=== PATIENT | female | born 1940 | race Caucasian/White ===

== ENCOUNTER → 2017-11-13 12:06 | Outpatient (CLI) | payer MEDICARE, SELFPAY ==
[2017-11-13 12:47] LABS: Basophils # 0.1 K/mm3 (0-0.2); Basophils % 0.9 % (0.1-2.0); Eosinophils # 0.1 K/mm3 (0.0-0.4); Hematocrit 41.7 % (37.0-47.0); Hemoglobin 12.9 g/dL (12.2-16.2); Lymphocytes # 1.7 K/mm3 (0.7-4.5); Mean Corpuscular Hemoglobin 28.4 pg (27.0-31.2); Mean Corpuscular Volume 91.7 fl (81-99); Mean Platelet Volume 7.2 fl (7.4-10.4); Monocytes # 0.5 K/mm3 (0.1-1.0); Neutrophils # 6.7 K/mm3 (1.8-7.8); Neutrophils % 73.1 % (37.0-80.0); Platelet Count 254 K/mm3 (142-424); Red Blood Count 4.55 M/mm3 (4.20-5.40); Red Cell Distribution Width 15.6 % (11.5-17.5); White Blood Count 9.1 K/mm3 (4.8-10.8)
== END ==
PROVIDERS: Family Provider Family Medicine; PCP Family Medicine; Visit Provider Internal Medicine Cardiovascular Disease
DX: R60.9 Edema, unspecified (principal)
CPT/HCPCS: 85025

== ENCOUNTER → 2017-11-19 16:14 | Outpatient (CLI) | payer MEDICARE, SELFPAY ==
--- NOTE | 2017-11-19 16:29 | MM_ITS ---
MM Dig screening mamm BI w/CAD CAD Screening ORDERING PHYSICIAN : Parvez Kyle MD PATIENT AGE: 77 years GENDER: Female COMPARISON: Previous mammograms: 20 INDICATION: Previous lumpectomy for malignancy right breast. No hormones no new complaints. Sibling sister with breast cancer. Also niece with breast cancer Patient was very difficult to position imaging done in a wheelchair with to technologist required to position. Patient notes she was able to stand last year but cannot stand this year. TECHNIQUE: Standard CC and MLO images were obtained. R2 CAD reviewed. RIGHT BREAST:Postlumpectomy changes right breast with prominent residual scarring and architectural distortion. Numerous vascular clips. There is been progression of overall density and findings here since 2011 however. September 2016 at 2015 study. At the deep medial right breast there is a area of minimal density seen evident at the posterior margin of the both cc view obtained today. These are more medially oriented cc views and previous study which likely accounts for this area of density becoming slightly more apparent. I believe it is likely been partially visualized and similar to studies dating back to 2013 2014; but since it is more evident on today's cc view, to be cautious I would suggest patient return for 6 month follow-up to include medial oriented cc view LEFT BREAST On the left breast appears unchanged follow-up in one year the adequate here. Asymmetric breast with Moderate residual fibroglandular elements left breast appears stable IMPRESSION: 1. Prominent architectural distortion from previous lumpectomy deep RIGHT breast. . This area stable 2. Today's cc views Right Breast including deeper portion of the medial right breast , shows slight additional additional likely glandular density at the margin of the film at medial breast.. I believe this is most likely stable, but would suggest a follow-up right mammogram with medial oriented view 6 months confirm stability . (Would also note patient was in wheelchair today & could not stand for today's images which made positioning more difficult & likely resulted in the more medial oriented cc view) 3. LEFT breast unchanged follow-up one year on left BI-RADS Category: 3 Benign Finding Short Term Follow-up Right Breast RECOMMENDED FOLLOW-UP: 6M - 6 MONTH FOLLOW-UP 6 month follow-up RIGHT BREAST including medial oriented cc view (A letter has been sent to the patient regarding results of the study.)
== END ==
PROVIDERS: Family Provider Family Medicine; PCP Family Medicine; Visit Provider Family Medicine
DX: Z12.31 Encounter for screening mammogram for malignant neoplasm of breast (principal)
CPT/HCPCS: 77067

== ENCOUNTER → 2017-11-26 14:13 | Outpatient (CLI) | payer MEDICARE, SELFPAY ==
--- NOTE | 2017-11-26 14:22 | XR_ITS ---
XR tibia fibula RT 2V CLINICAL INDICATION: ITS.REASON: PAIN IN RT BENITO ORDERING PHYSICIAN: Parvez Kyle MD PATIENT AGE: 77 years COMPARISON: None FINDINGS: There are osteoarthritic changes of the medial compartment of the knee and at the patellofemoral joint. Mid and distal aspect of the tibia and fibula have an unremarkable appearance. IMPRESSION: Osteoarthritis of the knee otherwise negative
== END ==
PROVIDERS: PCP Family Medicine; Visit Provider Family Medicine
DX: M79.661 Pain in right lower leg (principal)
CPT/HCPCS: 73590

== ENCOUNTER → 2018-06-30 12:54 | Outpatient (CLI) | payer MEDICARE, SELFPAY ==
--- NOTE | 2018-06-30 13:00 | MM_ITS ---
MM Dig mamm DX unilat RT CAD Ordering Physician: Parvez Kyle MD Patient Age: 78 years Female COMPARISON: November 2017 bilateral mammogram INDICATION: Right breast cancer with lumpectomy and radiation. TECHNIQUE: CC, axillary cc, medial cc. MLO view. FINDINGS: Post biopsy density again deep central breast t towards 12:00. Is again noted to be stable Stable Area previously questioned at the medial breast November 2017 again observed but it seems to dissipate more so on today's study. Again evident. The medial right breast which is not imaged as well on multiple old studies and better imaged on this study bilateral follow-up in 6 months to resume annual scheduled IMPRESSION: ...... Stable right mammogram. No significant new findings. Area of density deep medial right breast is stable & less concern.... As it seems to dissipates more so on today's medial cc views. Follow-up bilateral mammogram 6 months to resume meal schedule BI-RADS Category: 3 Probably Benign Finding Short Term Follow-up RECOMMENDED FOLLOW-UP: 6M 6 MONTH FOLLOW-UP A letter has been sent to the patient regarding results of the study.)
== END ==
PROVIDERS: Family Provider Family Medicine; PCP Family Medicine; Visit Provider Family Medicine
DX: R92.8 Other abnormal and inconclusive findings on diagnostic imaging of breast (principal)
CPT/HCPCS: 77065

== ENCOUNTER → 2018-12-22 15:37 | Outpatient (CLI) | payer MEDICARE, SELFPAY ==
--- NOTE | 2018-12-22 15:46 | MM_ITS ---
MM Dig screening mamm BI w/CAD ORDERING PHYSICIAN : Parvez Kyle MD PATIENT AGE: 78 years GENDER: Female COMPARISON: Bilateral mammogram. Were 2017, July 2016, April 2015. Right mammogram June 2018. INDICATION: Routine SCREENING. No hormones no new complaints Previous right lumpectomy Family history. Sister with breast cancer as well at kidneys. TECHNIQUE: Difficult to perform in position patient done in wheelchair, requiring to technologist Standard CC and MLO images were obtained. R2 CAD reviewed included. .. Additional axillary cc views bilaterally as well as additional left MLO view to include IMF. FINDINGS: Similar pattern to multiple previous studies. Moderate density Heterogeneous breast with lumpectomy changes on right RIGHT BREAST: Previous right lumpectomy and radiation with stable appearance to the residual postsurgical site of residual density and architecture distortion and been seen on studies dating back to 2012, 2011. No additional new findings LEFT BREAST:The left breast appears stable. Slight heterogeneous character again noted. 2 Clips from previous stereotactic biopsy again noted one at the anterior retroareolar region and another at the deep lateral breast. No new areas of concern on the left. Vascular calcifications. Mole markers. IMPRESSION: Stable bilateral mammogram No significant interval change. Follow-up in one year recommended The lumpectomy & postsurgical changes on right again noted, appears stable since prior studies. BI-RADS Category: 2 Benign Finding(s) RECOMMENDED FOLLOW-UP: 1YR 1 YEAR FOLLOW-UP (A letter has been sent to the patient regarding results of the study.)
== END ==
PROVIDERS: PCP Family Medicine; Visit Provider Family Medicine
DX: Z12.31 Encounter for screening mammogram for malignant neoplasm of breast (principal)
CPT/HCPCS: 77067

== ENCOUNTER → 2019-04-06 12:52 | Outpatient (CLI) | payer MEDICARE, SELFPAY ==
--- NOTE | 2019-04-06 12:58 | XR_ITS ---
XR knee RT 4V HISTORY: ITS.REASON: right knee pain ORDERING PHYSICIAN: Lissy Hughes MD PATIENT AGE: 79 years COMPARISON: 05/27/2017. FINDINGS: No fracture or dislocation. No lytic or blastic change. Normal mineralization. The severe narrowing of the medial joint compartment and patellofemoral joint with associated marginal spurs appear stable. There is no acute fracture or joint effusion. No other significant findings IMPRESSION: Stable osteoarthritis.
== END ==
PROVIDERS: PCP Family Medicine; Visit Provider Orthopaedic Surgery
DX: M25.561 Pain in right knee (principal)
CPT/HCPCS: 73564

== ENCOUNTER → 2019-04-18 10:38 | Outpatient (CLI) | payer MEDICARE, SELFPAY ==
--- NOTE | 2019-04-18 10:42 | US_ITS ---
US transvaginal HISTORY: ITS.REASON: US T/V- Post menopausal bleeding ORDERING PHYSICIAN: Prudence Dotson MD PATIENT AGE: 79 years Comparison: None FINDINGS: The uterus is 7 x 5 x 7 cm with a combined endometrial thickness of 6 mm. Nabothian cysts are present. Within the central aspect of the uterus just slightly anterior to the endometrial stripe there is a circular area of increased echogenicity with a small central lucency. Unknown clinical significance. Combined endometrial thickness is 6 mm Right ovary is 2.5 x 2 cm. Left ovary is 2.2 x 2 cm. IMPRESSION: 1. There is a small circular area of increased echogenicity just anterior to the endometrial stripe which measures 7 x 5 mm. Etiology is indeterminate 2. Endometrium is slightly thickened at 6 mm 3. Otherwise negative
== END ==
PROVIDERS: PCP Family Medicine; Visit Provider Obstetrics & Gynecology
DX: N95.0 Postmenopausal bleeding (principal)
CPT/HCPCS: 76830

== ENCOUNTER → 2019-10-13 16:27 | Outpatient (CLI) | payer MEDICARE, SELFPAY ==
--- NOTE | 2019-10-13 | XR_ITS ---
PROCEDURE: XR KNEE LT 3V CLINICAL INDICATION: BILATERAL KNEE PAIN COMPARISON: KNEE3L KNEE-3 VIEWS-LT from 04/26/2014 KNEE3R KNEE-3 VIEWS-RT from 05/27/2017 KNEE3L KNEE-3 VIEWS-LT from 08/05/2017 KNEE3L KNEE-3 VIEWS-LT from 08/16/2017 FINDINGS: No fracture or dislocation. No lytic or blastic change. There is normal mineralization. There are tricompartmental osteoarthritic changes most severe at the medial compartment moderate to severe osteoarthritic changes are present at the lateral compartment and patellofemoral joint. The osteoarthritis at the patellofemoral joint appears slightly worse compared to the previous exam. Other findings:None. IMPRESSION: Severe osteoarthritic change which is slightly worse at the patellofemoral joint compared to the previous exam Dictated by: Remy Bellamy MD 10/13/2019 19:53 Electronically signed by Remy Bellamy MD in [place] 10/13/2019 19:53
--- NOTE | 2019-10-13 | XR_ITS ---
PROCEDURE: XR CHEST 2V CLINICAL HISTORY: SHORTNESS OF BREATH; BILATERAL KNEE PAIN COMPARISON: CXR CHEST(2 VIEWS-NOT PORTABLE) from 04/10/2017 CXR CHEST(2 VIEWS-NOT PORTABLE) from 05/27/2017 CXR1 CHEST-PORTABLE from 08/05/2017 FINDINGS: There is cardiomegaly without failure. There is increased density in the right lung base which may be due to an area of atelectasis or infiltrate. There are trace bilateral effusions. Postsurgical changes right shoulder. Old left clavicular fracture IMPRESSION: Cardiomegaly with atelectasis or infiltrate in the right lung base medially with trace bilateral effusions Dictated by: Remy Bellamy MD 10/13/2019 19:55 Electronically signed by Remy Bellamy MD in [place] 10/13/2019 19:55
--- NOTE | 2019-10-13 | XR_ITS ---
PROCEDURE: XR KNEE RT 3V CLINICAL INDICATION: Knee pain COMPARISON: KNEE3L KNEE-3 VIEWS-LT from 04/26/2014 KNEE3R KNEE-3 VIEWS-RT from 05/27/2017 KNEE3L KNEE-3 VIEWS-LT from 08/05/2017 KNEE3L KNEE-3 VIEWS-LT from 08/16/2017 FINDINGS: No fracture or dislocation. No lytic or blastic change. There is normal mineralization. There are severe osteoarthritic changes of the medial compartment the and moderate osteoarthritic change of the patellofemoral joint and lateral compartment. There is a small area of calcification at the medial aspect of the lateral compartment and could be due to an osteophyte or loose body. Other findings:None. IMPRESSION: Osteoarthritis most severe at the medial compartment with small osteophyte or loose body at the lateral compartment. Overall no significant change from 08/16/2017 Dictated by: Remy Bellamy MD 10/13/2019 19:51 Electronically signed by Remy Bellamy MD in [place] 10/13/2019 19:51
== END ==
PROVIDERS: PCP Nurse Practitioner; Visit Provider Nurse Practitioner
DX: R06.02 Shortness of breath (principal); M25.562 Pain in left knee; M25.561 Pain in right knee
CPT/HCPCS: 71046; 73562

== ENCOUNTER → 2019-10-19 12:35 | Outpatient (CLI) | payer MEDICARE, SELFPAY ==
[2019-10-19 15:18] LABS: Anion Gap 14.1 mEq/L (5-15); Blood Urea Nitrogen 17 mg/dL (7-18); Calcium 8.9 mg/dL (8.5-10.1); Carbon Dioxide 31 mmol/L (21.0-32.0); Chloride 99 mmol/L (98-107); Creatinine,Serum 1.11 mg/dL (0.55-1.02); Estimated Glomerular Filt Rate 47 ml/min (>60); GFR (African American) 57 ML/MIN (>60); Glucose 136 mg/dL (74-106); Potassium 4.1 mmoL/L (3.5-5.1); Sodium 140 mmol/L (136-145)
== END ==
PROVIDERS: Visit Provider Urology
DX: R60.0 Localized edema; I11.9 Hypertensive heart disease without heart failure; R06.00 Dyspnea, unspecified; I48.20 Chronic atrial fibrillation, unspecified
CPT/HCPCS: 36415; 80048; 83880

== ENCOUNTER → 2019-12-16 17:48 | Outpatient (CLI) | payer MEDICARE, SELFPAY | PROVIDERS: Visit Provider Family Medicine | DX: Z87.440 Personal history of urinary (tract) infections (principal); R82.90 Unspecified abnormal findings in urine | CPT/HCPCS: 87086; 87088; 87186 ==

== ENCOUNTER → 2020-05-16 12:58 | Outpatient (CLI) | payer MEDICARE, SELFPAY ==
--- NOTE | 2020-05-16 13:11 | MM_ITS ---
PROCEDURE: MM DIG SCREENING MAMM BI W/CAD Patient Age:80Y CLINICAL INDICATION: SCREENING routine screening History of right breast malignancy with lumpectomy. No new complaints Family history: Niece and sister with breast cancer. . COMPARISON: MG DMSB DIG MAMM-SCREEN DORON from 03/18/2013 MG DMSB DIG MAMM-SCREEN DORON from 03/20/2014 MG DMSB DIG MAMM-SCREEN DORON from 05/10/2015 MG DMSB DIG MAMM-SCREEN DORON from 07/29/2016 MG SCBI MM Dig screening mamm BI w/CAD from 11/19/2017 MG DXRT MM Dig mamm DX unilat RT CAD from 06/30/2018 MG SCBI MM Dig screening mamm BI w/CAD from 12/22/2018 TECHNIQUE: Standard CC and MLO images were obtained. R2 CAD reviewed. Bilateral digital breast tomosynthesis included. Difficult to position patient in wheelchair. Two technologist required to position. And hold patient. FINDINGS: Moderate residual breast density elements The patient is confined to wheelchair and very difficult to position requiring 2 technologist acquiring the best images possible. However today's right MLO views are limited with less the deep right breast included than on previous studies. Cc views are of somewhat better but neither includes the deeper portions right breast as previous studies Right breast: Postsurgical changes again seen at the right again evident and what can be seen appear stable with no significant new features. Left breast: No new areas of concern. Heterogeneous breast tissue stable.. 2 small metallic marker from previous percutaneous biopsies left breast noted. Bilateral follow-up 1 year.. IMPRESSION: The patient's confined to wheelchair and was very difficult to position. RIGHT BREAST-no significant new findings but limited right breast exam Today's views include significant less of the deep right breast particularly on today's MLO views; however we see no new areas of significant concern at the visualized portions of right breast Old lumpectomy site right breast best visualized on today's CC view-with no appreciable change. longstanding scarring and distortion here. LEFT BREAST: No new areas of concern. Slightly limited MLO left breast as well. Less of the deep breast included Follow-up 1 year required bilateral (Would suggest that study be review by the radiologist at the time of the procedure to see to consider if any additional views or supplemental imaging may be useful on that follow-up exam) BI-RAD Category: 2 Benign Finding(s) FOLLOW-UP: 1YR 1 Year Follow-up (A letter has been sent to the patient regarding results of the study.) Dictated b Kevin Aguila MD 05/22/2020 16:42 Kevin Aguila MD in [place] 05/22/2020 16:42
== END ==
PROVIDERS: PCP Family Medicine; Visit Provider Family Medicine
DX: Z12.31 Encounter for screening mammogram for malignant neoplasm of breast (principal)
CPT/HCPCS: 77063; 77067

== ENCOUNTER → 2020-06-06 12:46 | Outpatient (CLI) | payer MEDICARE, SELFPAY ==
--- NOTE | 2020-06-06 12:47 | CA_ITS ---
APPROVED REPORT EXAM: Comprehensive 2D, Doppler, and color-flow Echocardiogram Construction Ironworker Helper: Estefania Jane RT(R) Ht: 5 ft 4 in Wt: 224lbs BSA: 2.05 BP: 129/80 mmHg Indications: obesity, edema, HTN, SOB, hyperlipidemia, AFIB. Patient was supine on back. Unable to roll on side. limited windows. 2D Dimensions LVOT 2.17 cm (M/F) 1.5-2.5 M-Mode Dimensions RVDd 2.42 cm (0.9-2.6) LVDd 4.84 cm (3.5-5.7) LVDs 3.40 cm (3.5-5.7) IVSd 0.98 cm (0.6-1.1) PWd 1.23 cm (0.6-1.1) EF (Teich) 56.80% FS 29.80% EDV (Teich) 109.60 mL ESV (Teich) 47.40 mL LV Diastology E/A Ratio 2.64 Mitral Valve MV A Velocity 40.00 (40-130 cm/s) Left Ventricle Left atrium is mildly enlarged, left ventricle is normal size, mild concentric left ventricular hypertrophy, visually estimated ejection fraction 55% with no regional wall motion abnormality. Diastolic parameters are inconclusive. Endocardial surfaces are poorly visualized. Right Ventricle Right atrium and right ventricle are mildly enlarged with normal contractility. Aortic Valve Aortic valve is minimally thickened and fibrosed, there is no aortic stenosis or aortic insufficiency. Mitral Valve Mitral valve leaflets are minimally thickened, there is no mitral stenosis, there is mild mitral regurgitation. Tricuspid Valve Tricuspid valve is grossly normal, there is mild tricuspid regurgitation, tricuspid regurgitation jet velocity is inadequate for calculation of the right ventricular systolic pressure. Pulmonic Valve Pulmonic valve is poorly visualized. Great Vessels Aortic root is normal size. Pericardium No significant pericardial effusion noted. Conclusion 1. Mild biatrial enlargement, normal left ventricular size, mild concentric left ventricular hypertrophy, visually estimated ejection fraction of 55% with no regional wall motion abnormality, endocardial surfaces are very poorly visualized. 2. Mildly enlarged right ventricle with normal contractility. 3. Mild mitral and tricuspid regurgitation. 4. No significant pericardial effusion noted. Electronically signed by : Peter Lam, 06/07/2020 14:56:33
== END ==
PROVIDERS: PCP Family Medicine; Visit Provider Nurse Practitioner Family
DX: E66.01 Morbid (severe) obesity due to excess calories (principal); E78.2 Mixed hyperlipidemia; I11.9 Hypertensive heart disease without heart failure; R06.02 Shortness of breath; R60.1 Generalized edema; I48.20 Chronic atrial fibrillation, unspecified
CPT/HCPCS: 93306

== ENCOUNTER → 2021-01-16 13:26 | Outpatient (CLI) | payer MEDICARE, SELFPAY ==
[2021-01-16 13:43] LABS: Basophils # 0.1 K/mm3 (0-0.2); Basophils % 0.8 % (0.1-2.0); Eosinophils # 0.1 K/mm3 (0.0-0.4); Eosinophils % 1.1 % (0.1-12.0); Hematocrit 41.1 % (37.0-47.0); Hemoglobin 12.5 g/dL (12.2-16.2); Lymphocytes # 1.8 K/mm3 (0.7-4.5); Lymphocytes % 21.5 % (10-50); Mean Corpuscular HGB Conc 30.5 g/dL (31.8-35.4); Mean Corpuscular Hemoglobin 29.3 pg (27.0-31.2); Mean Corpuscular Volume 96.1 fl (81-99); Mean Platelet Volume 8.2 fl (7.4-10.4); Monocytes # 0.5 K/mm3 (0.1-1.0); Monocytes % 5.8 % (1.7-9.3); Neutrophils # 5.9 K/mm3 (1.8-7.8); Neutrophils % 70.8 % (37.0-80.0); Platelet Count 267 K/mm3 (142-424); Red Blood Count 4.27 M/mm3 (4.20-5.40); Red Cell Distribution Width 14.8 % (11.5-17.5); White Blood Count 8.3 K/mm3 (4.8-10.8)
== END ==
PROVIDERS: Visit Provider Urology
DX: E66.01 Morbid (severe) obesity due to excess calories (principal); E78.2 Mixed hyperlipidemia; I11.9 Hypertensive heart disease without heart failure; R06.02 Shortness of breath; R60.1 Generalized edema; Z68.36 Body mass index [BMI] 36.0-36.9, adult; I48.20 Chronic atrial fibrillation, unspecified
CPT/HCPCS: 36415; 85025

== ENCOUNTER 2021-02-14 20:37 | Emergency (ER) | payer MEDICARE, SELFPAY ==
[2021-02-14 20:55] VITALS: BP 129/50; PULSE 60; RESP 16; TEMP 36.6; O2SAT 98; BMI 36.0
--- NOTE | 2021-02-14 21:02 | XR_ITS ---
PROCEDURE INFORMATION: Exam: XR Chest Exam date and time: 02/14/2021 9:02 PM Age: 81 years old Clinical indication: Patient HX: Cough, patient immobile, cannot stand, done in wheelchair. TECHNIQUE: Imaging protocol: XR of the chest. Views: 2 views. COMPARISON: CR XR CHEST PORTABLE 12/25/2019 7:21 PM FINDINGS: Lungs: Calcified granuloma within the right midlung zone. Minimal bibasilar atelectasis. Pleural spaces: Unremarkable. No pleural effusion. No pneumothorax. Heart/Mediastinum: Cardiomegaly. Vasculature: Atherosclerotic disease of the thoracic aorta. Bones/joints: Degenerative changes of the glenohumeral and acromioclavicular joints. Mild multilevel thoracic spine degenerative disc space narrowing. Soft tissues: Soft tissue anchors in the right humeral head related to prior rotator cuff repair. Surgical clips within the right breast. IMPRESSION: No acute cardiopulmonary abnormality.
--- NOTE | 2021-02-14 21:11 | HMH.EDUTC ---
[facility] [place] Disposition Clinical Impression: Epistaxis Disposition: Home, Self-Care Condition on Discharge: Good Instructions: Nosebleed, DI for Nosebleed, Oxymetazoline Nasal [place] Additional Instructions: Use afrin if you start having a nose bleed as you was instructed by Dr Lock Return to ER if you start having a nose bleed that is not easily controlled or heavy bleeding Return if needed Call your Family Doctor and follow up if possible tomorrow for further evaluation and discuss chest xray Straight to ER if any life threatening symptoms Follow up with Dr Lock if needed Referrals: Parvez Kyle MD [Primary Care Provider] - As needed Time of Disposition: 22:02 Medical Decision Making - Tre Inquiry Pt receiving controlled substance: No Tre was queried for this patient: No Vital Signs: 02/14/21 20:55 02/14/21 21:45 Temperature 97.8 F 97.8 F Temperature Source Oral Tympanic Pulse Rate 63 Pulse Rate [Right Radial] 60 Respiratory Rate 16 16 Blood Pressure 132/59 L Blood Pressure [Right Arm] 129/50 L Blood Pressure Mean [Right Arm] 76 02 Sat by Pulse Oximetry 98 Oxygen Delivery Method Room Air Orders (Tests/Meds): ED MEDICATIONS Discontinued Medications Generic Name Dose Route Start Last Admin Trade Name Freq PRN Reason Stop Dose Admin Oxymetazoline HCl 1 ml 02/14/21 21:03 02/14/21 21:17 Oxymetazoline Nasal [place] 0.05% 15ml NS 02/14/21 21:04 2 sprays ONCE ONE Administration - Radiology Data #1 Image(s): Chest Image Reviewed: Yes I reviewed the patient's radiology image w/the ED provider No acute changes noted - Physician Consults Physician Consulted: Dr Lock Time: 21:10 Reason -: ENT Eval/Care Comment/Response: Spoke with Dr Lock and he advised that when he saw patient earlier today she had no dried blood or active Bleeding informed him that patient did not tack picker afrin advised to give one spray in each nostril Also advised that patient had told him that she coughed up small amount of blood and he had told her to follow up with PCP for CXR and may do that in the [facility] Medical Decision Narrative: Patient had no active bleeding in the [facility], patient did have dried blood noted on the outside of her nostril with small amount of blood noted in back of throat suggesting possible posterior nose bleed but no active bleeding at this moment Afrin applied in each nostril and no active bleeding in [place] [facility] HPI - General Stated complaint: reoccuring nose bleeds Time Seen by Provider: 02/14/21 21:11 Mode of Arrival: Ambulatory Source of Information: Patient Limitations: No Limitations Description of Symptoms (Recalled from Triage Doc. by RN): Nose bleeds for a few days, right side. HEENT Symptoms (Recalled from RN notes): Yes Resp Symptoms (Recalled from RN notes): No Skin Symptoms (Recalled from RN notes): No MS Symptoms (Recalled from RN notes): No Functional Status (Recalled from RN notes): na - History of Present Illness Provider Complaint: Patient son states that she has been having nose bleeds on and off for several days State that she seen Dr Lock earlier today but nose was not bleeding and he told her to get 2 sprays for her nose one to lubricate her and afrin if she started having nose bleed again States that she got the lubricating one but didnt get the afrin State that after she got home she had a couple more mild nose bleeds so the son brought her back into the [facility] to see if she could get something for the nose bleeds - Related Data Home Medications Medication Instructions Recorded Confirmed acetaminophen 500 mg tablet 500 mg PO Q6H PRN 10/19/17 02/14/21 chlordiazepoxide HCl 10 mg capsule 10 mg PO BID PRN cap 10/19/17 02/14/21 escitalopram oxalate 10 mg tablet 10 mg PO QDAY 10/19/17 02/14/21 potassium chloride 10 mEq 10 meq PO QDAY 10/19/17 02/14/21 tablet,extended release trazodone 150 mg tablet 150 mg PO QHS 10/19/17 02/14/21 cyanocobalamin (
[2021-02-14 21:45] VITALS: BP 132/59; PULSE 63; RESP 16; TEMP 36.6
== END 2021-02-14 22:15 | disposition home or self-care (01) ==
PROVIDERS: Emergency Provider Nurse Practitioner; PCP Family Medicine
DX: R04.0 Epistaxis (principal); I48.91 Unspecified atrial fibrillation; E78.5 Hyperlipidemia, unspecified; I10 Essential (primary) hypertension; Z88.0 Allergy status to penicillin; Z79.899 Other long term (current) drug therapy
CPT/HCPCS: G0463; 71046; 99202

== ENCOUNTER 2021-02-23 12:43 | Emergency (ER) | payer MEDICARE, SELFPAY ==
[2021-02-23 13:15] VITALS: BP 113/64; PULSE 64; RESP 18; TEMP 37.1; O2SAT 96; BMI 36.0
--- NOTE | 2021-02-23 13:28 | HMH.EDUTC ---
[facility] [place] Dis[place] Clinical Impression: Epistaxis Disposition: Home, Self-Care Condition on Discharge: Good Instructions: Nosebleeds (Alternative Therapy), Nosebleed, DI for Nosebleed Additional Instructions: DO not pick your nose this can start bleeding Follow up with Dr Lock on Thursday If you have a nose bleed in the future Sit up and lean forward: This will help prevent you from swallowing blood. Spit blood and saliva into a bowl. Apply pressure to your nose: Use 2 fingers to pinch your nose as you was shown in the [facility]. This will help stop the bleeding. Breathe through your mouth Apply ice: Use a cold pack or put crushed ice in a bag, cover with a towel, and place on the bridge of your nose Prevent epistaxis: Avoid nose picking and blowing your nose too hard: You can irritate or damage your nose if you pick it. Blowing your nose too hard may cause the bleeding to start again. Avoid irritants: Substances that can irritate your nose should be avoided. These include tobacco smoke and chemical sprays such as deposit clerk that contain ammonia. Use a cool mist humidifier in your home: This will add the moisture to the air and help keep your nose moist. Use nose spray that was prescribed by Dr Lock as directed Straight to ER if any life threatening symptoms Follow up with Dr Lock on Thursday at 1:00pm for removal of Rapid Rhino and further evaluation Return if needed Referrals: Parvez Kyle MD [Primary Care Provider] - As needed Luis M Lock MD [Staff Physician] - 02/25/21 1:00 pm Time of Disposition: 13:39 Medical Decision Making - Tre Inquiry Pt receiving controlled substance: No Tre was queried for this patient: No Vital Signs: 02/23/21 13:15 02/23/21 13:37 Temperature 98.7 F 98 F Temperature Source Oral Pulse Rate 61 Pulse Rate [Right] 64 Respiratory Rate 18 16 Blood Pressure 114/62 Blood Pressure [Right Arm] 113/64 Blood Pressure Mean [Right Arm] 80 Blood Pressure Source [Right Arm] Automatic Cuff Blood Pressure Position [Right Arm] Sitting 02 Sat by Pulse Oximetry 96 Orders (Tests/Meds): ED MEDICATIONS Discontinued Medications Generic Name Dose Route Start Last Admin Trade Name Freq PRN Reason Stop Dose Admin Oxymetazoline HCl 1 ml 02/23/21 13:32 02/23/21 13:36 Oxymetazoline Nasal [place] 0.05% 15ml NS 02/23/21 13:33 1 spray ONCE ONE Administration - Physician Consults Physician Consulted: Dr Lock Time: 14:21 Reason -: ENT Eval/Care Comment/Response: Spoke with Dr Lock and informed him of placement of Rapid Rhino and he advised to leave it in place and he would see her in his office on Thursday for removal and further evaluation Medical Decision Narrative: small amount of blood noted under index finger nail of right hand Patient educated to not pick her nose as this could start bleeding Patient educated to not hold head back as this could lead to swallowing blood and upsetting her stomach No active bleeding noted 1 spray of afrin in right nostril dried blood noted in right nostril Patient educated to not blow nose or clear her nasal passages as this could start the nose to bleeding again and recommended follow up with Dr Lock on Thursday and follow up with PCP and patient and family agreed Just prior to discharge bleeding from right nostril started again, applied pressure and ice and still having bleeding Dr Higgins ED physician came to [facility] and assisted with placement of Rapid Rhino to help with bleeding, Rapid Rhino was placed in cool water for 30sec and then placed along septal floor parallel to the hard palate with blue indicator past the nares and balloon inflated will monitor to make sure that bleeding is stopped and controlled prior to discharge Patient tolerated well Reassessed patient after 15min balloon still taught and firm no active bleeding noted and none seen in back of throat at this time Patient educated to follow up with Dr Lock on Thursday for removal and furth
[2021-02-23 13:37] VITALS: BP 114/62; PULSE 61; RESP 16; TEMP 36.6
--- NOTE | 2021-02-23 14:06 | PC.NURSE ---
pt states she has been havin problems with epistaxis since she was started on her blood thinner by Dr. Piper. instructed pt to give his nurse a call thursday to update them on changes since starting the new med. pt and son states they will call and follow up.
== END 2021-02-23 14:45 | disposition home or self-care (01) ==
PROVIDERS: Emergency Provider Nurse Practitioner; PCP Family Medicine
DX: R04.0 Epistaxis (principal); I48.91 Unspecified atrial fibrillation; I50.9 Heart failure, unspecified; I10 Essential (primary) hypertension; E78.5 Hyperlipidemia, unspecified; Z79.899 Other long term (current) drug therapy; Z88.0 Allergy status to penicillin
CPT/HCPCS: 30901; G0463; 99202

== ENCOUNTER → 2021-05-28 13:10 | Outpatient (CLI) | payer MEDICARE, SELFPAY ==
--- NOTE | 2021-05-28 13:26 | MM_ITS ---
PROCEDURE: MM DIG SCREENING MAMM BI W/CAD Digital Breast Tomosynthesis Included CLINICAL INDICATION: SCREENING C COMPARISON: MG DXRT MM Dig mamm DX unilat RT CAD from 06/30/2018 MG SCBI MM Dig screening mamm BI w/CAD from 12/22/2018 MG MM DIG SCREENING MAMM BI W/CAD from 05/16/2020 TECHNIQUE: Standard CC and MLO images and 3D Tomosynthesis was obtained. R2 CAD reviewed. FINDINGS: Evaluation of the breasts is very limited due to patient's inability to be properly positioned. The MLO views are very limited with inadequate breast coverage due to patient's inability to be properly position. A right MLO tomogram could not be performed as patient's chin was in the way. Postsurgical scarring with clips once again noted in the deep upper outer aspect of the right breast. Biopsy clips are present in the retroareolar region on the left and in the upper outer left breast. No malignant appearing microcalcifications or malignant-appearing mass evident. IMPRESSION: Very limited study due to patient's inability to be properly position. No evidence of malignancy with no significant change. Postsurgical scarring right breast. Please correlate with physical exam BI-RAD Category: 2 Benign Finding FOLLOW-UP: 1 YR 1 Year Follow-up (A letter has been sent to the patient regarding results of the study.) Dictated by: Remy Bellamy MD 06/07/2021 12:02 Remy Bellamy MD in [place] 06/07/2021 12:02
[2021-05-28 16:43] LABS: Chloride 94 mmol/L (98-107); Potassium 3.8 mmoL/L (3.5-5.1); Sodium 140 mmol/L (136-145)
[2021-05-28 16:45] LABS: Alanine Aminotransferase 10 U/L (12-78); Aspartate Amino Transferase 23 U/L (14-36); Blood Urea Nitrogen 12 mg/dl (7-17); Estimated Glomerular Filt Rate 53 ml/min (>60); GFR (African American) 64 ML/MIN (>60)
[2021-05-28 16:46] LABS: Albumin Level 4.2 g/dl (3.5-5.0); Albumin/Globulin Ratio 1.6 (1.1-1.8); Alkaline Phosphatase 97 U/L (38-126); Anion Gap 13.8 mEq/L (5-15); Bilirubin,Total 0.5 mg/dl (0.2-1.3); Calcium 9.1 mg/dl (8.4-10.2); Carbon Dioxide 36 mmol/L (22.0-30.0); Globulin 2.6 g/dL (1.3-3.2); Glucose 126 mg/dl (74-100); Total Protein,Serum 6.8 g/dl (6.3-8.2)
[2021-05-28 16:56] LABS: NT Pro Brain Natriuretic Pep. 1930 pg/mL (0-450)
[2021-05-28 17:17] LABS: Thyroid Stimulating Hormone 1.37 uIU/mL (0.465-4.68)
== END ==
PROVIDERS: PCP Family Medicine; Visit Provider Family Medicine
DX: Z12.31 Encounter for screening mammogram for malignant neoplasm of breast (principal); I10 Essential (primary) hypertension; R06.02 Shortness of breath
CPT/HCPCS: 77063; 77067; 80053; 83880; 84443

== ENCOUNTER 2021-06-26 16:39 | Emergency (ER) | payer MEDICARE, SELFPAY ==
[2021-06-26 16:59] VITALS: BP 122/46; PULSE 72; RESP 16; TEMP 36.6; O2SAT 96; BMI 35.9
--- NOTE | 2021-06-26 17:33 | HMH.EDUTC ---
[facility] – [place] Disposition Clinical Impression: Epistaxis Disposition: Home, Self-Care Condition on Discharge: Good Instructions: Nosebleed, DI for Nosebleed Additional Instructions: Do not remove Follow up with your Family Doctor or Dr Lock for further evaluation and removal of Rapid Rhino in the next 24-48 hours Return if needed Straight to ER if any life threatening symptoms Referrals: Parvez Kyle MD [Primary Care Provider] - As needed Luis M Lock MD [Staff Physician] - Time of Disposition: 18:22 Medical Decision Making - Tre Inquiry Pt receiving controlled substance: No Tre was queried for this patient: No Vital Signs: 06/26/21 16:59 Temperature 98 F Temperature Source Temporal Artery Scan Pulse Rate [Left] 72 Respiratory Rate 16 Blood Pressure [Right Arm] 122/46 L Blood Pressure Mean [Right Arm] 71 02 Sat by Pulse Oximetry 96 Medical Decision Narrative: Bleeding had stopped momentarily but then started back therefore discussed with patient and will place Rapid Rhino for bleeding control and have patient follow up with Family Doctor or Dr Lock Rapid Rhino placed and patient tolerated well [facility] [place] HPI - General Stated complaint: nose bleed since 1500 Time Seen by Provider: 06/26/21 17:33 Mode of Arrival: Ambulatory Source of Information: Patient Limitations: No Limitations Description of Symptoms (Recalled from Triage Doc. by RN): PT C/O A NOSE BLEED SINCE AROUND 1500. PT REPORTS USING AFRIN AT 1530 WITHOUT RELIEF. PT IS STILL BLEEDING FROM HER RIGHT NOSTRIL MINIMALLY. HEENT Symptoms (Recalled from RN notes): Yes (R NOSTRIL NOSE BLEED) Resp Symptoms (Recalled from RN notes): No Skin Symptoms (Recalled from RN notes): No MS Symptoms (Recalled from RN notes): No Functional Status (Recalled from RN notes): NA - History of Present Illness Provider Complaint: Patient states that she has history of nose bleeds but hasnt had one for awhile States that around 1500 today she started having bleeding from her right nostril again States that she used afrin like she was told too and it slowed the bleeding down but she is still having some bleeding so she came in to get it checked and get it plugged like last time if needed - Related Data Home Medications Medication Instructions Recorded Confirmed acetaminophen 500 mg tablet 500 mg PO Q6H PRN 10/19/17 04/17/21 chlordiazepoxide HCl 10 mg capsule 10 mg PO BID PRN cap 10/19/17 04/17/21 escitalopram oxalate 10 mg tablet 10 mg PO QDAY 10/19/17 04/17/21 potassium chloride 10 mEq 10 meq PO QDAY 10/19/17 04/17/21 tablet,extended release trazodone 150 mg tablet 150 mg PO QHS 10/19/17 04/17/21 cyanocobalamin (vitamin B-12) 1 tab PO DAILY 30 Days #30 04/27/18 04/17/21 1,000 mcg tablet allopurinol 100 mg tablet 100 mg PO DAILY 30 Days #30 tab 03/02/19 04/17/21 famotidine 20 mg tablet 20 mg PO DAILY 30 Days #30 tab 06/01/19 04/17/21 meloxicam 7.5 mg tablet 7.5 mg PO DAILY 30 Days #30 tab 06/01/19 04/17/21 Aspirin [Low Dose Aspirin EC] 81 mg PO DAILY 12/25/19 04/17/21 cholecalciferol (vitamin D3) 125 5,000 unit PO .twice weekly 28 11/19/20 04/17/21 mcg (5,000 unit) capsule Days #28 cap zfxxmdhp-vtjxydnvw-kgmklkqxm 3.5 3 drp OTIC ml 02/14/21 04/17/21 mg-10,000 unit/mL-1 % ear drops,susp metoprolol succinate 25 mg 25 mg PO DAILY 06/19/21 06/19/21 tablet,extended release 24 hr Previous Rx's Medication Instructions Recorded ofloxacin 0.3 % ear drops 3 drp OTIC BID #5 ml 04/08/21 atorvastatin 20 mg tablet 20 mg PO QDAY #90 tab 04/18/21 furosemide 20 mg tablet 60 mg PO DAILY #270 tab 04/18/21 diltiazem HCl 360 mg capsule,24 360 mg PO DAILY #90 cap 05/17/21 hr,extended release rivaroxaban 20 mg tablet 20 mg PO DAILY #30 tab 06/18/21 Allergies Allergy/AdvReac Type Severity Reaction Status Date / Time Penicillins [PENICILLINS] Allergy Intermediate I-RASH Verified 06/19/21 13:58 hydrocortisone Allergy Unknown I-RASH Verified 06/19/21 13:58
[2021-06-26 18:32] VITALS: BP 122/46; PULSE 72; RESP 18; TEMP 36.6; O2SAT 96
[2021-06-26 18:36] VITALS: BP 00/00; PULSE 0; RESP 0; TEMP -17.7; TEMP 0
--- NOTE | 2021-06-26 18:39 | PC.NURSE ---
RHINO ROCKET INSERTED INTO R NARE.
== END 2021-06-26 18:39 | disposition home or self-care (01) ==
PROVIDERS: Emergency Provider Nurse Practitioner; PCP Family Medicine
DX: R04.0 Epistaxis (principal); I48.0 Paroxysmal atrial fibrillation; I50.9 Heart failure, unspecified; I10 Essential (primary) hypertension; E78.5 Hyperlipidemia, unspecified; Z79.899 Other long term (current) drug therapy
CPT/HCPCS: 30901; G0463; 99202

== ENCOUNTER 2021-10-06 12:08 | Emergency (ER) | payer MEDICARE, SELFPAY ==
[2021-10-06 14:30] VITALS: BP 146/83; PULSE 73; RESP 20; TEMP 36.8; O2SAT 95; BMI 34.3
--- NOTE | 2021-10-06 15:04 | HMH.EDUTC ---
[facility] – [place] Disposition Clinical Impression: Bronchitis Disposition: Home, Self-Care Condition on Discharge: Good Instructions: Acute Bronchitis, DI for Acute Bronchitis Additional Instructions: Start antibiotic today. Be sure to complete entire prescription even if feeling better Tylenol and ibuprofen as needed for pain or fever Humidifier/vaporizer/hot steamy shower Follow-up with primary care tomorrow. Follow-up immediately in the ER of the [facility] for new or worsening symptoms or no noticeable improvement over the next 48-72 hours. Stop smoking Ayana Lao will not cause drowsiness to use at bedtime to help stop cough so that she can get some sleep Start steroids tomorrow. Helps with inflammation therefore coughing and wheezing. Follow directions on package. Prescriptions: Azithromycin [Zithromax 250mg tab] 250 mg PO DIRECTED #6 tab Prescription Printed Referrals: Parvez Kyle MD [Primary Care Provider] - Time of Disposition: 15:22 Medical Decision Making - Tre Inquiry Pt receiving controlled substance: No Vital Signs: 10/06/21 14:30 Temperature 98.3 F Temperature Source Oral Pulse Rate [Right Brachial] 73 Respiratory Rate 20 Blood Pressure [Right Arm] 146/83 H Blood Pressure Mean [Right Arm] 104 Blood Pressure Source [Right Arm] Automatic Cuff Blood Pressure Position [Right Arm] Sitting 02 Sat by Pulse Oximetry 95 Oxygen Delivery Method Room Air Orders (Tests/Meds): ORDERS Category Date Time Status Covid-19 Nasal PCR ([facility]) Routine Lab 10/06/21 14:[address] [facility] [place] HPI - General Chief complaint: Urgent Treatment Center Stated complaint: congestion, cough, Time Seen by Provider: 10/06/21 15:04 Mode of Arrival: Ambulatory Source of Information: Patient Limitations: No Limitations Description of Symptoms (Recalled from Triage Doc. by RN): PATIENT C/O COUGH AND CONGESTION SINCE YESTERDAY. RECENTLY EXPOSED TO COVID HEENT Symptoms (Recalled from RN notes): Yes Resp Symptoms (Recalled from RN notes): Yes Skin Symptoms (Recalled from RN notes): No MS Symptoms (Recalled from RN notes): No Functional Status (Recalled from RN notes): WNL - History of Present Illness Provider Complaint: 81 yr old female presents for deep cough and congestions since yesterday. has been exposed to covid. had covid 2 months ago - Related Data Home Medications Medication Instructions Recorded Confirmed acetaminophen 500 mg tablet 500 mg PO Q6H PRN 10/19/17 06/27/21 chlordiazepoxide HCl 10 mg capsule 10 mg PO BID PRN cap 10/19/17 06/27/21 escitalopram oxalate 10 mg tablet 10 mg PO QDAY 10/19/17 06/27/21 potassium chloride 10 mEq 10 meq PO QDAY 10/19/17 06/27/21 tablet,extended release trazodone 150 mg tablet 150 mg PO QHS 10/19/17 06/27/21 cyanocobalamin (vitamin B-12) 1 tab PO DAILY 30 Days #30 04/27/18 06/27/21 1,000 mcg tablet allopurinol 100 mg tablet 100 mg PO DAILY 30 Days #30 tab 03/02/19 06/27/21 famotidine 20 mg tablet 20 mg PO DAILY 30 Days #30 tab 06/01/19 06/27/21 meloxicam 7.5 mg tablet 7.5 mg PO DAILY 30 Days #30 tab 06/01/19 06/27/21 Aspirin [Low Dose Aspirin EC] 81 mg PO DAILY 12/25/19 06/27/21 cholecalciferol (vitamin D3) 125 5,000 unit PO .twice weekly 28 11/19/20 06/27/21 mcg (5,000 unit) capsule Days #28 cap iipmicfz-ufqqpyacn-aggdlmfqd 3.5 3 drp OTIC ml 02/14/21 06/27/21 mg-10,000 unit/mL-1 % ear drops,susp metoprolol succinate 25 mg 25 mg PO DAILY 06/19/21 06/27/21 tablet,extended release 24 hr metoprolol succinate 50 mg 50 mg PO DAILY tab 06/27/21 06/27/21 tablet,extended release 24 hr sulfamethoxazole 800 1 tab PO tab 06/27/21 06/27/21 mg-trimethoprim 160 mg tablet Previous Rx's Medication Instructions Recorded ofloxacin 0.3 % ear drops 3 drp OTIC BID #5 ml 04/08/21 atorvastatin 20 mg tablet 20 mg PO QDAY #90 tab 04/18/21 furosemide 20 mg tablet 60 mg PO DAILY #270 tab 04/18/21 diltiazem HCl 360 mg capsule,24 360 mg PO DAILY #90 cap 05/17/21 hr
[2021-10-06 15:17] LABS: UTC Influenza A Antigen Negative (Negative)
[2021-10-06 15:18] LABS: UTC Influenza B Antigen Negative (Negative)
[2021-10-06 15:24] VITALS: BP 146/83; PULSE 73; RESP 20; TEMP 36.8; O2SAT 95
== END 2021-10-06 15:26 | disposition home or self-care (01) ==
PROVIDERS: Emergency Provider Nurse Practitioner Family; PCP Family Medicine
DX: J20.9 Acute bronchitis, unspecified (principal); I48.0 Paroxysmal atrial fibrillation; I10 Essential (primary) hypertension; E78.5 Hyperlipidemia, unspecified; Z20.822 Contact with and (suspected) exposure to COVID-19; Z79.899 Other long term (current) drug therapy
CPT/HCPCS: G0463; 87804; 99202; C9803; U0003; U0005

== ENCOUNTER → 2022-03-20 11:32 | Outpatient (CLI) | payer MEDICARE, SELFPAY ==
--- NOTE | 2022-03-20 | CA_ITS ---
APPROVED REPORT Exam: Pharmacologic Technologist: Svetlana Stallings, Ht: 5 ft 4 in Wt: 203 lbs BSA: 1.97 m2 HR: 100 bpm BP: 110/88 mmHg Rhythm: Afib with RVR, intermittent LBBB Indications: SOA, EDEMA Medical History Medical History: HTN, Hyperlipidemia Medications: Metoprolol,,,,, Vitamin B12,,,,, Vitamin D3,,,,, Allopurinol,,,,, Atorvastatin,,,,, Escitalopram,,,,, XaRELTO,,,,, MeLOXICAM,,,,, Famotidine,,,,, DilTiazem,,,,, Trazodone,,,,, CHlordiazepoxide,,,,, Cardiac Risk Factors: HTN, Hyperlipidemia Stress Test Details Test: LEXISCAN HR Resting HR: 126 bpm Max Heart Rate (APMHR): 136.518437 bpm Max HR Achieved: 168 bpm Target HR (85% APMHR): 115.725965 bpm % of APMHR: 123.53 Recovery HR: 135 bpm BP Resting BP: 110/88 mmHg Max BP: 145/84 mmHg Recovery BP: 103.0/74.0 mmHg ECG Resting ECG: Afib with RVR, intermittent LBBB Clinical Exercise duration: 04:16 min Highest Stage Achieved: Exercise capacity: 1.0 METs Stress ECG Conclusion During lexiscan pt experinced mild stomach discomfort, mild head discomfort. Afib with RVR, intermittent LBBB. No significant ST changes. Non diagnostic lexiscan stress. Myoview images reported separately. Test Summary REST . . . . . . . Sitting REST 07:10 . . 126 . 110/ 88 . . Stage 1 01:00 . . 84 . . . . Stage 2 01:00 . . 146 . . . . Stage 3 01:00 . . 133 . . . . Stage 4 01:00 . . 129 . . . . Stage 4 01:16 . . 149 . . . Stop exercise at 04:16 RECOVERY 01:00 . . 121 . . . . RECOVERY 02:00 . . 135 . 145/ 84 . . RECOVERY 03:00 . . 111 . 145/ 84 . . RECOVERY 04:00 . . 143 . 145/ 84 . . RECOVERY 05:00 . . 126 . 145/ 84 . . RECOVERY 06:00 . . 135 . 103/ 74 . . RECOVERY 07:00 . . 139 . 103/ 74 . . RECOVERY 08:00 . . 135 . 103/ 74 . . RECOVERY 09:00 . . 120 . 103/ 73 . . RECOVERY 10:00 . . 139 . 103/ 73 . . RECOVERY 10:11 . . 146 . 103/ 73 . . Electronically signed by : Peter Lam MD 03/21/2022 11:14:57
--- NOTE | 2022-03-20 11:32 | NM_ITS ---
APPROVED REPORT Exam: Nuclear Stress Test Indication: CAD, CABG, C.P. Patient Location: Outpatient Stress Tech: Svetlana RIVAS Tech:DBERA Rush RT (R)(N)(M) Ht: 5 ft 4 in Wt: 205 lbs Bra Size: 38DD HR: 100 bpm BP: 110/88 mmHg BSA: 1.98 m2 TID: 1.04 BMI: 35.1 History: CAD, CABG, C.P. PT WAS UNABLE TO LAY ON STOMACH FOR PRONE IMAGES Procedure: Patient received a 0.4 mg of intravenous Lexiscan, resting heart rate 100 bpm, resting blood pressure 110/88 mmHg, with Lexiscan maximum heart rate achived was 133 bpm which is More than 85 % of the maximum predicted heart rate and blood pressure was 145/84 mmHg. With Lexiscan, patient denied any complaint of chest pain. Electrocardiogram Atrial fibrillation incomplete left bundle branch block, with Lexiscan there is less than 1.[address] segment depression noted from the baseline EKG. The EKG portion of the Lexiscan is nondiagnostic due to abnormal baseline EKG. Cardiac Stress and Resting SPECT Images: Cardiac Stress and Resting SPECT images were obtained using technetium 99m Myoview 30.1 mCi stress and 10.18 mCi at rest. Gated SPECT for analysis of segmental wall motion and calculation of the ejection fraction also done. Cardiac stress and rest SPECT images show uniform myocardial activity without segmental perfusion abnormality, computer derived ejection fraction is 24% with left ventricular global hypokinesis, however during study patient was in atrial fibrillation which may underestimate the ejection fraction by gated SPECT. Right ventricle is normal size and contractility. Conclusion: 1. The EKG portion of the Lexiscan is nondiagnostic. 2. No scintigraphic evidence of reversible ischemia seen, compared right ejection fraction is 24% with left ventricular global hypokinesis, however during the study patient was in atrial fibrillation which may underestimate the ejection fraction by gated SPECT. Right ventricle is normal size and contractility. 3. Abnormal Lexiscan Myoview study due to low ejection fraction. Electronically signed by : Peter Lam MD 03/21/2022 11:26:01
--- NOTE | 2022-03-20 12:34 | CA_ITS ---
APPROVED REPORT EXAM: Comprehensive 2D, Doppler, and color-flow Echocardiogram Incendiary Powder Mixer: Sujata Tejada, RCS, RVS Ht: 5 ft 4 in Wt: 204lbs BSA: 1.97 BP: 125/63 mmHg Indications: A-FIB, SAOA, PRE-OP, CHF 2D Dimensions Aortic Root 2.27 cm LA Volume 74.00 mL Left Atrium 3.93 cm LA Volume Index 37.60 mL/m2 (M/F) 16-34 LVOT 1.97 cm (M/F) 1.5-2.5 M-Mode Dimensions RVDd 1.85 cm (0.9-2.6) LA Diam 4.32 cm (1.9-4.0) LVDd 5.19 cm (3.5-5.7) Ao Diam 2.46 cm (2.0-3.7) LVDs 3.90 cm (3.5-5.7) IVSd 0.93 cm (0.6-1.1) PWd 1.05 cm (0.6-1.1) EF (Teich) 48.90% EPSs 0.81 cm FS 24.90% EDV (Teich) 128.90 mL TAPSE 1.73 (<1.7) ESV (Teich) 65.90 mL LV Diastology E Decel Time 183.00 (160-240 msec) E/A Ratio 2.17 Aortic Valve LVOT Max 74.00 (70-110 cm/s) LVOT VTI 14.97 cm AoV Peak Fabian. 129.00 (50-130 cm/s) AO Peak GR. 6.70 mmHg AO Mean GR. 3.40 (<5 mmHg) AO VTI 22.08 (18-25 cm) DARLING (VTI) 2.07 (2.5-4.5 cm2) Mitral Valve MV E Max Fabian. 110.00 (40-130 cm/s) MV A Velocity 50.00 (40-130 cm/s) E/A Ratio 2.17 MV Decel. Time 183.00 (160-240 ms) MV PHT 54.00 ms Pulmonary Valve PV Peak Velocity 52.00 (50-150 cm/s) Left Ventricle Left atrium is mildly enlarged, left ventricle is normal size, mild concentric left ventricular hypertrophy, estimated ejection fraction 50% with no regional wall motion abnormality, diastolic parameters are inconclusive. Right Ventricle Right atrium and right ventricle are mildly enlarged with normal contractility. Aortic Valve Aortic valve is minimally thickened and fibrosed there is no aortic stenosis or aortic insufficiency. Mitral Valve Mitral valve is grossly normal, there is mild mitral regurgitation. Tricuspid Valve Tricuspid valve grossly normal, there is mild tricuspid regurgitation, tricuspid regurgitation jet velocity is inadequate for calculation of the right ventricular systolic pressure. Pulmonic Valve Pulmonic valve is poorly visualized. Great Vessels Aortic root is normal size. Inferior vena cava is poorly visualized. Pericardium No significant pericardial effusion noted. Conclusion 1. Mild biatrial enlargement, normal left ventricular size, mild concentric left ventricular hypertrophy, estimated ejection fraction 50% with no regional wall motion abnormality, diastolic parameters are inconclusive. 2. Mildly enlarged right ventricle with normal contractility. 3. Mild mitral and tricuspid regurgitation. 4. No significant pericardial effusion. 5. Inferior vena cava is poorly visualized. Electronically signed by : Peter Lam MD 03/21/2022 12:38:28
== END ==
PROVIDERS: PCP Family Medicine; Visit Provider Nurse Practitioner Family
DX: E66.9 Obesity, unspecified (principal); E78.5 Hyperlipidemia, unspecified; I11.9 Hypertensive heart disease without heart failure; R06.00 Dyspnea, unspecified; R60.0 Localized edema; I48.20 Chronic atrial fibrillation, unspecified; Z68.36 Body mass index [BMI] 36.0-36.9, adult
CPT/HCPCS: 78452; 93017; 93306; A9502; J2785

== ENCOUNTER → 2022-04-09 11:39 | Outpatient (CLI) | payer MEDICARE, SELFPAY | PROVIDERS: PCP Family Medicine; Visit Provider Nurse Practitioner Family | DX: Z01.812 Encounter for preprocedural laboratory examination (principal); Z20.822 Contact with and (suspected) exposure to COVID-19 | CPT/HCPCS: C9803; U0003; U0005 ==

== ENCOUNTER → 2022-04-25 16:52 | Outpatient (CLI) | payer MEDICARE, SELFPAY | PROVIDERS: PCP Nurse Practitioner Family; Visit Provider Nurse Practitioner Family | DX: S31.40XA Unspecified open wound of vagina and vulva, initial encounter (principal); B95.7 Other staphylococcus as the cause of diseases classified elsewhere | CPT/HCPCS: 87070; 87077; 87186; 87205 ==

== ENCOUNTER 2022-06-29 13:29 | Observation (INO) | payer MEDICARE, SELFPAY ==
[2022-06-29] VITALS (12 sets, daily range): BP systolic 97–139; BP diastolic 51–94; PULSE 60–78; RESP 16–20; TEMP 36.6–36.8; O2SAT 94–99; BMI 32.8; BMI 32.5
--- NOTE | 2022-06-29 13:29 | ECG_ITS ---
APPROVED REPORT Exam: Resting ECG HR:88 bpm ECG Measurements Heart Rate 88 AXES QRSd 86 QRS -44 QT 407 T 69 QTc 453 Conclusion ATRIAL FIBRILLATION LEFT AXIS DEVIATION [QRS AXIS < -30] LOW QRS VOLTAGE Late R wave progression ABNORMAL ECG UNCONFIRMED REPORT Electronically signed by : Pedro Pablo Galicia MD 06/30/2022 15:13:57
--- NOTE | 2022-06-29 13:47 | XR_ITS ---
PROCEDURE INFORMATION: Exam: XR Chest Exam date and time: 06/29/2022 2:10 PM Age: 82 years old Clinical indication: Chest wall pain; Additional info: Chest pain TECHNIQUE: Imaging protocol: Radiologic exam of the chest. Views: 1 view. Portable AP exam 2:11 p.m. COMPARISON: CR XR CHEST 2V 02/14/2021 9:18 PM FINDINGS: Tubes, catheters and devices: Overlying pvc monitor electrodes. Lungs: Hypoventilation, the lungs are suboptimally inflated on today's exam. Chronic haziness and mild prominence of infrahilar interstitial markings, unchanged. No focal consolidation. Chronic mid right pulmonary granuloma. Pleural spaces: Unremarkable. No significant pleural effusion. No pneumothorax. Heart/Mediastinum: Chronic cardiomegaly, unchanged. Bones/joints: Surgical screws in the right humerus. There are spinal degenerative changes, with multilevel disc narrrowing and spondylosis. No definite acute fractures seen on this limited portable exam. IMPRESSION: 1. No acute findings or significant change compared with 02/14/2021. 2. Chronic cardiomegaly and infrahilar interstitial prominence. 3. No consolidation.
--- NOTE | 2022-06-29 13:49 | HMH.EDGENADL ---
Discharge Plan Disposition Patient Disposition: Admitted As Inpatient Condition: Good Clinical Impressions Clinical Impression: Chest pain Discharge ED Provider: Yordan Barrett General Adult HPI General Chief complaint: Chest Pain Stated complaint: chest burning Time Seen by Provider: 06/29/22 14:45 History of Present Illness HPI narrative: History obtained from patient and son. Patient says that she was sitting in a recliner after having eaten lunch at about noon when she developed chest pain in the sternal area which she describes as a burning or heartburn sensation. Associated with shortness of breath and felt like she was going to pass out. No nausea or diaphoresis. The pain is still present. She has a history of chronic atrial fibrillation. She also has vulvar cancer. She underwent a vulvectomy on 04/11/2022. She was told the cancer was superficial and she did not need radiation or chemotherapy. She had a stress test and an echocardiogram before her surgery. She has never had a heart cath to her knowledge. Related Data Home Medications Medication Instructions Recorded Confirmed acetaminophen 500 mg tablet 500 mg PO Q6H PRN PAIN 10/19/17 06/29/22 (Tylenol Extra Strength) chlordiazepoxide HCl 10 mg capsule 10 mg PO BID PRN UNKNOWN 10/19/17 06/29/22 escitalopram oxalate 10 mg tablet 10 mg PO QDAY Depression 10/19/17 06/29/22 potassium chloride 10 mEq 10 meq PO QDAY Supplement 10/19/17 06/29/22 tablet,extended release (Klor-Con) allopurinol 100 mg tablet 100 mg PO DAILY UNKNOWN 30 days 03/02/19 06/29/22 #30 tabs famotidine 20 mg tablet 20 mg PO DAILY GERD 30 days #30 06/01/19 06/29/22 tabs metoprolol succinate 25 mg 25 mg PO DAILY Heart disease 06/19/21 06/29/22 tablet,extended release 24 hr diltiazem HCl 360 mg capsule,24 360 mg PO DAILY Heart disease 06/29/22 06/29/22 hr,extended release rivaroxaban 20 mg tablet (Xarelto) 20 mg PO DAILY Blood thinner 06/29/22 06/29/22 Previous Rx's Medication Instructions Recorded furosemide 20 mg tablet 60 mg PO DAILY Edema #270 tabs 04/18/21 atorvastatin 20 mg tablet 20 mg PO QDAY Cholesterol #90 tabs 04/15/22 Allergies Allergy/AdvReac Type Severity Reaction Status Date / Time Penicillins [PENICILLINS] Allergy Intermediate I-RASH Verified 03/27/22 13:47 hydrocortisone Allergy Unknown I-RASH Verified 03/27/22 13:47 [From CORTIZONE-10] [facility] Medical History (Updated 06/29/22 @ 18:58 by Yordan Barrett MD) Atrial fibrillation Breast cancer CTS (carpal tunnel syndrome) Dyspnea Edema Edema of both lower extremities History of anemia Hyperlipidemia Hypertensive heart disease Vulva cancer Family History (Updated 06/29/22 @ 16:55 by Adriana Dominique, RN) Other Family history of cancer Family history of hyperlipidemia Family history of hypertension Family history of myocardial infarction Family history of stroke No significant family history Social History (Updated 06/29/22 @ 16:57 by Adriana Dominique, RN) Smoking Status: Former smoker pack-years: 0 alcohol intake: never substance use type: denies use current occupational status: retired Travel in the last 8 weeks: Inside the [place] household members: family housing: house ROS Obtained: Yes All systems reviewed & no additional complaints except as documented Constitutional Constitutional: Denies fever(s) Cardiovascular Cardiovascular: Reports chest pain, Denies diaphoresis and Denies radiating jaw, neck or arm pain Respiratory Respiratory: Reports shortness of breath Gastrointestinal Gastrointestingal: Denies abdominal pain, nausea or vomiting Physical Exam General General appearance: alert and in no apparent distress Head Head exam: atraumatic and normocephalic Eye Eye exam: Present normal appearance and EOMI ENT ENT exam: Present mucous membranes moist Neck Neck exam: Present normal inspection and trachea midline Chest Chest inspection:
[2022-06-29 13:56] LABS: Chloride 94 mmol/L (98-107); Sodium 139 mmol/L (136-145)
[2022-06-29 13:57] LABS: Potassium 4.1 mmoL/L (3.5-5.1)
[2022-06-29 13:59] LABS: Alanine Aminotransferase 17 U/L (12-78); Albumin Level 4.1 g/dl (3.5-5.0); Albumin/Globulin Ratio 1.6 (1.1-1.8); Alkaline Phosphatase 100 U/L (38-126); Anion Gap 16.1 mEq/L (5-15); Aspartate Amino Transferase 27 U/L (14-36); Bilirubin,Total 0.4 mg/dl (0.2-1.3); Blood Urea Nitrogen 10 mg/dl (7-17); Carbon Dioxide 33 mmol/L (22.0-30.0); Creatinine Clearance Estimated 57 mL/min (50-200); Estimated Glomerular Filt Rate 80 ml/min (>60); GFR (African American) 96 ML/MIN (>60); Globulin 2.6 g/dL (1.3-3.2); Total Protein,Serum 6.7 g/dl (6.3-8.2)
[2022-06-29 14:00] LABS: Calcium 8.9 mg/dl (8.4-10.2); Glucose 163 mg/dl (74-100)
--- NOTE | 2022-06-29 14:02 | PC.NURSE ---
XR AT BEDSIDE
[2022-06-29 14:06] LABS: Basophils # 0.1 K/mm3 (0-0.2); Basophils % 0.7 % (0.1-2.0); Eosinophils # 0.1 K/mm3 (0.0-0.4); Eosinophils % 0.5 % (0.1-12.0); Hematocrit 35.8 % (37.0-47.0); Lymphocytes # 2.9 K/mm3 (0.7-4.5); Lymphocytes % 25.9 % (10-50); Mean Corpuscular HGB Conc 30.7 g/dL (31.8-35.4); Mean Corpuscular Hemoglobin 24.5 pg (27.0-31.2); Mean Corpuscular Volume 79.7 fl (81-99); Monocytes # 0.5 K/mm3 (0.1-1.0); Monocytes % 4.9 % (1.7-9.3); Neutrophils # 7.5 K/mm3 (1.8-7.8); Neutrophils % 68.1 % (37.0-80.0); Platelet Count 396 K/mm3 (142-424); Red Blood Count 4.49 M/mm3 (4.20-5.40); Red Cell Distribution Width 17.2 % (11.5-17.5)
[2022-06-29 14:13] LABS: Troponin I < 0.01 ng/ml (0.00-0.034)
--- NOTE | 2022-06-29 14:50 | PC.NURSE ---
ED MD AT BEDSIDE
[2022-06-29 15:13] LABS: D-Dimer 0.42 ug/mL (0.0-0.5)
--- NOTE | 2022-06-29 15:42 | PC.NURSE ---
ROUNDED ON PT, PT DENIES ANY RELIEF OF CHEST BURNING. MD NOTIFIED
--- NOTE | 2022-06-29 15:44 | PC.NURSE ---
dr serena box
--- NOTE | 2022-06-29 15:47 | PC.NURSE ---
Dr Barrett speaking with Dr De La Cruz
--- NOTE | 2022-06-29 16:01 | PC.NURSE ---
house called for admission
[2022-06-29 16:06] LABS: Coronavirus 19, PCR Not Detected (NotDetected); Influenza A, PCR Not Detected (NotDetected); Influenza B, PCR Not Detected (NotDetected)
--- NOTE | 2022-06-29 16:40 | PC.NURSE ---
REPORT GIVEN TO DIANA GARCIA
--- NOTE | 2022-06-29 16:48 | PC.NURSE ---
awaiting orders to be entered before transferring to floor.
--- NOTE | 2022-06-29 17:36 | PC.NURSE ---
patient arrived by wheelchair from ED
--- NOTE | 2022-06-29 19:54 | PC.NURSE ---
Pt was brought to the floor at 1736. She is A/Ox4. She is very hard of hearing. She is very pleasant. She is on teley.
[2022-06-30] VITALS: PULSE 70
[2022-06-30 04:00] VITALS: BP 102/56; PULSE 66; PULSE 70; RESP 20; TEMP 36.5; O2SAT 97
--- NOTE | 2022-06-30 04:07 | PC.NURSE ---
Pt is alert and oriented x4, pt is very hard of hearing, hearing aids at bedside with daughter in room. Pt has had no complaints of chest pain this shift. Pt has been resting well through the night. Pt is continent using BSC with 2 assist. Lung sounds are clear, bowel sounds active, abdomen soft and nontender. HR 60-70. O2 sat >90% on room air. Cardio consult this AM. Call light in reach and working.
[2022-06-30 05:00] VITALS: BMI 32.4
--- NOTE | 2022-06-30 07:35 | EXP.PHA.VTE ---
[facility] Pharmacy VTE Monitoring Patient Demographics Admission date: 06/29/22 Report Date: 06/30/22 Time: 07:35 Patient Allergies Penicillins [PENICILLINS] Allergy (Intermediate, Verified 03/27/22 13:47) I-RASH hydrocortisone [From CORTIZONE-10] Allergy (Unknown, Verified 03/27/22 13:47) I-RASH Height: 1.63 m Weight: 86.211 kg Current Active Problems (Updated 06/29/22 @ 18:58 by Yordan Barrett MD) Chest pain (Acute) VTE Risk Labs: VTE Related Lab Results Hgb 11.0 g/dL (12.2-16.2) L 06/29/22 13:49 Hct 35.8 % (37.0-47.0) L 06/29/22 13:49 Plt Count 396 K/mm3 (142-424) 06/29/22 13:49 BUN 10 mg/dl (7-17) 06/29/22 13:49 Creatinine 0.70 mg/dl (0.52-1.04) 06/29/22 13:49 Estimated Creat Clear 57 mL/min (50-200) 06/29/22 13:49 VTE Score: 3 VTE Risk Level: Low Risk Prophylaxis VTE Prophylaxis Ordered?: Yes Types of VTE Prophylaxis: Pharmacological Pharmacologic Type: Other (XARELTO)
[2022-06-30 08:00] VITALS: BP 131/83; PULSE 82; PULSE 90; RESP 20; TEMP 36.4; O2SAT 97
[2022-06-30 09:18] LABS: Troponin I < 0.01 ng/ml (0.00-0.034)
--- NOTE | 2022-06-30 09:38 | EXP.HP ---
History of Present Illness *Admission Date: 06/29/22 *Reason for visit:: Chest pain *History of present illness: Ms. Anders is an 82-year-old female with a history of hypertension, arthritis, esophageal reflux, glaucoma, depression, anxiety, breast cancer, atrial fibrillation, hyperlipidemia, and recent valvularectomy for squamous cell carcinoma in April 2022 who experienced some midsternal sharp chest pains yesterday. She states she has had this in the past but this was more severe. It occurred at rest and she had not eaten recentlyt. She admits to some shortness of breath at night. She denies recent frequent cough, fever, abdominal pain. She does have occasional nausea. Her bowels do move regularly. She denies vomiting, melena, and hematochezia. She was admitted for cardiac evaluation. On admission white blood cell count was 11,000. Hemoglobin was 11 with hematocrit of 35.8. Chest x-ray revealed no acute findings. Chronic cardiomegaly and infrahilar interstitial prominence. No consolidation. To note and April 2022 she had a cardiac work-up which included EKG, echo, and chemical stress test which was reported to them as being satisfactory for anesthesia. This a.m. she still has some midsternal chest discomfort. She describes it as indigestion. He currently is not short of breath. [facility] Medical History (Updated 06/30/22 @ 10:51 by Tanisha Portillo APRN) Atrial fibrillation Breast cancer CTS (carpal tunnel syndrome) Dyspnea Edema Edema of both lower extremities History of anemia Hyperlipidemia Hypertensive heart disease Vulva cancer Family History (Updated 06/29/22 @ 16:55 by Adriana Dominique RN) No significant family history Family history of stroke Family history of cancer Family history of hypertension Family history of myocardial infarction Family history of hyperlipidemia Social History (Updated 06/29/22 @ 16:57 by Adriana Dominique RN) Smoking Status: Former smoker pack-years: 0 alcohol intake: never substance use type: denies use current occupational status: retired Travel in the last 8 weeks: Inside the [place] household members: family housing: house Review of Systems Constitutional Constitutional: Denies fever(s), Denies headache(s) and Denies poor appetite Eyes Eyes: Denies change in vision ENT Ears, Nose, Mouth, and Throat: Denies otalgia, Denies headache(s) and Denies sore throat *Cardiovascular Cardiovascular: Reports chest pain, Denies dyspnea, Denies edema and Denies leg edema *Respiratory Respiratory: Reports cough (infrequent) and Denies dyspnea *Gastrointestinal Gastrointestinal: Denies abdominal pain, Denies bloating, Denies change in stool character, Denies constipation, Reports dyspepsia, Denies hematemesis, Denies hematochezia, Denies melena, Denies nausea and Denies vomiting *Genitourinary Genitourinary: Denies difficulty voiding *Musculoskeletal Musculoskeletal: Reports abnormal gait (Uses walker or wheelchair for ambulation) *Neurologic Neurologic: Reports abnormal gait (Uses walker or wheelchair for ambulation) and Denies headache(s) Meds Home Medications and Allergies Home Medications Medication Instructions Recorded Confirmed Type acetaminophen 500 mg tablet 500 mg PO Q6HP PRN Mild Pain 10/19/17 06/30/22 History (Tylenol Extra Strength) (Scale Score 1-4) chlordiazepoxide HCl 10 mg capsule 10 mg PO BID Anxiety 10/19/17 06/29/22 History escitalopram oxalate 10 mg tablet 10 mg PO DAILY Depression 10/19/17 06/30/22 History potassium chloride 10 mEq 20 meq PO DAILY Supplement 10/19/17 06/30/22 History tablet,extended release (Klor-Con) allopurinol 100 mg tablet 100 mg PO DAILY GOUT 30 days #30 03/02/19 06/29/22 History tabs famotidine 20 mg tablet 20 mg PO DAILY GERD 30 days #30 06/01/19 06/29/22 History tabs furosemide 20 mg tablet 60 mg PO DAILY Edema #270 tabs 04/18/21 06/29/22 Rx metoprolol succinate 25 mg 25 mg PO DAILY Hypertension 06/19/21 09
--- NOTE | 2022-06-30 10:26 | HMH.PHAINT1 ---
Pharmacy Intervention Comments: MEDICATION RECONCILIATION COMPLETED ON PATIENT USING EXTERNAL FILL HISTORY FROM PHARMACY. -GHANSHYAM MUNGUIA, MICHELLED
--- NOTE | 2022-06-30 10:42 | EXP.CARD.CON ---
History of Present Illness History of Present Illness Consult date: 06/30/22 Requesting physician: Parvez Kyle Consult reason: chest pain Chief complaint: burning in chest Additional Medical History:: Past Medical Hx GERD HTN Obesity AFIB- On Xarelto Vulvar cancer- Vulvectomy 04/11/2022 HLD History of present illness: 82 year old white female with above past medical hx presented to ED on 06/29 with complaint of midsternal chest burning associated with soa. Patient reports she was in her normal state of health yesterday when developed some burning in chest that started after eating some crackers and drinking some sprite. Also reports mild soa which daughter states is not uncommon for her to complain of. Symptoms persisted prompting patient to come to ER. EKG showed afib at controlled rate. Patient is on xarelto 20mg QD. Patient was admitted for cardiology consult. Daughter reports had a full cardiac workup ealier this year fur surgical clearance and everything was okay at that time. Patient reports still has some mild burning in chest. PFSH PFSH Medical History (Updated 06/30/22 @ 10:51 by Tanisha Portillo APRN) Atrial fibrillation Breast cancer CTS (carpal tunnel syndrome) Dyspnea Edema Edema of both lower extremities History of anemia Hyperlipidemia Hypertensive heart disease Vulva cancer Family History (Updated 06/29/22 @ 16:55 by Adriana Dominique RN) Other Family history of cancer Family history of hyperlipidemia Family history of hypertension Family history of myocardial infarction Family history of stroke No significant family history Social History (Updated 06/29/22 @ 16:57 by Adriana Dominique RN) Smoking Status: Former smoker pack-years: 0 alcohol intake: never substance use type: denies use current occupational status: retired Travel in the last 8 weeks: Inside the [place] household members: family housing: house Review of Systems Review of Systems Review of systems:: pertinent systems reviewed and negative unless documented below Constitutional Constitutional: Denies headache(s) ENT Ears, Nose, Mouth, and Throat: Denies headache(s) *Cardiovascular Cardiovascular: Reports chest pain and Reports dyspnea *Respiratory Respiratory: Reports dyspnea *Gastrointestinal Gastrointestinal: Reports dyspepsia *Musculoskeletal Musculoskeletal: Reports abnormal gait (Uses walker or wheelchair for ambulation) *Neurologic Neurologic: Reports abnormal gait (Uses walker or wheelchair for ambulation), Denies confusion and Denies headache(s) Psychiatric Psychiatric: Reports system reviewed and no additional complaints, except as documented and Denies confusion Exam Data for Last 24 hours Vital signs and Labs for Last 24 Hours: Temp Pulse Resp BP Pulse Ox 97.6 F 82 20 131/83 97 06/30/22 08:00 06/30/22 08:00 06/30/22 08:00 06/30/22 08:00 06/30/22 08:00 Laboratory Results - last 24 hr 06/29/22 13:48: D-Dimer 0.42 06/29/22 13:49: WBC 11.0 H, RBC 4.49, Hgb 11.0 L, Hct 35.8 L, MCV 79.7 L, MCH 24.5 L, MCHC 30.7 L, RDW 17.2, Plt Count 396, MPV 8.0, Neut % (Auto) 68.1, Lymph % (Auto) 25.9, Clare % (Auto) 4.9, Eos % (Auto) 0.5, Baso % (Auto) 0.7, Neut # (Auto) 7.5, Lymph # (Auto) 2.9, Clare # (Auto) 0.5, Eos # (Auto) 0.1, Baso # (Auto) 0.1 06/29/22 13:49: Sodium 139, Potassium 4.1, Chloride 94 L, Carbon Dioxide 33 H, Anion Gap 16.1 H, BUN 10, Creatinine 0.70, Estimated Creat Clear 57, Estimated GFR 80, Est GFR ( Amer) 96, Glucose 163 H, Calcium 8.9, Total Bilirubin 0.4, AST 27, ALT 17, Alkaline Phosphatase 100, Troponin I < 0.01, Total Protein 6.7, Albumin 4.1, Globulin 2.6, Albumin/Globulin Ratio 1.6 06/29/22 15:49: SARS-CoV-2 (PCR) Not detected, Influenza A Untype (PCR) Not detected, Influenza Type B (PCR) Not detected 06/30/22 08:41: Troponin I < 0.01 I & O for Last 24 hours: Intake & Output 06/27/22 06/28/22 06/29/22 06/30/22 23:59 23:59 23:59 23:59 Intake Total 480 /
[2022-06-30 12:00] VITALS: BP 140/72; PULSE 75; PULSE 90; RESP 19; TEMP 36.6; O2SAT 98
--- NOTE | 2022-06-30 13:08 | HMH.PHAINT1 ---
Pharmacy Intervention Comments: DISCHARGE MEDICATION COUNSELING PROVIDED. DISCUSSED STOPPING THE FAMOTIDINE AND STARTING OMEPRAZOLE. GENERNALLY WELL TOLERATED, TAKE ON AN EMPTY STOMACH 30-60 MINUTES PRIOR TO BREAKFAST, SWALLOW CAPSULE WHOLE. PATIENT VERBALIZED NO QUESTIONS AT THIS TIME.
--- NOTE | 2022-06-30 14:14 | EXP.DC.SUM ---
General Admission date:: 06/29/22 Discharge date: 06/30/22 HPI HPI HPI: Ms. Anders is an 82-year-old female with a history of hypertension, arthritis, esophageal reflux, glaucoma, depression, anxiety, breast cancer, atrial fibrillation, hyperlipidemia, and recent valvularectomy for squamous cell carcinoma in April 2022 who experienced some midsternal sharp chest pains yesterday. She states she has had this in the past but this was more severe. It occurred at rest and she had not eaten recentlyt. She admits to some shortness of breath at night. She denies recent frequent cough, fever, abdominal pain. She does have occasional nausea. Her bowels do move regularly. She denies vomiting, melena, and hematochezia. She was admitted for cardiac evaluation. On admission white blood cell count was 11,000. Hemoglobin was 11 with hematocrit of 35.8. Chest x-ray revealed no acute findings. Chronic cardiomegaly and infrahilar interstitial prominence. No consolidation. To note and April 2022 she had a cardiac work-up which included EKG, echo, and chemical stress test which was reported to them as being satisfactory for anesthesia. This a.m. she still has some midsternal chest discomfort. She describes it as indigestion. She currently is not short of breath. Hospital Course Hospital Course Hospital Course: Patient's chest discomfort did improve after hospitalization. EKG was negative for any acute ischemic changes. Serial troponins were also negative. To note stress test march 2022 with Myoview was negative for ischemia. Echo also completed in 2021 showed preserved EF. Patient did receive a GI cocktail this a.m. with total relief of symptoms. Atrial fibrillation remained at a controlled rate. She was seen by cardiology who recommended to continue her diltiazem and metoprolol as well as her Xarelto And Lasix 60 mg daily. Lipid profile was satisfactory. She was felt stable to be discharged home. Her daughter planned to schedule follow-up with cardiology for the end of this week. She was to continue with her home meds. See data for labs and chest x-ray results. Meds as per medication reconciliation sheet.Patient to follow-up with Dr. Kyle on 07/14/2022. Exam Data for Last 24 hours Vital signs and Labs for Last 24 Hours: Temp Pulse Resp BP Pulse Ox 97.8 F 75 19 140/72 98 06/30/22 12:00 06/30/22 12:00 06/30/22 12:00 06/30/22 12:00 06/30/22 12:00 Laboratory Results - last 24 hr 06/29/22 13:48: D-Dimer 0.42 06/29/22 15:49: SARS-CoV-2 (PCR) Not detected, Influenza A Untype (PCR) Not detected, Influenza Type B (PCR) Not detected 06/30/22 08:41: Troponin I < 0.01 I & O for Last 24 hours: Intake & Output 06/28/22 06/29/22 06/30/22 07/01/22 11:59 11:59 11:59 11:59 Intake Total 720 / 720 240 / 240 Output Total 200 / 200 150 / 150 Balance 520 / 520 90 / 90 Weight 190 lb 1 oz Narrative: Constitutional Constitutional: no acute distress *Routine HEENT Exam Head: Present normocephalic and atraumatic Eye: Present PERRL; Absent conjunctival icterus, scleral injection or conjunctivae pink ENT: Present mucous membranes moist and oropharynx clear *Routine Neck Exam Neck: Absent carotid bruit, lymphadenopathy or thyromegaly *Routine Respiratory Exam Respiratory: Present crackles (Few bibasilar) *Routine Cardiovascular Exam Cardiovascular: Present RRR *Routine Abdominal Exam Abdominal: Present soft, normoactive bowel sounds and tenderness (Mildly tender in all upper quadrants to include epigastrium and midsternal area); Absent distended *Routine Rectal Exam Rectal:: deferred *Routine Genitalia Exam Genitalia:: deferred *Routine Extremities Exam Extremities: Present pulses intact; Absent edema or calf tenderness *Routine Neurological Exam Neurological: Present alert and oriented X3 Comments: Hard of hearing today and does not have her hearing aids in. Results Data Completed and Pending Completed stud
--- NOTE | 2022-07-01 13:29 | CARE MANAGER ---
Called to discuss post discharge status with Bry. She states that she is doing well, has started new medication. Patient is aware of PCP and cardiology appts. No complaints or concerns voiced at this time.
== END 2022-06-30 13:23 | disposition home or self-care (01) ==
LOC: ER 15:16 → 2ND 17:17
PROVIDERS: Nurse Practitioner; Admitting Provider Family Medicine; Emergency Provider Emergency Medicine; PCP Family Medicine; Visit Provider Family Medicine
DX: R07.9 Chest pain, unspecified (principal); I11.9 Hypertensive heart disease without heart failure; I48.91 Unspecified atrial fibrillation; E78.5 Hyperlipidemia, unspecified; Z79.899 Other long term (current) drug therapy; Z79.01 Long term (current) use of anticoagulants; Z20.822 Contact with and (suspected) exposure to COVID-19
CPT/HCPCS: G0378; 71045; 80053; 84484; 85025; 85378; 93005; 99285; C9803; U0003; U0005

== ENCOUNTER 2022-09-29 05:24 | Emergency (ER) | payer MEDICARE, SELFPAY ==
[2022-09-29 05:35] VITALS: BP 152/68; PULSE 81; RESP 18; TEMP 36.7; O2SAT 99; BMI 32.5
[2022-09-29 06:05] LABS: Chloride 97 mmol/L (98-107); Sodium 138 mmol/L (136-145)
[2022-09-29 06:08] LABS: Basophils # 0.1 K/mm3 (0-0.2); Basophils % 0.7 % (0.1-2.0); Blood Urea Nitrogen 11 mg/dl (7-17); Calcium 9.6 mg/dl (8.4-10.2); Carbon Dioxide 34 mmol/L (22.0-30.0); Creatinine Clearance Estimated 57 mL/min (50-200); Eosinophils # 0.2 K/mm3 (0.0-0.4); Eosinophils % 1.7 % (0.1-12.0); Estimated Glomerular Filt Rate 68 ml/min (>60); GFR (African American) 83 ML/MIN (>60); Glucose 113 mg/dl (74-100); Hematocrit 34.8 % (37.0-47.0); Hemoglobin 10.8 g/dL (12.2-16.2); Lymphocytes # 2.2 K/mm3 (0.7-4.5); Lymphocytes % 25.2 % (10-50); Mean Corpuscular HGB Conc 31.2 g/dL (31.8-35.4); Mean Corpuscular Hemoglobin 25.3 pg (27.0-31.2); Mean Corpuscular Volume 81.1 fl (81-99); Mean Platelet Volume 8.1 fl (7.4-10.4); Monocytes # 0.5 K/mm3 (0.1-1.0); Monocytes % 5.3 % (1.7-9.3); Neutrophils # 5.8 K/mm3 (1.8-7.8); Platelet Count 345 K/mm3 (142-424); Red Blood Count 4.29 M/mm3 (4.20-5.40); Red Cell Distribution Width 17.2 % (11.5-17.5); White Blood Count 8.6 K/mm3 (4.8-10.8)
[2022-09-29 07:01] VITALS: BP 138/65; PULSE 70; O2SAT 99
--- NOTE | 2022-09-29 07:15 | HMH.EDEPIS ---
Discharge Plan Disposition Patient Disposition: Home, Self-Care Chief Complaint: Epistaxis Prescriptions Prescriptions: No Action chlordiazepoxide HCl 10 mg capsule 10 mg PO BID escitalopram oxalate 10 mg tablet 10 mg PO DAILY potassium chloride [Klor-Con 10] 10 mEq tablet extended release 20 meq PO DAILY acetaminophen [Tylenol Extra Strength] 500 mg tablet 500 mg PO Q6HP PRN (Reason: Mild Pain (Scale Score 1-4)) allopurinol 100 mg tablet 100 mg PO DAILY 30 Days Qty: 30 metoprolol succinate 25 mg tablet extended release 24 hr 25 mg PO DAILY furosemide 20 mg tablet 60 mg PO DAILY Qty: 270 3RF Xarelto 20 mg tablet 20 mg PO QPMWITHMEAL Qty: 30 5RF Rx Instructions: must administer with evening meal diltiazem HCl 360 mg capsule,extended release 24 hr 360 mg PO DAILY sennosides-docusate sodium [Senna-S] 8.6-50 mg Tablet 1 tab PO HS cholecalciferol (vitamin D3) 125 mcg (5,000 unit) capsule 10,000 unit PO DIRECTED Label Comments: TAKE 2 CAPSULES BY MOUTH TWICE A WEEK ON SAME DAYS EACH WEEK Rx Instructions: TWO CAPSULES TWICE WEEKLY atorvastatin 20 mg tablet 20 mg PO DAILY omeprazole 40 mg capsule,delayed release(DR/EC) 40 mg PO DAILY Qty: 30 0RF Referrals Follow up/Referrals: Parvez Kyle MD [Primary Care Provider] - See instructions Ray Piper MD [Staff Physician] - See instructions Clinical Impressions Clinical Impression: Epistaxis Instructions Patient Instructions: DI for Nosebleed Discharge ED Provider: Tristian Jackson Epistaxis HPI General Chief complaint: Epistaxis Stated complaint: Nose bleed earlier Time Seen by Provider: 09/29/22 06:35 Mode of Arrival: Wheelchair Source of Information: Patient, Relative and Medical Record Limitations: No Limitations Description of Symptoms (Recalled from ER Triage Doc. by RN): Per son, patient woke up at 0345 and was walking to the restroom when she noticed that her nose was bleeding. Patient states that there was a lot of blood at that time but that her nose stopped bleeding maybe 30 minutes ago. History of Present Illness HPI Narrative: this am with nosebleed - pt on xaralto - no trauma or recent illness complaint: epistaxis Location: bilateral nostril Onset (ago): hour(s) Duration: now resolved Context: other anticoagulant use Related Data Home Medications Medication Instructions Recorded Confirmed acetaminophen 500 mg tablet 500 mg PO Q6HP PRN Mild Pain 10/19/17 09/25/22 (Tylenol Extra Strength) (Scale Score 1-4) chlordiazepoxide HCl 10 mg capsule 10 mg PO BID Anxiety 10/19/17 09/25/22 escitalopram oxalate 10 mg tablet 10 mg PO DAILY Depression 10/19/17 09/25/22 potassium chloride 10 mEq 20 meq PO DAILY Supplement 10/19/17 09/25/22 tablet,extended release (Klor-Con) allopurinol 100 mg tablet 100 mg PO DAILY GOUT 30 days #30 03/02/19 09/25/22 tabs metoprolol succinate 25 mg 25 mg PO DAILY Hypertension 06/19/21 09/25/22 tablet,extended release 24 hr diltiazem HCl 360 mg capsule,24 360 mg PO DAILY HEART RATE 06/29/22 09/25/22 hr,extended release atorvastatin 20 mg tablet 20 mg PO DAILY Cholesterol 06/30/22 09/25/22 cholecalciferol (vitamin D3) 125 10,000 unit PO DIRECTED 06/30/22 09/25/22 mcg (5,000 unit) capsule Supplement sennosides 8.6 mg-docusate sodium 1 tab PO HS CONSTIPATION 06/30/22 09/25/22 50 mg tablet (Senna-S) Previous Rx's Medication Instructions Recorded omeprazole 40 mg capsule,delayed 40 mg PO DAILY #30 caps 06/30/22 release furosemide 20 mg tablet 60 mg PO DAILY Edema #270 tabs 07/14/22 rivaroxaban 20 mg tablet (Xarelto) 20 mg PO QPMWITHMEAL AFIB #30 tabs 07/29/22 Allergies Allergy/AdvReac Type Severity Reaction Status Date / Time Penicillins [PENICILLINS] Allergy Intermediate I-RASH Verified 09/25/22 14:35 hydrocortisone Allergy Unknown I-RASH Verified 09/25/22 14:35 [From CORTIZONE-10]
[2022-09-29 07:21] VITALS: BP 140/62; PULSE 68; RESP 18; TEMP 36.6; O2SAT 99
== END 2022-09-29 07:25 | disposition home or self-care (01) ==
PROVIDERS: Emergency Provider Emergency Medicine; PCP Family Medicine
DX: R04.0 Epistaxis (principal); I48.91 Unspecified atrial fibrillation; D64.9 Anemia, unspecified; I11.9 Hypertensive heart disease without heart failure; Z79.01 Long term (current) use of anticoagulants; Z79.1 Long term (current) use of non-steroidal anti-inflammatories (NSAID); Z79.899 Other long term (current) drug therapy; Z88.0 Allergy status to penicillin; Z88.5 Allergy status to narcotic agent; Z88.8 Allergy status to other drugs, medicaments and biological substances; Z85.3 Personal history of malignant neoplasm of breast; Z85.44 Personal history of malignant neoplasm of other female genital organs; Z82.49 Family history of ischemic heart disease and other diseases of the circulatory system; Z83.438 Family history of other disorder of lipoprotein metabolism and other lipidemia; Z80.9 Family history of malignant neoplasm, unspecified
CPT/HCPCS: 80048; 85025; 99283

== ENCOUNTER → 2022-11-03 12:41 | Outpatient (CLI) | payer MEDICARE, SELFPAY ==
--- NOTE | 2022-11-03 14:09 | CT_ITS ---
FINAL REPORT TECHNIQUE: Thin section axial images were obtained from skull base to vertex without contrast. Coronal reconstruction images were obtained from the axial data. Exam was performed using dose reduction technique. CLINICAL HISTORY: Memory loss, hallucinations, history of cancer COMPARISON: July 2017 FINDINGS: There is age-appropriate atrophy. There is no mass effect or midline shift. There is no intracranial hemorrhage. There is no hydrocephalus. The basilar cisterns are preserved. The posterior fossa is without acute abnormality. The soft tissues are without acute abnormality. No acute osseous abnormality is identified. IMPRESSION: No acute intracranial abnormality. Atrophy. Reviewed, Interpreted and Dictated by Delmis Bañuelos MD Transcribed by Blayne Mariscal Authenticated and [facility]
--- NOTE | 2022-11-03 14:12 | MM_ITS ---
PROCEDURE INFORMATION: Exam: MG Bilateral Screening 3D Mammography Exam date and time: 11/03/2022 2:51 PM Age: 82 years old Clinical indication: Screening examination; Personal history of right breast cancer; Lumpectomy TECHNIQUE: Imaging protocol: Bilateral Screening tomosynthesis and 2D mammography including computer-aided detection (CAD) when performed. COMPARISON: 1. MG MM DIG SCREENING MAMM BI W/CAD 05/28/2021 1:33 PM 2. MG MM DIG SCREENING MAMM BI W/CAD 05/16/2020 1:22 PM FINDINGS: MAMMOGRAPHY: Breast composition: There are scattered areas of fibroglandular density. Mass: None. Architectural distortion: Stable post operative architectural distortion in the right central breast due to prior lumpectomy for carcinoma. Calcifications: No suspicious calcifications. Asymmetric density: None. Skin thickening: None. Axillary adenopathy: None. IMPRESSION: No mammographic evidence of malignancy. Annual screening is recommended unless otherwise clinically indicated. ASSESSMENT: BI-RADS Category 2: Benign
== END ==
PROVIDERS: PCP Family Medicine; Visit Provider Specialist
DX: G93.49 Other encephalopathy (principal); R41.3 Other amnesia; Z12.31 Encounter for screening mammogram for malignant neoplasm of breast
CPT/HCPCS: 70450; 77063; 77067

== ENCOUNTER 2023-02-19 08:40 | Emergency (ER) | payer MEDICARE, SELFPAY ==
[2023-02-19] VITALS (10 sets, daily range): BP systolic 85–129; BP diastolic 39–81; PULSE 51–87; RESP 12–23; TEMP 36.4; O2SAT 96–98; BMI 32.1
--- NOTE | 2023-02-19 09:01 | CT_ITS ---
FINAL REPORT CLINICAL HISTORY: AMS COMPARISON: 11/03/2022 FINDINGS: Mild atrophy and chronic ischemic white matter changes are noted. No cortical edema is present. There is no mass or hemorrhage. Ventricles are normal. Bone windows show no skull fracture or obvious obstructive lesion. IMPRESSION: 1. No acute intracranial abnormality or obvious mass. 2. Atrophy and chronic ischemic white matter changes as above. Reviewed, Interpreted and Dictated by Nikia Cuba MD Transcribed by Libby Piper Authenticated and [facility]
--- NOTE | 2023-02-19 09:12 | HMH.EDGENADL ---
Discharge Plan Disposition Patient Disposition: Home, Self-Care Prescriptions Prescriptions: New cefdinir 300 mg capsule 300 mg PO BID 10 Days Qty: 20 0RF No Action chlordiazepoxide HCl 10 mg capsule 10 mg PO BID escitalopram oxalate 10 mg tablet 10 mg PO DAILY potassium chloride [Klor-Con 10] 10 mEq tablet extended release 20 meq PO DAILY acetaminophen [Tylenol Extra Strength] 500 mg tablet 500 mg PO Q6HP PRN (Reason: Mild Pain (Scale Score 1-4)) mecobalamin (vitamin B12) 1,000 mcg tablet,chewable 1,000 mcg PO DAILY allopurinol 100 mg tablet 100 mg PO DAILY 30 Days Qty: 30 metoprolol succinate 25 mg tablet extended release 24 hr 25 mg PO DAILY furosemide 20 mg tablet 60 mg PO DAILY Qty: 270 3RF Xarelto 20 mg tablet 20 mg PO QPMWITHMEAL Qty: 90 3RF Rx Instructions: must administer with evening meal diltiazem HCl 360 mg capsule,extended release 24 hr 360 mg PO DAILY sennosides-docusate sodium [Senna-S] 8.6-50 mg Tablet 1 tab PO HS cholecalciferol (vitamin D3) 125 mcg (5,000 unit) capsule 10,000 unit PO DIRECTED Label Comments: TAKE 2 CAPSULES BY MOUTH TWICE A WEEK ON SAME DAYS EACH WEEK Rx Instructions: TWO CAPSULES TWICE WEEKLY atorvastatin 20 mg tablet 20 mg PO DAILY omeprazole 40 mg capsule,delayed release(DR/EC) 40 mg PO DAILY Qty: 30 0RF Referrals Follow up/Referrals: Parvez Kyle MD [Primary Care Provider] - See instructions Activity Restrictions/Add. Instructions Additional Instructions/Restrictions: Return for weakness chest pain shortness of air vomiting headache or any other concerns within the next 8 hours otherwise follow-up with your primary care physician within the next few days Clinical Impressions Clinical Impression: UTI (urinary tract infection) Discharge ED Provider: Luis Mcelroy General Adult HPI General Chief complaint: Shortness of Breath/Dyspnea Stated complaint: Possible reaction to Med, SOA, Confusion Time Seen by Provider: 02/19/23 08:40 Mode of Arrival: Wheelchair Source of Information: Patient and Relative Limitations: No Limitations Description of Symptoms (Recalled from ER Triage Doc. by RN): Presents via POV d/t general complaints of feeling shaky and difficulty breathing that started last night. Denies respiratory hx. Hx of afib, Xalrelto. Recently prescribed Gabapentin 300mg 1 po TID, Acyclovir 1gm po TID, and Levaquin 500mg 1 po daily for shingles and UTI. Pt states she started the medications on . History of Present Illness HPI narrative: 83-year-old female history of A-fib hyperlipidemia hypertension presents with generalized shaking and difficulty breathing since last night. She is able to speak in full sentences. She says that she has had confusion as well where she is seeing things specifically a tree across the room and hearing voices. She has recently been prescribed acyclovir Levaquin and gabapentin for shingles and UTI and started the medicines on Thursday. No abdominal pain chest pain. She does have a dull headache. No numbness weakness or tingling arms or legs Related Data Home Medications Medication Instructions Recorded Confirmed acetaminophen 500 mg tablet 500 mg PO Q6HP PRN Mild Pain 10/19/17 12/04/22 (Tylenol Extra Strength) (Scale Score 1-4) chlordiazepoxide HCl 10 mg capsule 10 mg PO BID Anxiety 10/19/17 12/04/22 escitalopram oxalate 10 mg tablet 10 mg PO DAILY Depression 10/19/17 12/04/22 potassium chloride 10 mEq 20 meq PO DAILY Supplement 10/19/17 12/04/22 tablet,extended release (Klor-Con) allopurinol 100 mg tablet 100 mg PO DAILY GOUT 30 days #30 03/02/19 12/04/22 tabs metoprolol succinate 25 mg 25 mg PO DAILY Hypertension 06/19/21 12/04/22 tablet,extended release 24 hr diltiazem HCl 360 mg capsule,24 360 mg PO DAILY HEART RATE 06/29/22 12/04/22 hr,extended release atorvastatin 20 mg tablet 20 mg PO DAILY Chol
[2023-02-19 09:39] LABS: Microscopic, Urine URINE MICROSCOPIC (MICROSCOPIC)
--- NOTE | 2023-02-19 09:42 | XR_ITS ---
FINAL REPORT CLINICAL HISTORY: soa COMPARISON: 06/29/2022 FINDINGS: No acute pulmonary opacity is present. There is no evidence of effusion or pneumothorax. Mediastinum is unremarkable. There is stable cardiomegaly. IMPRESSION: No acute abnormality. Reviewed, Interpreted and Dictated by Nikia Cuba MD Transcribed by Libby Piper Authenticated and [facility]
[2023-02-19 09:44] LABS: Appearance,Urine CLEAR (Clear); Bilirubin,Urine Negative (Negative); Blood, Urine Negative (Negative); Color,Urine YELLOW (Yellow); Glucose,Urine (UA) Negative (Negative); Ketones,Urine Negative (Negative); Leukocyte Esterase,Urine 1+ (Negative); Nitrate,Urine Negative (Negative); PH,Urine 6.5 (5.0-8.5); Protein,Urine Negative (Negative); Specific Gravity, Urine 1.015 (1.005-1.030); Urobilinogen,Urine 0.2 EU/dl (0.2)
--- NOTE | 2023-02-19 09:45 | PC.NURSE ---
Patient back from CT
[2023-02-19 09:46] LABS: Chloride 91 mmol/L (98-107)
[2023-02-19 09:48] LABS: Alanine Aminotransferase 19 U/L (12-78); Albumin Level 4.2 g/dl (3.5-5.0); Albumin/Globulin Ratio 1.5 (1.1-1.8); Alkaline Phosphatase 96 U/L (38-126); Anion Gap 19.9 mEq/L (5-15); Aspartate Amino Transferase 32 U/L (14-36); Bilirubin,Total 0.6 mg/dl (0.2-1.3); Blood Urea Nitrogen 12 mg/dl (7-17); Calcium 9.3 mg/dl (8.4-10.2); Carbon Dioxide 32 mmol/L (22.0-30.0); Creatinine Clearance Estimated 55 mL/min (50-200); Estimated Glomerular Filt Rate 68 ml/min (>60); GFR (African American) 82 ML/MIN (>60); Globulin 2.8 g/dL (1.3-3.2); Glucose 161 mg/dl (74-100); Potassium 3.9 mmoL/L (3.5-5.1); Sodium 139 mmol/L (136-145)
[2023-02-19 09:52] LABS: Bacteria,Urine Trace /lpf; RBC,Urine Occasional #/hpf (0-3)
[2023-02-19 10:01] LABS: Troponin I < 0.01 ng/ml (0.00-0.034)
[2023-02-19 10:10] LABS: Basophils % 0.7 % (0.1-2.0); Eosinophils # 0.1 K/mm3 (0.0-0.4); Eosinophils % 1.3 % (0.1-12.0); Hematocrit 38.8 % (37.0-47.0); Hemoglobin 11.9 g/dL (12.2-16.2); Lymphocytes # 0.7 K/mm3 (0.7-4.5); Lymphocytes % 14.7 % (10-50); Mean Corpuscular HGB Conc 30.6 g/dL (31.8-35.4); Mean Corpuscular Hemoglobin 25.8 pg (27.0-31.2); Mean Corpuscular Volume 84.4 fl (81-99); Mean Platelet Volume 8.3 fl (7.4-10.4); Monocytes # 0.3 K/mm3 (0.1-1.0); Neutrophils # 3.5 K/mm3 (1.8-7.8); Neutrophils % 76.3 % (37.0-80.0); Platelet Count 270 K/mm3 (142-424); Red Cell Distribution Width 16.9 % (11.5-17.5); White Blood Count 4.5 K/mm3 (4.8-10.8)
--- NOTE | 2023-02-19 11:01 | PC.NURSE ---
PO fluids provided. Elvie carey MD. Pt/relative updated on plan of care.
--- NOTE | 2023-02-19 11:29 | PC.NURSE ---
patient given pillow an repositioned in bed, states she is much more comfortable
--- NOTE | 2023-02-19 12:52 | PC.NURSE ---
patient assisted with bedpan, patient repositioned for comfort, call light within reach
== END 2023-02-19 13:00 | disposition home or self-care (01) ==
PROVIDERS: Emergency Provider Emergency Medicine; PCP Family Medicine
DX: N39.0 Urinary tract infection, site not specified (principal); R06.02 Shortness of breath; I48.91 Unspecified atrial fibrillation; I10 Essential (primary) hypertension; Z79.01 Long term (current) use of anticoagulants
CPT/HCPCS: 70450; 71045; 80053; 81001; 83735; 84484; 85025; 87086; 96361; 96365; 99285; J0696

== ENCOUNTER 2023-02-20 01:12 | Observation (INO) | payer MEDICARE, SELFPAY ==
[2023-02-20] VITALS (17 sets, daily range): BP systolic 102–160; BP diastolic 44–107; PULSE 68–104; RESP 16–18; TEMP 36.6–37.1; O2SAT 95–99; BMI 30.9
--- NOTE | 2023-02-20 01:36 | ECG_ITS ---
APPROVED REPORT Exam: Resting ECG HR:82 bpm ECG Measurements Heart Rate 82 AXES QRSd 97 QRS -53 QT 398 T 83 QTc 436 Conclusion ATRIAL FIBRILLATION INDETERMINATE AXIS LOW QRS VOLTAGE IN EXTREMITY LEADS [QRS DEFLECTION < 0.5 mV IN LIMB LEADS] POSSIBLE ANTERIOR MYOCARDIAL INFARCTION , PROBABLY OLD [30 ms Q WAVE IN V3/V4, OR R < 0.2 mV IN V4] ABNORMAL ECG UNCONFIRMED REPORT Electronically signed by : Pedro Pablo Galicia MD 02/20/2023 15:00:56
--- NOTE | 2023-02-20 01:49 | XR_ITS ---
PROCEDURE INFORMATION: Exam: XR Chest Exam date and time: 02/20/2023 1:51 AM Age: 83 years old Clinical indication: Shortness of breath; Additional info: SOA TECHNIQUE: Imaging protocol: Radiologic exam of the chest. Views: 2 views. COMPARISON: CR XR CHEST PORTABLE 02/19/2023 9:55 AM FINDINGS: Lungs: Right lung granuloma. Pleural spaces: Unremarkable. No pleural effusion. No pneumothorax. Heart/Mediastinum: Cardiomegaly. Bones/joints: Unremarkable. IMPRESSION: Cardiomegaly, mildly decreased from prior study.
[2023-02-20 02:03] LABS: Basophils % 0.5 % (0.1-2.0); Eosinophils # 0.1 K/mm3 (0.0-0.4); Eosinophils % 1.2 % (0.1-12.0); Hematocrit 34.4 % (37.0-47.0); Lymphocytes # 1.5 K/mm3 (0.7-4.5); Lymphocytes % 23.8 % (10-50); Mean Corpuscular HGB Conc 30.3 g/dL (31.8-35.4); Mean Corpuscular Hemoglobin 25.9 pg (27.0-31.2); Mean Corpuscular Volume 85.5 fl (81-99); Monocytes # 0.5 K/mm3 (0.1-1.0); Monocytes % 8.1 % (1.7-9.3); Neutrophils # 4.1 K/mm3 (1.8-7.8); Neutrophils % 66.4 % (37.0-80.0); Platelet Count 229 K/mm3 (142-424); Red Blood Count 4.02 M/mm3 (4.20-5.40); White Blood Count 6.1 K/mm3 (4.8-10.8)
[2023-02-20 02:04] LABS: Chloride 94 mmol/L (98-107); Potassium 3.6 mmoL/L (3.5-5.1); Sodium 139 mmol/L (136-145)
[2023-02-20 02:07] LABS: Alanine Aminotransferase 18 U/L (12-78); Albumin Level 3.6 g/dl (3.5-5.0); Albumin/Globulin Ratio 1.5 (1.1-1.8); Alkaline Phosphatase 82 U/L (38-126); Anion Gap 17.6 mEq/L (5-15); Aspartate Amino Transferase 29 U/L (14-36); Bilirubin,Total 0.3 mg/dl (0.2-1.3); Blood Urea Nitrogen 13 mg/dl (7-17); Calcium 8.8 mg/dl (8.4-10.2); Carbon Dioxide 31 mmol/L (22.0-30.0); Creatinine Clearance Estimated 53 mL/min (50-200); Estimated Glomerular Filt Rate 68 ml/min (>60); GFR (African American) 82 ML/MIN (>60); Globulin 2.4 g/dL (1.3-3.2); Glucose 146 mg/dl (74-100)
[2023-02-20 02:14] LABS: Hemoglobin 10.4 g/dL (12.2-16.2)
[2023-02-20 02:20] LABS: NT Pro Brain Natriuretic Pep. 2000 pg/mL (0-450)
[2023-02-20 02:21] LABS: Troponin I < 0.01 ng/ml (0.00-0.034)
--- NOTE | 2023-02-20 04:15 | HMH.EDAMS ---
Discharge Plan Disposition Patient Disposition: Admitted As Inpatient Chief Complaint: Altered Mental Status Prescriptions Prescriptions: No Action chlordiazepoxide HCl 10 mg capsule 10 mg PO BID escitalopram oxalate 10 mg tablet 10 mg PO DAILY potassium chloride [Klor-Con 10] 10 mEq tablet extended release 20 meq PO DAILY acetaminophen [Tylenol Extra Strength] 500 mg tablet 500 mg PO Q6HP PRN (Reason: Mild Pain (Scale Score 1-4)) mecobalamin (vitamin B12) 1,000 mcg tablet,chewable 1,000 mcg PO DAILY allopurinol 100 mg tablet 100 mg PO DAILY 30 Days Qty: 30 metoprolol succinate 25 mg tablet extended release 24 hr 25 mg PO DAILY furosemide 20 mg tablet 60 mg PO DAILY Qty: 270 3RF Xarelto 20 mg tablet 20 mg PO QPMWITHMEAL Qty: 90 3RF Rx Instructions: must administer with evening meal gabapentin 300 mg capsule 300 mg PO BID Label Comments: TAKE 1 CAPSULE BY MOUTH TWICE DAILY FOR 10 DAYS levofloxacin 500 mg tablet 500 mg PO DAILY Label Comments: TAKE 1 TABLET BY MOUTH EVERY 24 HOURS FOR 5 DAYS cefdinir 300 mg capsule 300 mg PO BID diltiazem HCl 360 mg capsule,extended release 24 hr 360 mg PO DAILY sennosides-docusate sodium [Senna-S] 8.6-50 mg Tablet 1 tab PO HS cholecalciferol (vitamin D3) 125 mcg (5,000 unit) capsule 10,000 unit PO DIRECTED Label Comments: TAKE 2 CAPSULES BY MOUTH TWICE A WEEK ON SAME DAYS EACH WEEK Rx Instructions: TWO CAPSULES TWICE WEEKLY atorvastatin 20 mg tablet 20 mg PO DAILY Referrals Follow up/Referrals: Parvez Kyle MD [Primary Care Provider] - See instructions Clinical Impressions Clinical Impression: Acute delirium, Atrial fibrillation, UTI (urinary tract infection), CHF (congestive heart failure) Discharge ED Provider: Renetta (ED)Tristian Altered Mental Status HPI General Chief Complaint: Altered Mental Status Stated Complaint: Shingles, not feeling well Time Seen by Provider: 02/20/23 01:45 Mode of Arrival: Wheelchair Source of Information: Patient, Relative and Medical Record Limitations: No Limitations Description of Symptoms (Recalled from ER Triage Doc. by RN): Patient was seen in the ED earlier today and released home. Patient returned to the ed tonight with c/o confusion and seeing a tree with lights on it and hearing music that isn't there. Pt also c/o soa. Pt has similar symptoms this morning when seen in the ed. Pt reports that the was diagnosed with a UTI and shingles Kathy at PCP and given acyclovir and gabapentin. History of Present Illness HPI narrative: pt with reported confusion and has hallucinations and has hx of shingles and uti and was seen in ed prior and was given abx MD complaint: altered mental status Onset (ago): day(s) Timing confirmed by: family member Severity: moderate Consistency of symptoms: waxing and waning Context: other (a fib) Associated symptoms: shortness of breath Related Data Home Medications Medication Instructions Recorded Confirmed acetaminophen 500 mg tablet 500 mg PO Q6HP PRN Mild Pain 10/19/17 02/20/23 (Tylenol Extra Strength) (Scale Score 1-4) chlordiazepoxide HCl 10 mg capsule 10 mg PO BID Anxiety 10/19/17 02/20/23 escitalopram oxalate 10 mg tablet 10 mg PO DAILY Depression 10/19/17 02/20/23 potassium chloride 10 mEq 20 meq PO DAILY Supplement 10/19/17 02/20/23 tablet,extended release (Klor-Con) allopurinol 100 mg tablet 100 mg PO DAILY GOUT 30 days #30 03/02/19 02/20/23 tabs metoprolol succinate 25 mg 25 mg PO DAILY Hypertension 06/19/21 02/20/23 tablet,extended release 24 hr diltiazem HCl 360 mg capsule,24 360 mg PO DAILY HEART RATE 06/29/22 02/20/23 hr,extended release atorvastatin 20 mg tablet 20 mg PO DAILY Cholesterol 06/30/22 02/20/23 cholecalciferol (vitamin D3) 125 10,000 unit PO DIRECTED 06/30/22 02/20/23 mcg (5,000 unit) capsule Supplement sennosides 8.6 mg
[2023-02-20 04:41] LABS: Lactic Acid 1.4 mmol/L (0.7-2.1)
[2023-02-20 05:40] LABS: Troponin I < 0.01 ng/ml (0.00-0.034)
--- NOTE | 2023-02-20 06:31 | PC.NURSE ---
Pt arrived to floor via wheelchair @ 0686
--- NOTE | 2023-02-20 08:23 | EXP.HP ---
History of Present Illness *Admission Date: 02/20/23 *Reason for visit:: AMS *History of present illness: Ms. Anders is an 83-year-old female who was just recently seen in the office of [facility] on 02/17/2023 due to the development of shingles. At that time she was placed on valacyclovir and gabapentin. She was also felt to have a urinary tract infection and was started on Levaquin. She presented to the ER on 02/19/2023 after an episode of shaking and difficulty breathing. According to the ER note, she was able to speak in full sentences and she stated she had had confusion and some hallucinations at home. She was evaluated in the ER and a head CT was ordered. It showed nothing acute. Her urinalysis did show some white blood cells, so she was switched to cefdinir and was given some IV fluids in the emergency room as well as 1 dose of IV rocephin. She had a transient episode of hypotension, however that improved and she felt better and her family wanted her to be discharged. She then returned back to the emergency room later yesterday evening with continued confusion. She stated there was a music playing that her sons could not hear and there were lights coming out of the television. It was felt due to ongoing symptoms, she should be admitted as she had failed outpatient therapy for her UTI. [facility] Disclaimer: The information contained in this section may have been updated after the patient was seen, as this information can be updated by other users. Medical History (Updated 02/20/23 @ 08:48 by ELVIA Carrasco) Atrial fibrillation Breast cancer CTS (carpal tunnel syndrome) Edema of both lower extremities Glaucoma History of anemia Hyperlipidemia Hypertensive heart disease Hyperuricemia Keratosis Numbness of feet Onychodystrophy Onychoincurvatum Vulva cancer Xerosis of skin Surgical History (Updated 02/20/23 @ 08:41 by ELVIA Carrasco) History of carpal tunnel release History of cataract surgery History of cholecystectomy History of colonoscopy History of D&C History of lumpectomy of right breast History of placement of ear tubes History of repair of right rotator cuff History of right knee surgery Family History (Updated 02/20/23 @ 08:42 by ELVIA Carrasco) Diabetes Family history of stroke Family history of cancer Family history of hypertension Family history of myocardial infarction Family history of hyperlipidemia Social History (Updated 02/20/23 @ 08:10 by Jenny Wong RN) Smoking Status: Never smoker alcohol intake: never substance use type: denies use current occupational status: retired Travel in the last 8 weeks: None household members: family housing: house Review of Systems Constitutional Constitutional: Reports fatigue, Reports headache(s) and Reports weakness Eyes Eyes: Denies blurry vision and Denies diplopia ENT Ears, Nose, Mouth, and Throat: Reports headache(s), Denies nasal congestion, Denies sore throat and Reports vertigo *Cardiovascular Cardiovascular: Denies chest pain, Reports dyspnea and Reports leg edema *Respiratory Respiratory: Denies cough and Reports dyspnea *Gastrointestinal Gastrointestinal: Denies abdominal pain, Reports loose stools, Reports nausea and Denies vomiting *Genitourinary Genitourinary: Denies difficulty voiding and Denies dysuria *Musculoskeletal Musculoskeletal: Denies arthralgias and Denies myalgias Integumentary/Breasts Skin/Breast: Reports rash (shingles on right chest and right side of back) *Neurologic Neurologic: Reports confusion, Reports headache(s), Reports vertigo and Reports weakness Psychiatric Psychiatric: Reports confusion Endocrine Endocrine: Reports fatigue Meds Home Medications and Allergies Home Medications Medication Instructions Recorded Confirmed Type acetaminophen 500 mg tablet 500 mg PO Q6HP PRN Mild Pain 10/19/17 02/20/23 History (Tylenol Extra Strength) (Scale Score 1-4) chlordiazepoxi
--- NOTE | 2023-02-20 08:55 | HMH.PHAINT1 ---
Pharmacy Intervention Comments: HOME MEDICATION LIST VERIFIED USING LIST FROM OUTPATIENT PHARMACY
[2023-02-20 09:14] LABS: Troponin I < 0.01 ng/ml (0.00-0.034)
[2023-02-20 10:08] LABS: Coronavirus 19, PCR Not Detected (NotDetected); Influenza A, PCR Not Detected (NotDetected); Influenza B, PCR Not Detected (NotDetected)
--- NOTE | 2023-02-20 16:32 | PC.NURSE ---
pt has rested in her room this shift. since admission pt confusion has appeared to improve slightly. less hallucinations noted, lungs are clear, bowel sounds are active. nad noted. family at bedside off and on this shift.
[2023-02-21 04:00] VITALS: BP 124/72; PULSE 96; RESP 18; TEMP 36.7; O2SAT 95; BMI 31.8
--- NOTE | 2023-02-21 04:25 | PC.NURSE ---
Patient oriented to self and place most of the time. Patient concerned tonight that daughter was lying to her as to why she was in hospital. Reconfirmed to patient that she was here for UTI and some confusion. LCTA, no edema noted; BM 02/20/23. Patient has rested with eyes closed most of this shift.
[2023-02-21 07:54] VITALS: BP 131/83; PULSE 76; RESP 19; TEMP 37.2; O2SAT 94
[2023-02-21 08:00] VITALS: O2SAT 94
--- NOTE | 2023-02-21 09:05 | EXP.ACUTE.PN ---
Subjective *Date: 02/21/23 *Time: 09:05 Interval history: Patient feels better today and is anxious to go home. Medical Exam Vital signs and Labs for Last 24 Hours: Vital Signs Temp Pulse Resp BP Pulse Ox 02/21/23 07:54 98.9 F 76 19 131/83 94 L 02/21/23 04:00 98.0 F 96 H 18 124/72 95 02/20/23 23:56 98.3 F 94 H 18 160/76 H 96 02/20/23 20:00 96 02/20/23 19:54 98.0 F 68 18 147/84 H 96 02/20/23 15:31 97.8 F 77 18 159/70 H 98 02/20/23 11:30 97.8 F 86 18 142/92 H 97 Intake and Output 02/20/23 02/21/23 02/21/23 23:59 07:59 15:59 Intake Total 240 / 720 240 / 240 Output Total 0 / 0 0 / 0 Balance 240 / 720 240 / 240 Intake: Intake, Oral Amount 240 / 720 240 / 240 Output: Output, Urine Amount 0 / 0 0 / 0 Other: Number of Unmeasured Voids 1 1 Weight 186 lb 14.4 oz Patient Weight 02/21/23 23:59 Weight 186 lb 14.4 oz Laboratory Results - last 24 hr 02/20/23 08:22: Troponin I < 0.01 02/20/23 10:00: SARS-CoV-2 (PCR) Not detected, Influenza A Untype (PCR) Not detected, Influenza Type B (PCR) Not detected I & O for Labs for Last 24 Hours: Intake & Output 02/18/23 02/19/23 02/20/23 02/21/23 23:59 23:59 23:59 23:59 Intake Total 720 / 720 240 / 240 Output Total 0 / 0 0 / 0 Balance 720 / 720 240 / 240 Weight 180 lb 186 lb 14.4 oz Constitutional: Present no acute distress Respiratory: Present normal respiratory effort Cardiac: Present Reg Rate and Rhythm GI: Present normal bowel sounds; Absent tenderness Extremities: Present normal inspection and full ROM Skin: Present intact; Absent erythema Neuro: Present Grossly Intact and moves all extremities Assessment and Plan *Assessment and plan (1) UTI (urinary tract infection): Status: Acute Category: Medical Code(s): N39.0 - Urinary tract infection, site not specified (2) Acute delirium: Status: Acute Category: Medical Code(s): R41.0 - Disorientation, unspecified (3) Shingles: Status: Acute Category: Medical Code(s): B02.9 - Zoster without complications (4) Afib: Status: Chronic Category: Medical Code(s): I48.91 - Unspecified atrial fibrillation (5) HLD (hyperlipidemia): Status: Acute Category: Medical Code(s): E78.5 - Hyperlipidemia, unspecified (6) HTN (hypertension): Status: Acute Category: Medical Code(s): I10 - Essential (primary) hypertension (7) GERD (gastroesophageal reflux disease): Status: Acute Category: Medical Code(s): K21.9 - Gastro-esophageal reflux disease without esophagitis (8) Elevated brain natriuretic peptide (BNP) level: Status: Acute Category: Medical Code(s): R79.89 - Other specified abnormal findings of blood chemistry Plan Patient has improved since stopping Gabapentin. OK to discharge home today, will have her resume Levaquin that she was prescribed earlier in the week for her UTI. Plan office f/u in 5 days.
--- NOTE | 2023-02-21 10:30 | PC.NURSE ---
pt d/c home with daughter, medications given to patients daughter.
--- NOTE | 2023-02-23 13:10 | CARE MANAGER ---
Contacted patient related to hospital discharge. Family member reports she doesn't have her hearing aids in and she can't hear. They report the patient is doing well and deny any questions or concerns. Aware of follow up appointment. DIANA Cisse
--- NOTE | 2023-03-03 15:15 | EXP.DC.SUM ---
General Admission date:: 02/20/23 Discharge date: 02/21/23 HPI HPI HPI: Ms. Anders is an 83-year-old female who was just recently seen in the office of [facility] on 02/17/2023 due to the development of shingles. At that time she was placed on valacyclovir and gabapentin. She was also felt to have a urinary tract infection and was started on Levaquin. She presented to the ER on 02/19/2023 after an episode of shaking and difficulty breathing. According to the ER note, she was able to speak in full sentences and she stated she had had confusion and some hallucinations at home. She was evaluated in the ER and a head CT was ordered. It showed nothing acute. Her urinalysis did show some white blood cells, so she was switched to cefdinir and was given some IV fluids in the emergency room as well as 1 dose of IV rocephin. She had a transient episode of hypotension, however that improved and she felt better and her family wanted her to be discharged. She then returned back to the emergency room later yesterday evening with continued confusion. She stated there was a music playing that her sons could not hear and there were lights coming out of the television. It was felt due to ongoing symptoms, she should be admitted as she had failed outpatient therapy for her UTI. Hospital Course Hospital Course Hospital Course: The patient's head CT showed nothing acute and her chest x-ray showed cardiomegaly. She was admitted and started on Rocephin and Lasix. It was felt the gabapentin she had been given for shingles could have contributed to her delirium, therefore this was discontinued. By 02/21/2023 she was feeling better and was anxious to go home. Her delirium had stopped since stopping the gabapentin and it was felt she was stable to be discharged home. She will resume Levaquin that she had been prescribed earlier in the week for her UTI. Exam Data for Last 24 hours Vital signs and Labs for Last 24 Hours: Temp Pulse Resp BP Pulse Ox 98.9 F 76 19 131/83 94 L 02/21/23 07:54 02/21/23 07:54 02/21/23 07:54 02/21/23 07:54 02/21/23 08:00 Narrative: Constitutional Constitutional: no acute distress *Routine HEENT Exam Head: Present normocephalic and atraumatic Eye: Present EOMI and PERRL ENT: Present mucous membranes dry *Routine Neck Exam Neck: Present supple and full ROM *Routine Respiratory Exam Respiratory: Present CTA bilaterally *Routine Cardiovascular Exam Cardiovascular: Present irregularly irregular *Routine Abdominal Exam Abdominal: Present soft and normoactive bowel sounds; Absent tenderness *Routine Rectal Exam Rectal:: deferred *Routine Genitalia Exam Genitalia:: deferred *Routine Extremities Exam Extremities: Present edema (bilateral LE's); Absent cyanosis or clubbing *Routine Skin Exam Skin: Present intact and rash (erythematous vesicular rash on the right side of the chest and the right side of the back, very painful); Absent erythema *Routine Neurological Exam Neurological: Present alert and altered mental status (Patient gets confused and is frustrated because she knows she is confused) DS: Diagnosis Discharge Diagnosis (1) UTI (urinary tract infection): Status: Acute Code(s): N39.0 - Urinary tract infection, site not specified (2) Acute delirium: Status: Acute Code(s): R41.0 - Disorientation, unspecified (3) Shingles: Status: Acute Code(s): B02.9 - Zoster without complications (4) Afib: Status: Chronic Code(s): I48.91 - Unspecified atrial fibrillation (5) HLD (hyperlipidemia): Status: Acute Code(s): E78.5 - Hyperlipidemia, unspecified (6) HTN (hypertension): Status: Acute Code(s): I10 - Essential (primary) hypertension (7) GERD (gastroesophageal reflux disease): Status: Acute Code(s): K21.9 - Gastro-esophageal reflux disease without esophagitis (8) Elevated brain natriuretic peptide (BNP) level:
== END 2023-02-21 10:33 | disposition home or self-care (01) ==
LOC: ER 04:47 → 2ND 05:22
PROVIDERS: Admitting Provider Family Medicine; Emergency Provider Emergency Medicine; PCP Family Medicine; Visit Provider Family Medicine
DX: N39.0 Urinary tract infection, site not specified (principal); Z79.899 Other long term (current) drug therapy; I48.91 Unspecified atrial fibrillation; E78.5 Hyperlipidemia, unspecified; I11.0 Hypertensive heart disease with heart failure; I50.9 Heart failure, unspecified; K21.9 Gastro-esophageal reflux disease without esophagitis; Z79.01 Long term (current) use of anticoagulants; B02.9 Zoster without complications; R44.1 Visual hallucinations; R44.0 Auditory hallucinations; Z20.822 Contact with and (suspected) exposure to COVID-19
CPT/HCPCS: G0378; 36415; 71046; 80053; 83605; 83880; 84484; 85025; 87040; 87186; 87635; 87636; 93005; 99285; C9803; J0696; U0003; U0005

== ENCOUNTER 2023-03-31 09:33 | Emergency (ER) | payer MEDICARE, SELFPAY ==
[2023-03-31 09:39] VITALS: BP 152/75; PULSE 72; RESP 20; TEMP 36.8; O2SAT 97; BMI 31.4
--- NOTE | 2023-03-31 09:44 | XR_ITS ---
FINAL REPORT CLINICAL HISTORY: fall COMPARISON: 10/13/2019 FINDINGS: Left knee Two views were obtained. There is no acute fracture or dislocation. There is advanced medial compartment joint space narrowing. There is subchondral sclerosis. There is moderate osteophyte formation at the medial joint margin and along the undersurface of the patella. A trace joint effusion is identified. IMPRESSION: Moderately advanced changes of osteoarthritis. Reviewed, Interpreted and Dictated by Kj Bone MD Transcribed by Libby Piper Authenticated and [facility]
--- NOTE | 2023-03-31 09:44 | XR_ITS ---
FINAL REPORT CLINICAL HISTORY: fall FINDINGS: Left elbow Two views were obtained. There is no acute fracture or dislocation. The joint spaces appear normal. No soft tissue abnormality is identified. IMPRESSION: No acute process. Reviewed, Interpreted and Dictated by Kj Bone MD Transcribed by Libby Piper Authenticated and [facility]
--- NOTE | 2023-03-31 09:44 | CT_ITS ---
FINAL REPORT CLINICAL HISTORY: fall COMPARISON: 02/19/2023 FINDINGS: Axial images of the head were obtained without contrast. Coronal reformatted images were also obtained. This study was performed with techniques to keep radiation doses as low as reasonably achievable (ALARA). Individualized dose reduction techniques using automated exposure control or adjustment of mA and/or kV according to the patient's size were employed. There is advanced bifrontal cortical atrophy. Periventricular low-attenuation areas are seen consistent with mild chronic ischemic changes. There is no evidence of intracranial hemorrhage or mass. There is no evidence of acute infarct. There is no evidence of shift of the midline structures. No skull abnormality is seen on the bone window images. IMPRESSION: Atrophy and mild periventricular chronic ischemic changes. No acute intracranial abnormality identified. Reviewed, Interpreted and Dictated by Kj Bone MD Transcribed by Libby Piper Authenticated and . [facility]
--- NOTE | 2023-03-31 09:48 | CT_ITS ---
FINAL REPORT TECHNIQUE: Axial images were obtained of the cervical spine by computed tomography. Coronal and sagittal reconstruction process performed. This study was performed with techniques to keep radiation doses as low as reasonably achievable (ALARA). Individualized dose reduction techniques using automated exposure control or adjustment of mA and/or kV according to the patient''s size were employed. CLINICAL HISTORY: fall COMPARISON: 08/07/2017 FINDINGS: There is moderate disc space narrowing at C4-5, C5-6, and C6-7. There is prominent posterior osteophyte formation at these levels. There is no acute fracture or malalignment. There is mild compromise of the spinal canal at C5-6 and C6-7 due to the posterior osteophytes. IMPRESSION: Multilevel degenerative changes without acute bony abnormality. Reviewed, Interpreted and Dictated by Kj Bone MD Transcribed by Libby Piper Authenticated and [facility]
--- NOTE | 2023-03-31 09:49 | HMH.EDGENADL ---
Discharge Plan Disposition Patient Disposition: Home, Self-Care Condition: Fair Chief Complaint: Fall Prescriptions Prescriptions: No Action chlordiazepoxide HCl 10 mg capsule 10 mg PO BID escitalopram oxalate 10 mg tablet 10 mg PO DAILY potassium chloride [Klor-Con 10] 10 mEq tablet extended release 20 meq PO DAILY acetaminophen [Tylenol Extra Strength] 500 mg tablet 500 mg PO Q6HP PRN (Reason: Mild Pain (Scale Score 1-4)) mecobalamin (vitamin B12) 1,000 mcg tablet,chewable 1,000 mcg PO DAILY allopurinol 100 mg tablet 100 mg PO DAILY 30 Days Qty: 30 metoprolol succinate 25 mg tablet extended release 24 hr 25 mg PO DAILY furosemide 20 mg tablet 60 mg PO DAILY Qty: 270 3RF Xarelto 20 mg tablet 20 mg PO QPMWITHMEAL Qty: 90 3RF Rx Instructions: must administer with evening meal omeprazole 40 mg capsule,delayed release(DR/EC) 40 mg PO DAILY Label Comments: TAKE 1 CAPSULE BY MOUTH EVERY DAY diltiazem HCl 360 mg capsule,extended release 24 hr 360 mg PO DAILY sennosides-docusate sodium [Senna-S] 8.6-50 mg Tablet 1 tab PO HS cholecalciferol (vitamin D3) 125 mcg (5,000 unit) capsule 10,000 unit PO .TWICE WEEKLY Label Comments: TAKE 2 CAPSULES BY MOUTH TWICE A WEEK ON SAME DAYS EACH WEEK Rx Instructions: TWO CAPSULES TWICE WEEKLY atorvastatin 20 mg tablet 20 mg PO DAILY Referrals Follow up/Referrals: Parvez Kyle MD [Primary Care Provider] - See instructions Clinical Impressions Clinical Impression: Contusion of scalp, Contusion of elbow, left, Contusion of knee, left Instructions Patient Instructions: DI for Knee Sprain, DI for Closed Head Injury Discharge ED Provider: Geovany Hennessy General Adult HPI General Chief complaint: Fall Stated complaint: Fall@home 03/31 head pain, LT knee/arm pain Time Seen by Provider: 03/31/23 10:29 Mode of Arrival: Wheelchair Source of Information: Patient Limitations: [employer] Description of Symptoms (Recalled from ER Triage Doc. by RN): pt to ed c/o fall. son at bedside states she was getting off the bedside commode, fell forward and hit her head, left knee and left elbow. pt denies LOC. son states pt takes xarelto daily. History of Present Illness HPI narrative: This is a 83-year-old female who had a mechanical fall getting off of bedside commode. Patient fell forward and hit the side of her head patient also hit her left knee and left elbow. Patient denies any loss of consciousness any unilateral weakness or numbness any chest pain pressure shortness of breath or lightheadedness. Patient is taking Xarelto Related Data Home Medications Medication Instructions Recorded Confirmed acetaminophen 500 mg tablet 500 mg PO Q6HP PRN Mild Pain 10/19/17 03/26/23 (Tylenol Extra Strength) (Scale Score 1-4) chlordiazepoxide HCl 10 mg capsule 10 mg PO BID Anxiety 10/19/17 03/26/23 escitalopram oxalate 10 mg tablet 10 mg PO DAILY Depression 10/19/17 03/26/23 potassium chloride 10 mEq 20 meq PO DAILY Supplement 10/19/17 03/26/23 tablet,extended release (Klor-Con) allopurinol 100 mg tablet 100 mg PO DAILY gout 30 days #30 03/02/19 03/26/23 tabs metoprolol succinate 25 mg 25 mg PO DAILY Hypertension 06/19/21 02/20/23 tablet,extended release 24 hr diltiazem HCl 360 mg capsule,24 360 mg PO DAILY heart rate 06/29/22 03/26/23 hr,extended release atorvastatin 20 mg tablet 20 mg PO DAILY Cholesterol 06/30/22 03/26/23 cholecalciferol (vitamin D3) 125 10,000 unit PO .TWICE WEEKLY 06/30/22 03/26/23 mcg (5,000 unit) capsule Supplement sennosides 8.6 mg-docusate sodium 1 tab PO HS constipation 06/30/22 03/26/23 50 mg tablet (Senna-S) mecobalamin (vitamin B12) 1,000 1,000 mcg PO DAILY Supplement 10/20/22 02/20/23 mcg chewable tablet omeprazole 40 mg capsule,delayed 40 mg PO DAILY Acid reflux 02/20/23 03/26/23 release Previous Rx's Medication Instructions Recorded
[2023-03-31 11:34] VITALS: BP 146/61; PULSE 65; RESP 16; TEMP 36.6
== END 2023-03-31 11:35 | disposition home or self-care (01) ==
PROVIDERS: Emergency Provider Emergency Medicine; PCP Family Medicine
DX: S00.03XA Contusion of scalp, initial encounter (principal); S80.02XA Contusion of left knee, initial encounter; S50.02XA Contusion of left elbow, initial encounter; I11.9 Hypertensive heart disease without heart failure; E78.5 Hyperlipidemia, unspecified; I48.91 Unspecified atrial fibrillation; Z79.01 Long term (current) use of anticoagulants; W18.12XA Fall from or off toilet with subsequent striking against object, initial encounter
CPT/HCPCS: 70450; 72125; 73070; 73560; 99284

== ENCOUNTER 2023-04-03 14:14 | Inpatient (IN) | payer MEDICARE, SELFPAY ==
[2023-04-03] VITALS (12 sets, daily range): BP systolic 104–144; BP diastolic 60–81; PULSE 59–110; RESP 18; TEMP 36.8–38; O2SAT 94–100; BMI 31.4; BMI 31.9
[2023-04-03 14:48] LABS: Coronavirus 19, PCR Not Detected (NotDetected); Influenza A, PCR Not Detected (NotDetected); Influenza B, PCR Not Detected (NotDetected)
--- NOTE | 2023-04-03 14:55 | PC.NURSE ---
pt is lying in bed. pillow was given per request. pt has no further requests at this time. [facility] is within reach and family is at BS.
[2023-04-03 14:56] LABS: Chloride 94 mmol/L (98-107); Sodium 140 mmol/L (136-145)
[2023-04-03 14:57] LABS: Basophils % 0.2 % (0.1-2.0); Eosinophils % 0.1 % (0.1-12.0); Hematocrit 40.6 % (37.0-47.0); Lymphocytes # 1.7 K/mm3 (0.7-4.5); Lymphocytes % 6.9 % (10-50); Mean Corpuscular HGB Conc 29.5 g/dL (31.8-35.4); Mean Corpuscular Hemoglobin 25.3 pg (27.0-31.2); Mean Corpuscular Volume 85.7 fl (81-99); Mean Platelet Volume 7.8 fl (7.4-10.4); Monocytes # 0.6 K/mm3 (0.1-1.0); Monocytes % 2.4 % (1.7-9.3); Neutrophils # 22.1 K/mm3 (1.8-7.8); Neutrophils % 90.5 % (37.0-80.0); Platelet Count 409 K/mm3 (142-424); Potassium 4.1 mmoL/L (3.5-5.1); Red Blood Count 4.74 M/mm3 (4.20-5.40); Red Cell Distribution Width 17.1 % (11.5-17.5); White Blood Count 24.4 K/mm3 (4.8-10.8)
[2023-04-03 14:59] LABS: Alanine Aminotransferase 27 U/L (12-78); Albumin Level 4.3 g/dl (3.5-5.0); Albumin/Globulin Ratio 1.5 (1.1-1.8); Alkaline Phosphatase 105 U/L (38-126); Anion Gap 24.1 mEq/L (5-15); Aspartate Amino Transferase 35 U/L (14-36); Bilirubin,Total 0.7 mg/dl (0.2-1.3); Blood Urea Nitrogen 13 mg/dl (7-17); Calcium 9.3 mg/dl (8.4-10.2); Carbon Dioxide 26 mmol/L (22.0-30.0); Creatinine Clearance Estimated 54 mL/min (50-200); Estimated Glomerular Filt Rate 60 ml/min (>60); GFR (African American) 72 ML/MIN (>60); Globulin 2.8 g/dL (1.3-3.2); Glucose 166 mg/dl (74-100); Total Protein,Serum 7.1 g/dl (6.3-8.2)
[2023-04-03 15:00] LABS: MANUAL DIFFERENTIAL MANUAL DIFFERENTIAL (MANUAL DIFF)
[2023-04-03 15:24] LABS: Microscopic, Urine URINE MICROSCOPIC (MICROSCOPIC)
[2023-04-03 15:33] LABS: Appearance,Urine CLEAR (Clear); Bilirubin,Urine Negative (Negative); Blood, Urine TRACE-I (Negative); Color,Urine YELLOW (Yellow); Glucose,Urine (UA) Negative (Negative); Ketones,Urine TRACE (Negative); Leukocyte Esterase,Urine 2+ (Negative); Nitrate,Urine Negative (Negative); PH,Urine 5.5 (5.0-8.5); Protein,Urine Negative (Negative); Urobilinogen,Urine 0.2 EU/dl (0.2)
--- NOTE | 2023-04-03 15:42 | XR_ITS ---
FINAL REPORT CLINICAL HISTORY: fever, vomiting COMPARISON: 02/20/2023 FINDINGS: The heart size is mildly enlarged. The mediastinum is normal. There is no focal infiltrate or edema. There are no pleural effusions. There is no pneumothorax. There is no osseous abnormality. Tendon anchors are noted in the right humeral head. IMPRESSION: No acute cardiopulmonary process Reviewed, Interpreted and Dictated by Kj Bone MD Transcribed by Ines Katz Authenticated and [facility]
--- NOTE | 2023-04-03 15:45 | HMH.EDGENADL ---
Discharge Plan Disposition Patient Disposition: Admitted Condition: Fair Clinical Impressions Clinical Impression: Acute UTI Sepsis Qualifiers: Sepsis type: sepsis due to unspecified organism Sepsis acute organ dysfunction status: with acute organ dysfunction Severe sepsis shock status: without septic shock Discharge ED Provider: Mg Bryant General Adult HPI General Chief complaint: Fever Stated complaint: vomiting, h/a, chills Time Seen by Provider: 04/03/23 14:20 Mode of Arrival: Wheelchair Limitations: No Limitations Description of Symptoms (Recalled from ER Triage Doc. by RN): PT REPORTS CHILLS, VOMITING AND HEADACHE THAT STARTED THIS AM History of Present Illness HPI narrative: This is an 83-year-old female with history of A-fib on Eliquis, CHF, hyperlipidemia, hypertension, urinary tract infections presenting with fever and vomiting. Patient states that she woke up today, 03/31 3 in the morning with fevers and chills. Vomited nonbloody, nonbilious vomit. Not having diarrhea. Having abdominal pain in her lower abdomen, but denies dysuria or hematuria, constipation or diarrhea. Pain is mild in intensity, does not radiate and not associated with anything in particular. Related Data Home Medications Medication Instructions Recorded Confirmed acetaminophen 500 mg tablet 500 mg PO Q6HP PRN Mild Pain 10/19/17 04/03/23 (Tylenol Extra Strength) (Scale Score 1-4) chlordiazepoxide HCl 10 mg capsule 10 mg PO BID Anxiety 10/19/17 04/03/23 escitalopram oxalate 10 mg tablet 10 mg PO DAILY Depression 10/19/17 04/03/23 potassium chloride 10 mEq 20 meq PO DAILY Supplement 10/19/17 04/03/23 tablet,extended release (Klor-Con) allopurinol 100 mg tablet 100 mg PO DAILY gout 30 days #30 03/02/19 04/03/23 tabs metoprolol succinate 25 mg 25 mg PO DAILY Hypertension 06/19/21 04/03/23 tablet,extended release 24 hr diltiazem HCl 360 mg capsule,24 360 mg PO DAILY heart rate 06/29/22 04/03/23 hr,extended release atorvastatin 20 mg tablet 20 mg PO DAILY Cholesterol 06/30/22 04/03/23 cholecalciferol (vitamin D3) 125 10,000 unit PO .TWICE WEEKLY 06/30/22 04/03/23 mcg (5,000 unit) capsule Supplement sennosides 8.6 mg-docusate sodium 1 tab PO HS constipation 06/30/22 04/03/23 50 mg tablet (Senna-S) mecobalamin (vitamin B12) 1,000 1,000 mcg PO DAILY Supplement 10/20/22 04/03/23 mcg chewable tablet omeprazole 40 mg capsule,delayed 40 mg PO DAILY Acid reflux 02/20/23 04/03/23 release Previous Rx's Medication Instructions Recorded furosemide 20 mg tablet 60 mg PO DAILY Edema #270 tabs 07/14/22 rivaroxaban 20 mg tablet (Xarelto) 20 mg PO QPMWITHMEAL AFIB #90 tabs 01/07/23 Allergies Allergy/AdvReac Type Severity Reaction Status Date / Time Penicillins [PENICILLINS] Allergy Intermediate I-RASH Verified 03/26/23 13:49 hydrocortisone Allergy Unknown I-RASH Verified 03/26/23 13:49 [From CORTIZONE-10] [facility] Disclaimer: The information contained in this section may have been updated after the patient was seen, as this information can be updated by other users. Medical History Atrial fibrillation Breast cancer CTS (carpal tunnel syndrome) Edema of both lower extremities Glaucoma History of anemia Hyperlipidemia Hypertensive heart disease Hyperuricemia Keratosis Numbness of feet Onychodystrophy Onychoincurvatum Vulva cancer Xerosis of skin Surgical History History of carpal tunnel release History of cataract surgery History of cholecystectomy History of colonoscopy History of D&C History of lumpectomy of right breast History of placement of ear tubes History of repair of right rotator cuff History of right knee surgery Family History Other Diabetes Family history of cancer Family history of hyperlipidemia Family history of hypertens
[2023-04-03 15:52] LABS: Lymphocytes % 14 % (10-50); Monocytes % 5 % (2-9); Neutrophils % 81 % (42-76); Total Cells Counted 100
[2023-04-03 15:55] LABS: Hypochromasia 2+
[2023-04-03 15:56] LABS: Platelet Estimate Normal
[2023-04-03 15:57] LABS: Bacteria,Urine 1+ /lpf; RBC,Urine Occasional #/hpf (0-3)
--- NOTE | 2023-04-03 16:02 | PC.NURSE ---
XR AT BEDSIDE
--- NOTE | 2023-04-03 16:27 | PC.NURSE ---
MD aware of lactic 5.2
[2023-04-03 16:28] LABS: Lactic Acid 5.2 mmol/L (0.7-2.1)
--- NOTE | 2023-04-03 16:39 | PC.NURSE ---
dr ramírez at bedside to update pt and family
--- NOTE | 2023-04-03 16:41 | PC.NURSE ---
dr serena box from dr lara
--- NOTE | 2023-04-03 17:15 | PC.NURSE ---
report given to abdiel siegel
--- NOTE | 2023-04-03 17:29 | PC.NURSE ---
arrived by stretcher from ED
--- NOTE | 2023-04-03 18:52 | PC.NURSE ---
COURTESY TECH NOTE; ROUNDED ON PT, PT DENIED NEED FOR ASSISTANCE WITH RESTROOM, AND NEED TO REPOSITION IN BED. CALL LIGHT WITHIN REACH, NO FURTHER REQUESTS AT THIS TIME SEMAJ MEYERS
--- NOTE | 2023-04-03 19:37 | PC.NURSE ---
Addendum entered by Afsaneh Zendejas RN 04/03/23 20:06: [address] Lyons order received for melatonin 5mg po x 1 cardiac diet order ok to give xarelto from omni dose instead of pt home med dose. Original Note: paged dr lyons 1930. pt requests melatonin be ordered for sleep pt requests diet order
[2023-04-03 20:13] LABS: Reflex Lactic Add Lactic Reflex
[2023-04-03 20:47] LABS: Lactic Acid Follow Up (RFLX 1) 4.1 mmol/L (0.7-2.1)
[2023-04-03 22:27] LABS: Reflex Lactic (2 hrs) Add Lactic Reflex
[2023-04-03 22:54] LABS: Lactic Acid Follow up (RFLX 2) 4.8 mmol/L (0.7-2.1)
[2023-04-04] VITALS (8 sets, daily range): BP systolic 84–133; BP diastolic 40–78; PULSE 64–122; RESP 18–20; TEMP 36.4–37.5; O2SAT 96–98; BMI 31.4
--- NOTE | 2023-04-04 08:55 | EXP.HP ---
History of Present Illness *Admission Date: 04/03/23 *Reason for visit:: fever *History of present illness: 83 year old female with a history of frequent urinary tract infections presented to [facility] ER yesterday complaining of a one day history of fever associated with nausea and vomiting. She was hospitalized a little over a month ago with a UTI and subsequent testing showed that infection was treated and cleared. [facility] Disclaimer: The information contained in this section may have been updated after the patient was seen, as this information can be updated by other users. Medical History Atrial fibrillation Breast cancer CTS (carpal tunnel syndrome) Edema of both lower extremities Glaucoma History of anemia Hyperlipidemia Hypertensive heart disease Hyperuricemia Keratosis Numbness of feet Onychodystrophy Onychoincurvatum Vulva cancer Xerosis of skin Surgical History History of carpal tunnel release History of cataract surgery History of cholecystectomy History of colonoscopy History of D&C History of lumpectomy of right breast History of placement of ear tubes History of repair of right rotator cuff History of right knee surgery Family History Other Diabetes Family history of cancer Family history of hyperlipidemia Family history of hypertension Family history of myocardial infarction Family history of stroke Social History (Updated 04/03/23 @ 19:25 by Afsaneh Zendejas RN) Smoking Status: Never smoker alcohol intake: never substance use type: denies use current occupational status: retired Travel in the last 8 weeks: None household members: family housing: house Review of Systems Constitutional Constitutional: Reports fever(s) Eyes Eyes: Denies blurry vision ENT Ears, Nose, Mouth, and Throat: Denies dizziness and Denies dysphagia *Cardiovascular Cardiovascular: Denies chest pain and Denies dyspnea *Respiratory Respiratory: Denies dyspnea *Gastrointestinal Gastrointestinal: Denies dysphagia and Denies loose stools *Genitourinary Genitourinary: Denies difficulty voiding and Reports urinary incontinence *Musculoskeletal Musculoskeletal: Denies back pain Integumentary/Breasts Skin/Breast: Reports dry skin *Neurologic Neurologic: Denies dizziness Meds Home Medications and Allergies Home Medications Medication Instructions Recorded Confirmed Type acetaminophen 500 mg tablet 500 mg PO Q6HP PRN Mild Pain 10/19/17 04/03/23 History (Tylenol Extra Strength) (Scale Score 1-4) chlordiazepoxide HCl 10 mg capsule 10 mg PO BID Anxiety 10/19/17 04/03/23 History escitalopram oxalate 10 mg tablet 10 mg PO DAILY Depression 10/19/17 04/03/23 History potassium chloride 10 mEq 20 meq PO DAILY Supplement 10/19/17 04/03/23 History tablet,extended release (Klor-Con) allopurinol 100 mg tablet 100 mg PO DAILY gout 30 days #30 03/02/19 04/03/23 History tabs metoprolol succinate 25 mg 25 mg PO DAILY Hypertension 06/19/21 04/03/23 History tablet,extended release 24 hr diltiazem HCl 360 mg capsule,24 360 mg PO DAILY heart rate 06/29/22 04/03/23 History hr,extended release atorvastatin 20 mg tablet 20 mg PO DAILY Cholesterol 06/30/22 04/03/23 History cholecalciferol (vitamin D3) 125 10,000 unit PO .TWICE WEEKLY 06/30/22 04/03/23 History mcg (5,000 unit) capsule Supplement sennosides 8.6 mg-docusate sodium 1 tab PO HS constipation 06/30/22 04/03/23 History 50 mg tablet (Senna-S) furosemide 20 mg tablet 60 mg PO DAILY Edema #270 tabs 07/14/22 04/03/23 Rx rivaroxaban 20 mg tablet (Xarelto) 20 mg PO QPMWITHMEAL AFIB #90 tabs 01/07/23 04/03/23 Rx omeprazole 40 mg capsule,delayed 40 mg PO DAILY Acid reflux 02/20/23 04/03/23 History release cyanocobalamin (vitamin B-12) 1,000 mcg PO DAILY Supplement 04/04/23 04/04/23 History 1,000
--- NOTE | 2023-04-04 10:10 | HMH.PHAINT1 ---
Pharmacy Intervention Comments: MEDICATION RECONCILIATION COMPLETE USING RX BOTTLES AND MOST RECENT HOSPITAL DISCHARGE NOTE (02/2023)
--- NOTE | 2023-04-04 13:32 | PC.NURSE ---
Report given to Brenda Garza RN who assumes care of patient at this time.
[2023-04-05 03:59] VITALS: BP 114/74; PULSE 76; RESP 18; TEMP 36.5; O2SAT 98; BMI 31.4
[2023-04-05 07:21] VITALS: BP 124/64; PULSE 74; RESP 17; TEMP 37.2; O2SAT 97
[2023-04-05 08:08] LABS: Basophils % 0.2 % (0.1-2.0); Eosinophils # 0.1 K/mm3 (0.0-0.4); Eosinophils % 0.6 % (0.1-12.0); Hematocrit 30.7 % (37.0-47.0); Hemoglobin 9.3 g/dL (12.2-16.2); Lymphocytes # 1.2 K/mm3 (0.7-4.5); Lymphocytes % 8.5 % (10-50); Mean Corpuscular HGB Conc 30.3 g/dL (31.8-35.4); Mean Corpuscular Hemoglobin 25.5 pg (27.0-31.2); Mean Corpuscular Volume 84.1 fl (81-99); Mean Platelet Volume 8.2 fl (7.4-10.4); Monocytes # 0.6 K/mm3 (0.1-1.0); Monocytes % 4.1 % (1.7-9.3); Neutrophils # 12.5 K/mm3 (1.8-7.8); Neutrophils % 86.5 % (37.0-80.0); Platelet Count 276 K/mm3 (142-424); Red Blood Count 3.65 M/mm3 (4.20-5.40); Red Cell Distribution Width 17.5 % (11.5-17.5); White Blood Count 14.5 K/mm3 (4.8-10.8)
--- NOTE | 2023-04-05 08:10 | EXP.ACUTE.PN ---
Subjective *Date: 04/05/23 *Time: 08:10 Interval history: Patient feels better today, slept well last night. Medical Exam Vital signs and Labs for Last 24 Hours: Vital Signs Temp Pulse Resp BP Pulse Ox 04/05/23 07:21 99.0 F 74 17 124/64 97 04/05/23 03:59 97.7 F 76 18 114/74 98 04/04/23 19:46 98.1 F 64 18 107/44 L 97 04/04/23 15:21 98.7 F 74 20 117/51 L 98 04/04/23 12:13 105 H 105/60 L 04/04/23 11:21 99.0 F 91 H 20 84/40 L 96 Intake and Output 04/04/23 04/05/23 04/05/23 23:59 07:59 15:59 Intake Total 240 / 720 240 / 240 Output Total 0 / 0 0 / 0 Balance 240 / 720 240 / 240 Intake: Intake, Oral Amount 240 / 720 240 / 240 Output: Output, Urine Amount 0 / 0 0 / 0 Other: Number of Unmeasured Voids 1 1 Weight 184 lb Patient Weight 04/05/23 23:59 Weight 184 lb I & O for Labs for Last 24 Hours: Intake & Output 04/02/23 04/03/23 04/04/23 04/05/23 23:59 23:59 23:59 23:59 Intake Total 720 / 720 240 / 240 Output Total 0 / 0 0 / 0 0 / 0 Balance 0 / 0 720 / 720 240 / 240 Weight 186 lb 3.2 oz 184 lb 2 oz 184 lb Microbiology Reports for the Last 24 Hours: Microbiology 04/03/23 16:25 Blood Blood Culture - Preliminary 04/03/23 15:55 Blood Blood Culture - Preliminary 04/03/23 15:14 Urine,Clean Catch Urine Culture - Preliminary Constitutional: Present no acute distress Comment:: Irregularly irregular Extremities: Present normal inspection and full ROM Skin: Present intact; Absent erythema Neuro: Present Grossly Intact and moves all extremities Assessment and Plan *Assessment and plan (1) Severe sepsis: Status: Acute Category: Medical Code(s): A41.9 - Sepsis, unspecified organism; R65.20 - Severe sepsis without septic shock (2) Acute UTI: Status: Acute Category: Medical Code(s): N39.0 - Urinary tract infection, site not specified (3) Elevated WBC count: Status: Acute Category: Medical Code(s): D72.829 - Elevated white blood cell count, unspecified (4) Elevated lactic acid level: Status: Acute Category: Medical Code(s): R79.89 - Other specified abnormal findings of blood chemistry (5) Afib: Status: Chronic Category: Medical Code(s): I48.91 - Unspecified atrial fibrillation (6) HLD (hyperlipidemia): Status: Acute Category: Medical Code(s): E78.5 - Hyperlipidemia, unspecified (7) HTN (hypertension): Status: Acute Category: Medical Code(s): I10 - Essential (primary) hypertension (8) GERD (gastroesophageal reflux disease): Status: Acute Category: Medical Code(s): K21.9 - Gastro-esophageal reflux disease without esophagitis (9) Obesity: Status: Chronic Qualifiers: Obesity classification: adult class 2 (BMI 35 - 39.9) Serious obesity comorbidity presence: with serious comorbidity Body mass index: BMI 36.0-36.9 Obesity type: due to excess calories Qualified Code(s): E66.01 - Morbid (severe) obesity due to excess calories; Z68.36 - Body mass index [BMI] 36.0-36.9, adult Category: Medical Code(s): E66.9 - Obesity, unspecified Plan Blood cultures have some growth this morning, still awaiting identification, continue current treatment.
[2023-04-05 08:24] LABS: Chloride 99 mmol/L (98-107); Sodium 138 mmol/L (136-145)
[2023-04-05 08:25] LABS: Potassium 4.1 mmoL/L (3.5-5.1)
[2023-04-05 08:27] LABS: Blood Urea Nitrogen 20 mg/dl (7-17); Creatinine Clearance Estimated 54 mL/min (50-200); Estimated Glomerular Filt Rate 60 ml/min (>60); GFR (African American) 72 ML/MIN (>60)
[2023-04-05 08:28] LABS: Anion Gap 11.1 mEq/L (5-15); Calcium 8.6 mg/dl (8.4-10.2); Carbon Dioxide 32 mmol/L (22.0-30.0); Glucose 90 mg/dl (74-100)
[2023-04-05 08:35] LABS: MANUAL DIFFERENTIAL MANUAL DIFFERENTIAL (MANUAL DIFF)
--- NOTE | 2023-04-05 10:36 | PC.NURSE ---
pt ambulated in the hallway at this time with walker.
[2023-04-05 10:46] LABS: Hypochromasia 2+; Lymphocytes % 7 % (10-50); Monocytes % 1 % (2-9); Neutrophils % 92 % (42-76); Platelet Estimate Normal; Total Cells Counted 100
[2023-04-05 11:11] VITALS: BP 116/55; PULSE 63; RESP 17; TEMP 36.7; O2SAT 98
[2023-04-05 15:19] VITALS: BP 129/66; PULSE 63; RESP 17; TEMP 36.7; O2SAT 99
--- NOTE | 2023-04-05 16:40 | PC.NURSE ---
pt ambulated approx 50 feet with SBA and walker with nursing. She has been alert and appropriate through out the shift. no complaints.
[2023-04-05 19:44] VITALS: BP 105/46; PULSE 64; RESP 18; TEMP 36.8; O2SAT 96
--- NOTE | 2023-04-05 21:26 | PC.NURSE ---
for reference, pt stated she had a bm 04/04. 3+ pitting edema bilaterally in ankles. daugther at bedside. ice pack on right shoulder.
[2023-04-06] VITALS: BP 125/63; PULSE 58; RESP 18; TEMP 36.8; O2SAT 97
[2023-04-06 04:00] VITALS: BP 120/61; PULSE 76; RESP 18; TEMP 36.6; O2SAT 97; BMI 32.1
[2023-04-06 07:17] VITALS: BP 135/80; PULSE 80; RESP 17; TEMP 36.6; O2SAT 96
--- NOTE | 2023-04-06 08:04 | EXP.ACUTE.PN ---
Subjective *Date: 04/06/23 *Time: 09:04 Interval history: Daughter is at bedside. Patient states she did sleep. She denies chest pain and shortness of breath. She is not very hungry and just ate a little breakfast. She is voiding okay. Bowels did not move yesterday. She states she walked in the aden with a walker yesterday. Culture ID is pending. Medical Exam Vital signs and Labs for Last 24 Hours: Vital Signs Temp Pulse Resp BP Pulse Ox 04/06/23 07:17 97.9 F 80 17 135/80 96 04/06/23 04:00 97.8 F 76 18 120/61 97 04/06/23 00:00 98.3 F 58 L 18 125/63 97 04/05/23 19:44 98.2 F 64 18 105/46 L 96 04/05/23 15:19 98.0 F 63 17 129/66 99 04/05/23 11:11 98.0 F 63 17 116/55 L 98 Intake and Output 04/05/23 04/06/23 04/06/23 19:59 03:59 11:59 Intake Total 480 / 480 120 / 600 240 / 840 Output Total 0 / 0 0 / 0 0 / 0 Balance 480 / 480 120 / 600 240 / 840 Intake: Intake, Oral Amount 480 / 480 120 / 600 240 / 840 Output: Output, Urine Amount 0 / 0 0 / 0 0 / 0 Other: Number of Unmeasured Voids 1 1 1 Number of Bowel Movements 1 Weight 188 lb Patient Weight 04/06/23 11:59 Weight 188 lb Laboratory Results - last 24 hr 04/03/23 15:14: Urine Color Yellow, Urine Appearance Clear, Urine pH 5.5, Ur Specific [place] 1.020, Urine Protein Negative, Urine Glucose (UA) Negative, Urine Ketones Trace, Urine Blood Trace-i, Urine Nitrate Negative, Urine Bilirubin Negative, Urine Urobilinogen 0.2, Ur Leukocyte Esterase 2+ A, Urine RBC Occasional, Urine WBC 5-10, Ur Squamous Epith Cells 5-10, Urine Bacteria 1+ 04/05/23 07:03: WBC 14.5 H D, RBC 3.65 L, Hgb 9.3 L, Hct 30.7 L, MCV 84.1, MCH 25.5 L, MCHC 30.3 L, RDW 17.5, Plt Count 276 D, MPV 8.2, Neut % (Auto) 86.5 H, Lymph % (Auto) 8.5 L, [place] % (Auto) 4.1, Eos % (Auto) 0.6, Baso % (Auto) 0.2, Neut # (Auto) 12.5 H, Lymph # (Auto) 1.2, [place] # (Auto) 0.6, Eos # (Auto) 0.1, Baso # (Auto) 0.0, Total Counted 100, Neutrophils % (Manual) 92 H, Lymphocytes % (Manual) 7 L, Monocytes % (Manual) 1 L, Platelet Estimate Normal, Hypochromasia 2+ 04/05/23 07:03: Sodium 138, Potassium 4.1, Chloride 99, Carbon Dioxide 32 H, Anion Gap 11.1, BUN 20 H D, Creatinine 0.90, Estimated Creat Clear 54, Estimated GFR 60, Est GFR ( Amer) 72, Glucose 90, Calcium 8.6 I & O for Labs for Last 24 Hours: Intake & Output 04/03/23 04/04/23 04/05/23 04/06/23 11:59 11:59 11:59 11:59 Intake Total 240 / 240 720 / 720 840 / 840 Output Total 0 / 0 0 / 0 0 / 0 Balance 240 / 240 720 / 720 840 / 840 Weight 184 lb 2 oz 184 lb 188 lb Microbiology Reports for the Last 24 Hours: Microbiology 04/03/23 15:55 Blood Blood Culture - Preliminary Gram Positive Cocci 04/03/23 16:25 Blood Blood Culture - Preliminary Gram Positive Cocci 04/03/23 15:14 Urine,Clean Catch Urine Culture - Preliminary Gram Positive Cocci Constitutional: Present no acute distress Comment:: Sitting up in the bed completing her breakfast. Hard of hearing. Respiratory: Present CTA bilaterally (Anteriorly and posteriorly) Cardiac: Present Irregularly Regular GI: Present soft and normal bowel sounds; Absent distention, tenderness or guarding Extremities: Absent tenderness, edema or calf tenderness Comment:: Palpable pedal pulses Neuro: Present alert and oriented x 3 Assessment and Plan *Assessment and plan (1) Severe sepsis: Status: Acute Category: Medical Code(s): A41.9 - Sepsis, unspecified organism; R65.20 - Severe sepsis without septic shock (2) Acute UTI: Status: Acute Category: Medical Code(s): N39.0 - Urinary tract infection, site not specified (3) Elevated WBC count: Status: Acute Category: Medical Code(s): D72.829 - Elevated white blood cell count, unspecified (4) Elevated lactic acid level: Status: Acute Category:
--- NOTE | 2023-04-06 09:27 | PC.NURSE ---
pt walked in hallway with walker with staff at this time
[2023-04-06 10:39] VITALS: BMI 32.0
[2023-04-06 11:11] VITALS: BP 140/84; PULSE 82; RESP 18; TEMP 36.5; O2SAT 98
[2023-04-06 15:27] VITALS: BP 121/49; PULSE 54; RESP 17; TEMP 36.6; O2SAT 96
--- NOTE | 2023-04-06 18:32 | PC.NURSE ---
VS stable, patient remained on room air. Patient able to ambulate in hallway. No complaints noted.
[2023-04-06 20:00] VITALS: BP 116/77; PULSE 64; RESP 18; TEMP 37.1; O2SAT 96
[2023-04-07] VITALS: BP 117/71; PULSE 72; RESP 16; TEMP 36.9; O2SAT 96
--- NOTE | 2023-04-07 03:52 | PC.NURSE ---
RESTING WELL. DAUGHTER AT BEDSIDE. VITAL SIGNS STABLE/AFEBRILE. NO COMPLAINTS OF DYSURIA/HEMATURIA. CALL AGUILAR IN REACH.
[2023-04-07 04:00] VITALS: BP 108/65; PULSE 66; RESP 18; TEMP 36.6; O2SAT 94; BMI 32.8
[2023-04-07 05:47] LABS: Basophils % 0.6 % (0.1-2.0); Eosinophils # 0.1 K/mm3 (0.0-0.4); Eosinophils % 1.8 % (0.1-12.0); Hematocrit 32.3 % (37.0-47.0); Hemoglobin 9.7 g/dL (12.2-16.2); Lymphocytes # 1.9 K/mm3 (0.7-4.5); Mean Corpuscular HGB Conc 29.9 g/dL (31.8-35.4); Mean Corpuscular Hemoglobin 25.6 pg (27.0-31.2); Mean Corpuscular Volume 85.5 fl (81-99); Mean Platelet Volume 8.4 fl (7.4-10.4); Monocytes # 0.4 K/mm3 (0.1-1.0); Neutrophils % 62.6 % (37.0-80.0); Platelet Count 277 K/mm3 (142-424); Red Blood Count 3.78 M/mm3 (4.20-5.40); Red Cell Distribution Width 17.5 % (11.5-17.5); White Blood Count 6.5 K/mm3 (4.8-10.8)
[2023-04-07 05:49] LABS: Chloride 96 mmol/L (98-107); Sodium 137 mmol/L (136-145)
[2023-04-07 05:50] LABS: Potassium 4.2 mmoL/L (3.5-5.1)
[2023-04-07 05:52] LABS: Blood Urea Nitrogen 17 mg/dl (7-17); Creatinine Clearance Estimated 57 mL/min (50-200); Estimated Glomerular Filt Rate 60 ml/min (>60); GFR (African American) 72 ML/MIN (>60)
[2023-04-07 05:53] LABS: Anion Gap 12.2 mEq/L (5-15); Calcium 8.4 mg/dl (8.4-10.2); Carbon Dioxide 33 mmol/L (22.0-30.0); Glucose 93 mg/dl (74-100)
[2023-04-07 07:57] VITALS: BP 157/77; PULSE 88; RESP 22; TEMP 36.6; O2SAT 96
--- NOTE | 2023-04-07 07:57 | EXP.ACUTE.PN ---
Subjective *Date: 04/07/23 *Time: 08:41 Interval history: Patient states she is doing great. She slept during the night although up to void several times. She states she is able to return to sleep easily. She denies any pain and shortness of breath. She is eating better than she eats at home according to the daughter. Bowels did move yesterday. She did ambulate yesterday with her walker without difficulty. Awaiting culture results. H&H today shows a normal white blood cell count of 6500 with a hemoglobin of 9.7 and hematocrit of 32.3. Medical Exam Vital signs and Labs for Last 24 Hours: Vital Signs Temp Pulse Resp BP Pulse Ox 04/07/23 04:00 97.9 F 66 18 108/65 L 94 L 04/07/23 00:00 98.4 F 72 16 117/71 96 04/06/23 20:00 96 04/06/23 20:00 98.7 F 64 18 116/77 96 04/06/23 15:27 97.9 F 54 L 17 121/49 L 96 04/06/23 11:11 97.7 F 82 18 140/84 98 Intake and Output 04/06/23 04/07/23 04/07/23 19:59 03:59 11:59 Intake Total 580 / 580 240 / 820 Output Total 550 / 550 400 / 950 Balance 30 / 30 -160 / -130 Intake: Intake, Oral Amount 480 / 480 240 / 720 Intake, Total IV Amount 100 / 100 Ceftriaxone Sodium 2 gm In 0.9 100 / 100 % Sodium Chloride 100 ml @ 200 mls/hr IV Q24H [facility] Rx#:[id number] Output: Output, Urine Amount 550 / 550 400 / 950 Other: Number of Unmeasured Voids 0 0 Number of Bowel Movements 1 Weight 192 lb 4 oz Patient Weight 04/07/23 11:59 Weight 192 lb 4 oz Laboratory Results - last 24 hr 04/07/23 05:14: WBC 6.5 D, RBC 3.78 L, Hgb 9.7 L, Hct 32.3 L, MCV 85.5, MCH 25.6 L, MCHC 29.9 L, RDW 17.5, Plt Count 277, MPV 8.4, Neut % (Auto) 62.6, Lymph % (Auto) 29.0, [place] % (Auto) 6.0, Eos % (Auto) 1.8, Baso % (Auto) 0.6, Neut # (Auto) 4.0, Lymph # (Auto) 1.9, [place] # (Auto) 0.4, Eos # (Auto) 0.1, Baso # (Auto) 0.0 04/07/23 05:14: Sodium 137, Potassium 4.2, Chloride 96 L, Carbon Dioxide 33 H, Anion Gap 12.2, BUN 17, Creatinine 0.90, Estimated Creat Clear 57, Estimated GFR 60, Est GFR ( Amer) 72, Glucose 93, Calcium 8.4 I & O for Labs for Last 24 Hours: Intake & Output 04/04/23 04/05/23 04/06/23 04/07/23 11:59 11:59 11:59 11:59 Intake Total 240 / 240 720 / 720 840 / 840 820 / 820 Output Total 0 / 0 0 / 0 0 / 0 950 / 950 Balance 240 / 240 720 / 720 840 / 840 -130 / -130 Weight 184 lb 2 oz 184 lb 187 lb 6.287 oz 192 lb 4 oz Microbiology Reports for the Last 24 Hours: Microbiology 04/03/23 16:25 Blood Blood Culture - Preliminary Gram Positive Cocci 04/03/23 15:55 Blood Blood Culture - Final Staphylococcus equorum 04/03/23 15:14 Urine,Clean Catch Urine Culture - Final Strep dysgalactiae ssp equisi Constitutional: Present no acute distress Respiratory: Present CTA bilaterally (Anteriorly and posteriorly) Cardiac: Present Irregularly Regular GI: Present soft and normal bowel sounds; Absent distention, tenderness or guarding Extremities: Absent edema or calf tenderness Neuro: Present alert and awake Comment:: Conversant Assessment and Plan *Assessment and plan (1) Severe sepsis: Status: Acute Category: Medical Code(s): A41.9 - Sepsis, unspecified organism; R65.20 - Severe sepsis without septic shock (2) Acute UTI: Status: Acute Category: Medical Code(s): N39.0 - Urinary tract infection, site not specified (3) Elevated WBC count: Status: Acute Category: Medical Code(s): D72.829 - Elevated white blood cell count, unspecified (4) Elevated lactic acid level: Status: Acute Category: Medical Code(s): R79.89 - Other specified abnormal findings of blood chemistry (5) Afib: Status: Chronic Category: Medical Code(s): I48.91 - Unspecified atrial fibrillation (6) HLD (hyperlipidemia): Status: Acute Category: Medi
--- NOTE | 2023-04-07 08:41 | XR_ITS ---
FINAL REPORT CLINICAL HISTORY: Confirm PICC line placement COMPARISON: April 03, 2023 FINDINGS: A left-sided PICC line terminates in the lower SVC. The heart is enlarged. The mediastinum is within normal limits. There is no acute cardiopulmonary process. There is no pleural effusion. There is no pneumothorax. There are postoperative changes in the right humerus. IMPRESSION: Left-sided PICC line terminates in the lower SVC Reviewed, Interpreted and Dictated by Russ Driscoll III, MD Transcribed by Blayne aMriscal Authenticated and . [facility]
--- NOTE | 2023-04-07 09:00 | EXP.PHA.PN ---
Subjective *Date: 04/07/23 *Time: 09:00 Medical Exam Vital signs and Labs for Last 24 Hours: Vital Signs Temp Pulse Resp BP Pulse Ox 04/07/23 07:57 97.8 F 88 22 157/77 H 96 04/07/23 04:00 97.9 F 66 18 108/65 L 94 L 04/07/23 00:00 98.4 F 72 16 117/71 96 04/06/23 20:00 96 04/06/23 20:00 98.7 F 64 18 116/77 96 04/06/23 15:27 97.9 F 54 L 17 121/49 L 96 04/06/23 11:11 97.7 F 82 18 140/84 98 Intake and Output 04/06/23 04/07/23 04/07/23 23:59 07:59 15:59 Intake Total 340 / 1180 240 / 480 240 / 480 Output Total 200 / 950 200 / 200 Balance 140 / 230 40 / 280 240 / 280 Intake: Intake, Oral Amount 240 / 1080 240 / 480 240 / 480 Intake, Total IV Amount 100 / 100 Ceftriaxone Sodium 2 gm In 0.9 100 / 100 % Sodium Chloride 100 ml @ 200 mls/hr IV Q24H [facility] Rx#:[id number] Output: Output, Urine Amount 200 / 950 200 / 200 Other: Number of Unmeasured Voids 0 Weight 87.203 kg Patient Weight 04/07/23 23:59 Weight 87.203 kg Laboratory Results - last 24 hr 04/07/23 05:14: WBC 6.5 D, RBC 3.78 L, Hgb 9.7 L, Hct 32.3 L, MCV 85.5, MCH 25.6 L, MCHC 29.9 L, RDW 17.5, Plt Count 277, MPV 8.4, Neut % (Auto) 62.6, Lymph % (Auto) 29.0, [place] % (Auto) 6.0, Eos % (Auto) 1.8, Baso % (Auto) 0.6, Neut # (Auto) 4.0, Lymph # (Auto) 1.9, Day # (Auto) 0.4, Eos # (Auto) 0.1, Baso # (Auto) 0.0 04/07/23 05:14: Sodium 137, Potassium 4.2, Chloride 96 L, Carbon Dioxide 33 H, Anion Gap 12.2, BUN 17, Creatinine 0.90, Estimated Creat Clear 57, Estimated GFR 60, Est GFR ( Amer) 72, Glucose 93, Calcium 8.4 I & O for Labs for Last 24 Hours: Intake & Output 04/04/23 04/05/23 04/06/23 04/07/23 23:59 23:59 23:59 23:59 Intake Total 720 / 720 720 / 840 940 / 1180 480 / 480 Output Total 0 / 0 0 / 0 750 / 950 200 / 200 Balance 720 / 720 720 / 840 190 / 230 280 / 280 Weight 83.518 kg 83.461 kg 85 kg 87.203 kg Microbiology Reports for the Last 24 Hours: Microbiology 04/03/23 16:25 Blood Blood Culture - Preliminary Gram Positive Cocci 04/03/23 15:55 Blood Blood Culture - Final Staphylococcus equorum 04/03/23 15:14 Urine,Clean Catch Urine Culture - Final Strep dysgalactiae ssp equisi The patient's infection will respond to the chosen ABx?: Yes (URINE CX = STREP DYSGALACTIAE, ROCEPHIN SUSCEPTIBLE.) Is the patient receiving the right drug, dose, and route?: Yes Could a more targeted ABx be ordered?: No
--- NOTE | 2023-04-07 10:08 | SW/DCPLANNER ---
The plan for this patient is to discharge home today w/ PICC line and return to [facility] outpatient services for IV antibiotics. CM will follow up with this patient if she has any needs/concerns.
--- NOTE | 2023-04-07 11:12 | PC.NURSE ---
SRNA NOTE: pt ambulated 50 feet in patient hallway. pt had no complaints during or after activity.
[2023-04-07 12:00] VITALS: BP 160/100; PULSE 109; RESP 22; TEMP 36.7; O2SAT 96
[2023-04-07 13:19] LABS: Occult Blood,Stool Negative (Negative)
--- NOTE | 2023-04-07 15:30 | CARE MANAGER ---
Spoke with infusion today, patient is planning to come around 1400 each day for Rocephin infusion. I will plan to obtain order for Rocephin in the AM and send down to infusion if not already done.
[2023-04-07 16:00] VITALS: BP 121/69; PULSE 96; RESP 20; TEMP 36.8; O2SAT 97
--- NOTE | 2023-04-07 16:57 | PC.NURSE ---
A&OX4. TOLERATING RA WELL. PT HAS DONE VERY WELL WITH AMBULATING TODAY, USE OF WALKER AND X1 ASSIST TO BATHROOM AND IN HALLWAY. TOLERATING WELL. RECEIVED BATH TODAY WELL. PT HAS HAD NO NEEDS OR C/O, TOLERATED PICC LINE WELL. RESTING IN BED, FAMILY AT BEDSIDE. VSS.
--- NOTE | 2023-04-08 13:13 | CARE MANAGER ---
Spoke with patient family member for post-discharge follow-up phone interview, no issues noted.
--- NOTE | 2023-04-15 09:15 | EXP.DC.SUM ---
General Admission date:: 04/03/23 Discharge date: 04/07/23 HPI HPI HPI: 83 year old female with a history of frequent urinary tract infections presented to [facility] ER yesterday complaining of a one day history of fever associated with nausea and vomiting. She was hospitalized a little over a month ago with a UTI and subsequent testing showed that infection was treated and cleared. Hospital Course Hospital Course Hospital Course: The patient was admitted for management of her UTI with sepsis. She was started on Rocephin. Her home medications were ordered. She began feeling better. She was able to walk in the aden with a walker. She did have growth in her blood culture as well as urine culture. Her H&H dropped, therefore a stool for occult blood was ordered. H&H remained stable. Her urine culture grew strep and her blood culture grew staph. A PICC line was placed so Rocephin could be continued daily at [facility] upon discharge. Exam Data for Last 24 hours Vital signs and Labs for Last 24 Hours: Temp Pulse Resp BP Pulse Ox 98.2 F 96 H 20 121/69 97 04/07/23 16:00 04/07/23 16:00 04/07/23 16:00 04/07/23 16:00 04/07/23 16:00 Narrative: Constitutional Constitutional: no acute distress *Routine HEENT Exam Head: Present normocephalic Eye: Present EOMI and PERRL ENT: Present mucous membranes moist *Routine Neck Exam Neck: Present supple; Absent lymphadenopathy *Routine Respiratory Exam Respiratory: Present CTA bilaterally *Routine Cardiovascular Exam Cardiovascular: Present irregularly irregular *Routine Abdominal Exam Abdominal: Present soft, normoactive bowel sounds and tenderness (minimal periumbilical) *Routine Rectal Exam Rectal:: deferred *Routine Genitalia Exam Genitalia:: deferred *Routine Extremities Exam Extremities: Absent cyanosis, clubbing or edema *Routine Skin Exam Skin: Present dry and warm; Absent rash *Routine Neurological Exam Neurological: Present alert and oriented X3 DS: Diagnosis Discharge Diagnosis (1) Severe sepsis: Status: Acute Code(s): A41.9 - Sepsis, unspecified organism; R65.20 - Severe sepsis without septic shock (2) Acute UTI: Status: Acute Code(s): N39.0 - Urinary tract infection, site not specified (3) Elevated WBC count: Status: Acute Code(s): D72.829 - Elevated white blood cell count, unspecified (4) Elevated lactic acid level: Status: Acute Code(s): R79.89 - Other specified abnormal findings of blood chemistry (5) Afib: Status: Chronic Code(s): I48.91 - Unspecified atrial fibrillation (6) HLD (hyperlipidemia): Status: Acute Code(s): E78.5 - Hyperlipidemia, unspecified (7) HTN (hypertension): Status: Acute Code(s): I10 - Essential (primary) hypertension (8) GERD (gastroesophageal reflux disease): Status: Acute Code(s): K21.9 - Gastro-esophageal reflux disease without esophagitis (9) Obesity: Status: Chronic Code(s): E66.9 - Obesity, unspecified Qualifiers: Obesity classification: adult class 2 (BMI 35 - 39.9) Serious obesity comorbidity presence: with serious comorbidity Body mass index: BMI 36.0-36.9 Obesity type: due to excess calories Qualified Code(s): E66.01 - Morbid (severe) obesity due to excess calories; Z68.36 - Body mass index [BMI] 36.0-36.9, adult (10) Anemia: Status: Acute Code(s): D64.9 - Anemia, unspecified (11) Bacteremia: Status: Acute Code(s): R78.81 - Bacteremia Meds Home Medications and Allergies Home Medications Medication Instructions Recorded Confirmed Type acetaminophen 500 mg tablet 500 mg PO Q6HP PRN Mild Pain 10/19/17 04/09/23 History (Tylenol Extra Strength) (Scale Score 1-4) chlordiazepoxide HCl 10 mg capsule 10 mg PO BID Anxiety 10/19/17 04/09/23 History escitalopram oxalate 10 mg tablet 10 mg PO DAILY Depression 10/19/17 04/09/23 History
== END 2023-04-07 17:52 | disposition home or self-care (01) | DRG 872 ==
LOC: ER 16:43 → 2ND 17:05
PROVIDERS: Admitting Provider Family Medicine; Emergency Provider Emergency Medicine; PCP Family Medicine; Visit Provider Family Medicine
DX: A41.9 Sepsis, unspecified organism (principal); N39.0 Urinary tract infection, site not specified; E78.5 Hyperlipidemia, unspecified; I48.91 Unspecified atrial fibrillation; Z79.01 Long term (current) use of anticoagulants; Z79.899 Other long term (current) drug therapy; R65.20 Severe sepsis without septic shock; I11.0 Hypertensive heart disease with heart failure; I50.9 Heart failure, unspecified; Z85.3 Personal history of malignant neoplasm of breast; Z85.44 Personal history of malignant neoplasm of other female genital organs; E66.9 Obesity, unspecified; Z68.30 Body mass index [BMI] 30.0-30.9, adult; K21.9 Gastro-esophageal reflux disease without esophagitis; D64.9 Anemia, unspecified
CPT/HCPCS: 36569; 36415; 70450; 71045; 72125; 73070; 73560; 80048; 80053; 81001; 82272; 83605; 85007; 85025; 87040; 87077; 87086; 87088; 87186; 87636; 99284; 99285; C1751; C9803; G0328; J0696; J2405; U0003; U0005

== ENCOUNTER 2023-04-08 14:06 | Outpatient (CLI) | payer MEDICARE, SELFPAY ==
[2023-04-08 14:40] VITALS: BP 108/60; PULSE 72; RESP 18; TEMP 36.8; O2SAT 98
[2023-04-08 15:15] VITALS: BP 113/76; PULSE 72; RESP 18; O2SAT 98
== END 2023-04-08 15:15 | disposition home or self-care (01) ==
PROVIDERS: PCP Family Medicine; Visit Provider Family Medicine
DX: R78.81 Bacteremia (principal); N39.0 Urinary tract infection, site not specified
CPT/HCPCS: 96365; J0696

== ENCOUNTER 2023-04-09 14:08 | Outpatient (CLI) | payer MEDICARE, SELFPAY ==
[2023-04-09 14:25] VITALS: BP 123/51; PULSE 55; RESP 18; TEMP 36.6; O2SAT 99
[2023-04-09 15:11] VITALS: BP 112/60; PULSE 64; RESP 18; O2SAT 99
== END 2023-04-09 15:16 | disposition home or self-care (01) ==
LOC: INF 14:09
PROVIDERS: PCP Family Medicine; Visit Provider Family Medicine
DX: R78.81 Bacteremia (principal)
CPT/HCPCS: 96365; J0696

== ENCOUNTER 2023-04-10 14:00 | Outpatient (CLI) | payer MEDICARE, SELFPAY ==
[2023-04-10 14:15] VITALS: BP 138/66; PULSE 80; RESP 18; O2SAT 96
[2023-04-10 14:55] VITALS: BP 156/64; PULSE 66; RESP 18
== END 2023-04-10 14:55 | disposition home or self-care (01) ==
LOC: INF 14:01
PROVIDERS: PCP Family Medicine; Visit Provider Family Medicine
DX: R78.81 Bacteremia (principal)
CPT/HCPCS: 96365; J0696

== ENCOUNTER 2023-04-11 12:43 | Outpatient (CLI) | payer MEDICARE, SELFPAY ==
[2023-04-11 13:06] VITALS: BMI 32.8
== END 2023-04-11 13:39 | disposition home or self-care (01) ==
LOC: INF 12:44
PROVIDERS: PCP Family Medicine; Visit Provider Family Medicine
DX: R78.81 Bacteremia (principal)
CPT/HCPCS: 96365; J0696

== ENCOUNTER 2023-04-12 13:39 | Outpatient (CLI) | payer MEDICARE, SELFPAY ==
[2023-04-12 13:46] VITALS: BMI 32.8
== END 2023-04-12 14:40 | disposition home or self-care (01) ==
LOC: INF 13:40
PROVIDERS: PCP Family Medicine; Visit Provider Family Medicine
DX: R78.81 Bacteremia (principal)
CPT/HCPCS: 96365; J0696

== ENCOUNTER 2023-04-13 14:04 | Outpatient (CLI) | payer MEDICARE, SELFPAY ==
[2023-04-13 14:48] VITALS: BP 133/59; PULSE 76; RESP 18; O2SAT 99
[2023-04-13 15:38] VITALS: BP 141/62; PULSE 67; RESP 18; O2SAT 99
--- NOTE | 2023-04-13 15:56 | PC.NURSE ---
blood cultures x2 drawn from picc line and right ac aseptically, per MD order.
== END 2023-04-13 15:38 | disposition home or self-care (01) ==
LOC: INF 14:04
PROVIDERS: PCP Family Medicine; Visit Provider Family Medicine
DX: R78.81 Bacteremia (principal)
CPT/HCPCS: 36415; 87040; 96365; J0696

== ENCOUNTER → 2023-04-14 14:04 | Outpatient (CLI) | payer MEDICARE, SELFPAY ==
[2023-04-14 14:17] VITALS: BP 149/55; PULSE 60; RESP 19; TEMP 36.7; O2SAT 99; BMI 31.4
== END ==
PROVIDERS: PCP Family Medicine; Visit Provider Family Medicine
DX: R78.81 Bacteremia (principal)
CPT/HCPCS: 96365; J0696

== ENCOUNTER 2023-04-15 14:53 | Outpatient (CLI) | payer MEDICARE, SELFPAY ==
[2023-04-15 15:10] VITALS: BP 133/80; PULSE 63; RESP 18; O2SAT 99
[2023-04-15 15:49] VITALS: BP 146/62; PULSE 62; RESP 18; O2SAT 99
== END 2023-04-15 15:49 | disposition home or self-care (01) ==
LOC: INF 14:54
PROVIDERS: PCP Family Medicine; Visit Provider Family Medicine
DX: R78.81 Bacteremia (principal)
CPT/HCPCS: 96365; J0696

== ENCOUNTER 2023-04-16 14:04 | Outpatient (CLI) | payer MEDICARE, SELFPAY ==
--- NOTE | 2023-04-16 14:30 | PC.NURSE ---
Prachi Dan spoke with Dr. Kyle regarding pt's cultures results, Rocephin infusion, and PICC line. Instructed to give Rocephin infusion and then remove PICC line.
[2023-04-16 14:34] VITALS: BP 110/50; PULSE 47; RESP 16; TEMP 36.2; O2SAT 100
[2023-04-16 15:18] VITALS: BP 110/48; PULSE 47; RESP 18; O2SAT 100
== END 2023-04-16 15:20 | disposition home or self-care (01) ==
LOC: INF 14:05
PROVIDERS: PCP Family Medicine; Visit Provider Family Medicine
DX: R78.81 Bacteremia (principal)
CPT/HCPCS: 96365; G0463; J0696

== ENCOUNTER 2023-04-30 11:34 | Emergency (ER) | payer MEDICARE, SELFPAY ==
[2023-04-30 11:34] VITALS: BP 147/78; PULSE 64; RESP 16; TEMP 36.8; O2SAT 98; BMI 31.9
--- NOTE | 2023-04-30 11:51 | EXP.UTC ---
Discharge Plan Disposition Patient Disposition: Home, Self-Care Condition: Good Prescriptions Prescriptions: New Saline Nasal 0.65 % aerosol,spray 2 spray intranasal QID PRN (Reason: dry nasal passages) Qty: 44 0RF No Action chlordiazepoxide HCl 10 mg capsule 10 mg PO BID escitalopram oxalate 10 mg tablet 10 mg PO DAILY potassium chloride [Klor-Con 10] 10 mEq tablet extended release 20 meq PO DAILY acetaminophen [Tylenol Extra Strength] 500 mg tablet 500 mg PO Q6HP PRN (Reason: Mild Pain (Scale Score 1-4)) allopurinol 100 mg tablet 100 mg PO DAILY 30 Days Qty: 30 Xarelto 20 mg tablet 20 mg PO QPMWITHMEAL Qty: 90 3RF Rx Instructions: must administer with evening meal furosemide 20 mg tablet 60 mg PO DAILY Qty: 270 3RF metoprolol succinate 25 mg tablet extended release 24 hr See Rx Instructions .ROUTE .COMPLEX Qty: 90 1RF Dose Instruction: TAKE 1 TABLET BY MOUTH DAILY FOR HYPERTENSION Rx Instructions: TAKE 1 TABLET BY MOUTH DAILY FOR HYPERTENSION diltiazem HCl 360 mg capsule,extended release 24hr See Rx Instructions .ROUTE .COMPLEX Qty: 90 1RF Dose Instruction: TAKE 1 CAPSULE BY MOUTH DAILY FOR HEART RATE Rx Instructions: TAKE 1 CAPSULE BY MOUTH DAILY FOR HEART RATE omeprazole 40 mg capsule,delayed release(DR/EC) 40 mg PO DAILY Patient Comments: TAKE 1 CAPSULE BY MOUTH EVERY DAY cyanocobalamin (vitamin B-12) 1,000 mcg Tablet Extended Release 1,000 mcg PO DAILY ceftriaxone 2 gram recon soln 2 g IV DAILY sennosides-docusate sodium [Senna-S] 8.6-50 mg Tablet 1 tab PO HS cholecalciferol (vitamin D3) 125 mcg (5,000 unit) capsule 10,000 unit PO .TWICE WEEKLY Patient Comments: TAKE 2 CAPSULES BY MOUTH TWICE A WEEK ON SAME DAYS EACH WEEK Rx Instructions: TWO CAPSULES TWICE WEEKLY atorvastatin 20 mg tablet 20 mg PO DAILY Referrals Follow up/Referrals: Parvez Kyle MD [Primary Care Provider] - See instructions Activity Restrictions/Add. Instructions Additional Instructions/Restrictions: Continue to use the afrin nasal spray as directed for the next couple of days if needed. follow up with your primary care physician. Keep you appointment with ENT that you have for next week. GO TO THE ER FOR ANY WORSENING OR CONCERNING SYMPTOMS. Clinical Impressions Clinical Impression: Epistaxis Instructions Patient Instructions: Nosebleed, DI for Nosebleed Discharge ED Provider: Phan Weaver [facility] [place] HPI General Stated complaint: Nose bleed Time Seen by Provider: 04/30/23 11:51 History of Present Illness Provider Complaint: She states that for the past 2 days she has had intermittent nose bleed from her right nostril. She has a history of having problems with nose bleeds. She takes eliquis. Related Data Home Medications Medication Instructions Recorded Confirmed acetaminophen 500 mg tablet 500 mg PO Q6HP PRN Mild Pain 10/19/17 04/09/23 (Tylenol Extra Strength) (Scale Score 1-4) chlordiazepoxide HCl 10 mg capsule 10 mg PO BID Anxiety 10/19/17 04/09/23 escitalopram oxalate 10 mg tablet 10 mg PO DAILY Depression 10/19/17 04/09/23 potassium chloride 10 mEq 20 meq PO DAILY Supplement 10/19/17 04/09/23 tablet,extended release (Klor-Con) allopurinol 100 mg tablet 100 mg PO DAILY gout 30 days #30 03/02/19 04/09/23 tabs atorvastatin 20 mg tablet 20 mg PO DAILY Cholesterol 06/30/22 04/09/23 cholecalciferol (vitamin D3) 125 10,000 unit PO .TWICE WEEKLY 06/30/22 04/09/23 mcg (5,000 unit) capsule Supplement sennosides 8.6 mg-docusate sodium 1 tab PO HS constipation 06/30/22 04/09/23 50 mg tablet (Senna-S) omeprazole 40 mg capsule,delayed 40 mg PO DAILY Acid reflux 02/20/23 04/09/23 release cyanocobalamin (vitamin B-12) 1,000 mcg PO DAILY Supplement 04/04/23 04/09/23 1,000 mcg tablet,extended release ceftriaxone 2 gram solution for 2 g IV DAILY infection
[2023-04-30 12:44] VITALS: BP 147/78; PULSE 64; RESP 16; TEMP 36.8; O2SAT 98
== END 2023-04-30 12:45 | disposition home or self-care (01) ==
PROVIDERS: Emergency Provider Nurse Practitioner Family; PCP Family Medicine
DX: R04.0 Epistaxis (principal); I48.91 Unspecified atrial fibrillation; I11.9 Hypertensive heart disease without heart failure; E78.5 Hyperlipidemia, unspecified; H40.9 Unspecified glaucoma; E79.0 Hyperuricemia without signs of inflammatory arthritis and tophaceous disease; G56.00 Carpal tunnel syndrome, unspecified upper limb; Z79.01 Long term (current) use of anticoagulants
CPT/HCPCS: 99212; 99213; G0463

== ENCOUNTER 2023-04-30 20:59 | Emergency (ER) | payer MEDICARE, SELFPAY ==
[2023-04-30 21:01] VITALS: BP 138/100; PULSE 86; RESP 16; TEMP 36.5; O2SAT 97; BMI 32.2
--- NOTE | 2023-04-30 21:38 | HMH.EDGENADL ---
Discharge Plan Disposition Patient Disposition: Home, Self-Care Condition: Good Prescriptions Prescriptions: New ondansetron 4 mg tablet,disintegrating 4 mg PO Q8H PRN (Reason: nausea and vomiting) 4 Days Qty: 12 0RF No Action chlordiazepoxide HCl 10 mg capsule 10 mg PO BID escitalopram oxalate 10 mg tablet 10 mg PO DAILY potassium chloride [Klor-Con 10] 10 mEq tablet extended release 20 meq PO DAILY acetaminophen [Tylenol Extra Strength] 500 mg tablet 500 mg PO Q6HP PRN (Reason: Mild Pain (Scale Score 1-4)) allopurinol 100 mg tablet 100 mg PO DAILY 30 Days Qty: 30 Xarelto 20 mg tablet 20 mg PO QPMWITHMEAL Qty: 90 3RF Rx Instructions: must administer with evening meal furosemide 20 mg tablet 60 mg PO DAILY Qty: 270 3RF metoprolol succinate 25 mg tablet extended release 24 hr See Rx Instructions .ROUTE .COMPLEX Qty: 90 1RF Dose Instruction: TAKE 1 TABLET BY MOUTH DAILY FOR HYPERTENSION Rx Instructions: TAKE 1 TABLET BY MOUTH DAILY FOR HYPERTENSION diltiazem HCl 360 mg capsule,extended release 24hr See Rx Instructions .ROUTE .COMPLEX Qty: 90 1RF Dose Instruction: TAKE 1 CAPSULE BY MOUTH DAILY FOR HEART RATE Rx Instructions: TAKE 1 CAPSULE BY MOUTH DAILY FOR HEART RATE omeprazole 40 mg capsule,delayed release(DR/EC) 40 mg PO DAILY Patient Comments: TAKE 1 CAPSULE BY MOUTH EVERY DAY cyanocobalamin (vitamin B-12) 1,000 mcg Tablet Extended Release 1,000 mcg PO DAILY ceftriaxone 2 gram recon soln 2 g IV DAILY sennosides-docusate sodium [Senna-S] 8.6-50 mg Tablet 1 tab PO HS cholecalciferol (vitamin D3) 125 mcg (5,000 unit) capsule 10,000 unit PO .TWICE WEEKLY Patient Comments: TAKE 2 CAPSULES BY MOUTH TWICE A WEEK ON SAME DAYS EACH WEEK Rx Instructions: TWO CAPSULES TWICE WEEKLY atorvastatin 20 mg tablet 20 mg PO DAILY Saline Nasal 0.65 % aerosol,spray 2 spray intranasal QID PRN (Reason: dry nasal passages) Qty: 44 0RF Referrals Follow up/Referrals: Parvez Kyle MD [Primary Care Provider] - See instructions Activity Restrictions/Add. Instructions Additional Instructions/Restrictions: You were evaluated in the emergency department today. At this time, we feel that your nausea and the blood you are coughing up as a result of your nosebleed which has since resolved. Please continuous pickling line pickler your prescription for Zofran and use as needed for nausea and vomiting. If you suffer from a nosebleed again, do not tilt your head backwards. Tilt your head forwards and hold pressure at the base of your nose. Follow-up with your primary care provider over the next 48 hours. Return to the emergency department for any new or worsening symptoms. Clinical Impressions Clinical Impression: Epistaxis, Nausea Instructions Patient Instructions: DI for Nosebleed Discharge ED Provider: Lora Hutchison General Adult HPI General Chief complaint: Epistaxis Stated complaint: nausea, spitting up blood Time Seen by Provider: 04/30/23 21:03 Mode of Arrival: Wheelchair Source of Information: Patient Limitations: No Limitations Description of Symptoms (Recalled from ER Triage Doc. by RN): pt c/o spitting up blood after coughing. pt was seen earlier today in [facility] for epistaxis and has follow up with ENT on 05/06 History of Present Illness HPI narrative: This patient is an 83-year-old female with a history of atrial fibrillation on Xarelto, hypertension, hyperlipidemia, obesity, and CHF presented to the emergency department for evaluation with concern for spitting up blood with coughing in the setting of nosebleed that happened earlier today. She was evaluated earlier today for nosebleed and was discharged with follow-up with ENT on 05/06. The nosebleed has since resolved, but she states that she feels that there is a clot in her nose. She also states that she is having nausea and feels like the bl
[2023-04-30 21:46] VITALS: BP 117/61; PULSE 81; RESP 16; TEMP 36.5; O2SAT 97
== END 2023-04-30 21:47 | disposition home or self-care (01) ==
PROVIDERS: Emergency Provider Emergency Medicine; PCP Family Medicine
DX: R11.0 Nausea (principal); R04.0 Epistaxis; I48.91 Unspecified atrial fibrillation; I11.0 Hypertensive heart disease with heart failure; I50.9 Heart failure, unspecified; E78.5 Hyperlipidemia, unspecified
CPT/HCPCS: 99212; 99213; 99283; G0463

== ENCOUNTER → 2023-06-02 12:31 | Outpatient (CLI) | payer MEDICARE, SELFPAY ==
--- NOTE | 2023-06-02 12:37 | XR_ITS ---
FINAL REPORT CLINICAL HISTORY: SHOULDER PAIN X SEVERAL WEEKS COMPARISON: None FINDINGS: RIGHT SHOULDER Three views demonstrate no acute fracture or dislocation. The visualized joint spaces are normally aligned. There are surgical anchors noted in the proximal right humerus. There is mild acromioclavicular degenerative change present. The soft tissues are unremarkable. IMPRESSION: Mild acromioclavicular degenerative change present. No acute bony abnormality identified. Reviewed, Interpreted and Dictated by Kj Bone MD Transcribed by Nallely Staples Authenticated and [facility]
== END ==
PROVIDERS: PCP Family Medicine; Visit Provider Family Medicine
DX: M25.511 Pain in right shoulder (principal)
CPT/HCPCS: 73030

== ENCOUNTER 2023-06-06 08:44 | Emergency (ER) | payer MEDICARE, SELFPAY ==
[2023-06-06 08:44] VITALS: BP 155/65; PULSE 60; RESP 18; TEMP 36.7; O2SAT 97; BMI 31.6
--- NOTE | 2023-06-06 08:51 | EXP.UTC ---
Discharge Plan Disposition Patient Disposition: Home, Self-Care Condition: Fair Prescriptions Prescriptions: New acetaminophen-codeine 300-30 mg tablet 1 tab PO Q8H PRN (Reason: pain) Qty: 10 0RF No Action chlordiazepoxide HCl 10 mg capsule 10 mg PO BID escitalopram oxalate 10 mg tablet 10 mg PO DAILY potassium chloride [Klor-Con 10] 10 mEq tablet extended release 20 meq PO DAILY acetaminophen [Tylenol Extra Strength] 500 mg tablet 500 mg PO Q6HP PRN (Reason: Mild Pain (Scale Score 1-4)) allopurinol 100 mg tablet 100 mg PO DAILY 30 Days Qty: 30 Xarelto 20 mg tablet 20 mg PO QPMWITHMEAL Qty: 90 3RF Rx Instructions: must administer with evening meal furosemide 20 mg tablet 60 mg PO DAILY Qty: 270 3RF metoprolol succinate 25 mg tablet extended release 24 hr See Rx Instructions .ROUTE .COMPLEX Qty: 90 1RF Dose Instruction: TAKE 1 TABLET BY MOUTH DAILY FOR HYPERTENSION Rx Instructions: TAKE 1 TABLET BY MOUTH DAILY FOR HYPERTENSION diltiazem HCl 360 mg capsule,extended release 24hr See Rx Instructions .ROUTE .COMPLEX Qty: 90 1RF Dose Instruction: TAKE 1 CAPSULE BY MOUTH DAILY FOR HEART RATE Rx Instructions: TAKE 1 CAPSULE BY MOUTH DAILY FOR HEART RATE omeprazole 40 mg capsule,delayed release(DR/EC) 40 mg PO DAILY Patient Comments: TAKE 1 CAPSULE BY MOUTH EVERY DAY cyanocobalamin (vitamin B-12) 1,000 mcg Tablet Extended Release 1,000 mcg PO DAILY ceftriaxone 2 gram recon soln 2 g IV DAILY sennosides-docusate sodium [Senna-S] 8.6-50 mg Tablet 1 tab PO HS cholecalciferol (vitamin D3) 125 mcg (5,000 unit) capsule 10,000 unit PO .TWICE WEEKLY Patient Comments: TAKE 2 CAPSULES BY MOUTH TWICE A WEEK ON SAME DAYS EACH WEEK Rx Instructions: TWO CAPSULES TWICE WEEKLY atorvastatin 20 mg tablet 20 mg PO DAILY Saline Nasal 0.65 % aerosol,spray 2 spray intranasal QID PRN (Reason: dry nasal passages) Qty: 44 0RF ondansetron 4 mg tablet,disintegrating 4 mg PO Q8H PRN (Reason: nausea and vomiting) 4 Days Qty: 12 0RF Referrals Follow up/Referrals: Parvez Kyle MD [Primary Care Provider] - See instructions Activity Restrictions/Add. Instructions Additional Instructions/Restrictions: Followup with Dr Kyle if not improving Clinical Impressions Clinical Impression: Fall, Elbow pain, left, Acute pain of left shoulder, Acute bilateral low back pain Instructions Patient Instructions: DI for Low Back Pain Discharge ED Provider: Anastasia Jay [facility] [place] HPI General Stated complaint: [id number] back pain lt elbow opain Time Seen by Provider: 06/06/23 09:05 History of Present Illness Provider Complaint: Patient fell out of bed around 2:30 this morning. Isn't clear exactly what happened. Has low back pain, left elbow pain, left shoulder pain. Has a history of RTC tear right shoulder and it is always painful. Doesn't seem to feel as if that is any worse. She did hit her head but does not think she lost consciousness. Couldn't get up and back in bed so had to yell for her son. He got her out of the floor and back in bed but she was uncomfortable and could not rest. Does not think she has any skin tears or lacerations. Onset (ago): hour(s) (8) Location: head, back, left and upper extremity Radiation: non-radiation Treatments prior to arrival: none Related Data Home Medications Medication Instructions Recorded Confirmed acetaminophen 500 mg tablet 500 mg PO Q6HP PRN Mild Pain 10/19/17 05/19/23 (Tylenol Extra Strength) (Scale Score 1-4) chlordiazepoxide HCl 10 mg capsule 10 mg PO BID Anxiety 10/19/17 05/19/23 escitalopram oxalate 10 mg tablet 10 mg PO DAILY Depression 10/19/17 05/19/23 potassium chloride 10 mEq 20 meq PO DAILY Supplement 10/19/17 05/19/23 tablet,extended release (Klor-Con) allopurinol 100 mg tablet 100 mg PO DAILY gout 30 days #30 05
--- NOTE | 2023-06-06 09:16 | XR_ITS ---
PROCEDURE INFORMATION: Exam: XR Left Elbow Exam date and time: 06/06/2023 9:47 AM Age: 83 years old Clinical indication: Injury or trauma; Fall; Blunt trauma (contusions or hematomas); Elbow; Left TECHNIQUE: Imaging protocol: Radiologic exam of the left elbow. Views: 1 or 2 views. COMPARISON: CR XR ELBOW LT 2V 03/31/2023 10:05 AM FINDINGS: Bones/joints: Normal. Soft tissues: Normal. IMPRESSION: No acute findings.
--- NOTE | 2023-06-06 09:16 | XR_ITS ---
PROCEDURE INFORMATION: Exam: XR Left Shoulder Exam date and time: 06/06/2023 9:42 AM Age: 83 years old Clinical indication: Injury or trauma; Fall; Blunt trauma (contusions or hematomas); Shoulder; Left TECHNIQUE: Imaging protocol: Radiologic exam of the left shoulder. Views: 2 or more views. COMPARISON: CR [id number] [id number] 08/05/2017 11:11 AM FINDINGS: Bones/joints: There is a healed fracture of the mid clavicular diaphysis. The bones are generally osteopenic. Soft tissues: Normal. IMPRESSION: No acute process left shoulder.
--- NOTE | 2023-06-06 09:16 | XR_ITS ---
PROCEDURE INFORMATION: Exam: XR Lumbosacral Spine Exam date and time: 06/06/2023 9:40 AM Age: 83 years old Clinical indication: Injury or trauma; Fall; Blunt trauma (contusions or hematomas) TECHNIQUE: Imaging protocol: Radiologic exam of the lumbosacral spine. Views: 2 or 3 views. COMPARISON: ABDPELW/O CT ABD PELVIS W/O CONTRAST 08/16/2017 7:21 PM FINDINGS: Bones/joints: There is a 7 degree levoconvex curvature of the lower lumbar spine centered at L4 and a 6 degree dextroconvex curvature of the upper lumbar spine centered at L1. Lumbar spondylosis is noted with disc space narrowing and osteophytosis. Soft tissues: Unremarkable. IMPRESSION: Lumbar spondylosis and biconvex scoliosis.
[2023-06-06 10:40] VITALS: BP 155/65; PULSE 60; RESP 18; TEMP 36.7; O2SAT 97
== END 2023-06-06 10:42 | disposition home or self-care (01) ==
PROVIDERS: Emergency Provider Physician Assistant; PCP Family Medicine
DX: M25.512 Pain in left shoulder (principal); M25.522 Pain in left elbow; M54.50 Low back pain, unspecified; M47.816 Spondylosis without myelopathy or radiculopathy, lumbar region; M41.86 Other forms of scoliosis, lumbar region; I11.9 Hypertensive heart disease without heart failure; E78.5 Hyperlipidemia, unspecified; W06.XXXA Fall from bed, initial encounter
CPT/HCPCS: 72100; 73030; 73070; 99212; 99214; G0463

== ENCOUNTER 2023-10-13 15:23 | Outpatient (CLI) | payer MEDICARE, SELFPAY ==
--- NOTE | 2023-10-13 15:36 | XR_ITS ---
FINAL REPORT CLINICAL HISTORY: fall and back pain FINDINGS: 5 views were obtained. There are moderate T12, L2 and L4 compression fractures. The T12 and L4 compression fractures are favored to be chronic. The L2 compression fracture is of indeterminate age but is likely acute. There are moderate degenerative changes. There is rightward curvature. IMPRESSION: Compression fractures as above. L2 compression fracture is age-indeterminate but likely acute. This could be further evaluated with MRI. Reviewed, Interpreted and Dictated by Russ Driscoll III, MD Transcribed by Blayne Mariscal Authenticated and . [facility]
--- NOTE | 2023-10-13 15:36 | XR_ITS ---
FINAL REPORT TECHNIQUE: 3 views CLINICAL HISTORY: fall and back pain FINDINGS: There is no fracture identified. There is no malalignment. There are moderate degenerative changes with osteophytes. IMPRESSION: No acute process. Reviewed, Interpreted and Dictated by Russ Driscoll III, MD Transcribed by Blayne Mariscal Authenticated and [facility]
[2023-10-13 15:41] LABS: Basophils % 0.4 % (0.1-2.0); Eosinophils # 0.1 K/mm3 (0.0-0.4); Eosinophils % 1.1 % (0.1-12.0); Hematocrit 37.3 % (37.0-47.0); Hemoglobin 11.6 g/dL (12.2-16.2); Lymphocytes # 1.7 K/mm3 (0.7-4.5); Lymphocytes % 20.1 % (10-50); Mean Corpuscular HGB Conc 31.2 g/dL (31.8-35.4); Mean Corpuscular Hemoglobin 27.9 pg (27.0-31.2); Mean Corpuscular Volume 89.3 fl (81-99); Mean Platelet Volume 8.5 fl (7.4-10.4); Monocytes # 0.4 K/mm3 (0.1-1.0); Monocytes % 4.6 % (1.7-9.3); Neutrophils # 6.2 K/mm3 (1.8-7.8); Neutrophils % 73.8 % (37.0-80.0); Platelet Count 321 K/mm3 (142-424); Red Blood Count 4.17 M/mm3 (4.20-5.40); Red Cell Distribution Width 16.8 % (11.5-17.5); White Blood Count 8.4 K/mm3 (4.8-10.8)
[2023-10-13 16:37] LABS: Free T4 (Free Thyroxine) 0.96 ng/dl (0.78-2.19)
[2023-10-13 16:55] LABS: Alanine Aminotransferase 16 U/L (12-78); Albumin Level 3.8 g/dl (3.5-5.0); Alkaline Phosphatase 101 U/L (38-126); Anion Gap 9.8 mEq/L (5-15); Aspartate Amino Transferase 24 U/L (14-36); Bilirubin,Direct 0.1 mg/dl (0.0-0.4); Bilirubin,Indirect 0.4 mg/dL (0.0-0.9); Bilirubin,Total 0.5 mg/dl (0.2-1.3); Bilirubin,Unconjugated 0.4 mg/dL (0.0-1.1); Blood Urea Nitrogen 15 mg/dl (7-17); Calcium 8.5 mg/dl (8.4-10.2); Carbon Dioxide 32 mmol/L (22.0-30.0); Chloride 97 mmol/L (98-107); Cholesterol 117 mg/dl (140-200); Estimated Glomerular Filt Rate 60 ml/min (>60); GFR (African American) 72 ML/MIN (>60); Glucose 103 mg/dl (74-100); HDL Cholesterol 60 mg/dl (40-60); Potassium 3.8 mmoL/L (3.5-5.1); Sodium 135 mmol/L (136-145); Total Protein,Serum 5.8 g/dl (6.3-8.2); Triglycerides 118 mg/dl (30-150); VLDL Cholesterol 24 mg/dL (0-40)
[2023-10-13 17:15] LABS: Direct LDL Cholesterol 45.95 mg/dL (100-129)
[2023-10-13 17:25] LABS: Thyroid Stimulating Hormone 1.55 uIU/mL (0.465-4.68)
== END 2023-10-13 23:59 ==
LOC: LAB 15:25
PROVIDERS: PCP Family Medicine; Visit Provider Nurse Practitioner
DX: E78.5 Hyperlipidemia, unspecified (principal); K21.9 Gastro-esophageal reflux disease without esophagitis; I11.9 Hypertensive heart disease without heart failure; R06.00 Dyspnea, unspecified; M54.9 Dorsalgia, unspecified; W19.XXXA Unspecified fall, initial encounter
CPT/HCPCS: 36415; 72072; 72110; 80048; 80061; 80076; 84439; 84443; 85025

== ENCOUNTER 2023-12-02 13:20 | Emergency (ER) | payer MEDICARE, SELFPAY ==
[2023-12-02 15:10] VITALS: BP 130/69; PULSE 60; RESP 20; TEMP 36.7; O2SAT 97; BMI 31.2
--- NOTE | 2023-12-02 15:15 | ED_ITS ---
Discharge Plan Disposition Patient Disposition: Home, Self-Care Condition: Good Prescriptions Prescriptions: New cefdinir 300 mg capsule 300 mg PO BID 5 Days Qty: 10 0RF No Action chlordiazepoxide HCl 10 mg capsule 10 mg PO BID escitalopram oxalate 10 mg tablet 10 mg PO DAILY potassium chloride [Klor-Con 10] 10 mEq tablet extended release 20 meq PO DAILY allopurinol 100 mg tablet 100 mg PO DAILY 30 Days Qty: 30 Xarelto 20 mg tablet 20 mg PO QPMWITHMEAL Qty: 90 3RF Rx Instructions: must administer with evening meal furosemide 20 mg tablet 60 mg PO DAILY Qty: 270 3RF atorvastatin 20 mg tablet 20 mg PO DAILY 90 Days Qty: 90 3RF diltiazem HCl 360 mg capsule,extended release 24hr See Rx Instructions .ROUTE .COMPLEX Qty: 90 1RF Dose Instruction: TAKE 1 CAPSULE BY MOUTH DAILY FOR HEART RATE Rx Instructions: TAKE 1 CAPSULE BY MOUTH DAILY FOR HEART RATE metoprolol succinate 25 mg tablet extended release 24 hr See Rx Instructions .ROUTE .COMPLEX Qty: 90 4RF Dose Instruction: TAKE 1 TABLET BY MOUTH DAILY FOR HYPERTENSION Rx Instructions: TAKE 1 TABLET BY MOUTH DAILY FOR HYPERTENSION omeprazole 40 mg capsule,delayed release(DR/EC) 40 mg PO DAILY Patient Comments: TAKE 1 CAPSULE BY MOUTH EVERY DAY cyanocobalamin (vitamin B-12) 1,000 mcg Tablet Extended Release 1,000 mcg PO DAILY cholecalciferol (vitamin D3) 125 mcg (5,000 unit) capsule 10,000 unit PO .TWICE WEEKLY Patient Comments: TAKE 2 CAPSULES BY MOUTH TWICE A WEEK ON SAME DAYS EACH WEEK Rx Instructions: TWO CAPSULES TWICE WEEKLY Referrals Follow up/Referrals: Parvez Kyle MD [Primary Care Provider] - See instructions Activity Restrictions/Add. Instructions Additional Instructions/Restrictions: *Increase fluids. Water not Soda or Tea *Start antibiotic immediately and be sure to take as ordered for the FULL length of time although you should start to see improvement over the next 48 hours *Be SURE to follow up anytime for new or worsening symptoms with your family doctor. AND in 48 hours for urine culture results with your family doctor, if you do not have a doctor then you may call back to the [facility] for urine culture results and further treatment. We do recommend that you choose and establish care with a Primary Care Physician. ?AND follow up with them ?in 10-14 days to repeat UA to ensure infection is resolved and blood no longer present *Be sure to let your PCP know that we sent urine cultures from the [facility] so they can follow up to ensure that you area the on the correct antibiotic Call your doctor office and make appointment for 48 hours (2 days from today) ?to follow up and get the results of your urine culture and further treatment Make appointment with Eye Doctor as dicussed Clinical Impressions Clinical Impression: UTI (urinary tract infection) Qualifiers: Urinary tract infection type: site unspecified Hematuria presence: without hematuria Qualified Code(s): N39.0 - Urinary tract infection, site not specified Instructions Patient Instructions: DI for Urinary Tract Infection (UTI), Urinary Tract Infection, Cefdinir Discharge ED Provider: Jenny Carter [facility] [place] General Stated complaint: Blurry vision, lesions on stomach Mode of Arrival: Wheelchair Source of Information: Patient Limitations: No Limitations Time Seen by Provider: 12/02/23 15:15 Description of Symptoms (Recalled from Triage Doc. by RN): Patient complaint of her vision being blurry when she tries to read. Also complains of cold chills. HEENT Symptoms (Recalled from RN notes): Yes Resp Symptoms (Recalled from RN notes): No Skin Symptoms (Recalled from RN notes): No MS Symptoms (Recalled from RN notes): No Functional Status (Recalled from RN notes): wnl History of Present Illness Provider Complaint: Patient states that at times when she is trying to read her vision will get blurry States that she wasnt sure if there was an eye doctor here that could do an eye exam States that her vision is fine all the other time just when she tries to read something States that also she woke up this morning with the chills and feeling achy doesnt think she has been around anyone with the flu but heard it has been going around Related Data Home Medications Medication Instructions Recorded Confirmed chlordiazepoxide HCl 10 mg capsule 10 mg PO BID Anxiety 10/19/17 10/13/23 escitalopram oxalate 10 mg tablet 10 mg PO DAILY Depression 10/19/17 10/13/23 potassium chloride 10 mEq 20 meq PO DAILY Supplement 10/19/17 10/13/23 tablet,extended release (Klor-Con) allopurinol 100 mg tablet 100 mg PO DAILY gout 30 days #30 03/02/19 10/13/23 tabs cholecalciferol (vitamin D3) 125 10,000 unit PO .TWICE WEEKLY 06/30/22 10/13/23 mcg (5,000 unit) capsule Supplement omeprazole 40 mg capsule,delayed 40 mg PO DAILY Acid reflux 02/20/23 10/13/23 release cyanocobalamin (vitamin B-12) 1,000 mcg PO DAILY Supplement 04/04/23 10/13/23 1,000 mcg tablet,extended release Previous Rx's Medication Instructions Recorded rivaroxaban 20 mg tablet (Xarelto) 20 mg PO QPMWITHMEAL AFIB #90 tabs 01/07/23 furosemide 20 mg tablet 60 mg PO DAILY Edema #270 tabs 04/07/23 atorvastatin 20 mg tablet 20 mg PO DAILY Cholesterol 90 days 06/08/23 #90 tabs diltiazem HCl 360 mg See Rx Instructions .Route 10/07/23 capsule,extended release 24 hr .COMPLEX #90 caps metoprolol succinate 25 mg See Rx Instructions .Route 10/14/23 tablet,extended release 24 hr .COMPLEX #90 tabs cefdinir 300 mg capsule 300 mg PO BID 5 days #10 caps 12/02/23 Allergies Allergy/AdvReac Type Severity Reaction Status Date / Time Penicillins [PENICILLINS] Allergy Intermediate I-RASH Verified 10/13/23 14:54 hydrocortisone Allergy Unknown I-RASH Verified 10/13/23 14:54 [From CORTIZONE-10] Worker's Comp Is this a Worker's Comp case?: No [facility] Disclaimer: The information contained in this section may have been updated after the patient was seen, as this information can be updated by other users. Medical History Atrial fibrillation Breast cancer CTS (carpal tunnel syndrome) Deviated nasal septum Edema of both lower extremities Glaucoma Hearing loss History of anemia Hyperlipidemia Hypertensive heart disease Hyperuricemia Impacted cerumen of both ears Keratosis Numbness of feet Onychodystrophy Onychoincurvatum Vulva cancer Xerosis of skin Surgical History History of carpal tunnel release History of cataract surgery History of cholecystectomy History of colonoscopy History of D&C History of lumpectomy of right breast History of placement of ear tubes History of repair of right rotator cuff History of right knee surgery Family History Other Diabetes Family history of cancer Family history of hyperlipidemia Family history of hypertension Family history of myocardial infarction Family history of stroke Social History Smoking Status: Never smoker alcohol intake: never substance use type: denies use current occupational status: retired Travel in the last 8 weeks: None household members: family housing: house ROS Obtained: Yes All systems reviewed & no additional complaints except as documented and Yes Systems reviewed as appropriate & no additional complaints except as documented Constitutional Constitutional: Reports system reviewed and no additional complaints, except as documented, Reports as per HPI, Reports body ache, Reports chills, Denies fever(s) and Denies headache(s) Eyes Eyes: Reports system reviewed and no additional complaints, except as documented, Reports as per HPI, Reports blurry vision (when she tries to read something for the last week), Denies eye discharge, Denies floaters, Denies loss of peripheral vision, Denies loss of vision, Denies eye pain, Denies photophobia, Denies seeing flashes and Denies tunnel vision ENT Ears, Nose, Mouth, and Throat: Reports system reviewed and no additional complaints, except as documented, Reports as per HPI, Denies disequilibrium, Denies dizziness and Denies headache(s) Cardiovascular Cardiovascular: Reports system reviewed and no additional complaints, except as documented, Reports as per HPI and Denies syncope Respiratory Respiratory: Reports system reviewed and no additional complaints, except as documented and Reports as per HPI Gastrointestinal Gastrointestingal: Reports system reviewed and no additional complaints, except as documented and as per HPI Genitourinary Female Genitourinary: Reports system reviewed and no additional complaints, except as documented and Reports as per HPI Musculoskeletal Musculoskeletal: Reports system reviewed and no additional complaints, except as documented and Reports as per HPI Integumentary/Breasts Skin/Breast: Reports system reviewed and no additional complaints, except as documented and Reports as per HPI Neurologic Neurologic: Reports system reviewed and no additional complaints, except as documented, Reports as per HPI, Denies abnormal movements, Denies confusion, Denies convulsions, Denies disequilibrium, Denies dizziness, Denies headache(s), Denies loss of vision and Denies syncope Physical Exam General General appearance: alert and in no apparent distress ENT ENT exam: Present mucous membranes moist Respiratory Respiratory exam: Present normal lung sounds bilaterally; Absent respiratory distress or wheezes Cardiovascular Cardiovascular exam: Present regular rate, normal rhythm and normal heart sounds Neurological Exam Neurological exam: Present alert, oriented X3 and normal gait Medical Decision Making Tre Inquiry Pt receiving controlled substance: No Tre was queried for this patient: No Vital Signs: 12/02/23 15:10 Temperature 98.0 F Temperature Source Oral Pulse Rate [Radial] 60 Respiratory Rate 20 Blood Pressure [Right Arm] 130/69 Blood Pressure Mean [Right Arm] 89 Blood Pressure Source [Right Arm] Automatic Cuff Blood Pressure Position [Right Arm] Sitting 02 Sat by Pulse Oximetry 97 Oxygen Delivery Method Room Air Lab Data Lab results reviewed: Yes I reviewed the patient's lab results. Medical Decision Narrative: Patient educated that there is no eye doctor at the hospital that can do an eye exam to check her glasses Patient denies headache, son states that she has periods of confusion in the last few days, Denies loss of vision states that vision seems blurry when she tries to read Denies pain in eyes Discussed with patient that we could transfer to the ED for further evaluation and exam due to patient hx and she declined states that she will follow up with her eye doctor for an exam she was more worried while she had chills and achy this morning Medication discussed with pharmacy and recommended Cefdnir BID x 5 days to cover UTI until culture comes back Patient and son advised she has taken it before without complications and reactions
[2023-12-02 15:48] LABS: Apearance,Urine Clear (Clear); Color,Urine Amber (Yellow); PH,Urine 5.5 (5.0-8.5); Specific Gravity, Urine 1.025 (1.005-1.030)
[2023-12-02 15:50] LABS: Bilirubin,Urine 1+ (Negative); Blood, Urine Negative (Negative); Glucose,Urine (UA) Negative (Negative); Ketones,Urine Negative (Negative); Protein,Urine 1+ (Negative); UTC Leukocyte Esterase,Urine Trace (Negative); Urobilinogen,Urine 0.2 EU/dl (0.2)
[2023-12-02 15:51] LABS: UTC Nitrate,Urine Negative (Negative)
[2023-12-02 16:10] LABS: UTC Influenza A Antigen Negative (Negative)
[2023-12-02 16:11] LABS: UTC Influenza B Antigen Negative (Negative)
[2023-12-02 16:13] VITALS: BP 130/69; PULSE 60; RESP 20; TEMP 36.7; O2SAT 97
== END 2023-12-02 16:14 | disposition home or self-care (01) ==
PROVIDERS: Emergency Provider Nurse Practitioner; PCP Family Medicine
DX: N39.0 Urinary tract infection, site not specified (principal); B96.89 Other specified bacterial agents as the cause of diseases classified elsewhere; I10 Essential (primary) hypertension; E78.5 Hyperlipidemia, unspecified
CPT/HCPCS: 81003; 87086; 87804; 99212; 99214; G0463

== ENCOUNTER 2024-04-06 12:52 | Outpatient (CLI) | payer MEDICARE, SELFPAY ==
--- NOTE | 2024-04-06 13:00 | MM_ITS ---
PROCEDURE INFORMATION: Exam: MG Bilateral Screening 3D Mammography Exam date and time: 04/06/2024 12:53 PM Age: 84 years old Clinical indication: Screening examination. Personal history of right breast carcinoma treated with lumpectomy . Family history of breast carcinoma. TECHNIQUE: Imaging protocol: Bilateral Screening tomosynthesis and 2D mammography including computer-aided detection (CAD) when performed. COMPARISON: 1. MG MM DIG SCREENING MAMM BI W/CAD 11/03/2022 2:51 PM 2. MG MM DIG SCREENING MAMM BI W/CAD 05/28/2021 1:33 PM 3. MG MM DIG SCREENING MAMM BI W/CAD 05/16/2020 1:22 PM FINDINGS: MAMMOGRAPHY: Breast composition: The breasts are heterogeneously dense, which may obscure small masses. Mass: No suspicious masses. Architectural distortion: No suspicious distortion. Stable post lumpectomy changes noted in the central right breast. Calcifications: No suspicious calcifications. Asymmetric density: None. Skin thickening: None. Axillary adenopathy: None. IMPRESSION: No mammographic evidence of malignancy. Annual screening is recommended unless otherwise clinically indicated. ASSESSMENT: BI-RADS Category 2: Benign.
== END 2024-04-06 23:59 | disposition home or self-care (01) ==
LOC: RAD 12:52
PROVIDERS: PCP Family Medicine; Visit Provider Family Medicine
DX: Z12.31 Encounter for screening mammogram for malignant neoplasm of breast (principal)
CPT/HCPCS: 77063; 77067

== ENCOUNTER 2024-05-16 15:14 | Outpatient (CLI) | payer MEDICARE, SELFPAY ==
--- NOTE | 2024-05-16 15:19 | CA_ITS ---
APPROVED REPORT EXAM: Comprehensive 2D, Doppler, and color-flow Echocardiogram Food Critic: Ebony Rudolph CRT Ht: 5 ft 4 in Wt: 200lbs BSA: 1.96 BP: 112/67 mmHg Indications: Shortness of Breath, Atrial Fibrillation, Hyperlipidemia, Hypertension/HDD 2D Dimensions Left Atrium 4.57 cm F: 2.7 - 3.8 LVEF (Milan's) 50.60 % F: 54 - 74 LVOT 1.76 cm (M/F) 1.5-2.5 LV Volume 59.30 mL F: 46 - 106 LV Volume Index 30.3 mL/m2 F: 29 - 61 LA Volume 48.30 mL LA Volume Index 24.64 mL/m2 (M/F) 16-34 EF AP4 67.90 % EF AP2 32.0 % EF BP 50.6 % GL Strain -16.3 % M-Mode Dimensions RVDd 2.77 cm (0.9-2.6) LVDd 4.02 cm (3.5-5.7) Ao Diam 3.64 cm (2.0-3.7) LVDs 2.97 cm (3.5-5.7) IVSd 1.41 cm (0.6-1.1) PWd 0.96 cm (0.6-1.1) EF (Teich) 51.70% FS 26.10% EDV (Teich) 70.80 mL TAPSE 1.57 (<1.7) ESV (Teich) 34.20 mL LV Diastology E Decel Time 150 (160-240 msec) E/A Ratio 2.8 MED E' 11.1 (>= 7 cm/sec) MED A' 6.50 cm/s E'/MED E' Ratio 6.65 (<= 14) LAT E' 8.1 (>= 10 cm/sec) LAT A' 9.70 cm/s E/LAT E' Ratio 9.11 (<= 14) Aortic Valve AoV Peak Fabian. 122.0 (50-130 cm/s) AO Peak GR. 6.00 mmHg Mitral Valve MV E Max Fabian. 74.0 (40-130 cm/s) MV A Velocity 26.0 (40-130 cm/s) E/A Ratio 2.81 MV Decel. Time 150 (160-240 ms) Tricuspid Valve TR P. Velocity 497.00 cm/s RAP Estimate 10.00 mmHg RVSP 109.00 mmHg Left Ventricle The left ventricle is normal size. The left ventricular systolic function is normal. The left ventricular ejection fraction is within the normal range. There is increased overall thickness. There is normal LV segmental wall motion. Diastolic function is indeterminate. LVEF is 55%. Right Ventricle Right ventricle is mildly dilated. Right ventricle is mildly hypokinetic. Atria Left atrium is moderately dilated. Right atrium is moderately dilated. There is no Doppler evidence of interatrial shunt. Aortic Valve The aortic valve is mildly thickened. There is no aortic valvular stenosis. Mild aortic regurgitation. Mitral Valve The mitral valve leaflets are mildly thickened. No evidence of mitral valve stenosis. Mild to moderate mitral regurgitation. Tricuspid Valve The tricuspid valve leaflets are thin and pliable. Mild tricuspid regurgitation. RVSP 30-35 mmHg. Pulmonic Valve The pulmonary valve is normal in structure. Trace pulmonic regurgitation. Great Vessels The aortic root is normal in size. The ascending aorta is normal in size. IVC is normal in size and collapses >50% with inspiration. Pericardium Small sized, circumferential pericardial effusion. The largest pocket measures 0.4 cm in diastole. No echo indications of tamponade. Other Information Study Quality: Fair Conclusion Normal LV systolic function. Mild RV dilation with mild reduction in RV function. Biatrial dilation. Mild to moderate MR. Mild TR, mild AI. Small sized, circumferential pericardial effusion. The largest pocket measures 0.4 cm in diastole. No echo indications of tamponade. Electronically signed by : Fabiola Mac MD 05/17/2024 19:53:33
== END 2024-05-16 23:59 | disposition home or self-care (01) ==
LOC: RT 15:15
PROVIDERS: PCP Family Medicine; Visit Provider Nurse Practitioner Family
DX: R06.02 Shortness of breath (principal); I48.20 Chronic atrial fibrillation, unspecified
CPT/HCPCS: 93306

== ENCOUNTER 2024-07-31 07:45 | Inpatient (IN) | payer MEDICARE, SELFPAY ==
[2024-07-31] VITALS (24 sets, daily range): BP systolic 92–121; BP diastolic 41–78; PULSE 45–101; RESP 13–21; TEMP 33.4–37.8; O2SAT 94–100; BMI 30.9; BMI 30.7
--- OUTSIDE RECORDS SUMMARY | 2024-07-31 07:53 | XMS_ITS ---
Author Organization Unknown ALLERGIES AND ADVERSE REACTIONS No information ASSESSMENT No information CHIEF COMPLAINT No information MEDICATIONS No information OBJECTIVE DATA No information PHYSICAL EXAMINATION No information TREATMENT PLAN Planned Care Start Date Provider Encounter for Check-up [id number] [facility] PROBLEMS No information RESULTS No information REVIEW OF SYSTEMS No information SUBJECTIVE DATA No information VITAL SIGNS No information
--- NOTE | 2024-07-31 07:54 | ECG_ITS ---
APPROVED REPORT Exam: Resting ECG HR:40 bpm ECG Measurements Heart Rate 40 AXES QRSd 89 QRS 31 QT 486 T 58 QTc 419 Conclusion ATRIAL FIBRILLATION WITH SLOW VENTRICULAR RESPONSE LOW QRS VOLTAGE [QRS DEFLECTION < 0.5/1.0 mV IN LIMB/CHEST LEADS] POSSIBLE ANTERIOR MYOCARDIAL INFARCTION , OF INDETERMINATE AGE [30 ms Q WAVE IN V3/V4, OR R < 0.2 mV IN V4] CRITICAL TEST RESULT UNCONFIRMED REPORT Electronically signed by : MANNY MITCHELL, 08/02/2024 06:29:59
[2024-07-31] MEDS: ATROPINE 1MG/10ML SYRINGE (CRASH CART) 1 MG IV (08:00)
--- NOTE | 2024-07-31 08:00 | CT_ITS ---
PROCEDURE INFORMATION: Exam: CT Chest Without Contrast; Diagnostic Exam date and time: 07/31/2024 8:55 AM Age: 84 years old Clinical indication: Injury or trauma; Fall; Dyspnea; Blunt trauma (contusions or hematomas) TECHNIQUE: Imaging protocol: Diagnostic computed tomography of the chest without contrast. Radiation optimization: All CT scans at this facility use at least one of these dose optimization techniques: automated exposure control; mA and/or kV adjustment per patient size (includes targeted exams where dose is matched to clinical indication); or iterative reconstruction. COMPARISON: CR XR CHEST PORTABLE 07/31/2024 8:54 AM FINDINGS: Lungs: There is a 4 mm calcified granuloma in the right upper lobe. There are mild hypoventilatory changes in the left lung base. Pleural spaces: There are small pleural effusions bilaterally. There is no pneumothorax. Heart: There is no cardiomegaly or pericardial effusion. There is prominent pericardial fat pad. There are punctate locules of air in the right atrial appendage. There is trace pericardial fluid in the aortic root region. Coronary arteries: There is coronary artery calcification. Mediastinal space: There is no hemorrhage in the mediastinum. Lymph nodes: Unremarkable. No enlarged lymph nodes. Vasculature: There are scattered areas of atherosclerosis in the thoracic aorta without evidence of aneurysm. Bones/joints: There is remote posttraumatic deformity of the left clavicle. The osseous structures of the thorax demonstrate no acute abnormalities. There is mild chronic compression deformity of T12 vertebra (less than 10%). Soft tissues: Unremarkable. IMPRESSION: 1. Small pleural effusions bilaterally. Mild hypoventilatory changes in the lung bases. 2. No evidence of injury in the chest, within limit of study.
--- NOTE | 2024-07-31 08:00 | CT_ITS ---
PROCEDURE INFORMATION: Exam: CT Head Without Contrast Exam date and time: 07/31/2024 8:50 AM Age: 84 years old Clinical indication: Injury or trauma; Fall; Blunt trauma (contusions or hematomas); Altered mental status/memory loss; Additional info: AMS TECHNIQUE: Imaging protocol: Computed tomography of the head without contrast. Radiation optimization: All CT scans at this facility use at least one of these dose optimization techniques: automated exposure control; mA and/or kV adjustment per patient size (includes targeted exams where dose is matched to clinical indication); or iterative reconstruction. COMPARISON: CT HEAD/BRAIN WO CON 07/31/2024 8:50 AM FINDINGS: Brain: There is mild to moderate small vessel disease. There is disproportionate temporal lobe atrophy noted. There is no evidence of acute parenchymal hemorrhage, extra-axial collection, or acute infarction. There is no mass effect, midline shift, or downward herniation. Cerebral ventricles: No ventriculomegaly. Paranasal sinuses: Visualized sinuses are unremarkable. No fluid levels. Mastoid air cells: Visualized mastoid air cells are well aerated. Bones: Unremarkable. No acute fracture. Soft tissues: Unremarkable. IMPRESSION: 1. No evidence of acute intracranial process. 2. Disproportionate temporal lobe atrophy. 3. Mild to moderate small vessel disease.
--- NOTE | 2024-07-31 08:00 | CT_ITS ---
PROCEDURE INFORMATION: Exam: CT Abdomen And Pelvis Without Contrast Exam date and time: 07/31/2024 8:57 AM Age: 84 years old Clinical indication: Injury or trauma; Fall; Blunt; Generalized; Additional info: Rectal bleeding, found down TECHNIQUE: Imaging protocol: Computed tomography of the abdomen and pelvis without contrast. Radiation optimization: All CT scans at this facility use at least one of these dose optimization techniques: automated exposure control; mA and/or kV adjustment per patient size (includes targeted exams where dose is matched to clinical indication); or iterative reconstruction. COMPARISON: ABDPELW/O CT ABD PELVIS W/O CONTRAST 08/16/2017 7:21 PM FINDINGS: Liver: There is normal noncontrast appearance of the liver. Gallbladder and biliary ducts: The gallbladder is not visualized. Pancreas: There is normal noncontrast appearance of the pancreas. Spleen: There are calcified granulomas in the spleen. Adrenal glands: Normal. No mass. Kidneys and ureters: There is stable calcification in the midportion of the right kidney measuring 5 mm. There is no hydronephrosis. There is a 1.2 cm simple cyst arising from the inferior pole of the left kidney. Stomach and bowel: There is no bowel obstruction. Appendix: Appendix appears unremarkable. Intraperitoneal space: There is no free intraperitoneal air. There is no free fluid in the abdomen and pelvis. Vasculature: There is normal caliber of the abdominal aorta and iliac arteries with scattered areas of atherosclerosis. Lymph nodes: Unremarkable. No enlarged lymph nodes. Urinary bladder: Unremarkable as visualized. Reproductive: Uterus is present. No abnormal adnexal mass lesions. Bones/joints: There are osteopenic changes. There is mild compression fracture superior endplate of L4 vertebra (less than 10%). There is chronic compression fracture of L2 vertebra with 30% loss of height. There is mild compression fracture of T12 vertebra, which appears to be chronic in nature. Soft tissues: Unremarkable. IMPRESSION: 1. There is mild compression fracture of superior endplate of L4 vertebra, which appears to be acute in nature. Correlation with MRI lumbar spine is suggested. Chronic compression deformities of L2 vertebra and T12 vertebra. 2. Osteopenia. 3. No acute injury in the abdomen and pelvis.
--- NOTE | 2024-07-31 08:00 | XR_ITS ---
PROCEDURE INFORMATION: Exam: XR Chest Exam date and time: 07/31/2024 8:54 AM Age: 84 years old Clinical indication: Injury or trauma; Fall; Blunt trauma (contusions or hematomas); Additional info: Dyspnea TECHNIQUE: Imaging protocol: Radiologic exam of the chest. Views: 1 view. COMPARISON: CR XR CHEST PORTABLE PICC PLAC 04/07/2023 1:28 PM FINDINGS: Lungs: Unremarkable. No consolidation. Pleural spaces: Unremarkable. No pleural effusion. No pneumothorax. Heart/Mediastinum: There is mild cardiomegaly. Bones/joints: Unremarkable. There are postop changes in the proximal right humerus. IMPRESSION: Mild cardiomegaly.
--- NOTE | 2024-07-31 08:00 | CT_ITS ---
PROCEDURE INFORMATION: Exam: CT Cervical Spine Without Contrast Exam date and time: 07/31/2024 8:52 AM Age: 84 years old Clinical indication: Injury or trauma; Fall; Blunt trauma; Additional info: AMS TECHNIQUE: Imaging protocol: Computed tomography of the cervical spine without contrast. Radiation optimization: All CT scans at this facility use at least one of these dose optimization techniques: automated exposure control; mA and/or kV adjustment per patient size (includes targeted exams where dose is matched to clinical indication); or iterative reconstruction. COMPARISON: CT CERVICAL SPINE WO CON 03/31/2023 10:06 AM FINDINGS: Bones/joints: No acute fracture. Normal alignment. There is moderate to advanced multilevel degenerative disc disease and spondylosis. There is mild multilevel spinal canal stenosis secondary to disc osteophyte ridging. Lungs: Lung apices are normal. Soft tissues: Unremarkable. IMPRESSION: No acute findings.
--- NOTE | 2024-07-31 08:04 | PC.NURSE ---
Finger Blood Sugar is 118.
[2024-07-31 08:14] LABS: Microscopic, Urine URINE MICROSCOPIC (MICROSCOPIC)
--- NOTE | 2024-07-31 08:15 | HMH.EDGENADL ---
Discharge Plan Disposition Patient Disposition: Admitted Chief Complaint: Weakness Prescriptions Prescriptions: No Action chlordiazepoxide HCl 10 mg capsule 10 mg PO BID escitalopram oxalate 10 mg tablet 10 mg PO DAILY potassium chloride [Klor-Con 10] 10 mEq tablet extended release 20 meq PO DAILY melatonin 10 mg capsule 10 mg PO HS PRN allopurinol 100 mg tablet 100 mg PO DAILY 30 Days Qty: 30 levocetirizine [Xyzal] 5 mg tablet 5 mg PO DAILY Qty: 90 3RF metoprolol succinate 25 mg tablet extended release 24 hr See Rx Instructions .ROUTE .COMPLEX Qty: 90 4RF Dose Instruction: TAKE 1 TABLET BY MOUTH DAILY FOR HYPERTENSION Rx Instructions: TAKE 1 TABLET BY MOUTH DAILY FOR HYPERTENSION Xarelto 20 mg tablet 20 mg PO QPMWITHMEAL Qty: 90 3RF Rx Instructions: must administer with evening meal diltiazem HCl 360 mg capsule,extended release 24hr See Rx Instructions .ROUTE .COMPLEX Qty: 90 1RF Dose Instruction: TAKE 1 CAPSULE BY MOUTH DAILY FOR HEART RATE Rx Instructions: TAKE 1 CAPSULE BY MOUTH DAILY FOR HEART RATE furosemide 20 mg tablet 60 mg PO DAILY Qty: 270 3RF atorvastatin 20 mg tablet 20 mg PO DAILY 90 Days Qty: 90 3RF omeprazole 40 mg capsule,delayed release(DR/EC) 40 mg PO DAILY Patient Comments: TAKE 1 CAPSULE BY MOUTH EVERY DAY cyanocobalamin (vitamin B-12) 1,000 mcg Tablet Extended Release 1,000 mcg PO DAILY cholecalciferol (vitamin D3) 125 mcg (5,000 unit) capsule 10,000 unit PO .TWICE WEEKLY Patient Comments: TAKE 2 CAPSULES BY MOUTH TWICE A WEEK ON SAME DAYS EACH WEEK Rx Instructions: TWO CAPSULES TWICE WEEKLY cefdinir 300 mg capsule 300 mg PO BID 5 Days Qty: 10 0RF mupirocin 2 % ointment 1 applic topical TID Qty: 22 0RF Rx Instructions: apply to sores on abdomen as directed Referrals Follow up/Referrals: Parvez Kyle MD [Primary Care Provider] - See instructions Clinical Impressions Clinical Impression: Bradycardia, Cardiogenic shock, Hypothermia, Acute encephalopathy, Acute UTI, Sepsis, Multi-organ system dysfunction Print Language Print Language: Mongolian Discharge ED Provider: Yara Dotson General Adult HPI General Chief complaint: Weakness Stated complaint: SOB Time Seen by Provider: 07/31/24 07:45 Mode of Arrival: EMS Source of Information: EMS Limitations: No Limitations Description of Symptoms (Recalled from ER Triage Doc. by RN): EMS states family told them that the patient has had 2 weeks of mumbling, quit ambulating and has been more confused lately. Patient with extreme low heart rate upon arrival but alert to self. History of Present Illness HPI narrative: Patient is an 84-year-old acutely encephalopathic patient's history is limited from her but alternative history is obtained by EMS and also the patient's son who was eventually at the bedside. From a chart review standpoint patient has a history of an ME she also has a history of a CVA she is on Xarelto also a beta-benigno and a calcium channel benigno presents today with 1 month progressive decline which started off with just decreased ambulation followed by slurred speech followed by acute mental status changes. Son states that 1 month ago she was able to walk around with her walker was conversant and initially just darted to be unable to walk and then within the last few weeks she started mumbling her words and last night she was completely encephalopathic. She is unable to provide any additional history in terms of pain etc. Vitals were unable to be obtained by EMS. Related Data Home Medications ?Medication ?Instructions ?Recorded ?Confirmed chlordiazepoxide HCl 10 mg capsule 10 mg PO BID Anxiety 10/19/17 05/10/24 escitalopram oxalate 10 mg tablet 10 mg PO DAILY Depression 10/19/17 05/10/24 potassium chloride 10 mEq 20 meq PO DAILY Supplement 10/19/17 05/10/24 tablet,extended release (Klor-Con) allopurinol 100 mg tablet 100 mg PO DAILY gout 30 days #30 03/02/19 05/10/24 tabs cholecalciferol (vitamin D3) 125 10,000 unit PO .TWICE WEEKLY 06/30/22 05/10/24 mcg (5,000 unit) capsule Supplement omeprazole 40 mg capsule,delayed 40 mg PO DAILY Acid reflux 02/20/23 05/10/24 release cyanocobalamin (vitamin B-12) 1,000 mcg PO DAILY Supplement 04/04/23 05/10/24 1,000 mcg tablet,extended release melatonin 10 mg capsule 10 mg PO HS PRN 04/27/24 05/10/24 Previous Rx's ?Medication ?Instructions ?Recorded metoprolol succinate 25 mg See Rx Instructions .Route 01/03/24 tablet,extended release 24 hr .COMPLEX #90 tabs cefdinir 300 mg capsule 300 mg PO BID 5 days #10 caps 12/02/23 mupirocin 2 % topical ointment 1 applic topical TID #22 grams 12/02/23 rivaroxaban 20 mg tablet (Xarelto) 20 mg PO QPMWITHMEAL AFIB #90 tabs 01/04/24 levocetirizine 5 mg tablet (Xyzal) 5 mg PO DAILY #90 tabs 04/04/24 diltiazem HCl 360 mg See Rx Instructions .Route 04/05/24 capsule,extended release 24 hr .COMPLEX #90 caps furosemide 20 mg tablet 60 mg (3 x 20 mg) PO DAILY Edema 05/11/24 #270 tabs atorvastatin 20 mg tablet 20 mg PO DAILY Cholesterol 90 days 05/26/24 #90 tabs Allergies Allergy/AdvReac Type Severity Reaction Status Date / Time Penicillins [PENICILLINS] Allergy Intermediate I-RASH Verified 05/10/24 14:30 hydrocortisone Allergy Unknown I-RASH Verified 05/10/24 14:30 [From CORTIZONE-10] [facility] Disclaimer: The information contained in this section may have been updated after the patient was seen, as this information can be updated by other users. Medical History (Updated 07/31/24 @ 09:36 by Yara Dotson MD) SOB (shortness of breath) on exertion Tinnitus Dysphagia Deviated nasal septum Hearing loss Impacted cerumen of both ears Hyperuricemia Glaucoma History of anemia Breast cancer CTS (carpal tunnel syndrome) Vulva cancer Numbness of feet Keratosis Onychodystrophy Onychoincurvatum Xerosis of skin Edema of both lower extremities Atrial fibrillation Hyperlipidemia Hypertensive heart disease Surgical History History of D&C History of lumpectomy of right breast History of colonoscopy History of repair of right rotator cuff History of placement of ear tubes History of right knee surgery History of cataract surgery History of carpal tunnel release History of cholecystectomy Family History Other Diabetes Family history of cancer Family history of hyperlipidemia Family history of hypertension Family history of myocardial infarction Family history of stroke Social History Smoking Status: Unknown if ever smoked alcohol intake: never substance use type: denies use current occupational status: retired Travel in the last 8 weeks: None household members: family housing: house Other Medical History Have you received the Flu Vaccine for this season: No Have you received the Pneumonia Vaccine: No ROS Obtained: Yes All systems reviewed & no additional complaints except as documented Physical Exam General General appearance: lethargic Respiratory Respiratory exam: Present other (Depressed respirations but oxygen saturations are in the upper 90s on room air) Cardiovascular Cardiovascular exam: Present bradycardia (Very poor peripheral perfusion no palpable pulses in arms or legs currently feel carotid pulse very cool extremities with edema) Abdominal Exam Abdominal exam: Present soft; Absent distention or tenderness Neurological Exam Neurological exam: Present other (GCS of 13 nonfocal neurologic exam); Absent alert or oriented X3 Medical Decision Making Medical Records Screening: Per USPSTF and CDC recommendations, given the prevalence of disease in our region, it is our hospital?s policy to screen for HIV and viral Hepatitis for all patients aged 18 and over and those with ongoing risk factors. Tre Inquiry Pt receiving controlled substance: No Vital Signs: 07/31/24 07:45 07/31/24 08:06 07/31/24 08:31 Temperature 92.2 F L Temperature Source Rectal Pulse Rate 53 L 48 L Pulse Rate [Radial] 52 L Respiratory Rate 16 14 Blood Pressure 112/58 L 105/52 L Blood Pressure [Right Arm] 112/58 L Blood Pressure Mean 78 Blood Pressure Mean [Right Arm] 76 Blood Pressure Source [Right Arm] Automatic Cuff Blood Pressure Position [Right Arm] Sitting 02 Sat by Pulse Oximetry 98 98 98 Oxygen Delivery Method Room Air Room Air Room Air Lab Data Lab results reviewed: Yes I reviewed the patient's lab results. Lab Results 07/31/24 08:01: WBC 22.5 H*, RBC 3.78 L, Hgb 12.3, Hct 41.4, MCV 109.4 H, MCH 32.4 H, MCHC 29.6 L, RDW 18.9 H, Plt Count 154, MPV 10.1, Neut % (Auto) 85.6 H, Lymph % (Auto) 10.1, [place] % (Auto) 3.5, Eos % (Auto) 0.3, Baso % (Auto) 0.4, Neut # (Auto) 19.3 H, Lymph # (Auto) 2.3, [place] # (Auto) 0.8, Eos # (Auto) 0.1, Baso # (Auto) 0.1, Total Counted 100, Neutrophils % (Manual) 92 H, Lymphocytes % (Manual) 8 L, Platelet Estimate Normal, Macrocytosis 2+, VBG pH 7.22 L, VBG pCO2 37.6, VBG pO2 59.6 H, VBG HCO3 15.0 L, VBG Total CO2 16.2 L, VBG O2 Saturation 88.9 H, VBG Base Excess -12.7 L, VBG Lactic Acid 3.6 H, Sodium 141, Potassium 4.4, Chloride 109 H, Carbon Dioxide 15 L, Anion Gap 21.4 H, BUN 17, Creatinine 1.90 H, Estimated Creat Clear 27, Estimated GFR 25 L, Est GFR ( Amer) 30 L, Glucose 111 H, Calcium 9.2, Phosphorus 6.3 H, Magnesium 2.0, Total Bilirubin 0.4, AST 23, ALT 24, Alkaline Phosphatase 113, Troponin I < 0.01, NT-Pro-B Natriuret Pep 2450 H, Total Protein 4.9 L, Albumin 2.5 L, Globulin 2.4, Albumin/Globulin Ratio 1.0 L, TSH 3.05, Urine Color Yellow, Urine Appearance Clear, Urine pH 5.0, Ur Specific [place] >= 1.030, Urine Protein Trace, Urine Glucose (UA) Negative, Urine Ketones Negative, Urine Blood Negative, Urine Nitrate Negative, Urine Bilirubin Negative, Urine Urobilinogen 0.2, Ur Leukocyte Esterase 1+ A, Urine RBC None, Urine WBC 5-10, Ur Squamous Epith Cells None, Urine Bacteria Trace 07/31/24 08:01 07/31/24 08:01 Orders (Tests/Meds): ED MEDICATIONS Generic Name Dose Route Start Last Admin Trade Name Freq PRN Reason Stop Dose Admin Norepinephrine/Dextrose 8 mg in 250 mls @ 3.75 mls/hr 07/31/24 08:27 Norepinephrine 8mg/250ml-D5w Premix IV 08/30/24 08:26 .Q24H GABRIELLE Protocol 2 MCG/MIN Vancomycin/PEG/NADA/Lysine/Water 1.5 gm in 300 mls @ 150 mls/hr 07/31/24 08:45 Vancomycin 1.5gm/300ml (Peg) Premix IV 07/31/24 10:44 ONCE ONE Miscellaneous 1 each 07/31/24 08:30 07/31/24 08:52 Vancomycin Consult Request NOTAPPLIC 08/30/24 08:29 1 each CONSULT PHARMACY GABRIELLE Administration Discontinued Medications Generic Name Dose Route Start Last Admin Trade Name Mariel PRN Reason Stop Dose Admin Atropine Sulfate 1 mg 07/31/24 08:00 07/31/24 08:00 Atropine 1mg/10ml Syringe (Crash Cart) IV 07/31/24 08:01 1 mg ONCE ONE Administration Cefepime HCl 2 gm/ Sodium 100 mls @ 200 mls/hr 07/31/24 08:27 07/31/24 09:01 Chloride IV 07/31/24 08:56 200 mls/hr ONCE ONE Administration Metronidazole 500 mg in 100 mls @ 100 mls/hr 07/31/24 08:27 07/31/24 09:25 Flagyl 500mg/100ml Ivpb IV 07/31/24 09:26 100 mls/hr ONCE ONE Administration ORDERS Category Date Time Status CT abdomen pelvis wo con Stat Cat Scan 07/31/24 08:[address] cervical spine wo con Stat Cat Scan 07/31/24 08:[address] chest wo con Stat Cat Scan 07/31/24 08:[address] head/brain wo con Stat Cat Scan 07/31/24 08:00 Taken CXR --portable [XR chest portable] Stat Exams 07/31/24 08:00 Taken POCUS Point of Care (ER Only) Stat Exams 07/31/24 07:45 Ordered BNP [NT Pro Brain Natriuretic Pep.] Stat Lab 07/31/24 08:01 Completed CBC w/Auto Diff [Complete Blood Count Auto Diff] Stat Lab 07/31/24 08:01 Completed CMP [Comprehensive Metabolic Panel] Stat Lab 07/31/24 08:01 Completed HIV (1&2) Antibody Rapid Stat Lab 07/31/24 08:01 Received Hep C Ab with Reflex to RNA Stat Lab 07/31/24 08:01 Received Lactate Venous Stat Lab 07/31/24 07:57 Received Magnesium Stat Lab 07/31/24 08:01 Completed Phosphorous Stat Lab 07/31/24 08:01 Completed Rapid PCR Covid and Flu A/B Stat Lab 07/31/24 08:01 Received TSH [Thyroid Stimulating Hormone] Stat Lab 07/31/24 08:01 Completed Trop I [Troponin I] Stat Lab 07/31/24 08:01 Completed Troponin I Q3H Lab 07/31/24 11:15 Ordered Troponin I Q3H Lab 07/31/24 14:15 Ordered UA [Urinalysis and Microscopic] Stat Lab 07/31/24 08:01 Completed Blood Culture Stat Micro 07/31/24 08:01 Received Urine Culture Stat Micro 07/31/24 08:01 Received Venous Blood Gas Stat RT 07/31/24 08:01 Completed ECG Data Tracing #1: I reviewed this ECG and interpreted as documented below: Ventricular rate of 40 atrial fibrillation with slow ventricular response low voltage QRS indeterminate axis Tissue Perfus/Sepsis Re-Eval Sepsis Re-Evaluation Performed: Yes Date Performed: 07/31/24 Time Performed: :29 Medical Decision Narrative: 84-year-old with above history and physical. She is altered has very poor peripheral perfusion clinically has shock is hypothermic and is a poor historian in the sense that I cannot gather specific information from her. Differential is incredibly broad which could include ME, severe myxedematous coma and hypothyroidism, sepsis, overdose or functional overdose in the setting of renal insufficiency with hyper accumulation of her beta-benigno and calcium channel benigno etc. Her son who is at the bedside is aware of her prognosis being poor he did state that she is DNR he is going to talk to his sister who is her next of kin and discussed with her goals of care for now we will continue with diagnostic workup. Her heart rate was in the 30s when I first evaluated with very poor peripheral perfusion and with 1 dose of atropine she did have an improvement in heart rate was has remained in the 50s to 60s with maps above 65. Her symptoms did not significantly improve but objectively vital signs have improved for now. Will have allowed threshold to initiate pacing and/or dopamine or epinephrine infusions. Will reassess shortly. Reassessment 929 patient placed on Ashley hugger with improvement in her body temperature. Her mental status improved slightly with that. She had renal insufficiency with a creatinine 1.9 consistent with acute kidney injury with a GFR less than 30 therefore I did not choose to do contrasted CT scans. I got noncontrasted CT scans of the head cervical spine chest abdomen pelvis. My personal interpretation of those shows no catastrophic abnormalities that would require surgical intervention or to be explaining her symptoms. She did have bilateral pleural effusions which are consistent with some cardiogenic shock. However patient's maps have been above 65. She also has a leukocytosis of 22 and a mild UTI it is possible she has septic shock. Overall she has no definitive evidence of distributive shock and has multiorgan dysfunction and appears to be volume overloaded with some component of cardiogenic shock. For that reason I have not flooded her or given aggressive IV fluids in the setting of sepsis. IV antibiotics including bank cefepime and Flagyl have been administered. I have ordered norepinephrine but her MAP has been above 65. This could cause reflexive bradycardia and at the same time I am holding off on dopamine or epinephrine in the setting of symptomatic bradycardia or cardiogenic shock as she does appear to be improving and did temporarily improve with atropine as well as with warming her up at the moment. She will be tenuous from a cardiovascular standpoint and will require a cardiology consult. I had a shared decision making conversation with the family and at the moment given the fact that she was relatively normal and had a quality of life within the last week we have decided to go for medical support but she is still DNR/DNI she will be admitted. Critical Care Critical Care Time Critical Care Time: Yes Attestation: On 07/31/24, the high probability of a clinically significant, sudden or life threatening deterioration of the following system(s) required my full and direct attention, intervention and personal management. The time I documented below is in addition to time spent performing reported procedures but includes the following listed in this critical care notation. Total Time Total Critical Care Time: 65
[2024-07-31 08:17] LABS: Basophils # 0.1 K/mm3 (0-0.2); Basophils % 0.4 % (0.1-2.0); Eosinophils # 0.1 K/mm3 (0.0-0.4); Eosinophils % 0.3 % (0.1-12.0); Hematocrit 41.4 % (37.0-47.0); Hemoglobin 12.3 g/dL (12.2-16.2); Lymphocytes # 2.3 K/mm3 (0.7-4.5); Lymphocytes % 10.1 % (10-50); Mean Corpuscular HGB Conc 29.6 g/dL (31.8-35.4); Mean Corpuscular Hemoglobin 32.4 pg (27.0-31.2); Mean Corpuscular Volume 109.4 fl (81-99); Mean Platelet Volume 10.1 fl (7.4-10.4); Monocytes # 0.8 K/mm3 (0.1-1.0); Monocytes % 3.5 % (1.7-9.3); Neutrophils # 19.3 K/mm3 (1.8-7.8); Neutrophils % 85.6 % (37.0-80.0); Platelet Count 154 K/mm3 (142-424); Red Blood Count 3.78 M/mm3 (4.20-5.40); Red Cell Distribution Width 18.9 % (11.5-17.5); White Blood Count 22.5 K/mm3 (4.8-10.8)
[2024-07-31 08:19] LABS: Albumin Level 2.5 g/dl (3.5-5.0); Appearance,Urine CLEAR (Clear); Bilirubin,Urine Negative (Negative); Blood, Urine Negative (Negative); Chloride 109 mmol/L (98-107); Color,Urine YELLOW (Yellow); Glucose,Urine (UA) Negative (Negative); Ketones,Urine Negative (Negative); Leukocyte Esterase,Urine 1+ (Negative); Nitrate,Urine Negative (Negative); Protein,Urine TRACE (Negative); Sodium 141 mmol/L (136-145); Specific Gravity, Urine >= 1.030 (1.005-1.030); Urobilinogen,Urine 0.2 EU/dl (0.2)
[2024-07-31 08:20] LABS: MANUAL DIFFERENTIAL MANUAL DIFFERENTIAL (MANUAL DIFF); Potassium 4.4 mmoL/L (3.5-5.1); VBG Base Excess -12.7 mmol/L (-2.4-2.3); VBG Oxygen Saturation 88.9 % (50-70); VBG PCO2 37.6 mmol/L (35-51); VBG PH 7.22 mmol/L (7.31-7.41); VBG PO2 59.6 mmol/L (28-40); VBG Total CO2 16.2 mmol/L (23-27)
[2024-07-31 08:21] LABS: Lactate Venous 3.6 mmol/L (0.4-2.0)
[2024-07-31 08:22] LABS: Alanine Aminotransferase 24 U/L (12-78); Alkaline Phosphatase 113 U/L (38-126); Anion Gap 21.4 mEq/L (5-15); Aspartate Amino Transferase 23 U/L (14-36); Bilirubin,Total 0.4 mg/dl (0.2-1.3); Blood Urea Nitrogen 17 mg/dl (7-17); Calcium 9.2 mg/dl (8.4-10.2); Carbon Dioxide 15 mmol/L (22.0-30.0); Creatinine Clearance Estimated 27 mL/min (50-200); Estimated Glomerular Filt Rate 25 ml/min (>60); GFR (African American) 30 ML/MIN (>60); Globulin 2.4 g/dL (1.3-3.2); Glucose 111 mg/dl (74-100); Total Protein,Serum 4.9 g/dl (6.3-8.2)
[2024-07-31 08:29] LABS: Bacteria,Urine Trace /lpf
--- NOTE | 2024-07-31 08:30 | PC.NURSE ---
DR MARQUEZ AT BEDSIDE TO UPDATE PTS FAMILY
[2024-07-31 08:33] LABS: Lymphocytes % 8 % (10-50); Macrocytosis 2+; Neutrophils % 92 % (42-76); Phosphorous 6.3 mg/dl (2.5-4.5); Platelet Estimate Normal; Total Cells Counted 100
[2024-07-31 08:39] LABS: Troponin I < 0.01 ng/ml (0.00-0.034)
[2024-07-31 08:42] LABS: NT Pro Brain Natriuretic Pep. 2450 pg/mL (0-450)
--- NOTE | 2024-07-31 08:42 | PC.NURSE ---
PT TO CT
--- NOTE | 2024-07-31 08:43 | PC.NURSE ---
Patient gone to CT.
[2024-07-31] MEDS: VANCOMYCIN CONSULT REQUEST 1 EACH NOTAPPLIC (08:52)
[2024-07-31 08:53] LABS: Thyroid Stimulating Hormone 3.05 uIU/mL (0.465-4.68)
[2024-07-31] MEDS: CEFEPIME HCL 2 GM in 0.9 % SODIUM CHLORIDE 100 ML IV (09:01)
--- NOTE | 2024-07-31 09:03 | PC.NURSE ---
Patient is back in room from CT.
[2024-07-31 09:10] LABS: Coronavirus 19, PCR Not Detected (NotDetected); Influenza A, PCR Not Detected (NotDetected); Influenza B, PCR Not Detected (NotDetected)
[2024-07-31] MEDS: METRONIDAZ/SOD CHL 500 MG/100 ML PIGGYBACK 100 MG IV (09:25)
--- NOTE | 2024-07-31 09:29 | PC.NURSE ---
Called the black powder glazing operator to page Dr. De La Cruz per Dr. Dotson.
--- NOTE | 2024-07-31 09:29 | PC.NURSE ---
DR EMMA GUADALUPE
--- NOTE | 2024-07-31 09:32 | PC.NURSE ---
DR MARQUEZ SPEAKING WITH DR CARTER FOR ADMISSION
--- NOTE | 2024-07-31 09:32 | PC.NURSE ---
on phone with hospitalist for admission.
--- NOTE | 2024-07-31 09:38 | PC.NURSE ---
housekeeping lead notified of admission
--- NOTE | 2024-07-31 09:53 | PC.NURSE ---
Report called to Med Surg.
[2024-07-31] MEDS: VANCOMYCIN/WATER FOR INJ (PEG) 1.5 GM/300 ML PIGGYBACK IV (10:34)
[2024-07-31 10:59] LABS: HIV (1&2) Antibody Rapid NONREACTIVE (NONREACTIVE)
--- NOTE | 2024-07-31 11:02 | P.CONPHA_ITS ---
Pharmacy Consult Date: 07/31/24 Time: 11:10 Referring provider: DR MARQUEZ Reason for Consult:: VANCOMYCIN DOSING CONSULT Allergies Allergy/AdvReac Type Severity Reaction Status Date / Time Penicillins [PENICILLINS] Allergy Intermediate I-RASH Verified 05/10/24 14:30 hydrocortisone Allergy Unknown I-RASH Verified 05/10/24 14:30 [From CORTIZONE-10] Home Medications ?Medication ?Instructions ?Recorded ?Confirmed ?Type chlordiazepoxide HCl 10 mg capsule 10 mg PO BID Anxiety 10/19/17 05/10/24 History escitalopram oxalate 10 mg tablet 10 mg PO DAILY Depression 10/19/17 05/10/24 H istory potassium chloride 10 mEq 20 meq PO DAILY Supplement 10/19/17 05/10/24 History tablet,extended release (Klor-Con) allopurinol 100 mg tablet 100 mg PO DAILY gout 30 days #30 03/02/19 05/10/24 History tabs cholecalciferol (vitamin D3) 125 10,000 unit PO .TWICE WEEKLY 06/30/22 05/10/24 History mcg (5,000 unit) capsule Supplement omeprazole 40 mg capsule,delayed 40 mg PO HS Acid reflux 02/20/23 05/10/24 History release cyanocobalamin (vitamin B-12) 1,000 mcg PO DAILY Supplement 04/04/23 05/10/24 History 1,000 mcg tablet,extended release cefdinir 300 mg capsule 300 mg PO BID 5 days #10 caps 12/02/23 05/10/24 Rx mupirocin 2 % topical ointment 1 applic topical TID #22 grams 12/02/23 05/10/24 Rx rivaroxaban 20 mg tablet (Xarelto) 20 mg PO QPMWITHMEAL AFIB #90 tabs 01/04/24 05/10/24 Rx levocetirizine 5 mg tablet (Xyzal) 5 mg PO DAILY #90 tabs 04/04/24 05/10/24 Rx melatonin 10 mg capsule 10 mg PO HS PRN 04/27/24 05/10/24 History furosemide 20 mg tablet 60 mg (3 x 20 mg) PO DAILY Edema 05/11/24 Rx #270 tabs atorvastatin 20 mg tablet 20 mg PO DAILY Cholesterol 90 days 05/26/24 Rx #90 tabs diltiazem HCl 360 mg capsule,24 360 mg PO DAILY 07/31/24 History hr,extended release metoprolol succinate 25 mg 25 mg PO DAILY 07/31/24 History tablet,extended release 24 hr New Prescriptions to Start Prescriptions: Height: 1.63 m Weight: 81.647 kg Laboratory Results:: Laboratory Results - last 24 hr 07/31/24 08:01: WBC 22.5 H*, RBC 3.78 L, Hgb 12.3, Hct 41.4, MCV 109.4 H, MCH 32.4 H, MCHC 29.6 L, RDW 18.9 H, Plt Count 154, MPV 10.1, Neut % (Auto) 85.6 H, Lymph % (Auto) 10.1, [place] % (Auto) 3.5, Eos % (Auto) 0.3, Baso % (Auto) 0.4, Neut # (Auto) 19.3 H, Lymph # (Auto) 2.3, [place] # (Auto) 0.8, Eos # (Auto) 0.1, Baso # (Auto) 0.1, Total Counted 100, Neutrophils % (Manual) 92 H, Lymphocytes % (Manual) 8 L, Platelet Estimate Normal, Macrocytosis 2+, VBG pH 7.22 L, VBG pCO2 37.6, VBG pO2 59.6 H, VBG HCO3 15.0 L, VBG Total CO2 16.2 L, VBG O2 Saturation 88.9 H, VBG Base Excess -12.7 L, VBG Lactic Acid 3.6 H, Sodium 141, Potassium 4.4, Chloride 109 H, Carbon Dioxide 15 L, Anion Gap 21.4 H, BUN 17, Creatinine 1.90 H, Estimated Creat Clear 27, Estimated GFR 25 L, Est GFR ( Amer) 30 L, Glucose 111 H, Calcium 9.2, Phosphorus 6.3 H, Magnesium 2.0, Total Bilirubin 0.4, AST 23, ALT 24, Alkaline Phosphatase 113, Troponin I < 0.01, NT-Pro-B Natriuret Pep 2450 H, Total Protein 4.9 L, Albumin 2.5 L, Globulin 2.4, Albumin/Globulin Ratio 1.0 L, TSH 3.05, Urine Color Yellow, Urine Appearance Clear, Urine pH 5.0, Ur Specific [place] >= 1.030, Urine Protein Trace, Urine Glucose (UA) Negative, Urine Ketones Negative, Urine Blood Negative, Urine Nitrate Negative, Urine Bilirubin Negative, Urine Urobilinogen 0.2, Ur Leukocyte Esterase 1+ A, Urine RBC None, Urine WBC 5-10, Ur Squamous Epith Cells None, Urine Bacteria Trace, SARS-CoV-2 (PCR) Not detected, HIV 1&2 Antibody Rapid No nreactive, Influenza A Untype (PCR) Not detected, Influenza Type B (PCR) Not detected Medical History: Medical History (Updated 07/31/24 @ 09:36 by Yara Marquez MD) SOB (shortness of breath) on exertion Tinnitus Dysphagia Deviated nasal septum Hearing loss Impacted cerumen of both ears Hyperuricemia Glaucoma History of anemia Breast cancer CTS (carpal tunnel syndrome) Vulva cancer Numbness of feet Keratosis Onychodystrophy Onychoincurvatum Xerosis of skin Edema of both lower extremities Atrial fibrillation Hyperlipidemia Hypertensive heart disease Assessment and Plan Assessment and plan all Dx Assessment and Plan for all problems:: Pharmacokinetic dosing service Objective: Age: 84 yo Serum creatinine: 1.9 mg/dL Height: 64.0 Inches Weight (kg): 81.647 Diagnosis: SEPSIS Assessment: IBW (kg): 54.70 Dosing wt(kg): 81.647 Estimated Creatinine clearance (ml/min): 18.4 CRCL method: Cockcroft and Gault using ibw(default). Drug selected: Vancomycin Loading dose (mg): 1500 MG Vd (liters): 57.2 (factor used: 0.7 L/kg) Jorge (hr-1): 0.020 Half life (hrs): 34.66 CLvanco=?? 1.144 L/hr Recommended dose: 1250 mg Interval: 48 hrs Infusion time (hrs): 2.0 Predicted peak (mcg/mL): 34.7 Predicted trough (mcg/mL): 13.83 Total body weight is being used for vancomycin dosing. Recommendations: Give Vancomycin 1250 mg q 48 hrs with an expected Cpeak of 34.7 mcg/ml and an expected Ctrough of 13.83 mcg/ml TO START 08/02/24 AT 09:00, ONE TIME LOADING DOSE OF VANCOMYCIN 1500 MG IV GIVEN IN THE ED 07/31/24. AUC 0-24 /LUPIS Data: LUPIS 0.5 mcg/mL:?? AUC/LUPIS:? 1092.7 LUPIS 1.0 mcg/mL:?? AUC/LUPIS:? 546.3 --------- LUPIS 1.5 mcg/mL:?? AUC/LUPIS:? 364.2 LUPIS 2.0 mcg/mL:?? AUC/LUPIS:? 273.2 Thank you for the consult
[2024-07-31 11:50] LABS: Troponin I < 0.01 ng/ml (0.00-0.034)
[2024-07-31 12:20] LABS: Reflex Lactic Add Lactic Reflex
--- NOTE | 2024-07-31 13:21 | HMH.PHAINT1 ---
Pharmacy Intervention Comments: MEDICATION RECONCILIATION COMPLETE USING RECENT CARDIOLOGY OFFICE VISIT NOTE AND EXTERNAL PHARMACY FILL HISTORY.
[2024-07-31 14:23] LABS: Lactic Acid Follow Up (RFLX 1) 2.1 mmol/L (0.7-2.1)
[2024-07-31 14:30] LABS: Troponin I < 0.01 ng/ml (0.00-0.034)
--- NOTE | 2024-07-31 15:39 | P.HP_ITS ---
History of Present Illness *Admission Date: 07/31/24 *Reason for visit:: Altered mental status, decrease in responsiveness *History of present illness: Patient is an 84-year-old brought to ER acutely encephalopathic. In ER the history was obtained by EMS and also the patient's son, according to ER notes. The patient has a history of an ND and a history of a CVA. She is on Xarelto also a beta-benigno and a calcium channel benigno. According to her family she has shown a 1 month progressive decline which started with decreased ambulation followed by slurred speech followed by acute mental status changes. According to her son 1 month ago she was able to walk around with her walker and was conversant. She became gradually less stable. Within the last few weeks she started mumbling her words. The evening she became less responsive. Her son reports blood in her stool yesterday, which is a new occurance. Prior to admission she was completely encephalopathic and unresponsive. Vitals were unable to be obtained by EMS. In the ER she appeared moribund with bradycardia into the 30's. She has a history of chronic atrial fibrillation and takes a beta-benigno and calcium channel benigno as mentioned above. She responded to a dose of Atropine in the ER with increase in heart rate and seemed to become more responsive. WBC was found elevated. Urinalysis showed positive leukocyte esterase. Electrolytes were acceptable except for CHAD with GFR of 25. This GFR decrease does appear acute compared to other recent labs seen in the chart. Scans of the Abdomen/pelvis and head were not problematic. Related Data [facility] Disclaimer: The information contained in this section may have been updated after the patient was seen, as this information can be updated by other users. Medical History SOB (shortness of breath) on exertion Tinnitus Dysphagia Deviated nasal septum Hearing loss Impacted cerumen of both ears Hyperuricemia Glaucoma History of anemia Breast cancer CTS (carpal tunnel syndrome) Vulva cancer Numbness of feet Keratosis Onychodystrophy Onychoincurvatum Xerosis of skin Edema of both lower extremities Atrial fibrillation Hyperlipidemia Hypertensive heart disease Surgical History History of D&C History of lumpectomy of right breast History of colonoscopy History of repair of right rotator cuff History of placement of ear tubes History of right knee surgery History of cataract surgery History of carpal tunnel release History of cholecystectomy Family History Other Diabetes Family history of cancer Family history of hyperlipidemia Family history of hypertension Family history of myocardial infarction Family history of stroke Social History (Updated 07/31/24 @ 10:01 by Elise Bansal RN) Smoking Status: Unknown if ever smoked alcohol intake: never substance use type: denies use current occupational status: retired Travel in the last 8 weeks: None household members: family housing: house Other Medical History Have you received the Flu Vaccine for this season: No Have you received the Pneumonia Vaccine: No Review of Systems Review of Systems Review of systems:: pertinent systems reviewed and negative unless documented below Constitutional Constitutional: Reports as per HPI Eyes Eyes: Reports system reviewed and no additional complaints, except as documented ENT Ears, Nose, Mouth, and Throat: Reports system reviewed and no additional complaints, except as documented *Cardiovascular Cardiovascular: Reports as per HPI and Denies dyspnea *Respiratory Respiratory: Denies chest congestion, Denies cough, Denies dyspnea, Denies hemoptysis and Denies pain on inspiration *Gastrointestinal Gastrointestinal: Reports as per HPI and Reports hematochezia (prior to the admission.) *Genitourinary Genitourinary: Reports system reviewed and no additional complaints, except as documented (history of vulvar carcinoma) *Musculoskeletal Musculoskeletal: Reports system reviewed and no additional complaints, except as documented Integumentary/Breasts Skin/Breast: Reports system reviewed and no additional complaints, except as documented *Neurologic Neurologic: Reports as per HPI and Denies convulsions Psychiatric Psychiatric: Reports system reviewed and no additional complaints, except as documented and Reports as per HPI Endocrine Endocrine: Reports system reviewed and no additional complaints, except as documented (Takes thyroid supplement. TSH WNL on admission ) Hematologic/Lymphatic Hematologic/Lymphatic: Reports system reviewed and no additional complaints, except as documented Allergic/Immunologic Allergic/Immunologic: Reports system reviewed and no additional complaints, except as documented Meds Home Medications and Allergies Home Medications ?Medication ?Instructions ?Recorded ?Confirmed ?Type chlordiazepoxide HCl 10 mg capsule 10 mg PO BID 10/19/17 07/31/24 History escitalopram oxalate 10 mg tablet 10 mg PO DAILY 10/19/17 07/31/24 History potassium chloride 10 mEq 20 meq PO DAILY 10/19/17 07/31/24 History tablet,extended release (Klor-Con) allopurinol 100 mg tablet 100 mg PO DAILY 30 days #30 tabs 03/02/19 07/31/24 History cholecalciferol (vitamin D3) 125 10,000 unit PO .TWICE WEEKLY 06/30/22 07/31/24 History mcg (5,000 unit) capsule Supplement omeprazole 40 mg capsule,delayed 40 mg PO HS Acid reflux 02/20/23 07/31/24 History release cyanocobalamin (vitamin B-12) 1,000 mcg PO DAILY Supplement 04/04/23 07/31/24 History 1,000 mcg tablet,extended release levocetirizine 5 mg tablet (Xyzal) 5 mg PO DAILY #90 tabs 04/04/24 07/31/24 Rx melatonin 10 mg capsule 10 mg PO HSP PRN Sleep 04/27/24 07/31/24 History furosemide 20 mg tablet 60 mg (3 x 20 mg) PO DAILY Edema 05/11/24 07/31/24 Rx #270 tabs atorvastatin 20 mg tablet 20 mg PO HS 07/31/24 07/31/24 History diltiazem HCl 360 mg capsule,24 360 mg PO DAILY 07/31/24 07/31/24 History hr,extended release metoprolol succinate 25 mg 25 mg PO DAILY 07/31/24 07/31/24 History tablet,extended release 24 hr rivaroxaban 20 mg tablet (Xarelto) 20 mg PO QPMWITHMEAL 07/31/24 07/31/24 Hist ory New Prescriptions to Start Prescriptions: Allergies Allergy/AdvReac Type Severity Reaction Status Date / Time Penicillins [PENICILLINS] Allergy Intermediate I-RASH Verified 05/10/24 14:30 hydrocortisone Allergy Unknown I-RASH Verified 05/10/24 14:30 [From CORTIZONE-10] Exam Data for Last 24 hours Vital signs and Labs for Last 24 Hours: Temp Pulse Resp BP Pulse Ox O2 Del Method 100.1 F H 49 L 18 94/51 L 97 Room Air 07/31/24 15:08 07/31/24 15:00 07/31/24 15:00 07/31/24 15:00 07/31/24 15:00 07/31/24 15:00 Laboratory Results - last 24 hr 07/31/24 08:01: WBC 22.5 H*, RBC 3.78 L, Hgb 12.3, Hct 41.4, MCV 109.4 H, MCH 32.4 H, MCHC 29.6 L, RDW 18.9 H, Plt Count 154, MPV 10.1, Neut % (Auto) 85.6 H, Lymph % (Auto) 10.1, [place] % (Auto) 3.5, Eos % (Auto) 0.3, Baso % (Auto) 0.4, Neut # (Auto) 19.3 H, Lymph # (Auto) 2.3, [place] # (Auto) 0.8, Eos # (Auto) 0.1, Baso # (Auto) 0.1, Total Counted 100, Neutrophils % (Manual) 92 H, Lymphocytes % (Manual) 8 L, Platelet Estimate Normal, Macrocytosis 2+, VBG pH 7.22 L, VBG pCO2 37.6, VBG pO2 59.6 H, VBG HCO3 15.0 L, VBG Total CO2 16.2 L, VBG O2 Saturation 88.9 H, VBG Base Excess -12.7 L, VBG Lactic Acid 3.6 H, Sodium 141, Potassium 4.4, Chloride 109 H, Carbon Dioxide 15 L, Anion Gap 21.4 H, BUN 17, Creatinine 1.90 H, Estimated Creat Clear 27, Estimated GFR 25 L, Est GFR ( Amer) 30 L, Glucose 111 H, Calcium 9.2, Phosphorus 6.3 H, Magnesium 2.0, Total Bilirubin 0.4, AST 23, ALT 24, Alkaline Phosphatase 113, Troponin I < 0.01, NT-Pro-B Natriuret Pep 2450 H, Total Protein 4.9 L, Albumin 2.5 L, Globulin 2.4, Albumin/Globulin Ratio 1.0 L, TSH 3.05, Urine Color Yellow, Urine Appearance Clear, Urine pH 5.0, Ur Specific [place] >= 1.030, Urine Protein Trace, Urine Glucose (UA) Negative, Urine Ketones Negative, Urine Blood Negative, Urine Nitrate Negative, Urine Bilirubin Negative, Urine Urobilinogen 0.2, Ur Leukocyte Esterase 1+ A, Urine RBC None, Urine WBC 5-10, Ur Squamous Epith Cells None, Urine Bacteria Trace, SARS-CoV-2 (PCR) Not detected, HIV 1&2 Antibody Rapid Nonreactive, Influenza A Untype (PCR) Not detected, Influenza Type B (PCR) Not detected 07/31/24 11:21: Troponin I < 0.01 07/31/24 13:50: Lactate 2.1, Troponin I < 0.01 I & O for Last 24 hours: Intake & Output 07/29/24 07/30/24 07/31/24 08/01/24 11:59 11:59 11:59 11:59 Weight 180 lb Constitutional Constitutional: no acute distress and chronically ill appearing Comments: Resting quietly in bed at the time I saw her. She can be responsive to verbal and tactile stimuli but is not cogent or interactive. *Routine HEENT Exam Head: Present normocephalic Eye: Present EOMI and PERRL ENT: Present mucous membranes dry *Routine Neck Exam Neck: Present full ROM; Absent JVD Routine Chest/Breast/Axilla Exam Chest wall: Absent tenderness Breast: Absent tenderness *Routine Respiratory Exam Respiratory: Present diminished air movement; Absent respiratory distress, stridor or wheezes *Routine Cardiovascular Exam Cardiovascular: Present irregular rhythm (Atrial fibrillation heart rate in the 50s at the time of this exam) *Routine Abdominal Exam Abdominal: Present soft and obese; Absent tenderness, organomegaly or mass *Routine Rectal Exam Rectal:: deferred *Routine Genitalia Exam Genitalia:: deferred *Routine Extremities Exam Extremities: Present edema (2+) Routine Back/Spine/Pelvis Exam Back/Spine: Absent vertebral tenderness *Routine Skin Exam Skin: Present dry and pallor; Absent jaundice *Routine Neurological Exam Neurological: Present altered mental status (Decreased responsiveness. Will respond to verbal and tactile stimuli but is not cogent.); Absent facial asymmetry Routine Psychiatric Exam Psychiatric: Present unable to assess Assessment and Plan *Assessment and plan (1) Acute encephalopathy: Status: Acute Category: Medical Code(s): G93.40 - Encephalopathy, unspecified (2) Cardiogenic shock: Status: Acute Category: Medical Code(s): R57.0 - Cardiogenic shock (3) Bradycardia: Status: Acute Category: Medical Code(s): R00.1 - Bradycardia, unspecified (4) Afib: Status: Chronic Category: Medical Code(s): I48.91 - Unspecified atrial fibrillation (5) Hypothermia: Status: Acute Category: Medical Code(s): T68.XXXA - Hypothermia, initial encounter (6) Sepsis: Status: Acute Category: Medical Code(s): A41.9 - Sepsis, unspecified organism (7) Acute UTI: Status: Acute Category: Medical Code(s): N39.0 - Urinary tract infection, site not specified (8) Hearing loss: Status: Acute Qualifiers: Hearing loss type: unspecified Laterality: bilateral Qualified Code(s): H91.93 - Unspecified hearing loss, bilateral Category: Medical Code(s): H91.90 - Unspecified hearing loss, unspecified ear (9) Elevated WBC count: Status: Acute Category: Medical Code(s): D72.829 - Elevated white blood cell count, unspecified (10) HTN (hypertension): Status: Acute Qualifiers: Hypertension type: unspecified Qualified Code(s): I10 - Essential (primary) hypertension Category: Medical Code(s): I10 - Essential (primary) hypertension (11) Obesity: Status: Chronic Qualifiers: Obesity classification: adult class 2 (BMI 35 - 39.9) Serious obesity comorbidity presence: with serious comorbidity Body mass index: BMI 36.0-36.9 Obesity type: due to excess calories Qualified Code(s): E66.01 - Morbid (severe) obesity due to excess calories; Z68.36 - Body mass index [BMI] 36.0- 36.9, adult Category: Medical Code(s): E66.9 - Obesity, unspecified Plan See orders. We will see how she responds to antibiotics. Heart rhythm is being monitored. Family is at her bedside. She is designated DNR.
[2024-07-31 15:58] LABS: Reflex Lactic (2 hrs) Add Lactic Reflex
[2024-07-31 17:01] LABS: Lactic Acid Follow up (RFLX 2) 1.9 mmol/L (0.7-2.1)
--- NOTE | 2024-07-31 20:17 | PC.NURSE ---
Patient without urinary output since approx 11am on 07/31. Purewick in place upon assessment without any output noted. Unable to get bladder scanner working, but patient facial grimaces to bladder palpation which is noted to be distended. Call placed to Dr. De La Cruz who gives verbal order to place rapp catheter for urinary retention. Patient is not oriented or alert at this time to verbalize any discomfort, or voice needs. Rapp catheter placed with only 200ml output noted. Patient handled procedure well.
[2024-08-01] VITALS (26 sets, daily range): BP systolic 89–138; BP diastolic 51–67; PULSE 43–99; RESP 13–18; TEMP 35.8–36.9; O2SAT 97–100; BMI 30.7
--- NOTE | 2024-08-01 04:47 | PC.NURSE ---
Patient has rested well since taking over care at 0100 this date by documenting RN. Patient has no acute changes noted. No MD orders placed, so general ICU care has been maintained for patient. She has not had any PO intake. Minimally responsive with GCS 9 (E4, V1, M4) Less than adequate urinary output noted from rapp catheter. No s/sx of acute retention. NAD, VSS otherwise. ICU care continued.
[2024-08-01 06:40] LABS: MANUAL DIFFERENTIAL MANUAL DIFFERENTIAL (MANUAL DIFF)
[2024-08-01 06:58] LABS: Basophils # 0.1 K/mm3 (0-0.2); Basophils % 0.4 % (0.1-2.0); Hematocrit 38.8 % (37.0-47.0); Hemoglobin 11.8 g/dL (12.2-16.2); Lymphocytes # 1.8 K/mm3 (0.7-4.5); Lymphocytes % 8.7 % (10-50); Mean Corpuscular HGB Conc 30.5 g/dL (31.8-35.4); Mean Corpuscular Hemoglobin 32.7 pg (27.0-31.2); Mean Corpuscular Volume 107.4 fl (81-99); Mean Platelet Volume 10.3 fl (7.4-10.4); Monocytes # 0.9 K/mm3 (0.1-1.0); Monocytes % 4.3 % (1.7-9.3); Neutrophils # 17.6 K/mm3 (1.8-7.8); Neutrophils % 86.6 % (37.0-80.0); Platelet Count 129 K/mm3 (142-424); Red Blood Count 3.61 M/mm3 (4.20-5.40); Red Cell Distribution Width 19.1 % (11.5-17.5); White Blood Count 20.4 K/mm3 (4.8-10.8)
--- NOTE | 2024-08-01 08:20 | P.PN_ITS ---
Subjective *Date: 08/01/24 *Time: 09:02 Interval history: Patient unable to answer questions this a.m. Daughter is at bedside and stayed with her throughout the night. Daughter states she rested well and seemed most comfortable. Nurses report some urinary output with Sebastian catheter remaining. She is off norepinephrine drip. Vital signs have been stable. She is responed with turning. Medical Exam Vital signs and Labs for Last 24 Hours: Vital Signs Temp Pulse Pulse Resp BP BP Pulse Ox 08/01/24 08:00 56 L 18 138/66 100 08/01/24 07:00 55 L 15 99/53 L 100 08/01/24 06:00 60 08/01/24 06:00 55 L 14 89/62 L 99 08/01/24 05:00 55 L 16 102/57 L 99 08/01/24 04:00 16 99 08/01/24 04:00 97.7 F 55 L 14 117/55 L 100 08/01/24 03:00 54 L 16 137/58 L 100 08/01/24 02:00 63 18 111/67 99 08/01/24 01:00 82 18 103/60 L 98 08/01/24 00:00 90 08/01/24 00:00 97.8 F 08/01/24 00:00 98.5 F 99 H 18 100/67 L 97 07/31/24 23:00 101 H 17 92/69 L 98 07/31/24 22:00 101 H 21 113/60 98 07/31/24 21:00 92 H 19 107/62 L 07/31/24 21:00 07/31/24 20:00 98.4 F 07/31/24 20:00 80 07/31/24 20:00 88 18 104/78 L 94 L 07/31/24 19:00 100 H 16 121/68 97 07/31/24 18:30 07/31/24 18:00 64 18 111/70 98 07/31/24 17:05 07/31/24 17:00 52 L 16 112/62 98 07/31/24 16:21 50 L 07/31/24 16:00 99.5 F 07/31/24 16:00 07/31/24 16:00 51 L 16 92/41 L 97 07/31/24 15:08 100.1 F H 07/31/24 15:00 49 L 18 94/51 L 97 07/31/24 15:00 07/31/24 14:00 49 L 16 101/56 L 97 07/31/24 13:00 46 L 14 107/62 L 98 07/31/24 13:00 07/31/24 12:00 96.7 F L 07/31/24 11:45 47 L 16 119/56 L 98 07/31/24 11:00 45 L 16 97/52 L 99 07/31/24 10:45 07/31/24 10:45 76 16 95/49 L 99 07/31/24 10:06 98.0 F 49 L 17 105/57 L 07/31/24 10:00 49 L 17 105/57 L 98 07/31/24 09:49 46 L 14 101/61 L 98 07/31/24 09:07 46 L 13 101/56 L 100 07/31/24 08:31 48 L 105/52 L 98 O2 Del Method 08/01/24 08:00 Room Air 08/01/24 07:00 Room Air 08/01/24 06:00 08/01/24 06:00 Room Air 08/01/24 05:00 Room Air 08/01/24 04:00 Room Air 08/01/24 04:00 Room Air 08/01/24 03:00 Nasal Cannula 08/01/24 02:00 Room Air 08/01/24 01:00 Room Air 08/01/24 00:00 08/01/24 00:00 08/01/24 00:00 Room Air 07/31/24 23:00 Room Air 07/31/24 22:00 Room Air 07/31/24 21:00 07/31/24 21:00 Room Air 07/31/24 20:00 07/31/24 20:00 07/31/24 20:00 Room Air 07/31/24 19:00 Room Air 07/31/24 18:30 Room Air 07/31/24 18:00 Room Air 07/31/24 17:05 Room Air 07/31/24 17:00 Room Air 07/31/24 16:21 07/31/24 16:00 07/31/24 16:00 Room Air 07/31/24 16:00 Room Air 07/31/24 15:08 07/31/24 15:00 Room Air 07/31/24 15:00 Room Air 07/31/24 14:00 Room Air 07/31/24 13:00 Room Air 07/31/24 13:00 Room Air 07/31/24 12:00 07/31/24 11:45 Room Air 07/31/24 11:00 Room Air 07/31/24 10:45 Room Air 07/31/24 10:45 Room Air 07/31/24 10:06 Room Air 07/31/24 10:00 Room Air 07/31/24 09:49 Room Air 07/31/24 09:07 Room Air 07/31/24 08:31 Room Air Intake and Output 07/31/24 08/01/24 08/01/24 19:59 03:59 11:59 Intake Total 0 / 0 0 / 0 Output Total 330 / 330 0 / 330 Balance -330 / -330 0 / -330 Intake: Intake, Oral Amount 0 / 0 0 / 0 Output: Output, Urine Amount (Catheter) 330 / 330 0 / 330 Sebastian 330 / 330 0 / 330 Other: Weight 180 lb 0.013 oz Patient Weight 08/01/24 11:59 Weight 180 lb 0.013 oz Laboratory Results - last 24 hr 07/31/24 08:01: WBC 22.5 H*, RBC 3.78 L, Hgb 12.3, Hct 41.4, MCV 109.4 H, MCH 32.4 H, MCHC 29.6 L, RDW 18.9 H, Plt Count 154, MPV 10.1, Neut % (Auto) 85.6 H, Lymph % (Auto) 10.1, [place] % (Auto) 3.5, Eos % (Auto) 0.3, Baso % (Auto) 0.4, Neut # (Auto) 19.3 H, Lymph # (Auto) 2.3, [place] # (Auto) 0.8, Eos # (Auto) 0.1, Baso # (Auto) 0.1, Total Counted 100, Neutrophils % (Manual) 92 H, Lymphocytes % (Manual) 8 L, Platelet Estimate Normal, Macrocytosis 2+, VBG pH 7.22 L, VBG pCO2 37.6, VBG pO2 59.6 H, VBG HCO3 15.0 L, VBG Total CO2 16.2 L, VBG O2 Saturation 88.9 H, VBG Base Excess -12.7 L, VBG Lactic Acid 3.6 H, Sodium 141, Potassium 4.4, Chloride 109 H, Carbon Dioxide 15 L, Anion Gap 21.4 H, BUN 17, Creatinine 1.90 H, Estimated Creat Clear 27, Estimated GFR 25 L, Est GFR ( Amer) 30 L, Glucose 111 H, Calcium 9.2, Phosphorus 6.3 H, Magnesium 2.0, Total Bilirubin 0.4, AST 23, ALT 24, Alkaline Phosphatase 113, Troponin I < 0.01, NT-Pro-B Natriuret Pep 2450 H, Total Protein 4.9 L, Albumin 2.5 L, Globulin 2.4, Albumin/Globulin Ratio 1.0 L, TSH 3.05, Urine Color Yellow, Urine Appearance Clear, Urine pH 5.0, Ur Specific [place] >= 1.030, Urine Protein Trace, Urine Glucose (UA) Negative, Urine Ketones Negative, Urine Blood Negative, Urine Nitrate Negative, Urine Bilirubin Negative, Urine Urobilinogen 0.2, Ur Leukocyte Esterase 1+ A, Urine RBC None, Urine WBC 5-10, Ur Squamous Epith Cells None, Urine Bacteria Trace, SARS-CoV-2 (PCR) Not detected, HIV 1&2 Antibody Rapid Nonreactive, Influenza A Untype (PCR) Not detected, Influenza Type B (PCR) Not detected 07/31/24 11:21: Troponin I < 0.01 07/31/24 13:50: Lactate 2.1, Troponin I < 0.01 07/31/24 16:20: Lactate 1.9 08/01/24 05:38: WBC 20.4 H*, RBC 3.61 L, Hgb 11.8 L, Hct 38.8, MCV 107.4 H, MCH 32.7 H, MCHC 30.5 L, RDW 19.1 H, Plt Count 129 L, MPV 10.3, Neut % (Auto) 86.6 H , Lymph % (Auto) 8.7 L, [place] % (Auto) 4.3, Eos % (Auto) 0.0 L, Baso % (Auto) 0.4, Neut # (Auto) 17.6 H, Lymph # (Auto) 1.8, [place] # (Auto) 0.9, Eos # (Auto) 0.0, Baso # (Auto) 0.1 I & O for Labs for Last 24 Hours: Intake & Output 07/29/24 07/30/24 07/31/24 08/01/24 11:59 11:59 11:59 11:59 Intake Total 0 / 0 Output Total 330 / 330 Balance -330 / -330 Weight 180 lb 180 lb 0.013 oz Microbiology Reports for the Last 24 Hours: Microbiology 07/31/24 08:01 Urine,Catheterized Urine Culture - Preliminary Gram Negative Rods 07/31/24 08:01 Blood Blood Culture - Preliminary NO GROWTH AFTER 24 HOURS 07/31/24 08:01 Blood Blood Culture - Preliminary NO GROWTH AFTER 24 HOURS Constitutional: Present no acute distress, obese and somnolent Respiratory: Present CTA bilaterally (Diminished breath sounds posteriorly. Patient with shallow respiratory effort.); Absent rhonchi, wheezes, crackles or normal respiratory effort (poor inspiratory effort) Cardiac: Present Reg Rate and Rhythm (Monitor showing sinus rhythm rate varies from the 50s up to the 70s.) GI: Present soft and normal bowel sounds; Absent distention, tenderness or guarding Extremities: Present edema (Bilateral lower leg edema) Comment:: Patient did open eyes with turning. She did focus for a couple of seconds. Assessment and Plan *Assessment and plan (1) Acute encephalopathy: Status: Acute Category: Medical Code(s): G93.40 - Encephalopathy, unspecified (2) Cardiogenic shock: Status: Acute Category: Medical Code(s): R57.0 - Cardiogenic shock (3) Bradycardia: Status: Acute Category: Medical Code(s): R00.1 - Bradycardia, unspecified (4) Afib: Status: Chronic Category: Medical Code(s): I48.91 - Unspecified atrial fibrillation (5) Hypothermia: Status: Acute Category: Medical Code(s): T68.XXXA - Hypothermia, initial encounter (6) Sepsis: Status: Acute Category: Medical Code(s): A41.9 - Sepsis, unspecified organism (7) Acute UTI: Status: Acute Category: Medical Code(s): N39.0 - Urinary tract infection, site not specified (8) Hearing loss: Status: Acute Qualifiers: Hearing loss type: unspecified Laterality: bilateral Qualified Code(s): H91.93 - Unspecified hearing loss, bilateral Category: Medical Code(s): H91.90 - Unspecified hearing loss, unspecified ear (9) Elevated WBC count: Status: Acute Category: Medical Code(s): D72.829 - Elevated white blood cell count, unspecified (10) HTN (hypertension): Status: Acute Qualifiers: Hypertension type: unspecified Qualified Code(s): I10 - Essential (primary) hypertension Category: Medical Code(s): I10 - Essential (primary) hypertension (11) Obesity: Status: Chronic Qualifiers: Body mass index: BMI 36.0-36.9 Obesity classification: adult class 2 (BMI 35 - 39.9) Obesity type: due to excess calories Serious obesity comorbi dity presence: with serious comorbidity Qualified Code(s): E66.01 - Morbid (severe) obesity due to excess calories; Z68.36 - Body mass index [BMI] 36.0- 36.9, adult Category: Medical Code(s): E66.9 - Obesity, unspecified Plan Patient has received cefepime, metronidazole, and vancomycin; she remains on vancomycin. Will discontinue vancomycin and continue with cefepime while awaiting all culture results. White blood cell count has slightly improved to 20,000 today. Blood chemistries are pending. will start maintenance IV F Dr. Kyle entry - Saw patient, agree with above note.
[2024-08-01 08:29] LABS: Lymphocytes % 7 % (10-50); Monocytes % 2 % (2-9); Neutrophils % 91 % (42-76); Total Cells Counted 100
[2024-08-01 08:30] LABS: Anisocytosis 1+; Macrocytosis 1+; Platelet Estimate Slight Decrease
[2024-08-01] MEDS: 0.9 % SODIUM CHLORIDE 1000ML 1,000 ML 75 ML IV ×2 (09:11→21:56)
[2024-08-01 09:46] LABS: Alanine Aminotransferase 15 U/L (12-78); Albumin Level 2.3 g/dl (3.5-5.0); Alkaline Phosphatase 104 U/L (38-126); Anion Gap 20.4 mEq/L (5-15); Aspartate Amino Transferase 22 U/L (14-36); Bilirubin,Total 0.6 mg/dl (0.2-1.3); Blood Urea Nitrogen 25 mg/dl (7-17); Calcium 8.6 mg/dl (8.4-10.2); Carbon Dioxide 13 mmol/L (22.0-30.0); Chloride 113 mmol/L (98-107); Creatinine Clearance Estimated 24 mL/min (50-200); Estimated Glomerular Filt Rate 21 ml/min (>60); GFR (African American) 26 ML/MIN (>60); Globulin 2.3 g/dL (1.3-3.2); Glucose 94 mg/dl (74-100); Potassium 4.4 mmoL/L (3.5-5.1); Sodium 142 mmol/L (136-145); Total Protein,Serum 4.6 g/dl (6.3-8.2)
[2024-08-01] MEDS: SODIUM CHLORIDE 0.9% 10ML VIAL 8 ML IV ×2 (10:09→20:28)
[2024-08-01] MEDS: FAMOTIDINE 20MG/2ML VIAL 20 MG IV ×2 (10:09→20:28)
[2024-08-01] MEDS: CEFEPIME HCL 1 GM in 0.9 % SODIUM CHLORIDE 50 ML IV ×2 (10:10→20:28)
--- NOTE | 2024-08-01 10:38 | ECG_ITS ---
APPROVED REPORT Exam: Resting ECG HR:51 bpm ECG Measurements Heart Rate 51 AXES QRSd 88 QRS -31 QT 466 T 157 QTc 444 Conclusion ATRIAL FIBRILLATION WITH SLOW VENTRICULAR RESPONSE LEFT AXIS DEVIATION [QRS AXIS < -30] LOW QRS VOLTAGE [QRS DEFLECTION < 0.5/1.0 mV IN LIMB/CHEST LEADS] POSSIBLE ANTERIOR MYOCARDIAL INFARCTION , OF INDETERMINATE AGE [30 ms Q WAVE IN V3/V4, OR R < 0.2 mV IN V4] ABNORMAL ECG UNCONFIRMED REPORT Electronically signed by : Pedro Pablo Galicia MD 08/03/2024 08:21:04
--- NOTE | 2024-08-01 11:46 | PC.NURSE ---
DUE TO LOW TEMPERATURE HEATED BLANKETS WERE PLACED ON pt AND HEAT WAS TURNED UP IN THE ROOM. CALL LIGHT IS WITHIN REACH AND FAMILY IS AT BS. pt IS POSITIONED ON THEIR LEFT SIDE AT THIS TIME. NURSE NOTIFIED. TEMPERATURE CHARTED.
--- NOTE | 2024-08-01 15:10 | PC.NURSE ---
NEW HEATED BLANKENTS WERE PLACED ON pt. THERMOSTAT IS SET TO 74 DEGREES F. CALL LIGHT IS WITHIN REACH, FAMILY IS AT BS. pt IS POSITIONED ON THEIR RIGHT SIDE. NURSE NOTIFIED. TEMPERATURE CHARTED.
--- NOTE | 2024-08-01 17:34 | PC.NURSE ---
Patient rested throughout most of shift and will awaken to voice / name. Family remained at bedside throughout the day. Patient turned and repositioned q2 and PRN per staff. IV of NS infusing in LT AC with no difficulty. ST did swallow eval at bedside, suggested thin liquids with pureed foods. Patient / family educated on POC and d/c goals all questions answered no new c/o
--- NOTE | 2024-08-01 18:10 | HMH.SLDYSPHA ---
Speech & Language Evaluation Speech/Language Dysphagia Evaluation Start: 08/01/24 17:38 Freq: ONCE Status: Active Protocol: Document 08/01/24 17:38 ALEXEY (Rec: 08/01/24 18:10 ECLARK Laptop) Co-signed By ST Briseida Dysphagia Assess/Goals/Plan Assessment Date of Evaluation: 08/01/24 Evaluation Type Initial Certification Assessment/Problems Dysphagia per MD order Does Patient Qualify for Service Yes Qualify/Failure Comment Based on clinical observations made throughout bedside clinical swallow evaluation and family/nursing interview, pt would benefit from further speech therapy services for diet texture/tolerance analysis. Recommendations PHYSICIAN CERTIFICATION: The specified therapy services are required, authorized, and reviewed every 30 days. Pt will be seen # times/week 2 for # weeks 8 Diet Recommendations Pureed Liquid Type Recommendations Normal/Thin SL Swallow Guidelines Assist w/all meals,Alt bite w/ sip thru meal,Standard Aspiration Prec.,Crush meds as allowed*,Eat at slow rate, Oral Care Education,Oral care pre/post meals Dysphagia Swallow Precautions/Strategies Sitting Upright (90 deg), Double Swallow,Small Bites and Sips,Alternate Liquids/Solids Plan Anticipate reaching STG in # weeks 4 Anticipate reaching LTG in # weeks 8 Pt/Guardian verbally ack understanding Yes of dx/prognosis/goals G -code Required No STG-Other Comment/Non-Specific 1. Pt will demonstrate diet tolerance per using report and clinical observation x1. Poultry Tender Goals Diet Puree with Liquids Thin Liquids Pt will be able to eat foods w/more Yes normal consistency Education Instructions provided WOOD MOLDER discussed clinical observations made throughout bedside CSE, aspiration precautions/compensatory strategies, and diet recommendations with pt's family and nursing, each of which expressed understanding. Pt/Caregiver able to recall information Able to recall/restate Reinforcement needed No Speech & Language HPI History Present Illness Description of Patient Problem WOOD MOLDER pulled the following information from pt's H&P, chest CT, and head CT: Patient is an 84-year-old brought to ER acutely encephalopathic. In ER the history was obtained by EMS and also the patient's son, according to ER notes. The patient has a history of an NE and a history of a CVA. She is on Xarelto also a beta- benigno and a calcium channel benigno. According to her family she has shown a 1 month progressive decline which started with decreased ambulation followed by slurred speech followed by acute mental status changes. According to her son 1 month ago she was able to walk around with her walker and was conversant. She became gradually less stable. Within the last few weeks she started mumbling her words. The evening she became less responsive. Her son reports blood in her stool yesterday, which is a new occurance. Prior to admission she was completely encephalopathic and unresponsive. Vitals were unable to be obtained by EMS. In the ER she appeared moribund with bradycardia into the 30's. She has a history of chronic atrial fibrillation and takes a beta-benigno and calcium channel benigno as mentioned above. She responded to a dose of Atropine in the ER with increase in heart rate and seemed to become more responsive. WBC was found elevated. Urinalysis showed positive leukocyte esterase. Electrolytes were acceptable except for CHAD with GFR of 25. This GFR decrease does appear acute compared to other recent labs seen in the chart . Scans of the Abdomen/pelvis and head were not problematic . Head CT: IMPRESSION: 1. No evidence of acute intracranial process. 2. Disproportionate temporal lobe atrophy. 3. Mild to moderate small vessel disease. Chest CT: IMPRESSION: 1. Small pleural effusions bilaterally. Mild hypoventilatory changes in the lung bases. 2. No evidence of injury in the chest, within limit of study. Pt/Caregiver Concerns Pt and family did not voice any concerns with WOOD MOLDER. Rehab Services Assessed Speech therapy Is this evaluation r/t stroke? No Language Primary Language Trinidadian Therapy History Seen by other SL therapists No General Information General Current Food Consistancy NPO Dentition Edentulous Patient Orientation Person Ability to Follow Directions Fair Communication Ability Moderate Impairment Dysphagia:Food Presentation Evaluation Food Type Liquid,Pudding Normal/Thin Liquid Response Delayed swallow Pudding Consistency Liquid Response Delayed swallow Dysphagia Evaluation Summary Pt was seen sitting upright in her bed this evening for a bedside clinical swallow evaluation. Pt was observed to be sleeping upon WOOD MOLDER's arrival. WOOD MOLDER and family attempted to wake pt and WOOD MOLDER began with oral care. Pt was oriented to self only and appeared to be edentulous. Family notified WOOD MOLDER that pt wears dentures in home environment. Bolus presentations given include ice chips, thin liquid (water) via spoon, straw, and open cup, and pudding. All bolus presentations were administered x2+ to assess for fatigue and consistency. Pt did not demonstrate any overt s/sx of aspiration on any consistency trialed. During ice chip trial, pt expectorated ice chip. Pt demonstrated delayed swallow on all consistencies trialed. Pt needed multiple cues to swallow d/t bolus miky. It is to be noted that WOOD MOLDER terminated evaluation after pudding trial given mental status and fatigue at this time. WOOD MOLDER recommends pureed diet/thin liquids, with compensatory strategies including assist w/ all meals, double swallow, alternating bites/sips, small bites/sips, and sitting upright during meal and 30-60 minutes after eating. WOOD MOLDER will f/u for diet texture/tolerance analysis. Stroke Dysphagia Assessment PHYSICIAN CERTIFICATION: I certify the specified therapy services for Bry Anders are required, authorized, and reviewed every 30 days.
--- NOTE | 2024-08-01 18:28 | PC.NURSE ---
Dr Kyle in to assess patient, notified by nurse patient has had mild hyperthermia and required warm blankets throughout shift no new orders .
[2024-08-01] MEDS: ENOXAPARIN 40MG/0.4ML SYRINGE 40 MG SUBCUT (20:00)
[2024-08-01] MEDS: ATORVASTATIN 20MG TABLET 20 MG PO (20:28)
[2024-08-02] VITALS (14 sets, daily range): BP systolic 104–136; BP diastolic 58–86; PULSE 60–119; RESP 14–20; TEMP 36.3–37.1; O2SAT 95–100; BMI 31.0; BMI 30.9
[2024-08-02 05:16] LABS: HCV Ab Non Reactive (Non Reactive)
[2024-08-02 05:25] LABS: Basophils # 0.1 K/mm3 (0-0.2); Basophils % 0.3 % (0.1-2.0); Eosinophils % 0.2 % (0.1-12.0); Hematocrit 37.7 % (37.0-47.0); Hemoglobin 11.1 g/dL (12.2-16.2); Lymphocytes # 1.8 K/mm3 (0.7-4.5); Lymphocytes % 11.5 % (10-50); Mean Corpuscular HGB Conc 29.4 g/dL (31.8-35.4); Mean Corpuscular Hemoglobin 32.3 pg (27.0-31.2); Mean Platelet Volume 9.4 fl (7.4-10.4); Monocytes # 0.8 K/mm3 (0.1-1.0); Monocytes % 5.1 % (1.7-9.3); Neutrophils # 12.8 K/mm3 (1.8-7.8); Neutrophils % 82.9 % (37.0-80.0); Platelet Count 145 K/mm3 (142-424); Red Blood Count 3.42 M/mm3 (4.20-5.40); Red Cell Distribution Width 19.1 % (11.5-17.5); White Blood Count 15.4 K/mm3 (4.8-10.8)
[2024-08-02 05:26] LABS: MANUAL DIFFERENTIAL MANUAL DIFFERENTIAL (MANUAL DIFF)
--- NOTE | 2024-08-02 05:30 | PC.NURSE ---
Norepi titrated from 4mcg to 5mcg for hypotension-- see vitals record.
[2024-08-02 05:58] LABS: Lymphocytes % 17 % (10-50); Monocytes % 1 % (2-9); Neutrophils % 82 % (42-76); Total Cells Counted 100
[2024-08-02 05:59] LABS: Anisocytosis 1+; Ovalocytes 1+; RBC Morphology Normal
[2024-08-02] MEDS: FAMOTIDINE 20MG/2ML VIAL 20 MG IV (08:02)
[2024-08-02] MEDS: CEFEPIME HCL 1 GM in 0.9 % SODIUM CHLORIDE 50 ML IV ×2 (08:02→20:06)
[2024-08-02] MEDS: SODIUM CHLORIDE 0.9% 10ML VIAL 8 ML IV (08:02)
--- NOTE | 2024-08-02 08:45 | EXP.ACUTE.PN ---
Subjective *Date: 08/02/24 *Time: 08:54 Interval history: Daughter stayed with patient last night. She states she rested comfortably throughout the night. Anahy attempted to feed her this morning and patient did not like the oatmeal. Patient denies pain and shortness of breath. White count continues to improve and is at 15,000 this morning. Renal function is a little worse with a BUN of 25 and creatinine of 2.2. Urine does show E. coli sensitive to the cefepime which patient is on. Blood cultures are negative thus far. Medical Exam Vital signs and Labs for Last 24 Hours: Vital Signs Temp Pulse Pulse Resp BP Pulse Ox O2 Del Method 08/02/24 07:56 97.4 F L 08/02/24 06:00 73 15 104/65 L 100 Room Air 08/02/24 04:00 72 08/02/24 04:00 97.8 F 60 14 110/58 L 100 Room Air 08/02/24 02:00 62 16 109/64 L 100 Room Air 08/02/24 00:00 60 08/02/24 00:00 97.8 F 63 15 112/69 100 Room Air 08/01/24 22:00 83 18 100/52 L 100 Room Air 08/01/24 20:00 63 08/01/24 20:00 70 16 08/01/24 20:00 97.7 F 70 16 106/62 L 100 Room Air 08/01/24 18:57 97.9 F 08/01/24 18:56 Room Air 08/01/24 18:00 52 L 16 110/56 L 100 Room Air 08/01/24 17:00 54 L 16 106/56 L 99 Room Air 08/01/24 17:00 Room Air 08/01/24 16:00 50 L 08/01/24 16:00 96.7 F L 08/01/24 16:00 98 Room Air 08/01/24 16:00 46 L 18 98/62 L Room Air 08/01/24 15:00 53 L 16 110/60 Room Air 08/01/24 15:00 Room Air 08/01/24 14:30 96.4 F L 08/01/24 14:00 47 L 14 116/56 L 99 Room Air 08/01/24 13:00 46 L 13 101/59 L 100 Room Air 08/01/24 13:00 Room Air 08/01/24 11:46 96.7 F L 08/01/24 11:28 Room Air 08/01/24 11:27 50 L 16 109/56 L Room Air 08/01/24 11:14 50 L 08/01/24 11:00 16 109/56 L Room Air 08/01/24 11:00 Room Air 08/01/24 10:00 43 L 16 111/51 L Room Air 08/01/24 09:00 56 L 16 101/51 L Room Air 08/01/24 09:00 Room Air Intake and Output 08/01/24 08/02/24 08/02/24 19:59 03:59 11:59 Intake Total 629 / 629 650 / 1279 296 / 1575 Output Total 135 / 135 100 / 235 600 / 835 Balance 494 / 494 550 / 1044 -304 / 740 Intake: Intake, Oral Amount 0 / 0 0 / 0 Intake, Total IV Amount 629 / 629 50 / 679 0.9 % Sodium Chloride 1000ML 1, 629 / 629 000 ml @ 75 mls/hr IV .[id number] [facility] Rx#:[id number] Cefepime HCl 1 gm In 0.9 % 50 / 50 Sodium Chloride 50 ml @ 100 mls /hr IV Q12H [facility] Rx#:[id number] Infusion Intake 600 / 600 296 / 896 0.9 % Sodium Chloride 1000ML 1, 600 / 600 296 / 896 000 ml @ 75 mls/hr IV .[id number] [facility] Rx#:[id number] Output: Output, Urine Amount 45 / 45 450 / 495 Output, Other Amount 35 / 35 Output, Urine Amount (Catheter) 55 / 55 100 / 155 150 / 305 Sebastian 55 / 55 100 / 155 150 / 305 Other: Number of Unmeasured Voids 0 Weight 180 lb 12.465 oz Patient Weight 08/02/24 11:59 Weight 180 lb 12.465 oz Laboratory Results - last 24 hr 07/31/24 08:01: Hepatitis C Antibody Non reactive 08/01/24 09:24: Sodium 142, Potassium 4.4, Chloride 113 H, Carbon Dioxide 13 L, Anion Gap 20.4 H, BUN 25 H D, Creatinine 2.20 H, Estimated Creat Clear 24, Estimated GFR 21 L, Est GFR ( Amer) 26 L, Glucose 94, Calcium 8.6, Total Bilirubin 0.6, AST 22, ALT 15 D, Alkaline Phosphatase 104, Total Protein 4.6 L, Albumin 2.3 L, Globulin 2.3, Albumin/Globulin Ratio 1.0 L 08/02/24 05:12: WBC 15.4 H, RBC 3.42 L, Hgb 11.1 L, Hct 37.7, MCV 110.0 H, MCH 32.3 H, MCHC 29.4 L, RDW 19.1 H, Plt Count 145, MPV 9.4, Neut % (Auto) 82.9 H, Lymph % (Auto) 11.5, [place] % (Auto) 5.1, Eos % (Auto) 0.2, Baso % (Auto) 0.3, Neut # (Auto) 12.8 H, Lymph # (Auto) 1.8, [place] # (Auto) 0.8, Eos # (Auto) 0.0, Baso # (Auto) 0.1, Total Counted 100, Neutrophils % (Manual) 82 H, Lymphocytes % (Manual) 17, Monocytes % (Manual) 1 L, RBC Morphology Normal, Anisocytosis 1+, Ovalocytes 1+ I & O for Labs for Last 24 Hours: Intake & Output 07/30/24 07/31/24 08/01/24 08/02/24 11:59 11:59 11:59 11:59 Intake Total 291 / 291 1575 / 1575 Output Total 630 / 630 835 / 835 Balance -339 / -339 740 / 740 Weight 180 lb 180 lb 0.013 oz 180 lb 12.465 oz Microbiology Reports for the Last 24 Hours: Microbiology 07/31/24 08:01 Blood Blood Culture - Preliminary NO GROWTH AFTER 48 HOURS 07/31/24 08:01 Blood Blood Culture - Preliminary NO GROWTH AFTER 48 HOURS 07/31/24 08:01 Urine,Catheterized Urine Culture - Final Escherichia coli Constitutional: Present no acute distress Comment:: Easily awakened this morning and patient does answer questions. Respiratory: Present CTA bilaterally (Anteriorly and posteriorly) Comment:: Patient was able to sit up in the bed on her own. Cardiac: Absent Regular Rate (Irregular. Monitor showing atrial fibs with controlled ventricular response) GI: Present soft and normal bowel sounds; Absent distention, tenderness or guarding Extremities: Present edema (1-2+ pitting edema.); Absent tenderness or calf tenderness Neuro: Present alert Comment:: Speech is soft Assessment and Plan *Assessment and plan (1) Acute encephalopathy: Status: Acute Category: Medical Code(s): G93.40 - Encephalopathy, unspecified (2) Cardiogenic shock: Status: Acute Category: Medical Code(s): R57.0 - Cardiogenic shock (3) Bradycardia: Status: Acute Category: Medical Code(s): R00.1 - Bradycardia, unspecified (4) Afib: Status: Chronic Category: Medical Code(s): I48.91 - Unspecified atrial fibrillation (5) Hypothermia: Status: Acute Category: Medical Code(s): T68.XXXA - Hypothermia, initial encounter (6) Sepsis: Status: Acute Category: Medical Code(s): A41.9 - Sepsis, unspecified organism (7) Acute UTI: Status: Acute Category: Medical Code(s): N39.0 - Urinary tract infection, site not specified (8) Hearing loss: Status: Acute Qualifiers: Hearing loss type: unspecified Laterality: bilateral Qualified Code(s): H91.93 - Unspecified hearing loss, bilateral Category: Medical Code(s): H91.90 - Unspecified hearing loss, unspecified ear (9) Elevated WBC count: Status: Acute Category: Medical Code(s): D72.829 - Elevated white blood cell count, unspecified (10) HTN (hypertension): Status: Acute Qualifiers: Hypertension type: unspecified Qualified Code(s): I10 - Essential (primary) hypertension Category: Medical Code(s): I10 - Essential (primary) hypertension (11) Obesity: Status: Chronic Qualifiers: Body mass index: BMI 36.0-36.9 Obesity classification: adult class 2 (BMI 35 - 39.9) Obesity type: due to excess calories Serious obesity comorbidity presence: with serious comorbidity Qualified Code(s): E66.01 - Morbid (severe) obesity due to excess calories; Z68.36 - Body mass index [BMI] 36.0-36.9, adult Category: Medical Code(s): E66.9 - Obesity, unspecified (12) E. coli urinary tract infection: Status: Acute Category: Medical Code(s): N39.0 - Urinary tract infection, site not specified; B96.20 - Unspecified Escherichia coli [E. coli] as the cause of diseases classified elsewhere (13) Debility: Status: Acute Category: Medical Code(s): R53.81 - Other malaise Plan Patient white count is improving with cefepime. Will continue with this and IV fluids due to worsening renal function. Speech therapy will continue to follow. Was started on some p.o. meds. PT and OT consulted as well. Dr. Kyle entry - Saw patient, agree with above note.
--- NOTE | 2024-08-02 10:06 | SW/DCPLANNER ---
Addendum entered by Pili Jacobo 08/04/24 12:57: Patient will discharge to [facility] level of care. Addendum entered by Pili Jacobo 08/04/24 10:18: Per Iona she can accept this patient SNF level of care once medically stable for discharge. Per patient could be ready for discharge this afternoon. Addendum entered by Pili Jacobo 08/02/24 15:32: Iona w/ [facility] will onsite evaluate patient this afternoon. Original Note: I spoke w/ this patient and her family regarding plans once medically stable for discharge. PT/OT evaluated patient and recommended SNF level of care. Patient/family are agreeable to placement and prefer the following facilities: [facility], [facility] or [facility]. I will fax patient information and follow up w/ eliazar, and patient/family. Discharge date is unknown at this time.
--- NOTE | 2024-08-02 10:07 | HMH.OTEV ---
OT Inpatient Evaluation Rehab OT IP Evaluation Start: 08/02/24 08:32 Freq: ONCE Status: Active Protocol: Document 08/02/24 09:59 [facility] (Rec: 08/02/24 10:06 [facility] [id number]) Rehab OT IP Assessment Subjective History Pt oriented x 2 on arrival. Pt is very [place] and required assistance from daughter to complete orientation questions . Pt admitted on 07/31/24 due to bradycardia and unresponsiveness. History and physical: Patient is an 84-year-old brought to ER acutely encephalopathic. In ER the history was obtained by EMS and also the patient's son, according to ER notes. The patient has a history of an NM and a history of a CVA. She is on Xarelto also a beta- benigno and a calcium channel benigno. According to her family she has shown a 1 month progressive decline which started with decreased ambulation followed by slurred speech followed by acute mental status changes. According to her son 1 month ago she was able to walk around with her walker and was conversant. She became gradually less stable. Within the last few weeks she started mumbling her words. The evening she became less responsive. Her son reports blood in her stool yesterday, which is a new occurance. Prior to admission she was completely encephalopathic and unresponsive. Vitals were unable to be obtained by EMS. In the ER she appeared moribund with bradycardia into the 30's. She has a history of chronic atrial fibrillation and takes a beta-benigno and calcium channel benigno as mentioned above. She responded to a dose of Atropine in the ER with increase in heart rate and seemed to become more responsive. WBC was found elevated. Urinalysis showed positive leukocyte esterase. Electrolytes were acceptable except for CHAD with GFR of 25. This GFR decrease does appear acute compared to other recent labs seen in the chart . Scans of the Abdomen/pelvis and head were not problematic . Related Data Subjective I need water. Pt's daughter present and supportive during therapy evaluation. Daughter provided information about previous level of functioning. Prior to being in the hospital, pt lived at home with her two sons. Her sons did still work , but someone was with patient 04/05. Within the past month, pt has become increasingly weak and was having difficulty even standing. Recently she had been using a wheelchair most often, but prior to that she was able to transfer with rolling walker. Daughter explains normally she requires assistance with all ADLs, but able to feed herself. She is dependent upon her sons and family to complete all IADLS. Objective Patient Orientation Person,Place Right Upper Extremity Gross ROM Mod Limitation 50% Left Upper Extremity Gross ROM Mod Limitation 50% Shoulder ROM Limitations Muscle Weakness Elbow ROM Limitations Muscle Weakness Wrist Limitations of Range of Motion Muscle Weakness Bed Mobility bed mobility-scooting,bed mobility - supine/sit Assist Level Maximum x 2 (75% assist) Rehab OT IP prob,goals,plan Problems Date of Evaluation: 08/02/24 OT IP Problems Bed Mobility,Transfers,Balance ,Self care,Safety Rehab Potential Rehab Potential Good Equipment Needs Assistive Devices Rolling / Wheeled Walker Plan OT intervention Plan Bed Mobility,Transfers,Balance ,Self care,Safety,Therapeutic Exercise OT Plan Frequency Daily Duration LOS Discharge Goals Bed Mobility Ability Assistance x1 Sit to Stand Chair Transfer Ability Maximum x 1 (75% assist) Chair Transfer Ability Maximum x 1 (75% assist) Chair Transfer Technique Stand Step Pivot Chair Transfer Assistive Devices Rolling Walker Lower Body Dressing Ability Maximum Assistance Upper Body Dressing Ability Moderate Assistance Bathing Ability Maximum Assistance Performing Toilet Hygiene Ability Maximum Assistance Overall Commode/Toilet Transfer Ability Maximum Assistance Commode/Toilet Transfer Technique Stand Step Pivot Commode/Toilet Transfer Assistive Grab Bars Devices Oral Care Assist Moderate Assistance Decrease in Endurance Yes Discharge Plan OT Discharge Plan Pt will continue to be seen for OT services while at [facility]. Pt would benefit most from short term rehab at SNF following hospital stay. Continued skilled therapy is important in order for patient to improve strength, safety, endurance, ADL independence, and functional transfers to reach [facility]. Eval Complexity Eval Charge Codes 64956 - Moderate Complexity PHYSICIAN CERTIFICATION: I certify the specified therapy services for Bry Anders are required, authorized, and reviewed every 30 days.
--- NOTE | 2024-08-02 10:50 | HMH.PTEV ---
Physical Therapy Evaluation Rehab PT IP Evaluation Start: 08/02/24 08:32 Freq: ONCE Status: Active Protocol: Document 08/02/24 10:20 MARIT[facility] (Rec: 08/02/24 10:44 PHORBARRY [id number]) Subjective/History History History The patient presents to acute care following altered mental status, decrease in responsiveness. The patient has a history of an ME and a history of a CVA. According to her family she has shown a 1 month progressive decline which started with decreased ambulation followed by slurred speech followed by acute mental status change. Pt was previously ambulating w/ a walker. Subjective Subjective Patient's family reports she was previously independent w/ ADLs and self care tasks before. Pt is 3x oriented; however, she does have difficulty w/ speech and hearing according to her family at bedside. Pt denies any reports of pain during todays visit. Rehab PT IP Eval Objective Appearance Patient Behavior Appropriate,Cooperative Patient Orientation Person,Place,Birthday Difficulty following instructions none Speech Pattern Appropriate,Slurred,Soft- Spoken Ambulation Patient Able to Ambulate No Balance Ability to Arise Able, uses arms to help Sitting Balance Steady, safe Transfers Bed Transfer Ability Minimal x 2 (25% assist) Rehab PT IP prob,goals,plan Problems Date of Evaluation: 08/02/24 PT IP Problems Bed Mobility,Transfers,Balance ,Self care Rehab Potential Rehab Potential Good Equipment Needs Assistive Devices Rolling / Wheeled Walker Plan PT Intervention Plan Bed Mobility,Transfers,Balance ,Self care,Therapeutic Exercise PT Plan Frequency Daily Duration LOS Discharge Goals Bed Transfer Ability Minimal x 1 (25% assist) Sit to Stand Chair Transfer Ability Minimal x 2 (25% assist) Ambulation Assistive Device Rolling Walker Ambulation Distance (feet) 10 Discharge Plan PT Discharge Plan Pt requires skilled therapy services to improve strength, balance, transfers, and gait to return to PLOF. Pt would be most appropriate for short term rehab placement after discharge to progress PT POC. Eval Complexity Eval Charge Codes 39014 - High Complexity PHYSICIAN CERTIFICATION: I certify the specified therapy services for Elmeta Anders are required, authorized, and reviewed every 30 days.
[2024-08-02] MEDS: 0.9 % SODIUM CHLORIDE 1000ML 1,000 ML 75 ML IV (11:34)
--- NOTE | 2024-08-02 16:48 | PC.NURSE ---
care assumed from DIANA lackey at 1300. pt is currently resting supine in bed tolerating RA with sat of 100%. pt can answer yes/no questions but struggles to find sensible words when asked more elaborate questions. edema noted to upper and lower extremities. family has been at bedside majority of the shift. abx and other medications given per MAR. 310ml urine dumped at 1600. pt had bowel movement this shift. NS running at 75. WBC improved from 20.4 to 15.4 this AM. pt has not complained of pain this shift. temperature remained WNL. PT/OT/ORTHOPEDIC PHYSICIAN ASSISTANT & Dietitian consulted. pt has no complaints or needs at this time. call light within reach, bed in low and locked position and bed alarm on for safety.
[2024-08-02] MEDS: FAMOTIDINE 20MG/2ML VIAL 10 MG IV (20:06)
[2024-08-02] MEDS: ATORVASTATIN 20MG TABLET 20 MG PO (20:22)
[2024-08-03] VITALS (7 sets, daily range): BP systolic 124–159; BP diastolic 51–94; PULSE 70–92; RESP 14–20; TEMP 36.2–37; O2SAT 95–100; BMI 31.4
[2024-08-03] MEDS: 0.9 % SODIUM CHLORIDE 1000ML 1,000 ML 75 ML IV (01:38)
--- NOTE | 2024-08-03 06:40 | PC.NURSE ---
Pt has been alert to person throughout shift. Pt has woke up through night pulling on lines, tubes, and gown stating take it all off. Pt has tolerated RA with sat >90%. Total of 325ml urine output via rapp during shift. Urine bright yellow, clear. Pt q2 turned, sips and oral care provided to pt. Daughter has remained at bedside throughout night. Call light within reach.
--- NOTE | 2024-08-03 08:11 | PC.NURSE ---
Notified Mindy BARRY that pt's home meds have not been ordered. No VTE at this time.
[2024-08-03] MEDS: CEFEPIME HCL 1 GM in 0.9 % SODIUM CHLORIDE 50 ML IV ×2 (08:18→21:09)
--- NOTE | 2024-08-03 08:30 | P.PN_ITS ---
Subjective *Date: 08/03/24 *Time: 09:12 Interval history: Patient's daughter states she has answered yes and no to some questions. She has eaten a few bites. She has not complained of pain. She has been agitated throughout the night and did not rest well. Medical Exam Vital signs and Labs for Last 24 Hours: Vital Signs Temp Pulse Pulse Resp BP Pulse Ox O2 Del Method 08/03/24 08:00 97.2 F L 70 18 132/79 100 Room Air 08/03/24 06:40 Room Air 08/03/24 05:00 Room Air 08/03/24 04:00 72 08/03/24 04:00 97.8 F 73 18 136/70 98 Room Air 08/03/24 03:00 Room Air 08/03/24 01:00 Room Air 08/03/24 00:00 98.3 F 72 18 124/86 95 Room Air 08/03/24 00:00 83 08/02/24 22:55 Room Air 08/02/24 21:00 Room Air 08/02/24 20:14 98.8 F 84 18 118/61 95 Room Air 08/02/24 20:00 119 H 08/02/24 20:00 Room Air 08/02/24 19:43 98.8 F 80 15 118/61 98 Room Air 08/02/24 18:45 Room Air 08/02/24 17:00 Room Air 08/02/24 16:00 80 08/02/24 16:00 97.5 F L 88 16 128/70 100 08/02/24 15:00 Room Air 08/02/24 13:00 Room Air 08/02/24 12:00 70 08/02/24 12:00 98 F 92 H 17 136/86 100 08/02/24 11:39 97.7 F 08/02/24 11:37 83 20 123/73 96 Room Air 08/02/24 11:00 Room Air 08/02/24 09:00 68 16 124/71 100 Room Air 08/02/24 09:00 Room Air Intake and Output 08/02/24 08/03/24 08/03/24 19:59 03:59 11:59 Intake Total 425 / 475 50 / 475 Output Total 385 / 710 325 / 710 Balance 40 / -235 50 / -235 -325 / -235 Intake: Intake, Oral Amount 60 / 60 Intake, Total IV Amount 365 / 415 50 / 415 0.9 % Sodium Chloride 1000ML 1, 365 / 365 000 ml @ 75 mls/hr IV .[id number] [facility] Rx#:[id number] Cefepime HCl 1 gm In 0.9 % 50 / 50 Sodium Chloride 50 ml @ 100 mls /hr IV Q12H [facility] Rx#:[id number] Output: Output, Urine Amount 385 / 435 50 / 435 Output, Urine Amount (Catheter) 275 / 275 Sebastian 275 / 275 Other: Weight 184 lb 6.4 oz Patient Weight 08/03/24 11:59 Weight 184 lb 6.4 oz I & O for Labs for Last 24 Hours: Intake & Output 07/31/24 08/01/24 08/02/24 08/03/24 11:59 11:59 11:59 11:59 Intake Total 291 / 351 2606 / 2606 475 / 475 Output Total 630 / 655 835 / 835 710 / 710 Balance -339 / -304 1771 / 1771 -235 / -235 Weight 180 lb 180 lb 0.013 oz 180 lb 12.465 oz 184 lb 6.4 oz Microbiology Reports for the Last 24 Hours: Microbiology 07/31/24 08:01 Blood Blood Culture - Preliminary NO GROWTH AFTER 48 HOURS 07/31/24 08:01 Blood Blood Culture - Preliminary NO GROWTH AFTER 48 HOURS 07/31/24 08:01 Urine,Catheterized Urine Culture - Final Escherichia coli Constitutional: Present no acute distress Comment:: Opens eyes to questioning but does not answer. Respiratory: Present CTA bilaterally (Anteriorly and posteriorly) Cardiac: Absent Regular Rate (Irregular) GI: Present soft and normal bowel sounds; Absent distention, tenderness or guarding Extremities: Present edema (1-2+ pitting edema.); Absent tenderness or calf tenderness Skin: Present intact Neuro: Present awake (opens eyes to questioning but cannot answer questions) Assessment and Plan *Assessment and plan (1) Acute encephalopathy: Status: Acute Category: Medical Code(s): G93.40 - Encephalopathy, unspecified (2) Cardiogenic shock: Status: Acute Category: Medical Code(s): R57.0 - Cardiogenic shock (3) Bradycardia: Status: Acute Category: Medical Code(s): R00.1 - Bradycardia, unspecified (4) Afib: Status: Chronic Category: Medical Code(s): I48.91 - Unspecified atrial fibrillation (5) Hypothermia: Status: Acute Category: Medical Code(s): T68.XXXA - Hypothermia, initial encounter (6) Sepsis: Status: Acute Category: Medical Code(s): A41.9 - Sepsis, unspecified organism (7) Acute UTI: Status: Acute Category: Medical Code(s): N39.0 - Urinary tract infection, site not specified (8) Hearing loss: Status: Acute Qualifiers: Hearing loss type: unspecified Laterality: bilateral Qualified Code(s): H91.93 - Unspecified hearing loss, bilateral Category: Medical Code(s): H91.90 - Unspecified hearing loss, unspecified ear (9) Elevated WBC count: Status: Acute Category: Medical Code(s): D72.829 - Elevated white blood cell count, unspecified (10) HTN (hypertension): Status: Acute Qualifiers: Hypertension type: unspecified Qualified Code(s): I10 - Essential (primary) hypertension Category: Medical Code(s): I10 - Essential (primary) hypertension (11) Obesity: Status: Chronic Qualifiers: Body mass index: BMI 36.0-36.9 Obesity classification: adult class 2 (BMI 35 - 39.9) Obesity type: due to excess calories Serious obesity comorbidity presence: with serious comorbidity Qualified Code(s): E66.01 - Morbid (severe) obesity due to excess calories; Z68.36 - Body mass index [BMI] 36.0-36.9, adult Category: Medical Code(s): E66.9 - Obesity, unspecified (12) E. coli urinary tract infection: Status: Acute Category: Medical Code(s): N39.0 - Urinary tract infection, site not specified; B96.20 - Unspecified Escherichia coli [E. coli] as the cause of diseases classified elsewhere (13) Debility: Status: Acute Category: Medical Code(s): R53.81 - Other malaise Plan Patient is improving with abx. Will discuss further care with Dr. Kyle. Dr. Kyle entry - Saw patient, agree with above note. Rehab plans discussed.
[2024-08-03 12:17] LABS: Anion Gap 15.4 mEq/L (5-15); Basophils % 0.2 % (0.1-2.0); Blood Urea Nitrogen 29 mg/dl (7-17); Calcium 8.3 mg/dl (8.4-10.2); Carbon Dioxide 14 mmol/L (22.0-30.0); Chloride 120 mmol/L (98-107); Creatinine Clearance Estimated 41 mL/min (50-200); Eosinophils # 0.1 K/mm3 (0.0-0.4); Eosinophils % 0.4 % (0.1-12.0); Estimated Glomerular Filt Rate 39 ml/min (>60); GFR (African American) 47 ML/MIN (>60); Glucose 105 mg/dl (74-100); Hematocrit 34.3 % (37.0-47.0); Hemoglobin 10.5 g/dL (12.2-16.2); Lymphocytes # 1.2 K/mm3 (0.7-4.5); Lymphocytes % 11.2 % (10-50); Mean Corpuscular HGB Conc 30.6 g/dL (31.8-35.4); Mean Corpuscular Hemoglobin 32.9 pg (27.0-31.2); Mean Corpuscular Volume 107.3 fl (81-99); Mean Platelet Volume 9.3 fl (7.4-10.4); Monocytes # 0.6 K/mm3 (0.1-1.0); Monocytes % 5.4 % (1.7-9.3); Neutrophils # 9.2 K/mm3 (1.8-7.8); Neutrophils % 82.7 % (37.0-80.0); Platelet Count 128 K/mm3 (142-424); Potassium 3.4 mmoL/L (3.5-5.1); Red Blood Count 3.19 M/mm3 (4.20-5.40); Red Cell Distribution Width 19.4 % (11.5-17.5); Sodium 146 mmol/L (136-145); White Blood Count 11.1 K/mm3 (4.8-10.8)
[2024-08-03] MEDS: FAMOTIDINE 20MG TABLET 20 MG PO (14:30)
[2024-08-03] MEDS: POTASSIUM CHLORIDE 10MEQ CAPSULE.ER 10 MEQ PO ×2 (14:30→21:09)
[2024-08-03] MEDS: RIVAROXABAN 15MG TABLET 15 MG PO (17:21)
[2024-08-03] MEDS: ATORVASTATIN 20MG TABLET 20 MG PO (21:08)
[2024-08-04] VITALS: BP 143/74; PULSE 60; PULSE 79; RESP 16; TEMP 36.3; O2SAT 100
[2024-08-04 04:00] VITALS: BP 143/91; PULSE 116; PULSE 80; RESP 20; TEMP 36.4; O2SAT 97; BMI 31.8
--- NOTE | 2024-08-04 06:14 | PC.NURSE ---
Pt has remained alert to self throughout shift and has tolerated room air with O2 sats >90%. Pt able to answer yes or no questions. Sebastian has remained in place with 300ml out. Family member has remained at bedside throughout the night. Currently asleep with call light within reach.
[2024-08-04 08:00] VITALS: BP 152/80; PULSE 60; PULSE 67; RESP 20; TEMP 36.4; O2SAT 100
--- NOTE | 2024-08-04 08:19 | P.PN_ITS ---
Subjective *Date: 08/04/24 *Time: 08:53 Interval history: Patient finally rested last night and has been sleeping well this am. Her son denies any pain and states she was able to eat small amounts yesterday. Medical Exam Vital signs and Labs for Last 24 Hours: Vital Signs Temp Pulse Pulse Resp BP Pulse Ox O2 Del Method 08/04/24 08:00 97.6 F 67 20 152/80 H 100 Room Air 08/04/24 06:53 Room Air 08/04/24 05:00 Room Air 08/04/24 04:00 80 08/04/24 04:00 97.5 F L 116 H 20 143/91 H 97 Room Air 08/04/24 03:00 Room Air 08/04/24 01:00 Room Air 08/04/24 00:00 60 08/04/24 00:00 97.4 F L 79 16 143/74 H 100 Room Air 08/03/24 23:00 Room Air 08/03/24 21:00 Room Air 08/03/24 20:00 90 08/03/24 20:00 Room Air 08/03/24 20:00 98.6 F 92 H 20 141/94 H 99 Room Air 08/03/24 16:47 Room Air 08/03/24 16:00 90 08/03/24 16:00 97.3 F L 78 19 144/72 H 100 Room Air 08/03/24 15:00 Room Air 08/03/24 12:56 Room Air 08/03/24 12:00 70 08/03/24 11:59 97.6 F 72 14 159/51 H 100 Room Air 08/03/24 11:00 Room Air 08/03/24 09:00 Room Air Intake and Output 08/03/24 08/04/24 08/04/24 19:59 03:59 11:59 Intake Total 510 / 1010 500 / 1010 Output Total 325 / 525 200 / 525 Balance 510 / 485 175 / 485 -200 / 485 Intake: Intake, Oral Amount 510 / 960 450 / 960 Intake, Total IV Amount 50 / 50 Cefepime HCl 1 gm In 0.9 % 50 / 50 Sodium Chloride 50 ml @ 100 mls /hr IV Q12H [facility] Rx#:[id number] Output: Output, Urine Amount 325 / 525 200 / 525 Other: Weight 186 lb 3.2 oz Patient Weight 08/04/24 11:59 Weight 186 lb 3.2 oz Laboratory Results - last 24 hr 08/03/24 12:00: WBC 11.1 H D, RBC 3.19 L, Hgb 10.5 L, Hct 34.3 L, MCV 107.3 H, MCH 32.9 H, MCHC 30.6 L, RDW 19.4 H, Plt Count 128 L, MPV 9.3, Neut % (Auto) 82.7 H, Lymph % (Auto) 11.2, [place] % (Auto) 5.4, Eos % (Auto) 0.4, Baso % (Auto) 0.2, Neut # (Auto) 9.2 H, Lymph # (Auto) 1.2, [place] # (Auto) 0.6, Eos # (Auto) 0.1, Baso # (Auto) 0.0, Sodium 146 H, Potassium 3.4 L D, Chloride 120 H, Carbon Dioxide 14 L, Anion Gap 15.4 H, BUN 29 H, Creatinine 1.30 H D, Estimated Creat C lear 41, Estimated GFR 39 L, Est GFR ( Amer) 47 L D, Glucose 105 H, Calcium 8.3 L I & O for Labs for Last 24 Hours: Intake & Output 08/01/24 08/02/24 08/03/24 08/04/24 11:59 11:59 11:59 11:59 Intake Total 291 / 351 2606 / 2606 775 / 775 1010 / 1010 Output Total 630 / 655 835 / 835 710 / 710 525 / 525 Balance -339 / -304 1771 / 1771 65 / 65 485 / 485 Weight 180 lb 0.013 oz 180 lb 12.465 oz 184 lb 6.4 oz 186 lb 3.2 oz Microbiology Reports for the Last 24 Hours: Microbiology 07/31/24 08:01 Blood Blood Culture - Preliminary NO GROWTH AFTER 4 DAYS 07/31/24 08:01 Blood Blood Culture - Preliminary NO GROWTH AFTER 4 DAYS Constitutional: Present no acute distress Comment:: Sleeping this am. Respiratory: Present CTA bilaterally (Anteriorly and posteriorly) Cardiac: Absent Regular Rate (Irregular) GI: Present soft and normal bowel sounds; Absent distention, tenderness or guarding Extremities: Present edema (1-2+ pitting edema.); Absent tenderness or calf tenderness Skin: Present intact Neuro: Present awake (opens eyes to questioning but cannot answer questions) Assessment and Plan *Assessment and plan (1) Acute encephalopathy: Status: Acute Category: Medical Code(s): G93.40 - Encephalopathy, unspecified (2) Cardiogenic shock: Status: Acute Category: Medical Code(s): R57.0 - Cardiogenic shock (3) Bradycardia: Status: Acute Category: Medical Code(s): R00.1 - Bradycardia, unspecified (4) Afib: Status: Chronic Category: Medical Code(s): I48.91 - Unspecified atrial fibrillation (5) Hypothermia: Status: Acute Category: Medical Code(s): T68.XXXA - Hypothermia, initial encounter (6) Sepsis: Status: Acute Category: Medical Code(s): A41.9 - Sepsis, unspecified organism (7) Acute UTI: Status: Acute Category: Medical Code(s): N39.0 - Urinary tract infection, site not specified (8) Hearing loss: Status: Acute Qualifiers: Hearing loss type: unspecified Laterality: bilateral Qualified Code(s): H91.93 - Unspecified hearing loss, bilateral Category: Medical Code(s): H91.90 - Unspecified hearing loss, unspecified ear (9) Elevated WBC count: Status: Acute Category: Medical Code(s): D72.829 - Elevated white blood cell count, unspecified (10) HTN (hypertension): Status: Acute Qualifiers: Hypertension type: unspecified Qualified Code(s): I10 - Essential (primary) hypertension Category: Medical Code(s): I10 - Essential (primary) hypertension (11) Obesity: Status: Chronic Qualifiers: Body mass index: BMI 36.0-36.9 Obesity classification: adult class 2 (BMI 35 - 39.9) Obesity type: due to excess calories Serious obesity comorbidity presence: with serious comorbidity Qualified Code(s): E66.01 - Morbid (severe) obesity due to excess calories; Z68.36 - Body mass index [BMI] 36.0-36.9, adult Category: Medical Code(s): E66.9 - Obesity, unspecified (12) E. coli urinary tract infection: Status: Acute Category: Medical Code(s): N39.0 - Urinary tract infection, site not specified; B96.20 - Unspecified Escherichia coli [E. coli] as the cause of diseases classified elsewhere (13) Debility: Status: Acute Category: Medical Code(s): R53.81 - Other malaise Plan Patient has agreed to a rehab stay at [facility] and a bed is available. Renal function and WBC have improved. Will discuss further care with Dr. Kyle. Dr. Kyle entry - Saw patient, agree with above note. Remove rapp today, check labs, possible discharge later today.
[2024-08-04 09:24] LABS: Basophils % 0.3 % (0.1-2.0); Eosinophils # 0.1 K/mm3 (0.0-0.4); Eosinophils % 0.6 % (0.1-12.0); Hematocrit 34.9 % (37.0-47.0); Hemoglobin 10.4 g/dL (12.2-16.2); Lymphocytes # 1.1 K/mm3 (0.7-4.5); Lymphocytes % 12.1 % (10-50); Mean Corpuscular HGB Conc 29.9 g/dL (31.8-35.4); Mean Corpuscular Hemoglobin 32.9 pg (27.0-31.2); Mean Corpuscular Volume 110.2 fl (81-99); Mean Platelet Volume 9.7 fl (7.4-10.4); Monocytes # 0.6 K/mm3 (0.1-1.0); Monocytes % 6.1 % (1.7-9.3); Neutrophils # 7.5 K/mm3 (1.8-7.8); Neutrophils % 80.9 % (37.0-80.0); Platelet Count 102 K/mm3 (142-424); Red Blood Count 3.17 M/mm3 (4.20-5.40); Red Cell Distribution Width 19.4 % (11.5-17.5); White Blood Count 9.3 K/mm3 (4.8-10.8)
[2024-08-04 09:29] LABS: Chloride 119 mmol/L (98-107)
[2024-08-04 09:30] LABS: Albumin Level 2.2 g/dl (3.5-5.0); Potassium 3.7 mmoL/L (3.5-5.1); Sodium 143 mmol/L (136-145)
[2024-08-04 09:32] LABS: Alanine Aminotransferase 16 U/L (12-78); Alkaline Phosphatase 94 U/L (38-126); Anion Gap 12.7 mEq/L (5-15); Aspartate Amino Transferase 24 U/L (14-36); Bilirubin,Total 0.5 mg/dl (0.2-1.3); Blood Urea Nitrogen 24 mg/dl (7-17); Carbon Dioxide 15 mmol/L (22.0-30.0); Creatinine Clearance Estimated 54 mL/min (50-200); Estimated Glomerular Filt Rate 53 ml/min (>60); GFR (African American) 64 ML/MIN (>60); Globulin 2.3 g/dL (1.3-3.2); Total Protein,Serum 4.5 g/dl (6.3-8.2)
[2024-08-04 09:33] LABS: Calcium 8.1 mg/dl (8.4-10.2); Glucose 109 mg/dl (74-100)
--- NOTE | 2024-08-04 09:36 | EXP.PHA.PN ---
Subjective *Date: 08/04/24 *Time: 09:36 Medical Exam Vital signs and Labs for Last 24 Hours: Vital Signs Temp Pulse Pulse Resp BP Pulse Ox O2 Del Method 08/04/24 08:00 97.6 F 67 20 152/80 H 100 Room Air 08/04/24 06:53 Room Air 08/04/24 05:00 Room Air 08/04/24 04:00 80 08/04/24 04:00 97.5 F L 116 H 20 143/91 H 97 Room Air 08/04/24 03:00 Room Air 08/04/24 01:00 Room Air 08/04/24 00:00 60 08/04/24 00:00 97.4 F L 79 16 143/74 H 100 Room Air 08/03/24 23:00 Room Air 08/03/24 21:00 Room Air 08/03/24 20:00 90 08/03/24 20:00 Room Air 08/03/24 20:00 98.6 F 92 H 20 141/94 H 99 Room Air 08/03/24 16:47 Room Air 08/03/24 16:00 90 08/03/24 16:00 97.3 F L 78 19 144/72 H 100 Room Air 08/03/24 15:00 Room Air 08/03/24 12:56 Room Air 08/03/24 12:00 70 08/03/24 11:59 97.6 F 72 14 159/51 H 100 Room Air 08/03/24 11:00 Room Air Intake and Output 08/03/24 08/04/24 08/04/24 23:59 07:59 15:59 Intake Total 360 / 1360 500 / 500 Output Total 325 / 650 200 / 200 Balance 35 / 710 300 / 300 Intake: Intake, Oral Amount 360 / 1060 450 / 450 Intake, Total IV Amount 50 / 50 Cefepime HCl 1 gm In 0.9 % 50 / 50 Sodium Chloride 50 ml @ 100 mls /hr IV Q12H [facility] Rx#:[id number] Output: Output, Urine Amount 325 / 375 200 / 200 Other: Weight 84.459 kg Patient Weight 08/04/24 23:59 Weight 84.459 kg Laboratory Results - last 24 hr 08/03/24 12:00: WBC 11.1 H D, RBC 3.19 L, Hgb 10.5 L, Hct 34.3 L, MCV 107.3 H, MCH 32.9 H, MCHC 30.6 L, RDW 19.4 H, Plt Count 128 L, MPV 9.3, Neut % (Auto) 82.7 H, Lymph % (Auto) 11.2, [place] % (Auto) 5.4, Eos % (Auto) 0.4, Baso % (Auto) 0.2, Neut # (Auto) 9.2 H, Lymph # (Auto) 1.2, [place] # (Auto) 0.6, Eos # (Auto) 0.1, Baso # (Auto) 0.0, Sodium 146 H, Potassium 3.4 L D, Chloride 120 H, Carbon Dioxide 14 L, Anion Gap 15.4 H, BUN 29 H, Creatinine 1.30 H D, Estimated Creat Clear 41, Estimated GFR 39 L, Est GFR ( Amer) 47 L D, Glucose 105 H, Calcium 8.3 L 08/04/24 09:14: Sodium 143, Potassium 3.7, Chloride 119 H, Carbon Dioxide 15 L, Anion Gap 12.7, BUN 24 H, Creatinine 1.00 D, Estimated Creat Clear 54, Estimated GFR 53 L, Est GFR ( Amer) 64 D, Glucose 109 H, Calcium 8.1 L, Total Bilirubin 0.5, AST 24, ALT 16, Alkaline Phosphatase 94, Total Protein 4.5 L, Albumin 2.2 L, Globulin 2.3, Albumin/Globulin Ratio 1.0 L I & O for Labs for Last 24 Hours: Intake & Output 08/01/24 08/02/24 08/03/24 08/04/24 23:59 23:59 23:59 23:59 Intake Total 920 / 1570 2402 / 2452 860 / 1360 500 / 500 Output Total 565 / 665 1085 / 1085 650 / 650 200 / 200 Balance 355 / 905 1317 / 1367 210 / 710 300 / 300 Weight 81.647 kg 82 kg 83.642 kg 84.459 kg Microbiology Reports for the Last 24 Hours: Microbiology 07/31/24 08:01 Blood Blood Culture - Preliminary NO GROWTH AFTER 4 DAYS 07/31/24 08:01 Blood Blood Culture - Preliminary NO GROWTH AFTER 4 DAYS The patient's infection will respond to the chosen ABx?: Yes Is the patient receiving the right drug, dose, and route?: Yes Could a more targeted ABx be ordered?: No (WBC IMPROVED WNL NOW, AFEBRILE.)
[2024-08-04] MEDS: CEFEPIME HCL 1 GM in 0.9 % SODIUM CHLORIDE 50 ML IV (10:04)
[2024-08-04 11:59] VITALS: BP 117/78; PULSE 60; RESP 20; TEMP 36.4; O2SAT 90
--- NOTE | 2024-08-04 12:34 | EXP.DC.SUM ---
General Admission date:: 07/31/24 Discharge date: 08/04/24 HPI HPI HPI: Patient is an 84-year-old brought to ER acutely encephalopathic. In ER the history was obtained by EMS and also the patient's son, according to ER notes. The patient has a history of an OR and a history of a CVA. She is on Xarelto also a beta-benigno and a calcium channel benigno. According to her family she has shown a 1 month progressive decline which started with decreased ambulation followed by slurred speech followed by acute mental status changes. According to her son 1 month ago she was able to walk around with her walker and was conversant. She became gradually less stable. Within the last few weeks she started mumbling her words. The evening she became less responsive. Her son reports blood in her stool yesterday, which is a new occurance. Prior to admission she was completely encephalopathic and unresponsive. Vitals were unable to be obtained by EMS. In the ER she appeared moribund with bradycardia into the 30's. She has a history of chronic atrial fibrillation and takes a beta-benigno and calcium channel benigno as mentioned above. She responded to a dose of Atropine in the ER with increase in heart rate and seemed to become more responsive. WBC was found elevated. Urinalysis showed positive leukocyte esterase. Electrolytes were acceptable except for CHAD with GFR of 25. This GFR decrease does appear acute compared to other recent labs seen in the chart. Scans of the Abdomen/pelvis and head were not problematic. Related Data Hospital Course Hospital Course Hospital Course: Patient was admitted to [facility] with a working diagnosis of septic shock due to a UTI. She responded well to treatment with Cefepime. Urine culture grew steel sensitive E. Coli. She was fluid resuscitated, but did have a bump in her creatinine, which returned to normal on the day of discharge. She was initially bradycardic, her heart rate improved with treatment and was normal at time of discharge. Patient does have generalized weakness and is unable to walk. She is also unable to feed herself. Plan will be to discharge home to [facility] [place] [facility] for ongoing rehab and to complete UTI treatment with oral antibiotics. Exam Data for Last 24 hours Vital signs and Labs for Last 24 Hours: Temp Pulse Resp BP Pulse Ox O2 Del Method 97.6 F 60 20 117/78 90 L Room Air 08/04/24 11:59 08/04/24 11:59 08/04/24 11:59 08/04/24 11:59 08/04/24 11:59 08/04/24 11:59 Laboratory Results - last 24 hr 08/03/24 12:00: WBC 11.1 H D, RBC 3.19 L, Hgb 10.5 L, Hct 34.3 L, MCV 107.3 H, MCH 32.9 H, MCHC 30.6 L, RDW 19.4 H, Plt Count 128 L, MPV 9.3, Neut % (Auto) 82.7 H, Lymph % (Auto) 11.2, [facility] % (Auto) 5.4, Eos % (Auto) 0.4, Baso % (Auto) 0.2, Neut # (Auto) 9.2 H, Lymph # (Auto) 1.2, [facility] # (Auto) 0.6, Eos # (Auto) 0.1, Baso # (Auto) 0.0 08/04/24 09:14: WBC 9.3, RBC 3.17 L, Hgb 10.4 L, Hct 34.9 L, MCV 110.2 H, MCH 32.9 H, MCHC 29.9 L, RDW 19.4 H, Plt Count 102 L, MPV 9.7, Neut % (Auto) 80.9 H, Lymph % (Auto) 12.1, [facility] % (Auto) 6.1, Eos % (Auto) 0.6, Baso % (Auto) 0.3, Neut # (Auto) 7.5, Lymph # (Auto) 1.1, [facility] # (Auto) 0.6, Eos # (Auto) 0.1, Baso # (Auto) 0.0, Sodium 143, Potassium 3.7, Chloride 119 H, Carbon Dioxide 15 L, Anion Gap 12.7, BUN 24 H, Creatinine 1.00 D, Estimated Creat Clear 54, Estimated GFR 53 L, Est GFR ( Amer) 64 D, Glucose 109 H, Calcium 8.1 L, Total Bilirubin 0.5, AST 24, ALT 16, Alkaline Phosphatase 94, Total Protein 4.5 L, Albumin 2.2 L, Globulin 2.3, Albumin/Globulin Ratio 1.0 L I & O for Last 24 hours: Intake & Output 08/01/24 08/02/24 08/03/24 10/24/24 23:59 23:59 23:59 23:59 Intake Total 920 / 1570 2402 / 2452 860 / 1360 500 / 500 Output Total 565 / 665 1085 / 1085 650 / 650 200 / 200 Balance 355 / 905 1317 / 1367 210 / 710 300 / 300 Weight 180 lb 0.013 oz 180 lb 12.465 oz 184 lb 6.4 oz 186 lb 3.2 oz Microbiology Reports for the Last 24 Hours: Microbiology 07/31/24 08:01 Blood Blood Culture - Preliminary NO GROWTH AFTER 4 DAYS 07/31/24 08:01 Blood Blood Culture - Preliminary NO GROWTH AFTER 4 DAYS Constitutional Constitutional: no acute distress *Routine HEENT Exam Head: Present normocephalic Eye: Present EOMI and PERRL ENT: Present mucous membranes moist *Routine Neck Exam Neck: Present supple; Absent lymphadenopathy *Routine Respiratory Exam Respiratory: Present CTA bilaterally *Routine Cardiovascular Exam Cardiovascular: Present irregularly irregular *Routine Abdominal Exam Abdominal: Present soft and normoactive bowel sounds; Absent tenderness *Routine Rectal Exam Patient deferred: visual exam and digital exam *Routine Exam Patient deferred: external exam and perineal exam *Routine Extremities Exam Extremities: Present edema (all 4 extremities); Absent cyanosis or clubbing *Routine Skin Exam Skin: Present warm; Absent rash *Routine Neurological Exam Neurological: Present alert Comments: follows commands, has generalized weakness Results Data Completed and Pending Labs on day of discharge: Labs from last 24 hours 08/04/24 08/03/24 09:14 12:00 WBC 9.3 11.1 H D RBC 3.17 L 3.19 L Hgb 10.4 L 10.5 L Hct 34.9 L 34.3 L MCV 110.2 H 107.3 H MCH 32.9 H 32.9 H MCHC 29.9 L 30.6 L RDW 19.4 H 19.4 H Plt Count 102 L 128 L MPV 9.7 9.3 Neut % (Auto) 80.9 H 82.7 H Lymph % (Auto) 12.1 11.2 [facility] % (Auto) 6.1 5.4 Eos % (Auto) 0.6 0.4 Baso % (Auto) 0.3 0.2 Neut # (Auto) 7.5 9.2 H Lymph # (Auto) 1.1 1.2 [facility] # (Auto) 0.6 0.6 Eos # (Auto) 0.1 0.1 Baso # (Auto) 0.0 0.0 Sodium 143 Potassium 3.7 Chloride 119 H Carbon Dioxide 15 L Anion Gap 12.7 BUN 24 H Creatinine 1.00 D Estimated Creat Clear 54 Estimated GFR 53 L Est GFR ( Amer) 64 D Glucose 109 H Calcium 8.1 L Total Bilirubin 0.5 AST 24 ALT 16 Alkaline Phosphatase 94 Total Protein 4.5 L Albumin 2.2 L Globulin 2.3 Albumin/Globulin Ratio 1.0 L Preliminary micro results at discharge 07/31/24 08:01 Blood Culture - Preliminary Blood NO GROWTH AFTER 4 DAYS 07/31/24 08:01 Blood Culture - Preliminary Blood NO GROWTH AFTER 4 DAYS DS: Diagnosis Discharge Diagnosis (1) Acute encephalopathy: Status: Acute Code(s): G93.40 - Encephalopathy, unspecified (2) Cardiogenic shock: Status: Acute Code(s): R57.0 - Cardiogenic shock (3) Bradycardia: Status: Acute Code(s): R00.1 - Bradycardia, unspecified (4) Afib: Status: Chronic Code(s): I48.91 - Unspecified atrial fibrillation (5) Hypothermia: Status: Acute Code(s): T68.XXXA - Hypothermia, initial encounter (6) Sepsis: Status: Acute Code(s): A41.9 - Sepsis, unspecified organism (7) Acute UTI: Status: Acute Code(s): N39.0 - Urinary tract infection, site not specified (8) Hearing loss: Status: Acute Code(s): H91.90 - Unspecified hearing loss, unspecified ear Qualifiers: Hearing loss type: unspecified Laterality: bilateral Qualified Code(s): H91.93 - Unspecified hearing loss, bilateral (9) Elevated WBC count: Status: Acute Code(s): D72.829 - Elevated white blood cell count, unspecified (10) HTN (hypertension): Status: Acute Code(s): I10 - Essential (primary) hypertension Qualifiers: Hypertension type: unspecified Qualified Code(s): I10 - Essential (primary) hypertension (11) Obesity: Status: Chronic Code(s): E66.9 - Obesity, unspecified Qualifiers: Obesity classification: adult class 2 (BMI 35 - 39.9) Serious obesity comorbidity presence: with serious comorbidity Body mass index: BMI 36.0-36.9 Obesity type: due to excess calories Qualified Code(s): E66.01 - Morbid (severe) obesity due to excess calories; Z68.36 - Body mass index [BMI] 36.0-36.9, adult (12) E. coli urinary tract infection: Status: Acute Code(s): N39.0 - Urinary tract infection, site not specified; B96.20 - Unspecified Escherichia coli [E. coli] as the cause of diseases classified elsewhere (13) Debility: Status: Acute Code(s): R53.81 - Other malaise (14) Multi-organ system dysfunction: Status: Acute (15) Anemia: Status: Acute Code(s): D64.9 - Anemia, unspecified (16) CHAD (acute kidney injury): Status: Acute Code(s): N17.9 - Acute kidney failure, unspecified Meds Home Medications and Allergies Home Medications ?Medication ?Instructions ?Recorded ?Confirmed ?Type escitalopram oxalate 10 mg tablet 10 mg PO DAILY 10/19/17 07/31/24 History cholecalciferol (vitamin D3) 125 10,000 unit PO .TWICE WEEKLY 06/30/22 07/31/24 History mcg (5,000 unit) capsule Supplement omeprazole 40 mg capsule,delayed 40 mg PO HS Acid reflux 02/20/23 07/31/24 History release cyanocobalamin (vitamin B-12) 1,000 mcg PO DAILY Supplement 04/04/23 07/31/24 History 1,000 mcg tablet,extended release levocetirizine 5 mg tablet (Xyzal) 5 mg PO DAILY #90 tabs 04/04/24 07/31/24 Rx melatonin 10 mg capsule 10 mg PO HSP PRN Sleep 04/27/24 07/31/24 History atorvastatin 20 mg tablet 20 mg PO HS 07/31/24 07/31/24 History metoprolol succinate 25 mg 25 mg PO DAILY 07/31/24 07/31/24 History tablet,extended release 24 hr rivaroxaban 20 mg tablet (Xarelto) 20 mg PO QPMWITHMEAL 07/31/24 07/31/24 History acetaminophen 325 mg tablet 325 mg PO Q4H PRN pain #1 tab 08/04/24 Rx (Tylenol) cefuroxime axetil 500 mg tablet 500 mg PO Q12H 7 days #14 tabs 08/04/24 Rx New Prescriptions to Start Prescriptions: acetaminophen [Tylenol] Parvez Kyle cefuroxime axetil Parvez Kyle Allergies Allergy/AdvReac Type Severity Reaction Status Date / Time Penicillins [PENICILLINS] Allergy Intermediate I-RASH Verified 05/10/24 14:30 hydrocortisone Allergy Unknown I-RASH Verified 05/10/24 14:30 [From CORTIZONE-10] Discharge Plan Disposition Patient Disposition: Xfer SNF Condition: Fair Discharge Order Discharge Orders: Discharge Order (Routine); Ordered 08/04/24 Ordered By: Parvez Kyle Follow up Plan Follow up with: Parvez Kyle MD [Primary Care Provider] - Enter time for follow up (At [place]) Prescriptions/Medication Reconciliation: New cefuroxime axetil 500 mg tablet 500 mg PO Q12H 7 Days Qty: 14 0RF acetaminophen [Tylenol] 325 mg tablet 325 mg PO Q4H PRN (Reason: pain) Qty: 1 0RF Continued escitalopram oxalate 10 mg tablet 10 mg PO DAILY melatonin 10 mg capsule 10 mg PO HSP PRN (Reason: Sleep) levocetirizine [Xyzal] 5 mg tablet 5 mg PO DAILY Qty: 90 3RF omeprazole 40 mg capsule,delayed release(DR/EC) 40 mg PO HS Patient Comments: TAKE 1 CAPSULE BY MOUTH EVERY DAY cyanocobalamin (vitamin B-12) 1,000 mcg Tablet Extended Release 1,000 mcg PO DAILY cholecalciferol (vitamin D3) 125 mcg (5,000 unit) capsule 10,000 unit PO .TWICE WEEKLY Patient Comments: TAKE 2 CAPSULES BY MOUTH TWICE A WEEK ON SAME DAYS EACH WEEK metoprolol succinate 25 mg tablet extended release 24 hr 25 mg PO DAILY atorvastatin 20 mg tablet 20 mg PO HS Patient Comments: TAKE 1 TABLET BY MOUTH DAILY FOR CHOLESTEROL Xarelto 20 mg tablet 20 mg PO QPMWITHMEAL Patient Comments: TAKE 1 TABLET BY MOUTH EVERY EVENING WITH MEAL FOR ATRIAL FIBRILLATION Discontinued chlordiazepoxide HCl 10 mg capsule 10 mg PO BID potassium chloride [Klor-Con 10] 10 mEq tablet extended release 20 meq PO DAILY allopurinol 100 mg tablet 100 mg PO DAILY 30 Days Qty: 30 furosemide 20 mg tablet 60 mg PO DAILY Qty: 270 3RF diltiazem HCl 360 mg capsule,extended release 24 hr 360 mg PO DAILY Patient Comments: TAKE 1 CAPSULE BY MOUTH EVERY DAY Problem Reconciliation Problems Reviewed?: Yes Patient Discharge Instructions DIET: continue same diet Additional Instructions: PT/OT/Speech therapy at [place]. Please check CBC and CMP in 1 week. Patient Instructions: DI for Urinary Tract Infection (UTI), DI for Sepsis -- Adult Print Language: Estonian Providers Primary Care Provider: Parvez Kyle Admit Provider: Parvez Kyle Attending Provider: Parvez Kyle
== END 2024-08-04 15:37 | DRG 871 ==
LOC: ER 09:36 → 2ND 09:44
PROVIDERS: Nurse Practitioner Family; Admitting Provider Family Medicine; Emergency Provider Student in an Organized Health Care Education/Training Program; PCP Family Medicine; Visit Provider Family Medicine
DX: A41.9 Sepsis, unspecified organism (principal); R57.0 Cardiogenic shock; R65.21 Severe sepsis with septic shock; G93.40 Encephalopathy, unspecified; N39.0 Urinary tract infection, site not specified; I48.20 Chronic atrial fibrillation, unspecified; T68.XXXA Hypothermia, initial encounter; H91.93 Unspecified hearing loss, bilateral; I10 Essential (primary) hypertension; E66.01 Morbid (severe) obesity due to excess calories; Z68.36 Body mass index [BMI] 36.0-36.9, adult; B96.20 Unspecified Escherichia coli [E. coli] as the cause of diseases classified elsewhere; Z79.01 Long term (current) use of anticoagulants; Z79.899 Other long term (current) drug therapy
CPT/HCPCS: 36415; 70450; 71045; 71250; 72125; 74176; 80048; 80053; 81001; 82803; 83605; 83735; 83880; 84100; 84443; 84484; 85007; 85014; 85018; 85025; 85048; 85049; 86803; 87040; 87086; 87088; 87186; 87389; 87636; 92526; 92610; 93005; 97163; 97166; 97530; 99291; J0461; J0692; J1650; J7030; S0028

== ENCOUNTER 2024-08-06 18:47 | Observation (INO) | payer MEDICARE, SELFPAY ==
[2024-08-06] VITALS (10 sets, daily range): BP systolic 110–132; BP diastolic 62–83; PULSE 52–72; RESP 12–18; TEMP 34.8–36.2; O2SAT 95–100; BMI 39.3
--- NOTE | 2024-08-06 18:58 | XR_ITS ---
PROCEDURE INFORMATION: Exam: XR Chest Exam date and time: 08/06/2024 6:58 PM Age: 84 years old Clinical indication: Shortness of breath; Additional info: SOA, AMS TECHNIQUE: Imaging protocol: Radiologic exam of the chest. Views: 1 view. COMPARISON: CT CHEST WO CON 07/31/2024 8:55 AM FINDINGS: Lungs: There is mild coarsening of the bronchovascular markings with hyperinflation suggesting underlying obstructive airways disease. Calcified granuloma is noted in the right mid lung. Pleural spaces: No large effusion or pneumothorax. Heart/Mediastinum: Stable cardiac and mediastinal contours. Bones/joints: Surgical clips are noted in the right humeral head. Old left clavicular fracture. IMPRESSION: No dense parenchymal consolidation, pleural effusion, or pneumothorax.
--- NOTE | 2024-08-06 18:58 | ECG_ITS ---
APPROVED REPORT Exam: Resting ECG HR:65 bpm ECG Measurements Heart Rate 65 AXES QRSd 90 QRS 44 QT 412 T 0 QTc 423 Conclusion ATRIAL FIBRILLATION LOW QRS VOLTAGE [QRS DEFLECTION < 0.5/1.0 mV IN LIMB/CHEST LEADS] POSSIBLE ANTERIOR MYOCARDIAL INFARCTION , PROBABLY OLD [30 ms Q WAVE IN V3/V4, OR R < 0.2 mV IN V4] Electronically signed by : UNRULY DEL VALLE, 08/06/2024 20:01:40
--- NOTE | 2024-08-06 19:00 | CT_ITS ---
PROCEDURE INFORMATION: Exam: CT Head Without Contrast Exam date and time: 08/06/2024 7:14 PM Age: 84 years old Clinical indication: Altered mental status/memory loss; Additional info: AMS TECHNIQUE: Imaging protocol: Computed tomography of the head without contrast. Radiation optimization: All CT scans at this facility use at least one of these dose optimization techniques: automated exposure control; mA and/or kV adjustment per patient size (includes targeted exams where dose is matched to clinical indication); or iterative reconstruction. COMPARISON: 1. CT HEAD/BRAIN WO CON 07/31/2024 8:[address] HEAD/BRAIN WO CON 03/31/2023 10:05 AM FINDINGS: Brain: The brain parenchyma appears unremarkable, with no signs of acute intracranial hemorrhage or significant mass effect. There is hypodensity in the subcortical and periventricular white matter which is technically nonspecific but most often related to chronic microvascular disease. Cerebral ventricles: Mild ventricular enlargement consistent with age-related cerebral atrophy is noted. Paranasal sinuses: Paranasal sinuses show age-appropriate mucosal thickening. Mastoid air cells: Visualized mastoid air cells are well aerated. Bones: There is hyperostosis frontalis interna. There are no skull fractures or bony lesions. Soft tissues: Unremarkable. IMPRESSION: Presumably age-related and chronic changes without acute intracranial abnormality.
--- NOTE | 2024-08-06 19:02 | PC.NURSE ---
xray at [facility]
[2024-08-06 19:04] LABS: Lactate Venous 1.6 mmol/L (0.4-2.0); VBG Base Excess -9.7 mmol/L (-2.4-2.3); VBG HCO3 17.6 mmol/L (23-30); VBG Oxygen Saturation 81.1 % (50-70); VBG PCO2 41.5 mmol/L (35-51); VBG PH 7.25 mmol/L (7.31-7.41); VBG Total CO2 18.9 mmol/L (23-27)
[2024-08-06 19:09] LABS: Albumin Level 2.2 g/dl (3.5-5.0); Chloride 113 mmol/L (98-107)
[2024-08-06 19:10] LABS: Potassium 4.2 mmoL/L (3.5-5.1); Sodium 139 mmol/L (136-145)
[2024-08-06 19:12] LABS: Alanine Aminotransferase 15 U/L (12-78); Albumin/Globulin Ratio 0.9 (1.1-1.8); Aspartate Amino Transferase 22 U/L (14-36); Globulin 2.4 g/dL (1.3-3.2); Total Protein,Serum 4.6 g/dl (6.3-8.2)
[2024-08-06 19:13] LABS: Alkaline Phosphatase 107 U/L (38-126); Bilirubin,Total 0.5 mg/dl (0.2-1.3); Calcium 8.2 mg/dl (8.4-10.2); Glucose 130 mg/dl (74-100)
[2024-08-06 19:22] LABS: NT Pro Brain Natriuretic Pep. 6310 pg/mL (0-450)
[2024-08-06 19:25] LABS: Troponin I < 0.01 ng/ml (0.00-0.034)
--- NOTE | 2024-08-06 19:38 | ED_ITS ---
Discharge Plan Disposition Patient Disposition: Admitted Condition: Fair Chief Complaint: Altered Mental Status Clinical Impressions Clinical Impression: Acute exacerbation of CHF (congestive heart failure), Altered mental status, Cardiac volume overload Discharge ED Provider: Sera Arauz Adult HPI General Chief complaint: Altered Mental Status Stated complaint: ams Time Seen by Provider: 08/06/24 18:55 Mode of Arrival: EMS Source of Information: Patient and EMS Limitations: Altered Mental Status Description of Symptoms (Recalled from ER Triage Doc. by RN): pt brought in by EMS for being unresponsive @ the senior care. History of Present Illness HPI narrative: Patient is an 84-year-old female with past medical history hypertension, hyperlipidemia, A-fib on Xarelto, CHF, recent sepsis secondary to UTI and altered mental status presenting with altered mental status from senior care. correction had called ahead to state that they were concerned patient was unresponsive, had not eaten or drank little very little today. Further history from daughter that since she was discharged from the hospital she has had waxing and waning mental status and weakness but today seemed worse. She was supposed to be on injection antibiotic at senior care though she is unsure which 1 for her recent UTI. Also reportedly had an CHAD and was supposed to take Lasix but has not been going to and she seems more swollen which has been worsening over the past week. Denies any known fevers and patient denies any pain. Related Data Home Medications ?Medication ?Instructions ?Recorded ?Confirmed escitalopram oxalate 10 mg tablet 10 mg PO DAILY 10/19/17 07/31/24 cholecalciferol (vitamin D3) 125 10,000 unit PO .TWICE WEEKLY 06/30/22 07/31/24 mcg (5,000 unit) capsule Supplement omeprazole 40 mg capsule,delayed 40 mg PO HS Acid reflux 02/20/23 07/31/24 release cyanocobalamin (vitamin B-12) 1,000 mcg PO DAILY Supplement 04/04/23 07/31/24 1,000 mcg tablet,extended release melatonin 10 mg capsule 10 mg PO HSP PRN Sleep 04/27/24 07/31/24 atorvastatin 20 mg tablet 20 mg PO HS 07/31/24 07/31/24 metoprolol succinate 25 mg 25 mg PO DAILY 07/31/24 07/31/24 tablet,extended release 24 hr rivaroxaban 20 mg tablet (Xarelto) 20 mg PO QPMWITHMEAL 07/31/24 07/31/24 Previous Rx's ?Medication ?Instructions ?Recorded levocetirizine 5 mg tablet (Xyzal) 5 mg PO DAILY #90 tabs 04/04/24 acetaminophen 325 mg tablet 325 mg PO Q4H PRN pain #1 tab 08/04/24 (Tylenol) cefuroxime axetil 500 mg tablet 500 mg PO Q12H 7 days #14 tabs 08/04/24 Allergies Allergy/AdvReac Type Severity Reaction Status Date / Time Penicillins [PENICILLINS] Allergy Intermediate I-RASH Verified 05/10/24 14:30 hydrocortisone Allergy Unknown I-RASH Verified 05/10/24 14:30 [From CORTIZONE-10] [facility] Disclaimer: The information contained in this section may have been updated after the patient was seen, as this information can be updated by other users. Medical History (Updated 08/06/24 @ 20:59 by Sera Arauz MD) SOB (shortness of breath) on exertion Tinnitus Dysphagia Deviated nasal septum Hearing loss Impacted cerumen of both ears Hyperuricemia Glaucoma History of anemia Breast cancer CTS (carpal tunnel syndrome) Vulva cancer Numbness of feet Keratosis Onychodystrophy Onychoincurvatum Xerosis of skin Edema of both lower extremities Atrial fibrillation Hyperlipidemia Hypertensive heart disease Surgical History History of D&C History of lumpectomy of right breast History of colonoscopy History of repair of right rotator cuff History of placement of ear tubes History of right knee surgery History of cataract surgery History of carpal tunnel release History of cholecystectomy Family History Other Diabetes Family history of cancer Family history of hyperlipidemia Family history of hypertension Family history of myocardial infarction Family history of stroke Social History (Updated 07/31/24 @ 10:01 by Elise Bansal RN) Smoking Status: Never smoker alcohol intake: never substance use type: denies use current occupational status: retired Travel in the last 8 weeks: None household members: family housing: house Other Medical History Have you received the Flu Vaccine for this season: No Have you received the Pneumonia Vaccine: No ROS Obtained: Yes other (Limited due to mental condition) Physical Exam General General appearance: other (Drowsy but does alert to voice, opens eyes spontaneously and answers questions appropriately in no significant distress) Head Head exam: atraumatic and normocephalic Eye Eye exam: Present normal appearance; Absent scleral icterus, conjunctival redness or jaundice Respiratory Respiratory exam: Present other (Diminished bilaterally, no accessory muscle use or tachypnea); Absent respiratory distress Cardiovascular Cardiovascular exam: Present bradycardia and irregular rhythm Abdominal Exam Abdominal exam: Present soft; Absent distention or tenderness Extremities Exam Extremities exam: Present other (Significantly edematous bilateral upper and lower extremities, 2+ bilateral lower extremities to the knee, 1+ bilateral forearms) Neurological Exam Neurological exam: Present alert and other (Oriented to person and able to recognize family at bedside and that she is in the hospital) Skin Skin exam: Present other (Cool and dry) Medical Decision Making Medical Records Medical records reviewed: Yes I reviewed the patient's medical records. Screening: Per USPSTF and CDC recommendations, given the prevalence of disease in our region, it is our hospital?s policy to screen for HIV and viral Hepatitis for all patients aged 18 and over and those with ongoing risk factors. Tre Inquiry Pt receiving controlled substance: No Vital Signs: 08/06/24 18:47 08/06/24 19:25 08/06/24 19:31 Temperature 94.7 F L Temperature Source Rectal Pulse Rate 61 72 Pulse Rate [Right] 52 L Respiratory Rate 14 15 13 Blood Pressure 114/64 114/63 Blood Pressure [Right Arm] 117/83 Blood Pressure Mean [Right Arm] 94 02 Sat by Pulse Oximetry 98 95 100 Oxygen Delivery Method Room Air 08/06/24 20:01 08/06/24 20:31 Temperature 96.3 F L Temperature Source Pulse Rate 69 60 Pulse Rate [Right] Respiratory Rate 16 12 Blood Pressure 132/75 115/65 Blood Pressure [Right Arm] Blood Pressure Mean [Right Arm] 02 Sat by Pulse Oximetry 98 99 Oxygen Delivery Method Lab Data Lab results reviewed: Yes I reviewed the patient's lab results. Lab Results 08/06/24 18:54: WBC 10.3, RBC 3.20 L, Hgb 10.5 L, Hct 34.3 L, MCV 107.1 H, MCH 32.8 H, MCHC 30.6 L, RDW 19.0 H, Plt Count 112 L, MPV 10.5 H, Neut % (Auto) 80.2 H, Lymph % (Auto) 11.4, [place] % (Auto) 7.1, Eos % (Auto) 1.0, Baso % (Auto) 0.3, Neut # (Auto) 8.3 H, Lymph # (Auto) 1.2, [place] # (Auto) 0.7, Eos # (Auto) 0.1, Baso # (Auto) 0.0, Sodium 139, Potassium 4.2, Chloride 113 H, Carbon Dioxide 18 L, Anion Gap 12.2, BUN 16 D, Creatinine 0.70 D, Estimated Creat Clear 58, Estimated GFR 79, Est GFR ( Amer) 96 D, Glucose 130 H, Calcium 8.2 L, Total Bilirubin 0.5, AST 22, ALT 15, Alkaline Phosphatase 107, Troponin I < 0.01, NT-Pro-B Natriuret Pep 6310 H, Total Protein 4.6 L, Albumin 2.2 L, Globulin 2.4, Albumin/Globulin Ratio 0.9 L, Procalcitonin 0.355 08/06/24 18:58: VBG pH 7.25 L, VBG pCO2 41.5, VBG pO2 47.0 H, VBG HCO3 17.6 L, V BG Total CO2 18.9 L, VBG O2 Saturation 81.1 H, VBG Base Excess -9.7 L, VBG Lactic Acid 1.6 08/06/24 20:05: Urine Color Yellow, Urine Appearance Clear, Urine pH 6.0, Ur Specific [place] 1.020, Urine Protein Trace, Urine Glucose (UA) Negative, Urine Ketones Negative, Urine Blood 1+ A, Urine Nitrate Negative, Urine Bilirubin Negative, Urine Urobilinogen 0.2, Ur Leukocyte Esterase Negative, Urine RBC None, Urine WBC Occasional, Ur Squamous Epith Cells None, Urine Bacteria None 08/06/24 18:54 08/06/24 18:54 Orders (Tests/Meds): ED MEDICATIONS Generic Name Dose Route Start Last Admin Trade Name Freq PRN Reason Stop Dose Admin Rivaroxaban 20 mg 08/07/24 17:30 Rivaroxaban 10mg Tablet PO 09/06/24 17:29 QPMWITHMEAL GABRIELLE Discontinued Medications Generic Name Dose Route Start Last Admin Trade Name Freq PRN Reason Stop Dose Admin Furosemide 80 mg 08/06/24 19:31 08/06/24 19:39 Furosemide 100mg/10ml Vial IV 08/06/24 19:32 80 mg ONCE ONE Administration ORDERS Category Date Time Status CT head/brain wo con Stat Cat Scan 08/06/24 19:00 Completed Chest XR -- portable [XR chest portable] DAILY Exams 08/07/24 06:00 Ordered XR chest portable Stat Exams 08/06/24 18:58 Completed BNP [NT Pro Brain Natriuretic Pep.] DAILY Lab 08/07/24 06:00 Ordered CBC w/Auto Diff [Complete Blood Count Auto Diff] AMLAB Lab 08/07/24 06:00 Ordered CBC w/Auto Diff [Complete Blood Count Auto Diff] Stat Lab 08/06/24 20:39 Ordered CMP [Comprehensive Metabolic Panel] AMLAB Lab 08/07/24 06:00 Ordered CMP [Comprehensive Metabolic Panel] Stat Lab 08/06/24 20:39 Ordered Complete Blood Count Auto Diff Stat Lab 08/06/24 18:54 Completed Comprehensive Metabolic Panel Stat Lab 08/06/24 18:54 Completed MAG [Magnesium] AMLAB Lab 08/07/24 06:00 Ordered MAG [Magnesium] Stat Lab 08/06/24 20:39 Ordered NT Pro Brain Natriuretic Pep. Stat Lab 08/06/24 18:54 Completed Procalcitonin Stat Lab 08/06/24 18:54 Completed Troponin I Stat Lab 08/06/24 18:54 Ordered Urinalysis and Microscopic Stat Lab 08/06/24 20:05 Completed Blood Culture Stat Micro 08/06/24 20:07 Ordered Venous Blood Gas Stat RT 08/06/24 18:58 Completed ECG Data Tracing #1: I reviewed this ECG and interpreted as documented below: Per my interpretation EKG showing A-fib at a rate of 65, otherwise normal intervals, overall low voltage but no acute ischemia or infarction ECG initial impression date: 08/06/24 ECG initial impression time: 19:22 HEART Score History (anamnesis): Slightly suspicious ECG: Non-specific disturbance Age: >65 years Risk factors: 3 or more risk factors Troponin: </= normal limit HEART Score: 5 Medical Decision Narrative: Patient is an 84-year-old female with past medical history hypertension, hyperlipidemia, A-fib on Xarelto, CHF, recent sepsis secondary to UTI and altered mental status presenting with altered mental status from senior care. Notably she was just admitted to the senior care after hospitalization for severe sepsis in the setting of UTI and discharged on antibiotics. Per daughter her mentation has been waxing and waning and she has been very weak at the senior care which seem to worsen today. On arrival she is hemodynamically stable though bradycardic and her temperature is low to 94.7F. She does answer questions appropriately when asked and denies any pain, recognizes her daughter at bedside. She does appear significantly edematous bilateral upper and lower extremities and concern for significant fluid overload even to the point that her fingerstick glucose which was within normal limits on arrival contain both blood and fluid and given this I am concerned for significant fluid overload contributing to patient's illness and will defer fluids at this time given otherwise hemodynamically stable. Will obtain labs for further evaluation and place Consuelo hugger for hypothermia as well as temperature sensing Sebastian. Notably daughter at bedside also confirms that patient is DNR, DNI and would not want any NG or feeding tubes. EKG showing no acute ischemia or infarction and bradycardic A-fib, VBG obtained showing slight acidosis to 7.25 with pCO2 of 41, lactate within normal limits of 1.6, CBC nonactionable, CMP nonactionable, chest x-ray showed cardiomegaly without significant pulmonary edema pattern or acute process and radiology read agrees with my interpretation, BNP is significantly elevated to 6310 which is elevated from her priors during last admission appeared to be 2000, troponin negative, procalcitonin negative, CT brain showing no acute process. Given 80 mg IV Lasix and cefepime. Blood cultures obtained and pending Did discuss with daughter at bedside results which appear consistent with likely CHF exacerbation with acute volume overload. Unsure what is causing patient's altered mental status which daughter notes has been going on for at least 36 hours but infection seems to have been cleared per today's results. Discussed admission for further evaluation and diuresis to which daughter is agreeable, this was discussed with Dr. Galicia on-call for Dr. Kyle who accepts patient to his service at this time and will be admitted for further care. Notably her temperature did improve on consuelo hugger to 96.4. Daughter aware of patient's condition, agreeable with admission and plan. Patient does still wake up and answer questions appropriately, was asking for food and continues to identify daughter at bedside. Critical Care Critical Care Time Critical Care Time: No
[2024-08-06 19:39] LABS: Basophils % 0.3 % (0.1-2.0); Eosinophils # 0.1 K/mm3 (0.0-0.4); Hematocrit 34.3 % (37.0-47.0); Hemoglobin 10.5 g/dL (12.2-16.2); Lymphocytes # 1.2 K/mm3 (0.7-4.5); Lymphocytes % 11.4 % (10-50); Mean Corpuscular HGB Conc 30.6 g/dL (31.8-35.4); Mean Corpuscular Hemoglobin 32.8 pg (27.0-31.2); Mean Corpuscular Volume 107.1 fl (81-99); Mean Platelet Volume 10.5 fl (7.4-10.4); Monocytes # 0.7 K/mm3 (0.1-1.0); Monocytes % 7.1 % (1.7-9.3); Neutrophils # 8.3 K/mm3 (1.8-7.8); Neutrophils % 80.2 % (37.0-80.0); Platelet Count 112 K/mm3 (142-424); Procalcitonin 0.355 ng/mL (0.0-2.0); White Blood Count 10.3 K/mm3 (4.8-10.8)
[2024-08-06] MEDS: FUROSEMIDE 100MG/10ML VIAL 80 MG IV (19:39)
[2024-08-06 19:51] LABS: Anion Gap 12.2 mEq/L (5-15); Blood Urea Nitrogen 16 mg/dl (7-17); Carbon Dioxide 18 mmol/L (22.0-30.0); Creatinine Clearance Estimated 58 mL/min (50-200); Estimated Glomerular Filt Rate 79 ml/min (>60); GFR (African American) 96 ML/MIN (>60)
[2024-08-06 20:11] LABS: Microscopic, Urine URINE MICROSCOPIC (MICROSCOPIC)
[2024-08-06 20:14] LABS: Appearance,Urine CLEAR (Clear); Bilirubin,Urine Negative (Negative); Blood, Urine 1+ (Negative); Color,Urine YELLOW (Yellow); Glucose,Urine (UA) Negative (Negative); Ketones,Urine Negative (Negative); Leukocyte Esterase,Urine Negative (Negative); Nitrate,Urine Negative (Negative); Protein,Urine TRACE (Negative); Urobilinogen,Urine 0.2 EU/dl (0.2)
[2024-08-06 20:34] LABS: WBC,Urine Occasional #/hpf (0-3)
--- NOTE | 2024-08-06 21:33 | PC.NURSE ---
Patient arrived to floor via stretcher from ED at 21:25.
[2024-08-06] MEDS: CEFEPIME HCL 2 GM in 0.9 % SODIUM CHLORIDE 100 ML IV (23:45)
[2024-08-07] VITALS (9 sets, daily range): BP systolic 105–139; BP diastolic 46–71; PULSE 57–93; RESP 14–20; TEMP 36.1–37.1; O2SAT 97–100; BMI 36.1
[2024-08-07 01:07] LABS: Troponin I < 0.01 ng/ml (0.00-0.034)
--- NOTE | 2024-08-07 06:00 | XR_ITS ---
PROCEDURE INFORMATION: Exam: XR Chest Exam date and time: 08/07/2024 6:04 AM Age: 84 years old Clinical indication: Cardiovascular condition or disease; Congestive heart failure (chf); Cause unknown; Additional info: Chf exac TECHNIQUE: Imaging protocol: Radiologic exam of the chest. Views: 1 view. COMPARISON: CR XR CHEST PORTABLE 08/06/2024 6:58 PM FINDINGS: Lungs: Left lower lobe atelectasis. Pleural spaces: Unremarkable. No pleural effusion. No pneumothorax. Heart/Mediastinum: Stable cardiomegaly. Bones/joints: Unremarkable. IMPRESSION: Stable cardiomegaly. Left lower lobe atelectasis.
--- NOTE | 2024-08-07 06:38 | PC.NURSE ---
Patient has been lethargic since arriving to floor. Patient is very hard of hearing. Patient answered simple yes/no questions. Temp sensing rapp in place, current temperature 98.2 core. Upper and lower extremities 4+ edema. Doppler pulses on BLE. Afib on tele. 2L NC in place. Daughter at bedside. Daughter states she wouldnt wake up to eat all day and has been hard to arouse. Call light in reach.
[2024-08-07 07:41] LABS: Basophils % 0.2 % (0.1-2.0); Eosinophils # 0.1 K/mm3 (0.0-0.4); Eosinophils % 1.5 % (0.1-12.0); Hematocrit 35.5 % (37.0-47.0); Lymphocytes # 1.4 K/mm3 (0.7-4.5); Lymphocytes % 13.9 % (10-50); Mean Corpuscular HGB Conc 31.1 g/dL (31.8-35.4); Mean Corpuscular Hemoglobin 32.5 pg (27.0-31.2); Mean Corpuscular Volume 104.5 fl (81-99); Mean Platelet Volume 9.7 fl (7.4-10.4); Monocytes # 0.8 K/mm3 (0.1-1.0); Neutrophils # 7.4 K/mm3 (1.8-7.8); Neutrophils % 76.4 % (37.0-80.0); Platelet Count 129 K/mm3 (142-424); Red Cell Distribution Width 18.7 % (11.5-17.5); White Blood Count 9.7 K/mm3 (4.8-10.8)
[2024-08-07 07:46] LABS: Albumin Level 2.4 g/dl (3.5-5.0); Chloride 112 mmol/L (98-107); Potassium 3.8 mmoL/L (3.5-5.1); Sodium 139 mmol/L (136-145)
[2024-08-07 07:49] LABS: Alanine Aminotransferase 14 U/L (12-78); Alkaline Phosphatase 109 U/L (38-126); Anion Gap 10.8 mEq/L (5-15); Aspartate Amino Transferase 20 U/L (14-36); Bilirubin,Total 0.5 mg/dl (0.2-1.3); Blood Urea Nitrogen 16 mg/dl (7-17); Carbon Dioxide 20 mmol/L (22.0-30.0); Creatinine Clearance Estimated 53 mL/min (50-200); Estimated Glomerular Filt Rate 79 ml/min (>60); GFR (African American) 96 ML/MIN (>60); Globulin 2.4 g/dL (1.3-3.2); Total Protein,Serum 4.8 g/dl (6.3-8.2)
[2024-08-07 07:50] LABS: Calcium 8.2 mg/dl (8.4-10.2); Glucose 97 mg/dl (74-100); Magnesium 1.8 mg/dl (1.6-2.3)
[2024-08-07 07:59] LABS: NT Pro Brain Natriuretic Pep. 7050 pg/mL (0-450)
--- NOTE | 2024-08-07 09:30 | P.HP_ITS ---
History of Present Illness *Admission Date: 08/06/24 *Reason for visit:: Sedated *History of present illness: Ms. Anders is an 84 year old patient of [facility] who was brought to the ER yesterday afternoon [place] [facility] [place] due to sedation/altered mental status. She was admitted to [facility] last week due to an E. coli UTI and septic shock. She was discharged to [place] 3 days ago for rehab due to weakness and debility. Patient's daughter reports that she had minimal oral intake and was sleeping a lot and [facility]. In the ER, her body temperature was found to be low. Patient had an Echo at [facility] in May 2024, at the time EF was normal. [facility] Disclaimer: The information contained in this section may have been updated after the patient was seen, as this information can be updated by other users. Medical History (Updated 08/07/24 @ 09:41 by Parvez Kyle MD) Bacteremia Cardiogenic shock Sepsis Multi-organ system dysfunction E. coli urinary tract infection Debility CHAD (acute kidney injury) SOB (shortness of breath) on exertion Tinnitus Dysphagia Deviated nasal septum Hearing loss Impacted cerumen of both ears Hyperuricemia Glaucoma History of anemia Breast cancer CTS (carpal tunnel syndrome) Vulva cancer Numbness of feet Keratosis Onychodystrophy Onychoincurvatum Xerosis of skin Edema of both lower extremities Atrial fibrillation Hyperlipidemia Hypertensive heart disease Surgical History History of D&C History of lumpectomy of right breast History of colonoscopy History of repair of right rotator cuff History of placement of ear tubes History of right knee surgery History of cataract surgery History of carpal tunnel release History of cholecystectomy Family History Diabetes Family history of stroke Family history of cancer Family history of hypertension Family history of myocardial infarction Family history of hyperlipidemia Social History Smoking Status: Never smoker alcohol intake: never substance use type: denies use current occupational status: retired Travel in the last 8 weeks: None household members: family housing: house Other Medical History Have you received the Flu Vaccine for this season: Yes Have you received the Pneumonia Vaccine: Yes Review of Systems Constitutional Constitutional: Denies chills and Denies fever(s) ENT Ears, Nose, Mouth, and Throat: Reports dysphagia *Cardiovascular Cardiovascular: Denies chest pain and Denies dyspnea *Respiratory Respiratory: Denies dyspnea *Gastrointestinal Gastrointestinal: Reports dysphagia *Genitourinary Genitourinary: Denies difficulty voiding *Musculoskeletal Musculoskeletal: Denies arthralgias *Neurologic Neurologic: Reports as per [facility] Meds Home Medications and Allergies Home Medications ?Medication ?Instructions ?Recorded ?Confirmed ?Type escitalopram oxalate 10 mg tablet 10 mg PO DAILY 10/19/17 08/07/24 History cholecalciferol (vitamin D3) 125 10,000 unit PO .TWICE WEEKLY 06/30/22 08/07/24 History mcg (5,000 unit) capsule Supplement omeprazole 40 mg capsule,delayed 40 mg PO HS Acid reflux 02/20/23 08/07/24 History release cyanocobalamin (vitamin B-12) 1,000 mcg PO DAILY Supplement 04/04/23 08/07/24 History 1,000 mcg tablet,extended release levocetirizine 5 mg tablet (Xyzal) 5 mg PO DAILY #90 tabs 04/04/24 08/07/24 Rx melatonin 10 mg capsule 10 mg PO HSP PRN Sleep 04/27/24 08/07/24 History atorvastatin 20 mg tablet 20 mg PO HS 07/31/24 08/07/24 History metoprolol succinate 25 mg 25 mg PO DAILY 07/31/24 08/07/24 History tablet,extended release 24 hr rivaroxaban 20 mg tablet (Xarelto) 20 mg PO QPMWITHMEAL 07/31/24 08/07/24 History acetaminophen 325 mg tablet 325 mg PO Q4H PRN pain #1 tab 08/04/24 08/07/24 Rx (Tylenol) cefuroxime axetil 500 mg tablet 500 mg PO Q12H 7 days #14 tabs 08/04/24 08/07/24 Rx New Prescriptions to Start Prescriptions: Allergies Allergy/AdvReac Type Severity Reaction Status Date / Time Penicillins [PENICILLINS] Allergy Intermediate I-RASH Verified 05/10/24 14:30 hydrocortisone Allergy Unknown I-RASH Verified 05/10/24 14:30 [From CORTIZONE-10] Exam Data for Last 24 hours Vital signs and Labs for Last 24 Hours: Temp Pulse Resp BP Pulse Ox O2 Del Method O2 Flow Rate 97.7 F 74 18 126/65 100 Nasal Cannula 2 08/07/24 07:44 08/07/24 07:44 08/07/24 07:44 08/07/24 07:44 08/07/24 07:44 08/07/24 06:54 08/07/24 06:54 Laboratory Results - last 24 hr 08/06/24 18:54: WBC 10.3, RBC 3.20 L, Hgb 10.5 L, Hct 34.3 L, MCV 107.1 H, MCH 32.8 H, MCHC 30.6 L, RDW 19.0 H, Plt Count 112 L, MPV 10.5 H, Neut % (Auto) 80.2 H, Lymph % (Auto) 11.4, [place] % (Auto) 7.1, Eos % (Auto) 1.0, Baso % (Auto) 0.3, Neut # (Auto) 8.3 H, Lymph # (Auto) 1.2, [place] # (Auto) 0.7, Eos # (Auto) 0.1, Baso # (Auto) 0.0, Sodium 139, Potassium 4.2, Chloride 113 H, Carbon Dioxide 18 L, Anion Gap 12.2, BUN 16 D, Creatinine 0.70 D, Estimated Creat Clear 58, Estimated GFR 79, Est GFR ( Amer) 96 D, Glucose 130 H, Calcium 8.2 L, Total Bilirubin 0.5, AST 22, ALT 15, Alkaline Phosphatase 107, Troponin I < 0.01, NT-Pro-B Natriuret Pep 6310 H, Total Protein 4.6 L, Albumin 2.2 L, Globulin 2.4, Albumin/Globulin Ratio 0.9 L, Procalcitonin 0.355 08/06/24 18:58: VBG pH 7.25 L, VBG pCO2 41.5, VBG pO2 47.0 H, VBG HCO3 17.6 L, VBG Total CO2 18.9 L, VBG O2 Saturation 81.1 H, VBG Base Excess -9.7 L, VBG Lactic Acid 1.6 08/06/24 20:05: Urine Color Yellow, Urine Appearance Clear, Urine pH 6.0, Ur Specific [place] 1.020, Urine Protein Trace, Urine Glucose (UA) Negative, Urine Ketones Negative, Urine Blood 1+ A, Urine Nitrate Negative, Urine Bilirubin Negative, Urine Urobilinogen 0.2, Ur Leukocyte Esterase Negative, Urine RBC None, Urine WBC Occasional, Ur Squamous Epith Cells None, Urine Bacteria None 08/07/24 00:40: Troponin I < 0.01 08/07/24 07:30: WBC 9.7, RBC 3.40 L, Hgb 11.0 L, Hct 35.5 L, MCV 104.5 H, MCH 32.5 H, MCHC 31.1 L, RDW 18.7 H, Plt Count 129 L, MPV 9.7, Neut % (Auto) 76.4, Lymph % (Auto) 13.9, [place] % (Auto) 8.0, Eos % (Auto) 1.5, Baso % (Auto) 0.2, Neut # (Auto) 7.4, Lymph # (Auto) 1.4, [place] # (Auto) 0.8, Eos # (Auto) 0.1, Baso # (Auto) 0.0, Sodium 139, Potassium 3.8, Chloride 112 H, Carbon Dioxide 20 L, Anion Gap 10.8, BUN 16, Creatinine 0.70, Estimated Creat Clear 53, Estimated GFR 79, Est GFR ( Amer) 96, Glucose 97 D, Calcium 8.2 L, Magnesium 1.8, Total Bilirubin 0.5, AST 20, ALT 14, Alkaline Phosphatase 109, NT-Pro-B Natriuret Pep 7050 H, Total Protein 4.8 L, Albumin 2.4 L, Globulin 2.4, Albumin/Globulin Ratio 1.0 L I & O for Last 24 hours: Intake & Output 08/04/24 08/05/24 08/06/24 08/07/24 23:59 23:59 23:59 23:59 Intake Total 0 / 0 Output Total 1500 / 1500 650 / 650 Balance -1500 / -1500 -650 / -650 Weight 201 lb 6 oz 184 lb 6.4 oz Constitutional Constitutional: no acute distress *Routine HEENT Exam Head: Present normocephalic Eye: Present EOMI and PERRL ENT: Present mucous membranes moist *Routine Neck Exam Neck: Present supple; Absent lymphadenopathy *Routine Respiratory Exam Respiratory: Present CTA bilaterally *Routine Cardiovascular Exam Cardiovascular: Present RRR *Routine Abdominal Exam Abdominal: Present soft and normoactive bowel sounds; Absent tenderness *Routine Rectal Exam Rectal:: deferred *Routine Genitalia Exam Genitalia:: deferred *Routine Extremities Exam Extremities: Present edema (2+ bilateral arms and legs); Absent cyanosis or clubbing *Routine Skin Exam Skin: Present warm; Absent rash *Routine Neurological Exam Comments: Sleeping quietly, will awaken briefly to voice Assessment and Plan *Assessment and plan (1) Altered mental status: Status: Acute Qualifiers: Altered mental status type: transient alteration of awareness Qualified Code(s): R40.4 - Transient alteration of awareness Category: Medical Code(s): R41.82 - Altered mental status, unspecified (2) E. coli urinary tract infection: Status: Acute Category: Medical Code(s): N39.0 - Urinary tract infection, site not specified; B96.20 - Unspecified Escherichia coli [E. coli] as the cause of diseases classified elsewhere (3) Debility: Status: Acute Category: Medical Code(s): R53.81 - Other malaise (4) Hypothermia: Status: Acute Category: Medical Code(s): T68.XXXA - Hypothermia, initial encounter (5) Peripheral edema: Status: Acute Category: Medical Code(s): R60.0 - Localized edema Plan Patient admitted for further evaluation and management. She does not appear to be having a CHF exacerbation. Will check Echo tomorrow to confirm. Plan to resume IV antibiotics as infection (UTI) seems more likely.
[2024-08-07] MEDS: LEVOFLOXACIN/D5W 500 MG/100 ML PIGGYBACK 100 MG IV (11:21)
[2024-08-07] MEDS: FUROSEMIDE 40MG/4ML VIAL 40 MG IV (11:21)
[2024-08-07] MEDS: RIVAROXABAN 10MG TABLET 20 MG PO (17:01)
--- NOTE | 2024-08-07 19:10 | PC.NURSE ---
pt has slept most of day only waking up once briefly after a hard sternum rub. kids have been at bedside t/o day. adequate uop but edema is still as it was with +3 pitting. pt has not ate today but has drank half a glass of cranberry juice. temp has remained above 97.0 this shift, currently 97.7.
[2024-08-07] MEDS: ATORVASTATIN 20MG TABLET 20 MG PO (20:58)
[2024-08-07] MEDS: PANTOPRAZOLE 40MG TABLET 40 MG PO (20:58)
[2024-08-08] VITALS (8 sets, daily range): BP systolic 92–124; BP diastolic 53–81; PULSE 60–108; RESP 14–18; TEMP 36.6–37.2; O2SAT 96–100; BMI 36.7
--- NOTE | 2024-08-08 05:31 | PC.NURSE ---
Patient is alert to herself and responds to her name. She is hard of hearing. She can verbalize yes or no to questions asked when she has been awakened. Patient required vigorous shaking to arouse; daughter was at bedside to help wake up patient during med pass. She was able to open her eyes periodically. Patient had some difficulty swallowing pills, for they had a tendency to stick to the inside of her cheek. Patient could swallow efficiently with consistent coaching. Applesauce was given to aid in swallowing the pills; this was most successful for the patient. Intake/output has been documented accordingly. Patient was observed to have eyes closed, respirations even and unlabored on 2 L of oxygen via nasal cannula, and no apparent distress throughout the night. Daughter left the patient's room to go home at around midnight this shift; she requested to be contacted if the patient's status were to change before she returns this morning. Patient has not had any complaints and has rested comfortably throughout the night. She was given a bed bath this shift. Patient has been bedridden. A Sebastian catheter with a temperature sensor remains intact. Upon auscultation, patient's lung sounds were diminished with some crackles, and her bowel sounds were hypoactive. She has been running afib on telemetry. Patient has significant +3 edema in all four extremities. During initial assessment this shift, patient's skin was noticed to be slightly cool to the touch. During the next check, patient's skin temperature was noticed to be warmer, and has thus far remained warm to the touch. Patient's temperature has remained within normal range. At this time, the patient is resting supine in bed. She is to be turned every 2 hours to avoid pressure injuries. No acute changes noted thus far. Call light within reach.
--- NOTE | 2024-08-08 07:00 | CA_ITS ---
APPROVED REPORT EXAM: Limited 2D Echocardiogram [employer] Librarian: Darcy Mcmanus RVT Ht: 4 ft 11 in Wt: 184lbs BSA: 1.78 BP: 126/65 mmHg Indications: EF CHECK,A-FIB,HTN,EDEMA,HLD,PERICARDIAL EFFUSION M-Mode Dimensions RVDd 2.93 cm (0.9-2.6) LA Diam 5.13 cm (1.9-4.0) LVDd 4.64 cm (3.5-5.7) LVDs 3.47 cm (3.5-5.7) IVSd 0.79 cm (0.6-1.1) PWd 0.54 cm (0.6-1.1) EF (Teich) 49.80% FS 25.20% EDV (Teich) 99.30 mL ESV (Teich) 49.80 mL Other Information Study Quality: Technically Difficult Conclusion This is a limited TTE to evaluate for LVEF. Limited windows were obtained. Technically difficult study. The left ventricle is normal in size. There is increased LV wall thickness. There is low normal LV systolic function. The septum is asynchronous. There is mild hypokinesis of the anterior and anteroseptal LV jeffery. LVEF is 50-55%. The right ventricle is mildly to moderately dilated with mildly reduced RV function. There is a trivial, posterior pericardial effusion present. The largest pocket measures 0.2 cm in diastole. No echo indications of tamponade. Electronically signed by : Fabiola Mac MD 08/08/2024 11:40:21
[2024-08-08 07:25] LABS: Basophils % 0.4 % (0.1-2.0); Eosinophils # 0.1 K/mm3 (0.0-0.4); Eosinophils % 1.2 % (0.1-12.0); Hematocrit 34.1 % (37.0-47.0); Hemoglobin 10.7 g/dL (12.2-16.2); Lymphocytes # 1.2 K/mm3 (0.7-4.5); Lymphocytes % 14.5 % (10-50); Mean Corpuscular HGB Conc 31.3 g/dL (31.8-35.4); Mean Corpuscular Hemoglobin 33.3 pg (27.0-31.2); Mean Corpuscular Volume 106.4 fl (81-99); Mean Platelet Volume 10.1 fl (7.4-10.4); Monocytes # 0.6 K/mm3 (0.1-1.0); Monocytes % 7.4 % (1.7-9.3); Neutrophils # 6.5 K/mm3 (1.8-7.8); Neutrophils % 76.5 % (37.0-80.0); Platelet Count 173 K/mm3 (142-424); Red Cell Distribution Width 18.7 % (11.5-17.5); White Blood Count 8.5 K/mm3 (4.8-10.8)
[2024-08-08 07:30] LABS: Albumin Level 2.2 g/dl (3.5-5.0); Chloride 109 mmol/L (98-107); Potassium 3.6 mmoL/L (3.5-5.1); Sodium 139 mmol/L (136-145)
[2024-08-08 07:33] LABS: Alanine Aminotransferase 12 U/L (12-78); Albumin/Globulin Ratio 0.8 (1.1-1.8); Alkaline Phosphatase 111 U/L (38-126); Anion Gap 10.6 mEq/L (5-15); Aspartate Amino Transferase 18 U/L (14-36); Bilirubin,Total 0.4 mg/dl (0.2-1.3); Blood Urea Nitrogen 14 mg/dl (7-17); Carbon Dioxide 23 mmol/L (22.0-30.0); Creatinine Clearance Estimated 54 mL/min (50-200); Estimated Glomerular Filt Rate 68 ml/min (>60); GFR (African American) 82 ML/MIN (>60); Globulin 2.6 g/dL (1.3-3.2); Total Protein,Serum 4.8 g/dl (6.3-8.2)
[2024-08-08 07:34] LABS: Glucose 109 mg/dl (74-100)
--- NOTE | 2024-08-08 08:25 | SW/DCPLANNER ---
Addendum entered by Pili Jacobo 08/08/24 15:50: Per MD patient will return to [facility] today SNF level of care today. No need for IV antibiotics per MD. Addendum entered by Pili Jacobo 08/08/24 12:58: Per Iona vidal/ Efe Fraire patient can return to facility once medically stable for discharge (pending IV antibiotics if needed at discharge). Original Note: Patient is currently SNF level of care at [facility]. Updated patient information has been faxed to Iona Fraire. Discharge date is unknown at this time. I will continue to update Iona.
--- NOTE | 2024-08-08 08:32 | EXP.ACUTE.PN ---
Subjective *Date: 08/08/24 *Time: 08:45 Interval history: Blood chemistries are stable. BUN is 14 with a creatinine of 0.8. Urine cultures pending. Blood cultures thus far are not negative. Family has remained at bedside. Daughter states she took a few bites of food yesterday as well as drank some liquids. She continues with a Sebastian catheter. Patient awakened with speaking very very loudly. Temperature has been stable. Patient does answer yes and no today after loud verbal stimuli. She said yes to being short of breath and no to pain. Medical Exam Vital signs and Labs for Last 24 Hours: Vital Signs Temp Pulse Pulse Resp BP Pulse Ox O2 Del Method 08/08/24 07:47 98 F 61 18 96/60 L 100 Room Air 08/08/24 05:00 Nasal Cannula 08/08/24 04:00 60 08/08/24 04:00 99.0 F 88 18 111/67 98 Room Air 08/08/24 03:00 Nasal Cannula 08/08/24 01:00 Nasal Cannula 08/08/24 00:00 70 08/08/24 00:00 99.0 F 83 16 92/53 L 100 Room Air 08/07/24 23:00 Nasal Cannula 08/07/24 21:00 Nasal Cannula 08/07/24 20:00 57 L 08/07/24 20:00 93 H 14 98 Nasal Cannula 08/07/24 20:00 98.6 F 93 H 14 108/46 L 98 Room Air 08/07/24 19:26 Nasal Cannula 08/07/24 18:49 Room Air 08/07/24 17:00 Room Air 08/07/24 16:00 70 08/07/24 15:46 97 F L 74 19 105/56 L 100 Room Air 08/07/24 15:00 Room Air 08/07/24 13:00 Room Air 08/07/24 12:00 75 08/07/24 11:00 Nasal Cannula 08/07/24 09:00 Nasal Cannula O2 Flow Rate FiO2 08/08/24 07:47 08/08/24 05:00 2 08/08/24 04:00 08/08/24 04:00 08/08/24 03:00 2 08/08/24 01:00 2 08/08/24 00:00 08/08/24 00:00 08/07/24 23:00 2 08/07/24 21:00 2 08/07/24 20:00 08/07/24 20:00 2 08/07/24 20:00 08/07/24 19:26 2 28 08/07/24 18:49 08/07/24 17:00 08/07/24 16:00 08/07/24 15:46 08/07/24 15:00 08/07/24 13:00 08/07/24 12:00 08/07/24 11:00 2 08/07/24 09:00 2 Intake and Output 08/07/24 08/08/24 08/08/24 19:59 03:59 11:59 Intake Total 50 / 50 120 / 170 Output Total 1325 / 1325 150 / 1475 150 / 1625 Balance -1275 / -1275 -30 / -1305 -150 / -1455 Intake: Intake, Oral Amount 50 / 50 120 / 170 Output: Output, Urine Amount 1325 / 1325 100 / 1425 Output, Urine Amount (Catheter) 150 / 150 50 / 200 Sebastian 150 / 150 50 / 200 Other: Weight 187 lb 1.6 oz Patient Weight 08/08/24 11:59 Weight 187 lb 1.6 oz Laboratory Results - last 24 hr 08/08/24 06:51: WBC 8.5, RBC 3.20 L, Hgb 10.7 L, Hct 34.1 L, MCV 106.4 H, MCH 33.3 H, MCHC 31.3 L, RDW 18.7 H, Plt Count 173 D, MPV 10.1, Neut % (Auto) 76.5, Lymph % (Auto) 14.5, [place] % (Auto) 7.4, Eos % (Auto) 1.2, Baso % (Auto) 0.4, Neut # (Auto) 6.5, Lymph # (Auto) 1.2, [place] # (Auto) 0.6, Eos # (Auto) 0.1, Baso # (Auto) 0.0, Sodium 139, Potassium 3.6, Chloride 109 H, Carbon Dioxide 23, Anion Gap 10.6, BUN 14, Creatinine 0.80, Estimated Creat Clear 54, Estimated GFR 68, Est GFR ( Amer) 82, Glucose 109 H, Calcium 8.0 L, Total Bilirubin 0.4, AST 18, ALT 12, Alkaline Phosphatase 111, Total Protein 4.8 L, Albumin 2.2 L, Globulin 2.6, Albumin/Globulin Ratio 0.8 L I & O for Labs for Last 24 Hours: Intake & Output 08/05/24 08/06/24 08/07/24 08/08/24 11:59 11:59 11:59 11:59 Intake Total 0 / 0 170 / 170 Output Total 215 / 2149 1625 / 1625 Balance -2150 / -2150 -1455 / -1455 Weight 184 lb 6.4 oz 187 lb 1.6 oz Microbiology Reports for the Last 24 Hours: Microbiology 08/06/24 19:40 Blood Blood Culture - Preliminary NO GROWTH AFTER 24 HOURS 08/06/24 18:54 Blood Blood Culture - Preliminary NO GROWTH AFTER 24 HOURS Constitutional: Present no acute distress Comment:: Awakened by daughter after speaking very loudly to her. She opens her eyes and did say yes and no and indicated that she would like to eat. She did drink liquids out of a straw and had no difficulty with swallowing. Respiratory: Present decreased breath sounds (Posteriorly. Poor inspiratory effort.) and CTA bilaterally (Anteriorly and posteriorly) Cardiac: Present Irregularly Regular Comment:: Monitor continues to show atrial fibrillation GI: Present soft and normal bowel sounds; Absent distention, tenderness or guarding Comments:: She continues with Sebastian catheter to bedside drainage Comment:: Sebastian catheter to bedside drainage Extremities: Present edema (Minimal bilateral lower leg extremities) Neuro: Present alert (Extremely hard of hearing but did awaken and answer yes and no) Assessment and Plan *Assessment and plan (1) Altered mental status: Status: Acute Qualifiers: Altered mental status type: transient alteration of awareness Qualified Code(s): R40.4 - Transient alteration of awareness Category: Medical Code(s): R41.82 - Altered mental status, unspecified (2) E. coli urinary tract infection: Status: Acute Category: Medical Code(s): N39.0 - Urinary tract infection, site not specified; B96.20 - Unspecified Escherichia coli [E. coli] as the cause of diseases classified elsewhere (3) Debility: Status: Acute Category: Medical Code(s): R53.81 - Other malaise (4) Hypothermia: Status: Acute Category: Medical Code(s): T68.XXXA - Hypothermia, initial encounter (5) Peripheral edema: Status: Acute Category: Medical Code(s): R60.0 - Localized edema (6) Afib: Status: Chronic Category: Medical Code(s): I48.91 - Unspecified atrial fibrillation (7) HTN (hypertension): Status: Acute Qualifiers: Hypertension type: unspecified Qualified Code(s): I10 - Essential (primary) hypertension Category: Medical Code(s): I10 - Essential (primary) hypertension (8) Hyperlipidemia: Status: Chronic Qualifiers: Hyperlipidemia type: mixed hyperlipidemia Qualified Code(s): E78.2 - Mixed hyperlipidemia Category: Medical Code(s): E78.5 - Hyperlipidemia, unspecified Plan Patient is now on Levaquin. Will have repeat echo today. Continue otherwise with current care. Dr. Kyle entry - Saw patient, agree with above note. She has improved, await echo report, PT/OT today
--- NOTE | 2024-08-08 09:49 | HMH.OTEV ---
OT Inpatient Evaluation Rehab OT IP Evaluation Start: 08/08/24 08:46 Freq: ONCE Status: Active Protocol: Document 08/08/24 09:40 [facility] (Rec: 08/08/24 09:49 [facility] [id number]) Rehab OT IP Assessment Subjective History Pt resting in bed on arrival and agreeable to engage in evaluation. Pt admitted to [facility] on 08/06/24 due to being sedated. Pt history and physical report : Ms. Anders is an 84 year old patient of [facility] who was brought to the ER yesterday afternoon from [facility] due to sedation/altered mental status. She was admitted to [facility] last week due to an E. coli UTI and septic shock. She was discharged to [place] 3 days ago for rehab due to weakness and debility. Patient's daughter reports that she had minimal oral intake and was sleeping a lot and had minimal urinary output at the [facility]. In the ER, her body temperature was found to be low. Patient had an Echo at [facility] in May 2024, at the time EF was normal. Subjective Prior to admission to hospital , pt lived at [facility]. Pt is a readmission from last week. Pt receives skilled therapy at [place] with assistance for ADLs and IADLs. Pt engaged in bed mobility to transition from supine to eob with max assist x2. Pt demonstrated poor static sitting balance at eob. Pt returned to supine with max assist x2. Pt was left resting in bed with call de dios and all other needs in reach. Objective Right Upper Extremity Gross ROM Mod Limitation 50% Left Upper Extremity Gross ROM Mod Limitation 50% Shoulder ROM Limitations Muscle Weakness,Muscle Tone Elbow ROM Limitations Muscle Weakness,Muscle Tone Wrist Limitations of Range of Motion Muscle Weakness,Muscle Tone Bed Mobility bed mobility - supine/sit Assist Level Maximum x 2 (75% assist) Rehab OT IP prob,goals,plan Problems Date of Evaluation: 08/08/24 OT IP Problems Bed Mobility,Transfers,Balance ,Self care,Safety Rehab Potential Rehab Potential Good Equipment Needs Assistive Devices Rolling / Wheeled Walker, Wheelchair Plan OT intervention Plan Bed Mobility,Transfers,Balance ,Self care,Safety,Therapeutic Exercise OT Plan Frequency Daily Duration LOS Discharge Goals Bed Mobility Ability Assistance x1 Sit to Stand Chair Transfer Ability Maximum x 1 (75% assist) Chair Transfer Ability Maximum x 1 (75% assist) Chair Transfer Technique Sit to/from Ambulatory Chair Transfer Assistive Devices Rolling Walker Lower Body Dressing Ability Maximum Assistance Upper Body Dressing Ability Moderate Assistance Bathing Ability Maximum Assistance Performing Toilet Hygiene Ability Maximum Assistance Overall Commode/Toilet Transfer Ability Moderate Assistance Commode/Toilet Transfer Technique Sit to/from Ambulatory Commode/Toilet Transfer Assistive Raised Toilet Seat,Grab Bars Devices Oral Care Assist Moderate Assistance Decrease in Endurance No Discharge Plan OT Discharge Plan Pt will continue to be seen for skilled OT services while at [facility]. Once medically stable, pt can return to SNF for continued skilled therapy services. Continued skilled services are important to improve safety, endurance, balance, ADL independence, and ability to complete functional transfers to reach PLOF. Eval Complexity Eval Charge Codes 71597 - Moderate Complexity PHYSICIAN CERTIFICATION: I certify the specified therapy services for Bry Anders are required, authorized, and reviewed every 30 days.
--- NOTE | 2024-08-08 11:24 | HMH.PTEV ---
Physical Therapy Evaluation Rehab PT IP Evaluation Start: 08/08/24 08:46 Freq: ONCE Status: Active Protocol: Document 08/08/24 09:52 [facility] (Rec: 08/08/24 11:24 [facility] [id number]) Subjective/History History History Ms. Anders is an 84 year old patient of [facility] who is being treated for sedation/altered mental status. She was previously treated by rehab last week due to an E. coli UTI and septic shock. Subjective Subjective Pt appears alert upon initial eval this morning. Pt's daughter at bedside states the pt has been more responsive over the last couple days. Pt denies pain this date. Rehab PT IP Eval Objective Appearance Patient Behavior Appropriate,Cooperative Difficulty following instructions mild Speech Pattern Appropriate,Slurred Ambulation Patient Able to Ambulate No Balance Ability to Arise Unable Sitting Balance Leans or slides in chair Dynamic Sitting Balance Ability Poor Transfers Bed Transfer Ability Moderate x 2 (50% assist) Rehab PT IP prob,goals,plan Problems Date of Evaluation: 08/08/24 PT IP Problems Bed Mobility,Transfers,Gait, Balance,Self care,Safety Rehab Potential Rehab Potential Good Equipment Needs Assistive Devices Rolling / Wheeled Walker Plan PT Intervention Plan Bed Mobility,Transfers,Gait, Balance,Safety,Therapeutic Exercise PT Plan Frequency BID Duration LOS Discharge Goals Bed Transfer Ability Minimal x 2 (25% assist) Sit to Stand Chair Transfer Ability Minimal x 2 (25% assist) Discharge Plan PT Discharge Plan Pt would be most appropriate for a rehab placement once stable for d/c. Pt required MAX assist x2 for bed mobility transfers on initial evaluation. Pt demonstrates poor static sitting balance and requires continuous contact guard in sitting. Pt was able to follow instructions and complete therapeutic exercises of ankle pumps and knee extensions in sitting at bedside today. Eval Complexity Eval Charge Codes 57693 - High Complexity PHYSICIAN CERTIFICATION: I certify the specified therapy services for Bry Anders are required, authorized, and reviewed every 30 days.
[2024-08-08] MEDS: LEVOFLOXACIN/D5W 500 MG/100 ML PIGGYBACK 100 MG IV (11:34)
--- NOTE | 2024-08-08 18:12 | PC.NURSE ---
Patient has been eating better today and daughter reports that the patient's swelling has decreased and she is more alert today than the patient had been previously. FC removed at 1500. assessing patient for urinating after.
[2024-08-08] MEDS: RIVAROXABAN 10MG TABLET 20 MG PO (18:22)
[2024-08-08] MEDS: PANTOPRAZOLE 40MG TABLET 40 MG PO (21:03)
[2024-08-08] MEDS: ATORVASTATIN 20MG TABLET 20 MG PO (21:03)
[2024-08-09] VITALS: BP 100/55; PULSE 103; PULSE 90; RESP 18; TEMP 36.8; O2SAT 95
--- NOTE | 2024-08-09 01:05 | PC.NURSE ---
Made MD aware that pt has not urinated since rapp was removed at 1500. As of 2099 Pt had 181ml scanned in her bladder. Daughter admitted to pt not drinking much and upon checking I&O pt has had 420 ml intake in the last 24 hrs. Will encourage intake throughout entirety of shift, and re-scan at 0300
--- NOTE | 2024-08-09 03:00 | PC.NURSE ---
Bladder scanned with result of 275, pt denies pain or urge to urinate, bedpan attempted without success hydration offered at this time.
[2024-08-09 04:00] VITALS: BP 109/57; PULSE 93; RESP 16; TEMP 36.9; O2SAT 97; BMI 35.4
[2024-08-09 04:44] VITALS: PULSE 90
--- NOTE | 2024-08-09 07:49 | P.PN_ITS ---
Subjective *Date: 08/09/24 *Time: 08:46 Interval history: Is eating and drinking a little. Has had no difficulty with swallowing. She does sleep most of the time. She is very hard of hearing and does answer questions with mostly yes and no. Physical therapy saw her yesterday and she sa t on the side of the bed. Sebastian catheter has been removed and she has not voided as yet. Bladder scan showed between 2 and 300 cc of urine. Will check again later. Urine cultures pending. Blood cultures show no growth in 48 hours. Echocardiogram with the following results completed yesterday 08/08/2024: Conclusion This is a limited TTE to evaluate for LVEF. Limited windows were obtained. Technically difficult study. The left ventricle is normal in size. There is increased LV wall thickness. There is low normal LV systolic function. The septum is asynchronous. There is mild hypokinesis of the anterior and anteroseptal LV jeffery. LVEF is 50-55%. The right ventricle is mildly to moderately dilated with mildly reduced RV function. There is a trivial, posterior pericardial effusion present. The largest pocket measures 0.2 cm in diastole. No echo indications of tamponade. Medical Exam Vital signs and Labs for Last 24 Hours: Vital Signs Temp Pulse Pulse Resp BP Pulse Ox O2 Del Method 08/09/24 07:46 Room Air 08/09/24 06:56 Room Air 08/09/24 05:00 Room Air 08/09/24 04:44 90 08/09/24 04:00 98.4 F 93 H 16 109/57 L 97 Room Air 08/09/24 03:00 Room Air 08/09/24 00:37 Room Air 08/09/24 00:00 90 08/09/24 00:00 98.3 F 103 H 18 100/55 L 95 Room Air 08/08/24 23:00 Room Air 08/08/24 21:00 Room Air 08/08/24 20:00 98 Room Air 08/08/24 20:00 100 H 08/08/24 20:00 98.2 F 96 H 14 100/66 L 98 Room Air 08/08/24 16:00 80 08/08/24 16:00 98.2 F 106 H 15 103/57 L 96 Room Air 08/08/24 13:57 98.6 F 108 H 18 124/81 100 Room Air 08/08/24 12:00 100 H 08/08/24 08:00 Nasal Cannula 08/08/24 08:00 95 H O2 Flow Rate 08/09/24 07:46 08/09/24 06:56 08/09/24 05:00 08/09/24 04:44 08/09/24 04:00 08/09/24 03:00 08/09/24 00:37 08/09/24 00:00 08/09/24 00:00 08/08/24 23:00 08/08/24 21:00 08/08/24 20:00 08/08/24 20:00 08/08/24 20:00 08/08/24 16:00 08/08/24 16:00 08/08/24 13:57 08/08/24 12:00 08/08/24 08:00 2 08/08/24 08:00 Intake and Output 08/08/24 08/09/24 08/09/24 19:59 03:59 11:59 Intake Total 200 / 200 60 / 260 Output Total 0 / 0 Balance 200 / 200 60 / 260 Intake: Intake, Oral Amount 200 / 200 60 / 260 Output: Output, Urine Amount 0 / 0 Other: Number of Bowel Movements 1 Weight 180 lb 4.8 oz Patient Weight 08/09/24 11:59 Weight 180 lb 4.8 oz Laboratory Results - last 24 hr 08/08/24 06:51: Carbon Dioxide 23, Anion Gap 10.6, BUN 14, Creatinine 0.80, Estimated Creat Clear 54, Estimated GFR 68, Est GFR ( Amer) 82, Glucose 109 H, Calcium 8.0 L, Total Bilirubin 0.4, AST 18, ALT 12, Alkaline Phosphatase 111, Total Protein 4.8 L, Globulin 2.6, Albumin/Globulin Ratio 0.8 L I & O for Labs for Last 24 Hours: Intake & Output 08/06/24 08/07/24 08/08/24 08/09/24 11:59 11:59 11:59 11:59 Intake Total 0 / 0 270 / 270 260 / 260 Output Total 2150 / 2150 1625 / 1625 0 / 0 Balance -2150 / -2150 -1355 / -1355 260 / 260 Weight 184 lb 6.4 oz 187 lb 1.6 oz 180 lb 4.8 oz Microbiology Reports for the Last 24 Hours: Microbiology 08/06/24 19:40 Blood Blood Culture - Preliminary NO GROWTH AFTER 48 HOURS 08/06/24 18:54 Blood Blood Culture - Preliminary NO GROWTH AFTER 48 HOURS Constitutional: Present no acute distress and somnolent Respiratory: Present rhonchi (Anteriorly bilaterally) Cardiac: Present Irregularly Regular GI: Present soft and normal bowel sounds; Absent distention, tenderness or guarding Extremities: Present edema (Bilateral lower extremities. Some edema of the hands as well.) Skin: Present dry and warm Neuro: Present Other (Somnolent. Does awaken with loud verbal stimuli and answer questions with yes and no) Assessment and Plan *Assessment and plan (1) Altered mental status: Status: Acute Qualifiers: Altered mental status type: transient alteration of awareness Qualified Code(s): R40.4 - Transient alteration of awareness Category: Medical Code(s): R41.82 - Altered mental status, unspecified (2) E. coli urinary tract infection: Status: Acute Category: Medical Code(s): N39.0 - Urinary tract infection, site not specified; B96.20 - Unspecified Escherichia coli [E. coli] as the cause of diseases classified elsewhere (3) Debility: Status: Acute Category: Medical Code(s): R53.81 - Other malaise (4) Hypothermia: Status: Acute Category: Medical Code(s): T68.XXXA - Hypothermia, initial encounter (5) Peripheral edema: Status: Acute Category: Medical Code(s): R60.0 - Localized edema (6) Afib: Status: Chronic Category: Medical Code(s): I48.91 - Unspecified atrial fibrillation (7) HTN (hypertension): Status: Acute Qualifiers: Hypertension type: unspecified Qualified Code(s): I10 - Essential (primary) hypertension Category: Medical Code(s): I10 - Essential (primary) hypertension (8) Hyperlipidemia: Status: Chronic Qualifiers: Hyperlipidemia type: mixed hyperlipidemia Qualified Code(s): E78.2 - Mixed hyperlipidemia Category: Medical Code(s): E78.5 - Hyperlipidemia, unspecified Plan Continue with current care. Apparently [facility] will accept patient back into the facility after she voids. Dr. Kyle entry - Saw patient, agree with above note. Plan discharge to [facility] later today.
[2024-08-09 08:00] VITALS: BP 100/75; PULSE 90; PULSE 97; RESP 18; TEMP 37.3; O2SAT 95
--- NOTE | 2024-08-09 09:11 | EXP.DC.SUM ---
General Admission date:: 08/06/24 Discharge date: 08/09/24 HPI HPI HPI: Ms. Anders is an 84 year old patient of [facility] who was brought to the ER yesterday afternoon from [facility] due to sedation/altered mental status. She was admitted to [facility] last week due to an E. coli UTI and septic shock. She was discharged to [place] 3 days ago for rehab due to weakness and debility. Patient's daughter reports that she had minimal oral intake and was sleeping a lot and had minimal urinary output at the [facility]. In the ER, her body temperature was found to be low. Patient had an Echo at [facility] in May 2024, at the time EF was normal. Hospital Course Hospital Course Hospital Course: Patient was admitted from the emergency room with a possible CHF exacerbation. Infection seems to be more likely due to her recent UTI. IV antibiotics were initiated. Repeat echocardiogram revealed a left ventricular ejection fraction of 50 to 55%. On admission patient was quite somnolent. She was difficult to evaluate due to her extreme hardness of hearing. She gradually did respond more easily and was able to eat and drink minimal amounts. Her edema of her arms and legs did improve. She was hypothermic on admission and with a bear hugger temperature became normal. She had a Sebastian catheter which was removed on 08/08/2024. She is to return to [place] once she has voided For ongoing rehab. She was given a one-time dose of Lasix 20 mg p.o. She will continue with her antibiotics. Urine culture is pending thus far. Blood cultures are negative at 48 hours. Patient will need ongoing PT and OT. She needs to be out of bed into a chair daily. Exam Data for Last 24 hours Vital signs and Labs for Last 24 Hours: Temp Pulse Resp BP Pulse Ox O2 Del Method O2 Flow Rate 99.2 F 97 H 18 100/75 L 95 Room Air 2 08/09/24 08:00 08/09/24 08:00 08/09/24 08:00 08/09/24 08:00 08/09/24 08:00 08/09/24 08:00 08/08/24 08:00 FiO2 28 08/07/24 19:26 I & O for Last 24 hours: Intake & Output 08/06/24 08/07/24 08/08/24 08/09/24 11:59 11:59 11:59 11:59 Intake Total 0 / 0 270 / 270 496 / 496 Output Total 2150 / 2150 1625 / 1625 0 / 0 Balance -2150 / -2150 -1355 / -1355 496 / 496 Weight 184 lb 6.4 oz 187 lb 1.6 oz 180 lb 4.8 oz Microbiology Reports for the Last 24 Hours: Microbiology 08/07/24 16:55 Urine,Clean Catch Urine Culture - Final No growth. 08/06/24 19:40 Blood Blood Culture - Preliminary NO GROWTH AFTER 48 HOURS 08/06/24 18:54 Blood Blood Culture - Preliminary NO GROWTH AFTER 48 HOURS Narrative: Constitutional: Present no acute distress and somnolent Respiratory: Present rhonchi (Anteriorly bilaterally) Cardiac: Present Irregularly Regular GI: Present soft and normal bowel sounds; Absent distention, tenderness or guarding Extremities: Present edema (Bilateral lower extremities. Some edema of the hands as well.) Skin: Present dry and warm Neuro: Present Other (Somnolent. Does awaken with loud verbal stimuli and answer questions with yes and no) Results Data Completed and Pending Completed studies during hospitalization [Text1]: 08/06/2024 CXR MPRESSION: No dense parenchymal consolidation, pleural effusion, or pneumothorax. 08/06/[address] IMPRESSION: Presumably age-related and chronic changes without acute intracranial abnormality. 08/07/2024 repeat CXR IMPRESSION: Stable cardiomegaly. Left lower lobe atelectasis. 08/08/2024 ECHO Conclusion This is a limited TTE to evaluate for LVEF. Limited windows were obtained. Technically difficult study. The left ventricle is normal in size. There is increased LV wall thickness. There is low normal LV systolic function. The septum is asynchronous. There is mild hypokinesis of the anterior and anteroseptal LV jeffery. LVEF is 50-55%. The right ventricle is mildly to moderately dilated with mildly reduced RV function. There is a trivial, posterior pericardial effusion present. The largest pocket measures 0.2 cm in diastole. No echo indications of tamponade. 08/06/24 18:54: WBC 10.3, RBC 3.20 L, Hgb 10.5 L, Hct 34.3 L, MCV 107.1 H, MCH 32.8 H, MCHC 30.6 L, RDW 19.0 H, Plt Count 112 L, MPV 10.5 H, Neut % (Auto) 80.2 H, Lymph % (Auto) 11.4, [place] % (Auto) 7.1, Eos % (Auto) 1.0, Baso % (Auto) 0.3, Neut # (Auto) 8.3 H, Lymph # (Auto) 1.2, [place] # (Auto) 0.7, Eos # (Auto) 0.1, Baso # (Auto) 0.0, Sodium 139, Potassium 4.2, Chloride 113 H, Carbon Dioxide 18 L, Anion Gap 12.2, BUN 16 D, Creatinine 0.70 D, Estimated Creat Clear 58, Estimated GFR 79, Est GFR ( Amer) 96 D, Glucose 130 H, Calcium 8.2 L, Total Bilirubin 0.5, AST 22, ALT 15, Alkaline Phosphatase 107, Troponin I < 0.01, NT-Pro-B Natriuret Pep 6310 H, Total Protein 4.6 L, Albumin 2.2 L, Globulin 2.4, Albumin/Globulin Ratio 0.9 L, Procalcitonin 0.355 08/06/24 18:58: VBG pH 7.25 L, VBG pCO2 41.5, VBG pO2 47.0 H, VBG HCO3 17.6 L, VBG Total CO2 18.9 L, VBG O2 Saturation 81.1 H, VBG Base Excess -9.7 L, VBG Lactic Acid 1.6 08/06/24 20:05: Urine Color Yellow, Urine Appearance Clear, Urine pH 6.0, Ur Specific Paron 1.020, Urine Protein Trace, Urine Glucose (UA) Negative, Urine Ketones Negative, Urine Blood 1+ A, Urine Nitrate Negative, Urine Bilirubin Negative, Urine Urobilinogen 0.2, Ur Leukocyte Esterase Negative, Urine RBC None, Urine WBC Occasional, Ur Squamous Epith Cells None, Urine Bacteria None 08/07/24 00:40: Troponin I < 0.01 08/07/24 07:30: WBC 9.7, RBC 3.40 L, Hgb 11.0 L, Hct 35.5 L, MCV 104.5 H, MCH 32.5 H, MCHC 31.1 L, RDW 18.7 H, Plt Count 129 L, MPV 9.7, Neut % (Auto) 76.4, Lymph % (Auto) 13.9, [place] % (Auto) 8.0, Eos % (Auto) 1.5, Baso % (Auto) 0.2, Neut # (Auto) 7.4, Lymph # (Auto) 1.4, [place] # (Auto) 0.8, Eos # (Auto) 0.1, Baso # (Auto) 0.0, Sodium 139, Potassium 3.8, Chloride 112 H, Carbon Dioxide 20 L, Anion Gap 10.8, BUN 16, Creatinine 0.70, Estimated Creat Clear 53, Estimated GFR 79, Est GFR ( Amer) 96, Glucose 97 D, Calcium 8.2 L, Magnesium 1.8, Total Bilirubin 0.5, AST 20, ALT 14, Alkaline Phosphatase 109, NT-Pro-B Natriuret Pep 7050 H, Total Protein 4.8 L, Albumin 2.4 L, Globulin 2.4, Albumin/Globulin Ratio 1.0 L 08/08/24 06:51: Carbon Dioxide 23, Anion Gap 10.6, BUN 14, Creatinine 0.80, Estimated Creat Clear 54, Estimated GFR 68, Est GFR ( Amer) 82, Glucose 109 H, Calcium 8.0 L, Total Bilirubin 0.4, AST 18, ALT 12, Alkaline Phosphatase 111, Total Protein 4.8 L, Globulin 2.6, Albumin/Globulin Ratio 0.8 L Labs on day of discharge: Preliminary micro results at discharge 08/06/24 19:40 Blood Culture - Preliminary Blood NO GROWTH AFTER 48 HOURS 08/06/24 18:54 Blood Culture - Preliminary Blood NO GROWTH AFTER 48 HOURS DS: Diagnosis Discharge Diagnosis (1) Altered mental status: Status: Acute Code(s): R41.82 - Altered mental status, unspecified Qualifiers: Altered mental status type: transient alteration of awareness Qualified Code(s): R40.4 - Transient alteration of awareness (2) E. coli urinary tract infection: Status: Acute Code(s): N39.0 - Urinary tract infection, site not specified; B96.20 - Unspecified Escherichia coli [E. coli] as the cause of diseases classified elsewhere (3) Debility: Status: Acute Code(s): R53.81 - Other malaise (4) Hypothermia: Status: Acute Code(s): T68.XXXA - Hypothermia, initial encounter (5) Peripheral edema: Status: Acute Code(s): R60.0 - Localized edema (6) Afib: Status: Chronic Code(s): I48.91 - Unspecified atrial fibrillation (7) HTN (hypertension): Status: Acute Code(s): I10 - Essential (primary) hypertension Qualifiers: Hypertension type: unspecified Qualified Code(s): I10 - Essential (primary) hypertension (8) Hyperlipidemia: Status: Chronic Code(s): E78.5 - Hyperlipidemia, unspecified Qualifiers: Hyperlipidemia type: mixed hyperlipidemia Qualified Code(s): E78.2 - Mixed hyperlipidemia Meds Home Medications and Allergies Home Medications ?Medication ?Instructions ?Recorded ?Confirmed ?Type escitalopram oxalate 10 mg tablet 10 mg PO DAILY 10/19/17 08/07/24 History cholecalciferol (vitamin D3) 125 10,000 unit PO .TWICE WEEKLY 06/30/22 08/07/24 History mcg (5,000 unit) capsule Supplement omeprazole 40 mg capsule,delayed 40 mg PO HS Acid reflux 02/20/23 08/07/24 History release cyanocobalamin (vitamin B-12) 1,000 mcg PO DAILY Supplement 04/04/23 08/07/24 History 1,000 mcg tablet,extended release atorvastatin 20 mg tablet 20 mg PO HS 07/31/24 08/07/24 History metoprolol succinate 25 mg 25 mg PO DAILY 07/31/24 08/07/24 History tablet,extended release 24 hr rivaroxaban 20 mg tablet (Xarelto) 20 mg PO QPMWITHMEAL 07/31/24 08/07/24 History acetaminophen 325 mg tablet 325 mg PO Q4H PRN pain #1 tab 08/04/24 08/07/24 Rx (Tylenol) levofloxacin 500 mg tablet 500 mg PO DAILY Infection #10 tabs 08/09/24 Rx New Prescriptions to Start Prescriptions: levofloxacin Libby Ramos Allergies Allergy/AdvReac Type Severity Reaction Status Date / Time Penicillins [PENICILLINS] Allergy Intermediate I-RASH Verified 05/10/24 14:30 hydrocortisone Allergy Unknown I-RASH Verified 05/10/24 14:30 [From CORTIZONE-10] Discharge Plan Disposition Patient Disposition: [facility] Condition: Fair Discharge Order Discharge Orders: Discharge Order (Routine); Ordered 08/09/24 Ordered By: Libby Ramos Follow up Plan Prescriptions/Medication Reconciliation: New levofloxacin 500 mg tablet 500 mg PO DAILY MDD 500 mg Qty: 10 0RF Rx Instructions: 500 mg qd x 7 days Continued escitalopram oxalate 10 mg tablet 10 mg PO DAILY omeprazole 40 mg capsule,delayed release(DR/EC) 40 mg PO HS Patient Comments: TAKE 1 CAPSULE BY MOUTH EVERY DAY cyanocobalamin (vitamin B-12) 1,000 mcg Tablet Extended Release 1,000 mcg PO DAILY cholecalciferol (vitamin D3) 125 mcg (5,000 unit) capsule 10,000 unit PO .TWICE WEEKLY Patient Comments: TAKE 2 CAPSULES BY MOUTH TWICE A WEEK ON SAME DAYS EACH WEEK metoprolol succinate 25 mg tablet extended release 24 hr 25 mg PO DAILY atorvastatin 20 mg tablet 20 mg PO HS Patient Comments: TAKE 1 TABLET BY MOUTH DAILY FOR CHOLESTEROL Xarelto 20 mg tablet 20 mg PO QPMWITHMEAL Patient Comments: TAKE 1 TABLET BY MOUTH EVERY EVENING WITH MEAL FOR ATRIAL FIBRILLATION acetaminophen [Tylenol] 325 mg tablet 325 mg PO Q4H PRN (Reason: pain) Qty: 1 0RF Discontinued melatonin 10 mg capsule 10 mg PO HSP PRN (Reason: Sleep) levocetirizine [Xyzal] 5 mg tablet 5 mg PO DAILY Qty: 90 3RF cefuroxime axetil 500 mg tablet 500 mg PO Q12H 7 Days Qty: 14 0RF Problem Reconciliation Problems Reviewed?: Yes Patient Discharge Instructions ACTIVITY: Up in chair and Other DIET: continue same diet Patient Instructions: DI for Heart Failure, DI for Urinary Tract Infection (UTI), DI for Altered Mental Status Print Language: Grenadian Providers Primary Care Provider: Parvez Kyle Admit Provider: Pedro Pablo Galicia Attending Provider: Parvez Kyle
[2024-08-09] MEDS: FUROSEMIDE 20MG TABLET 20 MG PO (10:19)
[2024-08-09] MEDS: LEVOFLOXACIN/D5W 500 MG/100 ML PIGGYBACK 100 MG IV (10:20)
[2024-08-09 12:00] VITALS: PULSE 90
--- NOTE | 2024-08-09 15:10 | PC.NURSE ---
Addendum entered by Jenny Wong RN 08/09/24 16:40: pt had a fully saturated attends at 1630. notified office and they stated they would notify johan and pcp. Original Note: pt is resting in bed with family at bedside. alert to self only. pt has been sleeping for most of the shift. pt tolerated sitting up on the sob with physical therapy however was unable to stay awake long enough to attempt to stand. pt's daughter was able to get pt to eat several bites of oatmeal for breakfast and drink few cups of cranberry juice. pt has still not been able to void. pt did sit on the bedpan and had a very small bowel movement. bladder scanned at 1200 and had 411 ml's. pt scanned at 1500 and had 532 ml's. pcp talked with family at bedside and stated he did not want to send pt back to [facility] if she was unable to void on her own. continue to monitor for now and if pt has 700 ml's of urine with the bladder scanner then we will in and out cath pt. will continue to monitor.
[2024-08-09 15:33] VITALS: BMI 35.4
[2024-08-09 16:00] VITALS: BP 113/66; PULSE 110; PULSE 128; RESP 20; TEMP 36.9; O2SAT 96
[2024-08-09] MEDS: RIVAROXABAN 10MG TABLET 20 MG PO (17:05)
== END 2024-08-09 18:50 ==
LOC: ER 19:09 → 2ND 20:48
PROVIDERS: Admitting Provider Internal Medicine Adolescent Medicine; Emergency Provider Emergency Medicine; PCP Family Medicine; Visit Provider Family Medicine
DX: N39.0 Urinary tract infection, site not specified (principal); B96.20 Unspecified Escherichia coli [E. coli] as the cause of diseases classified elsewhere; R53.81 Other malaise; R40.4 Transient alteration of awareness; T68.XXXA Hypothermia, initial encounter; R60.0 Localized edema; I48.91 Unspecified atrial fibrillation; I10 Essential (primary) hypertension; E78.2 Mixed hyperlipidemia; R68.0 Hypothermia, not associated with low environmental temperature; I48.20 Chronic atrial fibrillation, unspecified; Z85.3 Personal history of malignant neoplasm of breast
CPT/HCPCS: 36415; 51702; 70450; 71045; 80053; 81001; 82533; 82803; 83735; 83880; 84145; 84484; 85025; 87040; 87086; 93005; 93308; 94760; 97163; 97166; 97530; 99285; G0378; J1940; J1956

== ENCOUNTER 2024-08-14 10:28 | Inpatient (IN) | payer MEDICARE, OTHER, SELFPAY ==
[2024-08-14] VITALS (13 sets, daily range): BP systolic 86–108; BP diastolic 48–75; PULSE 61–136; RESP 16–27; TEMP 36.4–36.9; O2SAT 92–100; BMI 28.8
--- NOTE | 2024-08-14 10:21 | CT_ITS ---
PROCEDURE INFORMATION: Exam: CTA Chest With Contrast Exam date and time: 08/14/2024 12:31 PM Age: 84 years old Clinical indication: Dyspnea; Additional info: Sepsis unknown origin, resp failure TECHNIQUE: Imaging protocol: Computed tomographic angiography of the chest with contrast. Exam focused on the arteries. 3D rendering (Not supervised by radiologist): MIP and/or 3D reconstructed images were created by the technologist. Radiation optimization: All CT scans at this facility use at least one of these dose optimization techniques: automated exposure control; mA and/or kV adjustment per patient size (includes targeted exams where dose is matched to clinical indication); or iterative reconstruction. Contrast material: ISOVUE 370; Contrast volume: 80 ml; Contrast route: INTRAVENOUS (IV); COMPARISON: CT ANGIO CHEST PE PROTOCOL 08/14/2024 12:31 PM FINDINGS: Pulmonary arteries: The main pulmonary artery is dilated to 3.2 cm. No pulmonary embolism. Aorta: Aortic atherosclerosis. No aneurysm. Lungs: Bibasilar atelectasis. No dense pulmonary consolidation or mass. Pleural spaces: Large left and moderate right pleural effusions. Heart: Moderate cardiomegaly. Coronary artery atherosclerosis. No pericardial effusion. There is low density material within the left atrial appendage, nonspecific, but may be related to flow artifact and lack of opacification versus left atrial appendage thrombus. Consider echocardiogram if there is clinical concern. Lymph nodes: Calcified granuloma in the right upper lobe. Calcified hilar lymph nodes. Bones/joints: Postsurgical changes in the right humeral head. No acute fracture. No suspicious lytic or blastic bony lesions. Soft tissues: Postsurgical changes in the right breast. Correlate with prior mammography. IMPRESSION: 1. The main pulmonary artery is dilated to 3.2 cm. No pulmonary embolism. 2. Large left and moderate right pleural effusions. Bibasilar atelectasis. 3. There is low density material within the left atrial appendage, nonspecific, but may be related to flow artifact and lack of opacification versus left atrial appendage thrombus. Consider echocardiogram if there is clinical concern.
--- NOTE | 2024-08-14 10:21 | CT_ITS ---
PROCEDURE INFORMATION: Exam: CT Head Without Contrast Exam date and time: 08/14/2024 12:27 PM Age: 84 years old Clinical indication: Alteration of consciousness; Stupor; Additional info: Sepsis unknown origin, AMS TECHNIQUE: Imaging protocol: Computed tomography of the head without contrast. Radiation optimization: All CT scans at this facility use at least one of these dose optimization techniques: automated exposure control; mA and/or kV adjustment per patient size (includes targeted exams where dose is matched to clinical indication); or iterative reconstruction. COMPARISON: CT HEAD/BRAIN WO CON 08/06/2024 7:14 PM FINDINGS: Tubes, catheters and devices: A nasal airway device traverses the right nasal air channel. Brain: There is advanced frontotemporal volume loss. There is no mass effect, midline shift, acute hemorrhage, extra-axial fluid collection or acute lobar infarct. Hemispheric white matter hypodensity likely represents chronic microvascular ischemic change. Cerebral ventricles: No ventriculomegaly. Paranasal sinuses: Visualized sinuses are unremarkable. No fluid levels. Mastoid air cells: Visualized mastoid air cells are well aerated. Bones: Unremarkable. No acute fracture. Soft tissues: Unremarkable. IMPRESSION: No acute intracranial process.
[2024-08-14 10:31] LABS: Basophils # 0.1 K/mm3 (0-0.2); Basophils % 0.9 % (0.1-2.0); Eosinophils # 0.1 K/mm3 (0.0-0.4); Eosinophils % 0.4 % (0.1-12.0); Hematocrit 32.3 % (37.0-47.0); Hemoglobin 11.5 g/dL (12.2-16.2); Lymphocytes # 3.1 K/mm3 (0.7-4.5); Lymphocytes % 22.7 % (10-50); Mean Corpuscular HGB Conc 35.6 g/dL (31.8-35.4); Mean Corpuscular Hemoglobin 38.1 pg (27.0-31.2); Mean Corpuscular Volume 107.2 fl (81-99); Mean Platelet Volume 9.4 fl (7.4-10.4); Monocytes # 1.1 K/mm3 (0.1-1.0); Monocytes % 7.7 % (1.7-9.3); Neutrophils # 9.2 K/mm3 (1.8-7.8); Neutrophils % 68.3 % (37.0-80.0); Platelet Count 260 K/mm3 (142-424); Red Blood Count 3.01 M/mm3 (4.20-5.40); Red Cell Distribution Width 18.2 % (11.5-17.5); White Blood Count 13.5 K/mm3 (4.8-10.8)
--- NOTE | 2024-08-14 10:31 | ECG_ITS ---
APPROVED REPORT Exam: Resting ECG HR:116 bpm ECG Measurements Heart Rate 116 AXES QRSd 140 QRS -80 QT 380 T 91 QTc 449 Conclusion ATRIAL FIBRILLATION WITH RAPID VENTRICULAR RESPONSE LEFT AXIS DEVIATION [QRS AXIS < -30] LEFT BUNDLE BRANCH BLOCK [120+ ms QRS DURATION, 80+ ms Q/S IN V1/V2, 85+ ms R IN I/aVL/V5/V6] ABNORMAL ECG Electronically signed by : BRIELLE BROCK, 08/14/2024 15:49:32
[2024-08-14 10:33] LABS: VBG Base Excess -6.6 mmol/L (-2.4-2.3); VBG HCO3 20.8 mmol/L (23-30); VBG Oxygen Saturation 61.3 % (50-70); VBG PCO2 49.7 mmol/L (35-51); VBG PH 7.24 mmol/L (7.31-7.41); VBG PO2 36.5 mmol/L (28-40); VBG Total CO2 22.3 mmol/L (23-27)
[2024-08-14 10:34] LABS: Lactate Venous 3.2 mmol/L (0.4-2.0)
[2024-08-14 10:43] LABS: Albumin Level 2.7 g/dl (3.5-5.0); Chloride 103 mmol/L (98-107); Sodium 136 mmol/L (136-145)
--- NOTE | 2024-08-14 10:43 | CT_ITS ---
PROCEDURE INFORMATION: Exam: CTA Abdomen and Pelvis With Contrast Exam date and time: 08/14/2024 12:31 PM Age: 84 years old Clinical indication: Other: Melena, AMS TECHNIQUE: Imaging protocol: Computed tomographic angiography of the abdomen and pelvis with contrast. Exam focused on the arteries. 3D rendering (Not supervised by radiologist): MIP and/or 3D reconstructed images were created by the technologist. Radiation optimization: All CT scans at this facility use at least one of these dose optimization techniques: automated exposure control; mA and/or kV adjustment per patient size (includes targeted exams where dose is matched to clinical indication); or iterative reconstruction. Contrast material: ISOVUE 370; Contrast volume: 80 ml; Contrast route: INTRAVENOUS (IV); COMPARISON: CT ABDOMEN PELVIS WO CON 07/31/2024 8:57 AM FINDINGS: Pleural spaces: Bilateral pleural effusions. Bibasilar atelectasis. Heart: Moderate cardiomegaly. Aorta: Mild aortoiliac atherosclerosis. No aneurysm. Celiac trunk and mesenteric arteries: No occlusion or significant stenosis. Renal arteries: No occlusion or significant stenosis. Right iliac arteries: No occlusion or significant stenosis. Left iliac arteries: No occlusion or significant stenosis. Liver: No mass. Gallbladder and biliary ducts: The gallbladder is not visible, likely due to post cholecystectomy changes. Pancreas: Unremarkable. No mass. No ductal dilation. Spleen: Unremarkable. No splenomegaly. Adrenal glands: Unremarkable. No mass. Kidneys and ureters: Bilateral cortical renal scarring. There is a nonobstructive, 8 mm stone in the right interpolar segment. No hydroureteronephrosis. No suspicious enhancing renal mass. Stomach and bowel: There is hyperenhancement of mucosal jeffery of sigmoid colon, descending colon, transverse colon, nonspecific, but suspicious for an infectious/inflammatory colitis. No bowel obstruction. No contrast extravasation is identified. There is a 1.5 x 2.0 cm ascending colon lipoma (series 3, image 242, series 5, image 51). Appendix: No evidence of appendicitis. Intraperitoneal space: Unremarkable. No free air. No significant fluid collection. Lymph nodes: Unremarkable. No enlarged lymph nodes. Urinary bladder: There is a Sebastian catheter within the urinary bladder. The urinary bladder is completely decompressed. Reproductive: Unremarkable as visualized. Bones/joints: No acute fracture. Soft tissues: Postsurgical changes in the right breast. Correlate with prior mammography. IMPRESSION: 1. There is hyperenhancement of mucosal jeffery of sigmoid colon, descending colon, transverse colon, nonspecific, but suspicious for an infectious/inflammatory colitis. No bowel obstruction. No contrast extravasation is identified. There is a 1.5 x 2.0 cm ascending colon lipoma (series 3, image 242, series 5, image 51). 2. Moderate cardiomegaly. 3. Postsurgical changes in the right breast. Correlate with prior mammography. 4. Bilateral cortical renal scarring. There is a nonobstructive, 8 mm stone in the right interpolar segment. No hydroureteronephrosis. No suspicious enhancing renal mass.
[2024-08-14 10:46] LABS: Alanine Aminotransferase 22 U/L (12-78); Albumin/Globulin Ratio 1.1 (1.1-1.8); Alkaline Phosphatase 123 U/L (38-126); Aspartate Amino Transferase 23 U/L (14-36); Bilirubin,Total 0.7 mg/dl (0.2-1.3); Blood Urea Nitrogen 10 mg/dl (7-17); Calcium 8.3 mg/dl (8.4-10.2); Carbon Dioxide 22 mmol/L (22.0-30.0); Creatinine Clearance Estimated 30 mL/min (50-200); Estimated Glomerular Filt Rate 27 ml/min (>60); GFR (African American) 32 ML/MIN (>60); Globulin 2.4 g/dL (1.3-3.2); Glucose 158 mg/dl (74-100); Lipase 183 U/L (23-300); Magnesium 1.8 mg/dl (1.6-2.3); Total Protein,Serum 5.1 g/dl (6.3-8.2)
--- NOTE | 2024-08-14 10:46 | HMH.EDGENADL ---
Discharge Plan Disposition Patient Disposition: Admitted Clinical Impressions Clinical Impression: Colitis, AMS (altered mental status), Sepsis, CHF exacerbation, Shock, Respiratory failure, Aspiration into airway, Pleural effusion Discharge ED Provider: Lora Huthcison General Adult HPI General Chief complaint: Altered Mental Status Stated complaint: Altered Mental Status Time Seen by Provider: 08/14/24 10:32 Mode of Arrival: EMS Source of Information: EMS Limitations: No Limitations Description of Symptoms (Recalled from ER Triage Doc. by RN): Reports patient with crackles and less awareness. Low o2, low BP, increased heart rate. History of Present Illness HPI narrative: This patient is an 84-year-old female with a history of atrial fibrillation on metoprolol and Xarelto, hypothyroidism, hypertension, hyperlipidemia, CHF with an EF of around 50 to 55%, recent recurrent admissions for altered mental status in the setting of UTI and CHF exacerbation, dysphagia, and baseline essentially nonverbal status presenting to the emergency department for evaluation with concern for possible aspiration event. According to long term facility staff, she was eating breakfast when she became choked and had worsening in her altered mental status with more somnolence and lethargy. They called EMS to pick with the patient and noted they were suctioning chunks of food from the patient's airway, though they note that she supposed be on a pur?ed diet. They also note that she was tachycardic in A-fib with RVR, hypotensive with initial systolics in the 60s, and hypoxic on room air. Patient is also tachypneic. They note that she is very somnolent difficult to respond. Patient is not contribute to history given baseline mental status. Per EMS and SNF paperwork, known DNR/DNI. EMS placed NPA prior to arrival after suctioning the patient. Related Data Home Medications ?Medication ?Instructions ?Recorded ?Confirmed escitalopram oxalate 10 mg tablet 10 mg PO DAILY 10/19/17 08/07/24 cholecalciferol (vitamin D3) 125 10,000 unit PO .TWICE WEEKLY 06/30/22 08/07/24 mcg (5,000 unit) capsule Supplement omeprazole 40 mg capsule,delayed 40 mg PO HS Acid reflux 02/20/23 08/07/24 release cyanocobalamin (vitamin B-12) 1,000 mcg PO DAILY Supplement 04/04/23 08/07/24 1,000 mcg tablet,extended release atorvastatin 20 mg tablet 20 mg PO HS 07/31/24 08/07/24 metoprolol succinate 25 mg 25 mg PO DAILY 07/31/24 08/07/24 tablet,extended release 24 hr rivaroxaban 20 mg tablet (Xarelto) 20 mg PO QPMWITHMEAL 07/31/24 08/07/24 Previous Rx's ?Medication ?Instructions ?Recorded acetaminophen 325 mg tablet 325 mg PO Q4H PRN pain #1 tab 08/04/24 (Tylenol) levofloxacin 500 mg tablet 500 mg PO DAILY Infection #10 tabs 08/09/24 Allergies Allergy/AdvReac Type Severity Reaction Status Date / Time Penicillins [PENICILLINS] Allergy Intermediate I-RASH Verified 05/10/24 14:30 hydrocortisone Allergy Unknown I-RASH Verified 05/10/24 14:30 [From CORTIZONE-10] [facility] Disclaimer: The information contained in this section may have been updated after the patient was seen, as this information can be updated by other users. Medical History Acquired hammer toes of both feet Pincer nail deformity Incurvated nail Bacteremia Cardiogenic shock Sepsis Multi-organ system dysfunction E. coli urinary tract infection Debility CHAD (acute kidney injury) SOB (shortness of breath) on exertion Tinnitus Dysphagia Deviated nasal septum Hearing loss Impacted cerumen of both ears Hyperuricemia Glaucoma History of anemia Breast cancer CTS (carpal tunnel syndrome) Vulva cancer Numbness of feet Keratosis Onychodystrophy Onychoincurvatum Xerosis of skin Edema of both lower extremities Atrial fibrillation Hyperlipidemia Hypertensive heart disease Surgical History History of D&C History of lumpectomy of right breast History of colonoscopy History of repair of right rotator cuff History of placement of ear tubes History of right knee surgery History of cataract surgery History of carpal tunnel release History of cholecystectomy Family History Other Diabetes Family history of cancer Family history of hyperlipidemia Family history of hypertension Family history of myocardial infarction Family history of stroke Social History Smoking Status: Unknown if ever smoked alcohol intake: never substance use type: denies use current occupational status: retired Travel in the last 8 weeks: None household members: family housing: house Other Medical History Have you received the Flu Vaccine for this season: No Have you received the Pneumonia Vaccine: No ROS Obtained: Yes unobtainable due to mental status Physical Exam General General appearance: lethargic Comment: Somnolent, chronically ill-appearing. Awakens to voice and is able to state what her name is Head Head exam: atraumatic and normocephalic Eye Eye exam: Present normal appearance, PERRL and EOMI ENT ENT exam: Present normal exam, normal oropharynx, mucous membranes moist and normal external ear exam Neck Neck exam: Present normal inspection, full ROM and trachea midline; Absent tenderness Chest Chest inspection: Present normal inspection and symmetric chest wall rise; Absent tenderness Respiratory Respiratory exam: Present respiratory distress, accessory muscle use, prolonged expiratory phase and other (bilateral crackles/ronchi); Absent wheezes or stridor Cardiovascular Cardiovascular exam: Present tachycardia and irregular rhythm Abdominal Exam Abdominal exam: Present soft; Absent distention, tenderness, guarding or rebound Extremities Exam Extremities exam: Present normal capillary refill and edema (BLE edema); Absent tenderness Back Exam Back exam: Present normal inspection and full ROM; Absent tenderness Neurological Exam Neurological exam: Absent alert Expanded Neurological Exam Coma scale eye opening: To voice Coma scale motor response: Obeys commands Coma scale verbal response: Incomprehensible Coma scale total: 11 Skin Skin exam: Present warm and dry Medical Decision Making Medical Records Medical records reviewed: Yes I reviewed the patient's medical records. Screening: Per USPSTF and CDC recommendations, given the prevalence of disease in our region, it is our hospital?s policy to screen for HIV and viral Hepatitis for all patients aged 18 and over and those with ongoing risk factors. Tre Inquiry Pt receiving controlled substance: No Vital Signs: 08/14/24 10:27 08/14/24 10:30 08/14/24 11:04 Temperature 98.5 F Temperature Source Oral Pulse Rate 70 61 Pulse Rate [Radial] 136 H Respiratory Rate 27 H 23 22 Blood Pressure 104/66 L 86/58 L Blood Pressure [Right Arm] 104/75 L Blood Pressure Mean 78 67 Blood Pressure Mean [Right Arm] 84 Blood Pressure Source Blood Pressure Source [Right Arm] Automatic Cuff Blood Pressure Position Blood Pressure Position [Right Arm] Supine 02 Sat by Pulse Oximetry 98 96 100 Oxygen Delivery Method Non-Rebreather Non-Rebreather Non-Rebreather Oxygen Flow Rate (LPM) 15 08/14/24 11:09 08/14/24 12:00 08/14/24 12:31 Temperature Temperature Source Pulse Rate 74 68 68 Pulse Rate [Radial] Respiratory Rate 21 21 18 Blood Pressure 87/49 L 95/53 L 86/48 L Blood Pressure [Right Arm] Blood Pressure Mean 60 62 Blood Pressure Mean [Right Arm] Blood Pressure Source Blood Pressure Source [Right Arm] Blood Pressure Position Blood Pressure Position [Right Arm] 02 Sat by Pulse Oximetry 96 92 L 93 L Oxygen Delivery Method Non-Rebreather Non-Rebreather Oxygen Flow Rate (LPM) 15 08/14/24 13:00 08/14/24 13:30 08/14/24 13:48 Temperature 98.0 F Temperature Source Oral Pulse Rate 67 77 68 Pulse Rate [Radial] Respiratory Rate 20 20 16 Blood Pressure 108/65 L 104/52 L 104/52 L Blood Pressure [Right Arm] Blood Pressure Mean 69 Blood Pressure Mean [Right Arm] Blood Pressure Source Automatic Cuff Blood Pressure Source [Right Arm] Blood Pressure Position Supine Blood Pressure Position [Right Arm] 02 Sat by Pulse Oximetry 96 99 Oxygen Delivery Method Non-Rebreather Non-Rebreather Venturi Mask Oxygen Flow Rate (LPM) 15 15 08/14/24 14:00 Temperature Temperature Source Pulse Rate 71 Pulse Rate [Radial] Respiratory Rate 23 Blood Pressure 102/55 L Blood Pressure [Right Arm] Blood Pressure Mean 70 Blood Pressure Mean [Right Arm] Blood Pressure Source Blood Pressure Source [Right Arm] Blood Pressure Position Blood Pressure Position [Right Arm] 02 Sat by Pulse Oximetry 94 L Oxygen Delivery Method Non-Rebreather Oxygen Flow Rate (LPM) 15 Lab Data Lab results reviewed: Yes I reviewed the patient's lab results. Lab Results 08/14/24 10:19: WBC 13.5 H, RBC 3.01 L, Hgb 11.5 L, Hct 32.3 L, MCV 107.2 H, MCH 38.1 H, MCHC 35.6 H, RDW 18.2 H, Plt Count 260, MPV 9.4, Neut % (Auto) 68.3, Lymph % (Auto) 22.7, Colbert % (Auto) 7.7, Eos % (Auto) 0.4, Baso % (Auto) 0.9, Neut # (Auto) 9.2 H, Lymph # (Auto) 3.1, Colbert # (Auto) 1.1 H, Eos # (Auto) 0.1, Baso # (Auto) 0.1, PT 18.4 H, INR 1.74 H, APTT 40.9 H, Sodium 136, Potassium 4.0, Chloride 103, Carbon Dioxide 22, Anion Gap 15.0, BUN 10, Creatinine 1.80 H, Estimated Creat Clear 30, Estimated GFR 27 L, Est GFR ( Amer) 32 L, Glucose 158 H, Calcium 8.3 L, Magnesium 1.8, Total Bilirubin 0.7, AST 23, ALT 22, Alkaline Phosphatase 123, Troponin I 0.01, NT-Pro-B Natriuret Pep 19772 H, Total Protein 5.1 L, Albumin 2.7 L, Globulin 2.4, Albumin/Globulin Ratio 1.1, Lipase 183, TSH 2.18, Thyroxine (T4) 10.4 08/14/24 10:21: VBG pH 7.24 L, VBG pCO2 49.7, VBG pO2 36.5, VBG HCO3 20.8 L, VBG Total CO2 22.3 L, VBG O2 Saturation 61.3, VBG Base Excess -6.6 L, VBG Lactic Acid 3.2 H 08/14/24 10:40: Urine Color Yellow, Urine Appearance Cloudy, Urine pH 6.0, Ur Specific Bronson 1.020, Urine Protein Negative, Urine Glucose (UA) Negative, Urine Ketones Negative, Urine Blood Negative, Urine Nitrate Negative, Urine Bilirubin Negative, Urine Urobilinogen 0.2, Ur Leukocyte Esterase 1+ A, Urine RBC None, Urine WBC 3-5, Ur Squamous Epith Cells 5-10, Urine Bacteria Trace, Urine Yeast 2+, Stool Occult Blood Negative 08/14/24 10:19 08/14/24 10:19 Orders (Tests/Meds): ED MEDICATIONS Generic Name Dose Route Start Last Admin Trade Name Freq PRN Reason Stop Dose Admin Albuterol/Ipratropium 3 ml 08/14/24 14:57 Ipratropium/Albuterol 3 Ml Neb IH 09/13/24 14:56 Q6HP PRN Wheezing Atorvastatin Calcium 20 mg 08/14/24 21:00 Atorvastatin 20mg Tablet PO 09/13/24 20:59 HS [facility] Metoprolol Succinate 25 mg 08/15/24 09:00 Metoprolol Succinate Xl 25mg Tablet PO 09/14/24 08:59 DAILY [facility] Rivaroxaban 20 mg 08/14/24 17:30 Rivaroxaban 10mg Tablet PO 09/13/24 17:29 QPMWITHMEAL [facility] Discontinued Medications Generic Name Dose Route Start Last Admin Trade Name Mariel PRN Reason Stop Dose Admin Cefepime HCl 2 gm/ Sodium 100 mls @ 200 mls/hr 08/14/24 12:54 08/14/24 13:05 Chloride IV 08/14/24 13:23 200 mls/hr ONCE ONE Administration Metronidazole 500 mg in 100 mls @ 100 mls/hr 08/14/24 12:54 08/14/24 13:05 Flagyl 500mg/100ml Ivpb IV 08/14/24 13:53 100 mls/hr ONCE ONE Administration Vancomycin/PEG/NADA/Lysine/Water 1.25 gm in 250 mls @ 125 mls/hr 08/14/24 13:00 08/14/24 13:43 Vancomycin 1.25gm/250ml (Peg) Premix IV 08/14/24 14:59 125 mls/hr ONCE ONE Administration Iopamidol 80 ml 08/14/24 11:40 08/14/24 11:41 Iopamidol-370 (76%);100ml Bottle IV 08/14/24 11:41 80 ml ONCE ONE Administration Miscellaneous 1 each 08/14/24 13:00 Vancomycin Consult Request NOTAPPLIC 09/13/24 12:59 CONSULT PHARMACY [facility] Sodium Chloride 10 ml 08/14/24 11:40 08/14/24 11:40 Sodium Chloride 0.9% 10ml Syr (Rad Only) IV 08/14/24 11:41 10 ml ONCE ONE Administration Sodium Chloride 50 ml 08/14/24 11:40 08/14/24 11:40 0.9 % Sodium Chloride 50 Ml Vial IV 08/14/24 11:41 50 ml ONCE ONE Administration ORDERS Category Date Time Status CT angio abdomen pelvis Stat Cat Scan 08/14/24 10:[address] angio chest PE protocol Stat Cat Scan 08/14/24 10:[address] head/brain wo con Stat Cat Scan 08/14/24 10:21 Completed BNP [NT Pro Brain Natriuretic Pep.] Stat Lab 08/14/24 10:19 Completed CBC w/Auto Diff [Complete Blood Count Auto Diff] Stat Lab 08/14/24 10:19 Completed CMP [Comprehensive Metabolic Panel] Stat Lab 08/14/24 10:19 Completed Diarrhea 23 Panel, PCR Stat Lab 08/14/24 12:53 Ordered Lipase Stat Lab 08/14/24 10:19 Completed MAG [Magnesium] Stat Lab 08/14/24 10:19 Completed Occult Blood,Stool Stat Lab 08/14/24 10:40 Completed PT INR [Prothrombin Time INR] Stat Lab 08/14/24 10:19 Completed PTT [Activated Partial Thrombo Time] Stat Lab 08/14/24 10:19 Completed T4 (Thyroxine) Stat Lab 08/14/24 10:19 Completed TSH [Thyroid Stimulating Hormone] Stat Lab 08/14/24 10:19 Completed Trop I [Troponin I] Stat Lab 08/14/24 10:19 Completed Troponin I Q3H Lab 08/14/24 14:40 Received Troponin I Q3H Lab 08/14/24 16:30 Ordered UA [Urinalysis and Microscopic] Stat Lab 08/14/24 10:40 Completed Blood Culture Stat Micro 08/14/24 11:05 Received Urine Culture Stat Micro 08/14/24 10:40 Received Urine Culture(cathed specimen) Stat Micro 08/14/24 10:40 Received VBG [Venous Blood Gas] Stat RT 08/14/24 10:21 Completed ECG Data Tracing #1: I reviewed this ECG and interpreted as documented below: Atrial fibrillation with rapid ventricular response with a ventricular rate of 116 bpm. Left axis deviation. Left bundle branch block. No acute ST changes concerning for STEMI ECG initial impression date: 08/14/24 ECG initial impression time: 10:46 Medical Decision Narrative: In summary, this patient is a 84-year-old female presenting to the Emergency Department for evaluation of concern for aspiration event, low blood pressure, low oxygen, high heart rate, respiratory distress. Differential diagnoses considered include but are not limited to aspiration pneumonitis, sepsis, CHF exacerbation, UTI, electrolyte derangements. Ruling out the most morbid conditions drove assessment. It should be noted patient's history includes hypertension, hyperlipidemia, atrial fibrillation, CHF which likely are not at goal therapy. This complicates all aspects of care by increasing patient's risk for morbidity. I reviewed patient's past medical records and noted multiple recent admissions for various complaints including UTI and CHF exacerbation. [place] [facility] [place] exam, the patient is somnolent but arouses to voice. She is able to tell me her name but otherwise is not conversant. She is tachycardic with hypotension, but is responding very well to IV fluid resuscitation with improvement from systolic blood pressure of 60s to 100s. She remains in atrial fibrillation with RVR with a rate in the 1 teens primarily but does occasionally shoot up to the 120s. I considered administer medications for rate control, as she is chronically in atrial fibrillation, however given her soft blood pressures and overall acute illness, I feel the heart rate is likely a compensatory mechanism in the setting of respiratory failure and probable sepsis. She is also tachypneic. Workup included broad lab evaluation to evaluate for infectious, metabolic, cardiac causes of her issues.. I also obtain CT head, CT chest, abdomen, and pelvis. patient was given a liter bolus of IV fluids but not a full sepsis bolus given history of heart failure. Labs demonstrated a metabolic acidosis with a lactic of 3.18. BNP is elevated. She does have leukocytosis. I independently interpreted the scans prior to the radiologist read and noted effusions as well as concerns for colitis. Please see their read for final interpretation. Patient did respond very well to the fluid challenge with improvement in her heart rate from the 120s to the 90s. She also had improvement in her blood pressure and perfusion. Again, she was not given full sepsis bolus given CHF and signs of volume overload with elevated BNP and pleural effusions. I feel, however, she was intravascularly depleted. She does have CHAD, lactic acidosis, elevated white blood cell count. Unclear if this is related to poor perfusion secondary to cardiac dysfunction versus sepsis. She does have colitis as a potential source of infection. I ordered a stool sample which has not yet been provided. Family was at bedside and updated to plan of care. They do confirm that the patient is DNR/DNI. Ultimately given her significant lab derangements and alteration in her mental status as well as this aspiration event that she had causing hypoxic respiratory failure, I feel that she would be appropriate for admission for continued monitoring pending cultures and further cardiac workup. I had an interactive discussion with Dr. De La Cruz who accepted the patient on behalf of Dr. Kyle. The patient was admitted once medically stabilized. Critical Care Critical Care Time Critical Care Time: Yes Attestation: On 08/14/24, the high probability of a clinically significant, sudden or life threatening deterioration of the following system(s) required my full and direct attention, intervention and personal management. The time I documented below is in addition to time spent performing reported procedures but includes the following listed in this critical care notation. Total Time Total Critical Care Time: 40
[2024-08-14 10:48] LABS: Activated Partial Thrombo Time 40.9 seconds (22.8-30.6); INR 1.74 (0.9-1.1); Prothrombin Time 18.4 seconds (10.1-12.5)
[2024-08-14 10:51] LABS: Occult Blood,Stool Negative (Negative)
--- NOTE | 2024-08-14 10:51 | PC.NURSE ---
rt at bedside placed pt on venti mask 50%
[2024-08-14 10:53] LABS: Microscopic, Urine URINE MICROSCOPIC (MICROSCOPIC)
[2024-08-14 10:54] LABS: Appearance,Urine CLOUDY (Clear); Bilirubin,Urine Negative (Negative); Blood, Urine Negative (Negative); Color,Urine YELLOW (Yellow); Glucose,Urine (UA) Negative (Negative); Ketones,Urine Negative (Negative); Leukocyte Esterase,Urine 1+ (Negative); Nitrate,Urine Negative (Negative); Protein,Urine Negative (Negative); Urobilinogen,Urine 0.2 EU/dl (0.2)
[2024-08-14 10:56] LABS: NT Pro Brain Natriuretic Pep. 15500 pg/mL (0-450)
[2024-08-14 11:04] LABS: T4 (Thyroxine) 10.4 ug/dl (5.53-11.0); Troponin I 0.01 ng/ml (0.00-0.034)
[2024-08-14 11:06] LABS: Bacteria,Urine Trace /lpf; Yeast,Urine 2+ /lpf
[2024-08-14 11:17] LABS: Thyroid Stimulating Hormone 2.18 uIU/mL (0.465-4.68)
[2024-08-14] MEDS: 0.9 % SODIUM CHLORIDE 50 ML VIAL IV (11:40)
[2024-08-14] MEDS: SODIUM CHLORIDE 0.9% 10ML SYR (RAD ONLY) 10 ML IV (11:40)
[2024-08-14] MEDS: IOPAMIDOL-370 (76%);100ML BOTTLE 80 ML IV (11:41)
[2024-08-14] MEDS: METRONIDAZ/SOD CHL 500 MG/100 ML PIGGYBACK 100 MG IV (13:05)
[2024-08-14] MEDS: CEFEPIME HCL 2 GM in 0.9 % SODIUM CHLORIDE 100 ML IV (13:05)
--- NOTE | 2024-08-14 13:21 | PC.NURSE ---
DR BROCK SPEAKING WITH DR CARTER
--- NOTE | 2024-08-14 13:25 | PC.NURSE ---
[facility] MANAGER NOTIFIED OF ADMISSION
[2024-08-14] MEDS: VANCOMYCIN/WATER FOR INJ (PEG) 1.25 GM/250 ML PIGGYBACK IV (13:43)
--- NOTE | 2024-08-14 13:47 | PC.NURSE ---
Report called to DIANA Andrews on Med Surg.
[2024-08-14 14:34] LABS: Reflex Lactic Add Lactic Reflex
[2024-08-14 15:06] LABS: Lactic Acid Follow Up (RFLX 1) 1.9 mmol/L (0.7-2.1)
[2024-08-14] MEDS: FUROSEMIDE 20 MG/2 ML VIAL IV (16:17)
[2024-08-14 17:25] LABS: Troponin I 0.02 ng/ml (0.00-0.034)
[2024-08-14 17:51] LABS: Troponin I < 0.01 ng/ml (0.00-0.034)
--- NOTE | 2024-08-14 17:56 | PC.WOUNDNOTE ---
STAGE 2 NOTED TO PATIENT'S BOTTOM SORE SPOT NOTED UNDER PATIENT'S LEFT BREAST ABRASIONS THAT ARE SCABBING NOTED TO PATIENT'S CHEST ABRASION NOTED TO PATIENT'S LOWER RIGHT ABD
[2024-08-15] VITALS (10 sets, daily range): BP systolic 94–120; BP diastolic 50–81; PULSE 50–125; RESP 14–32; TEMP 36.5–37.1; O2SAT 93–100; BMI 29.3
--- NOTE | 2024-08-15 04:58 | PC.NURSE ---
84 yo female pt. She is responsive but not clear how oriented pt is. Pt with 02 at 15 liters per venti mask. She is NPO with no intake. Pt has appeared comfortable throughout shift. She has rapp with clear yellow urine. Pt with generalized edema. No BM this shift
--- NOTE | 2024-08-15 08:20 | SW/DCPLANNER ---
Addendum entered by Niesha Kemp RN 08/19/24 12:45: Discussed patient with Hospice nurse, AD this morning. She feels that patient's condition continues to require inpatient care. Plan as of right now is for patient to remain here over the weekend and re-evaluate on Thursday. Addendum entered by Pili Jacobo 08/18/24 09:11: I spoke w/ Yris at Hospice this AM. Per Yris she will send A.D. (Hospice Nurse) to admit under Hospice inpatient per MD. Per MD he has requested to hold off on sending referral to other facilities at this time. Addendum entered by Niesha Kemp RN 08/17/24 16:10: Spoke with patient's family and AD from [facility] regarding discharge planning. AD did agree that patient is appropriate for Hospice services and likely for admit as inpatient. Plan is to talk with Dr. Kyle and family in the morning about plan of care and possible admit to Hospice inpatient. Addendum entered by Pili Jacobo 08/17/24 12:33: I received a Hospice consult for this patient. I spoke w/ patient's daughter and son this AM regarding Hospice services. They are interested in LTC under [facility] pending w/ Hospice. I did inform family that [facility] does NOT currently have a [facility] pending bed available. Family is agreeable to placement at [place] or [place] w/ Hospice. Patient information has been faxed to [facility] and Hospice at this time. I will follow up once information is reviewed. Addendum entered by Pili Jacobo 08/16/24 13:25: Updated patient information has been faxed to [facility]/ [facility]. Original Note: This patient currently resides at [facility] level of care. Updated patient information has been faxed to [facility]. I will continue to follow up until patient is medically stable for discharge. Discharge date is unknown at this time.
--- NOTE | 2024-08-15 08:26 | P.CONPHA_ITS ---
Pharmacy Intervention Comments: Home medication list verified using list from most recent discharge from [facility]
--- NOTE | 2024-08-15 08:30 | EXP.HP ---
History of Present Illness *Admission Date: 08/14/24 *Reason for visit:: Respiratory distress. *History of present illness: Ms. Anders is a an 84-year-old female with multiple medical issues to include atrial fibrillation, hypertensive heart disease, anemia, past history of breast cancer, frequent urinary tract infections., Acute kidney injuries, debility who has had 2 recent hospitalizations at [facility] for UTI with sepsis. She was transferred back to [place] last week on 08/09/2024 on Levaquin. Apparently she did quite well for couple of days and was even sitting up in a chair and completed transfers from bed to chair. She went to physical therapy in a wheelchair. She then became more lethargic and with altered mental status with decrease in eating the following 3 days. On 08/14/2024 she appeared to have aspirated food. Vital signs deteriorated and she presented again to [facility] emergency room for evaluation. En route to the hospital EMS suction chunks of food from the patient's airway. She was tachycardic in atrial fib. She was also hypotensive with a systolic blood pressure in the 60s and hypoxic on room air. White count was found to be elevated at 13,500 with a hemoglobin of 11.5 and hematocrit of 32.3. Renal function showed a BUN of 10 and creatinine of 1.8. In the Emergency room she was started on IV antibiotics to include cefepime, metronidazole, and vancomycin. ACcording to note she did receive some IVF resuscitation. Chest CTA revealed the following: IMPRESSION: 1. The main pulmonary artery is dilated to 3.2 cm. No pulmonary embolism. 2. Large left and moderate right pleural effusions. Bibasilar atelectasis. 3. There is low density material within the left atrial appendage, nonspecific, but may be related to flow artifact and lack of opacification versus left atrial appendage thrombus. Consider echocardiogram if there is clinical concern. CT of abdominal pelvic regions as follows: IMPRESSION: 1. There is hyperenhancement of mucosal jeffery of sigmoid colon, descending colon, transverse colon, nonspecific, but suspicious for an infectious/inflammatory colitis. No bowel obstruction. No contrast extravasation is identified. There is a 1.5 x 2.0 cm ascending colon lipoma (series 3, image 242, series 5, image 51). 2. Moderate cardiomegaly. 3. Postsurgical changes in the right breast. Correlate with prior mammography. 4. Bilateral cortical renal scarring. There is a nonobstructive, 8 mm stone in the right interpolar segment. No hydroureteronephrosis. No suspicious enhancing renal mass. This a.m. patient is responsive and responds with yes and no. She does focus. [facility] Disclaimer: The information contained in this section may have been updated after the patient was seen, as this information can be updated by other users. 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 coli urinary tract infection Debility SOB (shortness of breath) on exertion Tinnitus Dysphagia Deviated nasal septum Hearing loss Impacted cerumen of both ears Hyperuricemia Glaucoma History of anemia Breast cancer CTS (carpal tunnel syndrome) Vulva cancer Numbness of feet Keratosis Onychodystrophy Onychoincurvatum Xerosis of skin Edema of both lower extremities Atrial fibrillation Hyperlipidemia Hypertensive heart disease Surgical History History of D&C History of lumpectomy of right breast History of colonoscopy History of repair of right rotator cuff History of placement of ear tubes History of right knee surgery History of cataract surgery History of carpal tunnel release History of cholecystectomy Family History Other Diabetes Family history of cancer Family history of hyperlipidemia Family history of hypertension Family history of myocardial infarction Family history of stroke Social History (Updated 08/14/24 @ 18:07 by Brionna Smith RN) Smoking Status: Unknown if ever smoked alcohol intake: never substance use type: denies use current occupational status: retired Travel in the last 8 weeks: None household members: family housing: house Other Medical History Have you received the Flu Vaccine for this season: No Have you received the Pneumonia Vaccine: No Review of Systems Review of Systems Review of systems (narrative): Review of systems obtained from daughter. Constitutional Constitutional: Reports malaise and Reports weakness ENT Ears, Nose, Mouth, and Throat: Reports abnormal hearing and Reports hearing loss *Cardiovascular Cardiovascular: Reports dyspnea, Reports edema and Reports irregular heart rhythm (Tachycardia) *Respiratory Respiratory: Reports chest congestion, Reports cough and Reports dyspnea *Gastrointestinal Gastrointestinal: Reports fecal incontinence and Denies vomiting *Genitourinary Genitourinary: Reports urinary incontinence *Musculoskeletal Musculoskeletal: Reports abnormal gait and Reports muscle weakness *Neurologic Neurologic: Reports abnormal gait, Reports abnormal hearing, Reports abnormal speech, Denies seizure-like activity, Reports sensory deficit and Reports weakness Comments: Lethargic Meds Home Medications and Allergies Home Medications ?Medication ?Instructions ?Recorded ?Confirmed ?Type escitalopram oxalate 10 mg tablet 10 mg PO DAILY 10/19/17 08/14/24 History cholecalciferol (vitamin D3) 125 10,000 unit PO .TWICE WEEKLY 06/30/22 08/14/24 History mcg (5,000 unit) capsule omeprazole 40 mg capsule,delayed 40 mg PO HS 02/20/23 08/15/24 History release cyanocobalamin (vitamin B-12) 1,000 mcg PO DAILY 04/04/23 08/14/24 History 1,000 mcg tablet,extended release atorvastatin 20 mg tablet 20 mg PO HS 07/31/24 08/14/24 History metoprolol succinate 25 mg 25 mg PO DAILY 07/31/24 08/14/24 History tablet,extended release 24 hr rivaroxaban 20 mg tablet (Xarelto) 20 mg PO QPMWITHMEAL 07/31/24 08/15/24 History acetaminophen 325 mg tablet 325 mg PO Q4H PRN pain #1 tab 08/04/24 08/15/24 Rx (Tylenol) levofloxacin 500 mg tablet 500 mg PO DAILY Infection #10 tabs 08/09/24 08/15/24 Rx New Prescriptions to Start Prescriptions: Allergies Allergy/AdvReac Type Severity Reaction Status Date / Time Penicillins [PENICILLINS] Allergy Intermediate I-RASH Verified 05/10/24 14:30 hydrocortisone Allergy Unknown I-RASH Verified 05/10/24 14:30 [From CORTIZONE-10] Exam Data for Last 24 hours Vital signs and Labs for Last 24 Hours: Temp Pulse Resp BP Pulse Ox O2 Del Method O2 Flow Rate 98.7 F 125 H 16 120/81 100 Venturi Mask 15 08/15/24 04:00 08/15/24 04:00 08/15/24 04:00 08/15/24 04:00 08/15/24 04:00 08/15/24 08:00 08/15/24 08:00 Laboratory Results - last 24 hr 08/14/24 10:19: WBC 13.5 H, RBC 3.01 L, Hgb 11.5 L, Hct 32.3 L, MCV 107.2 H, MCH 38.1 H, MCHC 35.6 H, RDW 18.2 H, Plt Count 260, MPV 9.4, Neut % (Auto) 68.3, Lymph % (Auto) 22.7, [place] % (Auto) 7.7, Eos % (Auto) 0.4, Baso % (Auto) 0.9, Neut # (Auto) 9.2 H, Lymph # (Auto) 3.1, [place] # (Auto) 1.1 H, Eos # (Auto) 0.1, Baso # (Auto) 0.1, PT 18.4 H, INR 1.74 H, APTT 40.9 H, Sodium 136, Potassium 4.0, Chloride 103, Carbon Dioxide 22, Anion Gap 15.0, BUN 10, Creatinine 1.80 H, Estimated Creat Clear 30, Estimated GFR 27 L, Est GFR ( Amer) 32 L, Glucose 158 H, Calcium 8.3 L, Magnesium 1.8, Total Bilirubin 0.7, AST 23, ALT 22, Alkaline Phosphatase 123, Troponin I 0.01, NT-Pro-B Natriuret Pep 20279 H, Total Protein 5.1 L, Albumin 2.7 L, Globulin 2.4, Albumin/Globulin Ratio 1.1, Lipase 183, TSH 2.18, Thyroxine (T4) 10.4 08/14/24 10:21: VBG pH 7.24 L, VBG pCO2 49.7, VBG pO2 36.5, VBG HCO3 20.8 L, VBG Total CO2 22.3 L, VBG O2 Saturation 61.3, VBG Base Excess -6.6 L, VBG Lactic Acid 3.2 H 08/14/24 10:40: Urine Color Yellow, Urine Appearance Cloudy, Urine pH 6.0, Ur Specific [place] 1.020, Urine Protein Negative, Urine Glucose (UA) Negative, Urine Ketones Negative, Urine Blood Negative, Urine Nitrate Negative, Urine Bilirubin Negative, Urine Urobilinogen 0.2, Ur Leukocyte Esterase 1+ A, Urine RBC None, Urine WBC 3-5, Ur Squamous Epith Cells 5-10, Urine Bacteria Trace, Urine Yeast 2+, Stool Occult Blood Negative 08/14/24 14:40: Lactate 1.9, Troponin I 0.02 08/14/24 17:15: Troponin I < 0.01 I & O for Last 24 hours: Intake & Output 08/12/24 08/13/24 08/14/24 08/15/24 11:59 11:59 10:59 11:59 Intake Total 250 / 250 Output Total 1025 / 1025 Balance -775 / -775 Weight 189 lb 3.2 oz 193 lb 8 oz Constitutional Constitutional: no acute distress Comments: Responds to loud verbal cues. Answers yes and no *Routine HEENT Exam Head: Present normocephalic and atraumatic Eye: Present PERRL; Absent conjunctival icterus, scleral injection or conjunctivae pink ENT: Present mucous membranes moist *Routine Neck Exam Neck: Present supple; Absent carotid bruit, lymphadenopathy or thyromegaly *Routine Respiratory Exam Respiratory: Present decreased breath sounds (Posteriorly) and rhonchi (Anteriorly) *Routine Cardiovascular Exam Cardiovascular: Present irregularly irregular *Routine Abdominal Exam Abdominal: Present soft and normoactive bowel sounds; Absent tenderness Comments: Obese *Routine Rectal Exam Rectal:: deferred *Routine Genitalia Exam Genitalia:: deferred *Routine Extremities Exam Extremities: Present edema (Bilateral lower legs. Bilateral hands) *Routine Neurological Exam Neurological: Present alert (With verbal stimulation; very hard of hearing) Assessment and Plan *Assessment and plan (1) Respiratory failure: Status: Acute Category: Medical Code(s): J96.90 - Respiratory failure, unspecified, unspecified whether with hypoxia or hypercapnia (2) Pleural effusion: Status: Acute Category: Medical Code(s): J90 - Pleural effusion, not elsewhere classified (3) Aspiration into airway: Status: Acute Category: Medical Code(s): T17.908A - Unspecified foreign body in respiratory tract, part unspecified causing other injury, initial encounter (4) Altered mental status: Status: Acute Qualifiers: Altered mental status type: transient alteration of awareness Qualified Code(s): R40.4 - Transient alteration of awareness Category: Medical Code(s): R41.82 - Altered mental status, unspecified (5) Debility: Status: Acute Category: Medical Code(s): R53.81 - Other malaise (6) Peripheral edema: Status: Acute Category: Medical Code(s): R60.0 - Localized edema (7) Afib: Status: Chronic Category: Medical Code(s): I48.91 - Unspecified atrial fibrillation (8) HTN (hypertension): Status: Acute Qualifiers: Hypertension type: unspecified Qualified Code(s): I10 - Essential (primary) hypertension Category: Medical Code(s): I10 - Essential (primary) hypertension (9) Hyperlipidemia: Status: Chronic Qualifiers: Hyperlipidemia type: mixed hyperlipidemia Qualified Code(s): E78.2 - Mixed hyperlipidemia Category: Medical Code(s): E78.5 - Hyperlipidemia, unspecified (10) Shock: Status: Acute Category: Medical Code(s): R57.9 - Shock, unspecified (11) CHF exacerbation: Status: Acute Category: Medical Code(s): I50.9 - Heart failure, unspecified (12) Colitis: Status: Acute Category: Medical Code(s): K52.9 - Noninfective gastroenteritis and colitis, unspecified (13) CHAD (acute kidney injury): Status: Acute Category: Medical Code(s): N17.9 - Acute kidney failure, unspecified Plan Will continue with oxygen and wean to nasal O2. Will schedule DuoNebs. Will repeat echocardiogram. Will continue with IV Levaquin. To repeat labs this adenice Kyle entry - Saw patient, agree with above note.
--- NOTE | 2024-08-15 09:04 | CA_ITS ---
APPROVED REPORT EXAM: Limited 2D Echocardiogram Director Specialty: Darcy McmanusACE Ht: 5 ft 8 in Wt: 193lbs BSA: 2.01 BP: 120/80 mmHg Indications: ?LOW DENSITY SEEN IN HARLEY ON CTA CHEST,PERICARDIAL EFFUSION,A-FIB,ASPIRATION EDEMA,HTN,HLD M-Mode Dimensions RVDd 3.25 cm (0.9-2.6) LA Diam 4.93 cm (1.9-4.0) LVDd 4.64 cm (3.5-5.7) LVDs 3.34 cm (3.5-5.7) IVSd 0.80 cm (0.6-1.1) PWd 0.80 cm (0.6-1.1) EF (Teich) 54.30% FS 28.00% EDV (Teich) 99.30 mL ESV (Teich) 45.40 mL Other Information Study Quality: Fair Conclusion This is a limited TTE to evaluate for an echodensity noted in the LA appendage on CT chest. Limited windows were obtained. The LV is normal in size. There is grossly normal global LV systolic function. The left atrium is dilated. No echodensities are noted in the main LA cavity. The HARLEY cannot be visualized on the study. Note that HARLEY are often not visualized on TTE, and therefore this study is considered inconclusive. Further evaluation for HARLEY, if clinically feasible and indicated, is suggested with REGGIE. Electronically signed by : Fabiola Mac MD 08/15/2024 13:48:42
[2024-08-15 09:41] LABS: MANUAL DIFFERENTIAL MANUAL DIFFERENTIAL (MANUAL DIFF)
[2024-08-15 09:43] LABS: Basophils # 0.1 K/mm3 (0-0.2); Basophils % 0.4 % (0.1-2.0); Eosinophils % 0.3 % (0.1-12.0); Lymphocytes # 1.2 K/mm3 (0.7-4.5); Lymphocytes % 7.1 % (10-50); Mean Corpuscular HGB Conc 30.6 g/dL (31.8-35.4); Mean Corpuscular Hemoglobin 32.7 pg (27.0-31.2); Mean Corpuscular Volume 106.8 fl (81-99); Mean Platelet Volume 9.9 fl (7.4-10.4); Monocytes # 0.9 K/mm3 (0.1-1.0); Monocytes % 5.3 % (1.7-9.3); Neutrophils # 14.3 K/mm3 (1.8-7.8); Platelet Count 211 K/mm3 (142-424); White Blood Count 16.4 K/mm3 (4.8-10.8)
[2024-08-15 09:47] LABS: Albumin Level 2.1 g/dl (3.5-5.0); Chloride 106 mmol/L (98-107); Potassium 3.5 mmoL/L (3.5-5.1); Sodium 136 mmol/L (136-145)
[2024-08-15 09:49] LABS: Blood Urea Nitrogen 12 mg/dl (7-17); Creatinine Clearance Estimated 31 mL/min (50-200); Estimated Glomerular Filt Rate 27 ml/min (>60); GFR (African American) 32 ML/MIN (>60)
[2024-08-15 09:50] LABS: Alanine Aminotransferase 16 U/L (12-78); Alkaline Phosphatase 94 U/L (38-126); Anion Gap 10.5 mEq/L (5-15); Aspartate Amino Transferase 15 U/L (14-36); Bilirubin,Total 0.6 mg/dl (0.2-1.3); Calcium 7.8 mg/dl (8.4-10.2); Carbon Dioxide 23 mmol/L (22.0-30.0); Globulin 2.1 g/dL (1.3-3.2); Glucose 117 mg/dl (74-100); Total Protein,Serum 4.2 g/dl (6.3-8.2)
[2024-08-15] MEDS: LEVOFLOXACIN/D5W 750 MG/150 ML 750 MG/150 ML PIGGYBACK 100 MG IV (09:59)
[2024-08-15 10:38] LABS: Hemoglobin 9.5 g/dL (12.2-16.2)
[2024-08-15 11:39] LABS: Lymphocytes % 7 % (10-50); Macrocytosis 2+; Monocytes % 3 % (2-9); Neutrophils % 90 % (42-76); Nucleated Red Blood Cells 1; Total Cells Counted 100
[2024-08-15 11:40] LABS: Platelet Estimate Normal
[2024-08-15] MEDS: IPRATROPIUM/ALBUTEROL 3 ML NEB IH ×3 (13:01→23:42)
[2024-08-15 15:17] LABS: Adenovirus F 40/41, stool Not Detected (NotDetected); Astrovirus Not Detected (NotDetected); Campylobacter Not Detected (NotDetected); Clostridium Difficile A/B, PCR Not Detected (NotDetected); Cryptosporidium Not Detected (NotDetected); Cyclospora Cayetanesis Not Detected (NotDetected); Entamoeba histolytica Not Detected (NotDetected); Enteroaggregative E coli Not Detected (NotDetected); Enteropathogenic E coli Not Detected (NotDetected); Enterotoxigenic E coli Not Detected (NotDetected); Giardia lamblia Not Detected (NotDetected); Norovirus Not Detected (NotDetected); Plesimonas Shigalloides, PCR Not Detected (NotDetected); Rotavirus A Not Detected (NotDetected); Salmonella, PCR Not Detected (NotDetected); Sapovirus Not Detected (NotDetected); Shiga-like toxin E coli Not Detected (NotDetected); Shigella Enterovasive E coli Not Detected (NotDetected); Vibrio Cholerae Not Detected (NotDetected); Vibrio, PCR Not Detected (NotDetected); Yersinia Entercolitica, PCR Not Detected (NotDetected)
--- NOTE | 2024-08-15 15:44 | PC.NURSE ---
Addendum entered by Jenny Wong RN 08/15/24 19:22: o2 saturation has maintained 95-98% on 1 l nc Original Note: PT IS RESTING IN BED WITH FAMILY AT BEDSIDE. ALERT TO SELF ONLY. PT HAS BEEN SLEEPING MOST OF THE SHIFT. WILL RESPOND TO YES OR NO QUESTIONS AND FOLLOW SIMPLE COMMANDS. O2 HAS BEEN WEANED FROM 50% VENTI MASK TO 2 L NC. O2 SATURATION HAS MAINTAINED 95-99% ON 2 L NC. LUNG SOUNDS DIMINISHED WITH SCATTERED RHONCHI. ABDOMEN SOFT/NON TENDER WITH ACTIVE BOWEL SOUNDS. EDEMA NOTED TO BUE/BLE. REDNESS/STAGE 2 NOTED TO BUTTOCKS. SCATTERED ABRASIONS NOTED TO CHEST. TURNED AND REPOSITIONED FREQUENTLY. WILL CONTINUE TO MONITOR.
[2024-08-15] MEDS: ENOXAPARIN 40MG/0.4ML SYRINGE 40 MG SUBCUT (18:57)
[2024-08-16] VITALS (8 sets, daily range): BP systolic 82–149; BP diastolic 55–82; PULSE 76–450; RESP 16–26; TEMP 36.9–37.4; O2SAT 91–98; BMI 29.3
[2024-08-16] MEDS: IPRATROPIUM/ALBUTEROL 3 ML NEB IH ×4 (06:14→23:01)
--- NOTE | 2024-08-16 08:19 | EXP.ACUTE.PN ---
Subjective *Date: 08/16/24 *Time: 09:11 Interval history: Family has remained at bedside. She continues to be NPO. Nursing reports systolic blood pressure in the 90s and 80s. Patient is on nasal cannula oxygen at 1 L/min. She continues with Sebastian catheter to bedside drainage. Patient does answer questions and states she hurts all over. She indicates she is short of breath as well. Medical Exam Vital signs and Labs for Last 24 Hours: Vital Signs Temp Pulse Pulse Resp BP Pulse Ox O2 Del Method 08/16/24 06:58 Nasal Cannula 08/16/24 06:15 80 08/16/24 06:15 76 08/16/24 06:15 93 L Nasal Cannula 08/16/24 05:00 Nasal Cannula 08/16/24 04:00 98.5 F 110 H 16 126/55 L 98 Nasal Cannula 08/16/24 04:00 120 H 08/16/24 03:00 Nasal Cannula 08/16/24 01:00 Nasal Cannula 08/16/24 00:00 110 H 08/16/24 00:00 98.5 F 80 16 149/76 H 97 Nasal Cannula 08/15/24 23:42 85 08/15/24 23:42 86 08/15/24 23:00 Nasal Cannula 08/15/24 21:00 Nasal Cannula 08/15/24 20:00 Nasal Cannula 08/15/24 20:00 100 H 08/15/24 20:00 97.8 F 74 14 115/63 94 L Nasal Cannula 08/15/24 18:36 Nasal Cannula 08/15/24 18:08 93 H 08/15/24 18:08 96 H 08/15/24 18:08 100 Nasal Cannula 08/15/24 17:00 Nasal Cannula 08/15/24 16:02 100 H 08/15/24 16:00 97.8 F 111 H 20 102/52 L 93 L Nasal Cannula 08/15/24 15:55 99 Nasal Cannula 08/15/24 15:00 Nasal Cannula 08/15/24 13:00 Nasal Cannula 08/15/24 12:00 97.7 F 85 32 H 100/65 L 100 Nasal Cannula 08/15/24 12:00 50 L 08/15/24 10:40 Venturi Mask O2 Flow Rate 08/16/24 06:58 1 08/16/24 06:15 08/16/24 06:15 08/16/24 06:15 2 08/16/24 05:00 1 08/16/24 04:00 2 08/16/24 04:00 08/16/24 03:00 1 08/16/24 01:00 1 08/16/24 00:00 08/16/24 00:00 2 08/15/24 23:42 08/15/24 23:42 08/15/24 23:00 1 08/15/24 21:00 1 08/15/24 20:00 1 08/15/24 20:00 08/15/24 20:00 2 08/15/24 18:36 1 08/15/24 18:08 08/15/24 18:08 08/15/24 18:08 1 08/15/24 17:00 1 08/15/24 16:02 08/15/24 16:00 1 08/15/24 15:55 2 08/15/24 15:00 2 08/15/24 13:00 4 08/15/24 12:00 4 08/15/24 12:00 08/15/24 10:40 15 Intake and Output 08/15/24 08/16/24 08/16/24 19:59 03:59 11:59 Intake Total 145 / 145 Output Total 125 / 125 110 / 235 Balance -110 / -90 Intake: Intake, Total IV Amount 145 / 145 Levofloxacin/D5w 500 mg In 100 145 / 145 ml @ 100 mls/hr IV Q24H [facility] Rx# :[id number] Output: Output, Urine Amount 125 / 125 110 / 235 Other: Number of Unmeasured Voids 0 0 Number of Bowel Movements 1 1 Weight 193 lb 7.995 oz Patient Weight 08/16/24 11:59 Weight 193 lb 7.995 oz Laboratory Results - last 24 hr 08/14/24 14:50: Stl Aeromonas (PCR) Not detected, Stl C. cayetanensis PCR Not detected, Stool Rotavirus (PCR) Not detected, Stl Adenov F 40/41 PCR Not detected, Stool Astrovirus (PCR) Not detected, Stool Campylobacter PCR Not detected, Stl C.difficile Tox PCR Not detected, Stool Cryptosporidium PCR Not detected, Stl E.coli Shiga Tox PCR Not detected, Stool E coli O157 PCR Not detected, Stl Enterotoxigenic E PCR Not detected, Stool EPEC (PCR) Not detected, Stool EAEC (PCR) Not detected, Stl E. histolytica PCR Not detected, Stool Giardia Lamblia PCR Not detected, Stool Salmonella PCR Not detected, Stool Sapovirus (PCR) Not detected, Stl P. shigelloides PCR Not detected, Stl Shigella/EIEC PCR Not detected, St Y.enterocolitica PCR Not detected, Stool Vibrio (PCR) Not detected, Stl Vibrio cholerae PCR Not detected, Stl Norovirus GI/GII PCR Not detected 08/15/24 09:35: WBC 16.4 H, RBC 2.90 L, Hgb 9.5 L D, Hct 31.0 L, MCV 106.8 H, MCH 32.7 H, MCHC 30.6 L, RDW 18.0 H, Plt Count 211, MPV 9.9, Neut % (Auto) 87.0 H, Lymph % (Auto) 7.1 L, [place] % (Auto) 5.3, Eos % (Auto) 0.3, Baso % (Auto) 0.4, Neut # (Auto) 14.3 H, Lymph # (Auto) 1.2, [place] # (Auto) 0.9, Eos # (Auto) 0.0, Baso # (Auto) 0.1, Total Counted 100, Neutrophils % (Manual) 90 H, Lymphocytes % (Manual) 7 L, Monocytes % (Manual) 3, Nucleated RBCs 1, Platelet Estimate Normal, RBC Morphology Not Reportable, Macrocytosis 2+, Sodium 136, Potassium 3.5, Chloride 106, Carbon Dioxide 23, Anion Gap 10.5, BUN 12, Creatinine 1.80 H, Estimated Creat Clear 31, Estimated GFR 27 L, Est GFR ( Amer) 32 L, Glucose 117 H D, Calcium 7.8 L, Total Bilirubin 0.6, AST 15 D, ALT 16 D, Alkaline Phosphatase 94, Total Protein 4.2 L, Albumin 2.1 L D, Globulin 2.1, Albumin/Globulin Ratio 1.0 L I & O for Labs for Last 24 Hours: Intake & Output 08/13/24 08/14/24 08/15/24 08/16/24 11:59 10:59 11:59 11:59 Intake Total 250 / 250 145 / 145 Output Total 1025 / 1025 235 / 235 Balance -775 / -775 -90 / -90 Weight 189 lb 3.2 oz 193 lb 8 oz 193 lb 7.995 oz Microbiology Reports for the Last 24 Hours: Microbiology 08/14/24 11:05 Blood Blood Culture - Preliminary NO GROWTH AFTER 24 HOURS 08/14/24 11:05 Blood Blood Culture - Preliminary NO GROWTH AFTER 24 HOURS Constitutional: Present somnolent Comment:: Easily awakened when yelling in her ear. Respiratory: Present CTA bilaterally (Anteriorly and posteriorly) Cardiac: Present Irregularly Regular (120-130) GI: Present soft and normal bowel sounds; Absent distention Comment:: Sebastian catheter to bedside drainage with clear yellow urine. Extremities: Present edema (Bilateral lower leg edema. Edema of the hands appears improved) Skin: Present dry Comment:: Patient responds with yes and no answers. She is extremely hard of hearing and responds with yelling in her ear. Assessment and Plan *Assessment and plan (1) Respiratory failure: Status: Acute Category: Medical Code(s): J96.90 - Respiratory failure, unspecified, unspecified whether with hypoxia or hypercapnia (2) Pleural effusion: Status: Acute Category: Medical Code(s): J90 - Pleural effusion, not elsewhere classified (3) Aspiration into airway: Status: Acute Category: Medical Code(s): T17.908A - Unspecified foreign body in respiratory tract, part unspecified causing other injury, initial encounter (4) Altered mental status: Status: Acute Qualifiers: Altered mental status type: transient alteration of awareness Qualified Code(s): R40.4 - Transient alteration of awareness Category: Medical Code(s): R41.82 - Altered mental status, unspecified (5) Debility: Status: Acute Category: Medical Code(s): R53.81 - Other malaise (6) Peripheral edema: Status: Acute Category: Medical Code(s): R60.0 - Localized edema (7) Afib: Status: Chronic Category: Medical Code(s): I48.91 - Unspecified atrial fibrillation (8) HTN (hypertension): Status: Acute Qualifiers: Hypertension type: unspecified Qualified Code(s): I10 - Essential (primary) hypertension Category: Medical Code(s): I10 - Essential (primary) hypertension (9) Hyperlipidemia: Status: Chronic Qualifiers: Hyperlipidemia type: mixed hyperlipidemia Qualified Code(s): E78.2 - Mixed hyperlipidemia Category: Medical Code(s): E78.5 - Hyperlipidemia, unspecified (10) Shock: Status: Acute Category: Medical Code(s): R57.9 - Shock, unspecified (11) CHF exacerbation: Status: Acute Category: Medical Code(s): I50.9 - Heart failure, unspecified (12) Colitis: Status: Acute Category: Medical Code(s): K52.9 - Noninfective gastroenteritis and colitis, unspecified (13) CHAD (acute kidney injury): Status: Acute Category: Medical Code(s): N17.9 - Acute kidney failure, unspecified Plan Labs are ordered and are pending. Speech therapy consult. White blood cell count has improved to 13,500 with a hemoglobin of 9.6 and hematocrit of 30.4. Blood chemistries are pending.Blood and urine cultures are negative thus far. Will give 500 cc of IV fluids. Dr. Kyle entry - Saw patient, agree with above note.
[2024-08-16 08:41] LABS: MANUAL DIFFERENTIAL MANUAL DIFFERENTIAL (MANUAL DIFF)
[2024-08-16 08:45] LABS: Basophils % 0.3 % (0.1-2.0); Eosinophils % 0.1 % (0.1-12.0); Hematocrit 30.4 % (37.0-47.0); Hemoglobin 9.6 g/dL (12.2-16.2); Lymphocytes # 0.9 K/mm3 (0.7-4.5); Lymphocytes % 6.9 % (10-50); Mean Corpuscular HGB Conc 31.7 g/dL (31.8-35.4); Mean Corpuscular Hemoglobin 32.9 pg (27.0-31.2); Mean Corpuscular Volume 103.9 fl (81-99); Mean Platelet Volume 10.3 fl (7.4-10.4); Monocytes # 0.9 K/mm3 (0.1-1.0); Monocytes % 6.4 % (1.7-9.3); Neutrophils # 11.6 K/mm3 (1.8-7.8); Neutrophils % 86.2 % (37.0-80.0); Platelet Count 245 K/mm3 (142-424); Red Blood Count 2.92 M/mm3 (4.20-5.40); Red Cell Distribution Width 18.2 % (11.5-17.5); White Blood Count 13.5 K/mm3 (4.8-10.8)
[2024-08-16 09:01] LABS: Chloride 106 mmol/L (98-107); Potassium 3.4 mmoL/L (3.5-5.1); Sodium 137 mmol/L (136-145)
[2024-08-16 09:04] LABS: Anion Gap 14.4 mEq/L (5-15); Blood Urea Nitrogen 14 mg/dl (7-17); Calcium 7.5 mg/dl (8.4-10.2); Carbon Dioxide 20 mmol/L (22.0-30.0); Creatinine Clearance Estimated 31 mL/min (50-200); Estimated Glomerular Filt Rate 27 ml/min (>60); GFR (African American) 32 ML/MIN (>60); Glucose 126 mg/dl (74-100)
[2024-08-16] MEDS: RINGERS SOLUTION,LACTATED 500 ML 250 ML IV (09:31)
[2024-08-16 11:03] LABS: Lymphocytes % 17 % (10-50); Macrocytosis 1+; Monocytes % 2 % (2-9); Neutrophils % 81 % (42-76); Total Cells Counted 100
[2024-08-16 11:04] LABS: Platelet Estimate Normal
--- NOTE | 2024-08-16 17:25 | PC.NURSE ---
Addendum entered by Janis Castaon RN 08/16/24 17:32: Pt still on 1L NC. Original Note: Pt only alert to self and is very lethargic. Speech came to evaluate pt and recommended to keep pt NPO, because she is unable to swallow and pockets food/meds pt was unable to really stay awake to complete eval. Pt not given any PO meds today. Pt rapp draining well but only 100 cc's of urine out this shift. Pt has 3+ pitting edema in BLE and BUE. Pt has been turned and repositioned Q2 hr. Family at bedside.
[2024-08-16] MEDS: PANTOPRAZOLE 40MG VIAL 40 MG IV (20:56)
[2024-08-16] MEDS: ENOXAPARIN 40MG/0.4ML SYRINGE 40 MG SUBCUT (20:56)
[2024-08-17] VITALS (8 sets, daily range): BP systolic 100–127; BP diastolic 40–86; PULSE 78–169; RESP 16–23; TEMP 36.7–37.9; O2SAT 95–99; BMI 27.6
[2024-08-17] MEDS: IPRATROPIUM/ALBUTEROL 3 ML NEB IH ×2 (06:22→10:59)
--- NOTE | 2024-08-17 06:36 | PC.NURSE ---
Pt only alert to self and has slept the entire shift. She has tolerated 1L nasal cannula. She has not been able to take PO meds. She has been receiving oral care and has been a Q2 turn. 3+ edema noted to bilateral upper and lower extremities. Sebastian catheter has remained in place with only 110 ml out this shift. Family has remained at bedside throughout the night.
[2024-08-17 07:04] LABS: Basophils # 0.1 K/mm3 (0-0.2); Basophils % 0.6 % (0.1-2.0); Eosinophils % 0.1 % (0.1-12.0); Hemoglobin 10.3 g/dL (12.2-16.2); Lymphocytes # 1.5 K/mm3 (0.7-4.5); Lymphocytes % 11.7 % (10-50); Mean Corpuscular HGB Conc 31.3 g/dL (31.8-35.4); Mean Corpuscular Hemoglobin 33.8 pg (27.0-31.2); Mean Corpuscular Volume 107.9 fl (81-99); Mean Platelet Volume 8.1 fl (7.4-10.4); Monocytes # 0.9 K/mm3 (0.1-1.0); Monocytes % 6.7 % (1.7-9.3); Neutrophils # 10.3 K/mm3 (1.8-7.8); Neutrophils % 80.9 % (37.0-80.0); Platelet Count 207 K/mm3 (142-424); Red Blood Count 3.06 M/mm3 (4.20-5.40); Red Cell Distribution Width 17.9 % (11.5-17.5); White Blood Count 12.8 K/mm3 (4.8-10.8)
[2024-08-17 07:21] LABS: Alanine Aminotransferase 23 U/L (12-78); Albumin Level 2.3 g/dl (3.5-5.0); Alkaline Phosphatase 108 U/L (38-126); Anion Gap 16.8 mEq/L (5-15); Aspartate Amino Transferase 31 U/L (14-36); Bilirubin,Total 0.8 mg/dl (0.2-1.3); Blood Urea Nitrogen 17 mg/dl (7-17); Calcium 7.5 mg/dl (8.4-10.2); Carbon Dioxide 15 mmol/L (22.0-30.0); Chloride 109 mmol/L (98-107); Creatinine Clearance Estimated 33 mL/min (50-200); Estimated Glomerular Filt Rate 31 ml/min (>60); GFR (African American) 37 ML/MIN (>60); Globulin 2.3 g/dL (1.3-3.2); Glucose 120 mg/dl (74-100); Potassium 3.8 mmoL/L (3.5-5.1); Sodium 137 mmol/L (136-145); Total Protein,Serum 4.6 g/dl (6.3-8.2)
--- NOTE | 2024-08-17 08:32 | P.PN_ITS ---
Subjective *Date: 08/17/24 *Time: 08:54 Interval history: Patient is resting this am. Her daughter says she was awake yesterday afternoon and could answer yes and no. She could not eat and had trouble drinking. Speech did see her yesterday and recommended she remain NPO. Her daughter feels she is more swollen today. Medical Exam Vital signs and Labs for Last 24 Hours: Vital Signs Temp Pulse Pulse Resp BP Pulse Ox O2 Del Method 08/17/24 08:00 99.5 F 169 H 22 104/86 L 98 Nasal Cannula 08/17/24 06:46 Nasal Cannula 08/17/24 06:24 122 H 08/17/24 06:24 122 H 08/17/24 06:24 97 Nasal Cannula 08/17/24 05:00 Nasal Cannula 08/17/24 04:00 130 H 08/17/24 04:00 98.0 F 144 H 18 123/73 97 Nasal Cannula 08/17/24 03:00 Nasal Cannula 08/17/24 01:00 Nasal Cannula 08/17/24 00:00 140 H 08/17/24 00:00 98.4 F 138 H 16 107/40 L 95 Nasal Cannula 08/16/24 23:02 117 H 08/16/24 23:02 119 H 08/16/24 23:02 Nasal Cannula 08/16/24 23:00 Nasal Cannula 08/16/24 21:00 Nasal Cannula 08/16/24 20:00 130 H 08/16/24 20:00 Nasal Cannula 08/16/24 20:00 98.5 F 146 H 16 124/60 98 Nasal Cannula 08/16/24 18:26 Nasal Cannula 08/16/24 17:00 Nasal Cannula 08/16/24 16:00 95 Nasal Cannula 08/16/24 16:00 450 H 08/16/24 16:00 98.9 F 137 H 26 H 121/82 97 Room Air 08/16/24 14:46 Nasal Cannula 08/16/24 13:00 Nasal Cannula 08/16/24 12:00 140 H 08/16/24 12:00 98.6 F 120 H 24 116/75 96 Nasal Cannula 08/16/24 11:00 Nasal Cannula 08/16/24 09:00 Nasal Cannula O2 Flow Rate 08/17/24 08:00 1 08/17/24 06:46 1 08/17/24 06:24 08/17/24 06:24 08/17/24 06:24 1 08/17/24 05:00 1 08/17/24 04:00 08/17/24 04:00 1 08/17/24 03:00 1 08/17/24 01:00 1 08/17/24 00:00 08/17/24 00:00 1 08/16/24 23:02 08/16/24 23:02 08/16/24 23:02 1 08/16/24 23:00 1 08/16/24 21:00 1 08/16/24 20:00 08/16/24 20:00 1 08/16/24 20:00 1 08/16/24 18:26 1 08/16/24 17:00 1 08/16/24 16:00 1 08/16/24 16:00 08/16/24 16:00 08/16/24 14:46 1 08/16/24 13:00 1 08/16/24 12:00 08/16/24 12:00 1 08/16/24 11:00 1 08/16/24 09:00 1 Intake and Output 08/16/24 08/17/24 08/17/24 19:59 03:59 11:59 Output Total 100 / 210 110 / 210 Balance -100 / -210 -110 / -210 Output: Output, Urine Amount 100 / 210 110 / 210 Other: Number of Unmeasured Voids 0 Weight 182 lb 6.4 oz Patient Weight 08/17/24 11:59 Weight 182 lb 6.4 oz Laboratory Results - last 24 hr 08/16/24 08:35: WBC 13.5 H, RBC 2.92 L, Hgb 9.6 L, Hct 30.4 L, MCV 103.9 H, MCH 32.9 H, MCHC 31.7 L, RDW 18.2 H, Plt Count 245, MPV 10.3, Neut % (Auto) 86.2 H, Lymph % (Auto) 6.9 L, [place] % (Auto) 6.4, Eos % (Auto) 0.1, Baso % (Auto) 0.3, Neut # (Auto) 11.6 H, Lymph # (Auto) 0.9, [place] # (Auto) 0.9, Eos # (Auto) 0.0, Baso # (Auto) 0.0, Total Counted 100, Neutrophils % (Manual) 81 H, Lymphocytes % (Manual) 17, Monocytes % (Manual) 2, Platelet Estimate Normal, Macrocytosis 1+, Sodium 137, Potassium 3.4 L, Chloride 106, Carbon Dioxide 20 L, Anion Gap 14.4, BUN 14, Creatinine 1.80 H, Estimated Creat Clear 31, Estimated GFR 27 L, Est GFR ( Amer) 32 L, Glucose 126 H, Calcium 7.5 L 08/17/24 06:13: WBC 12.8 H, RBC 3.06 L, Hgb 10.3 L, Hct 33.0 L, MCV 107.9 H, MCH 33.8 H, MCHC 31.3 L, RDW 17.9 H, Plt Count 207, MPV 8.1, Neut % (Auto) 80.9 H, Lymph % (Auto) 11.7, [place] % (Auto) 6.7, Eos % (Auto) 0.1, Baso % (Auto) 0.6, Neut # (Auto) 10.3 H, Lymph # (Auto) 1.5, [place] # (Auto) 0.9, Eos # (Auto) 0.0, Baso # (Auto) 0.1, Sodium 137, Potassium 3.8, Chloride 109 H, Carbon Dioxide 15 L, Anion Gap 16.8 H, BUN 17, Creatinine 1.60 H, Estimated Creat Clear 33, Estimated GFR 31 L, Est GFR ( Amer) 37 L, Glucose 120 H, Calcium 7.5 L, Total Bilirubin 0.8, AST 31 D, ALT 23 D, Alkaline Phosphatase 108, Total Protein 4.6 L, Albumin 2.3 L, Globulin 2.3, Albumin/Globulin Ratio 1.0 L I & O for Labs for Last 24 Hours: Intake & Output 08/14/24 08/15/24 08/16/24 08/17/24 10:59 11:59 11:59 11:59 Intake Total 250 / 250 145 / 145 Output Total 1025 / 1025 235 / 235 210 / 210 Balance -775 / -775 -90 / -90 -210 / -210 Weight 189 lb 3.2 oz 193 lb 8 oz 193 lb 7.995 oz 182 lb 6.4 oz Microbiology Reports for the Last 24 Hours: Microbiology 08/14/24 10:40 Urine,Catheterized Urine Culture - Final No growth. 08/14/24 10:40 Urine,Catheterized Urine Culture - Final No growth. 08/14/24 11:05 Blood Blood Culture - Preliminary NO GROWTH AFTER 48 HOURS 08/14/24 11:05 Blood Blood Culture - Preliminary NO GROWTH AFTER 48 HOURS Constitutional: Present no acute distress Respiratory: Present decreased breath sounds Cardiac: Present Reg Rate and Rhythm GI: Present soft; Absent distention or tenderness Extremities: Present edema (upper and lower extremities) Neuro: Present Other (sleeping this am) Assessment and Plan *Assessment and plan (1) Respiratory failure: Status: Acute Category: Medical Code(s): J96.90 - Respiratory failure, unspecified, unspecified whether with hypoxia or hypercapnia (2) Pleural effusion: Status: Acute Category: Medical Code(s): J90 - Pleural effusion, not elsewhere classified (3) Aspiration into airway: Status: Acute Category: Medical Code(s): T17.908A - Unspecified foreign body in respiratory tract, part unspecified causing other injury, initial encounter (4) Altered mental status: Status: Acute Qualifiers: Altered mental status type: transient alteration of awareness Qualified Code(s): R40.4 - Transient alteration of awareness Category: Medical Code(s): R41.82 - Altered mental status, unspecified (5) Debility: Status: Acute Category: Medical Code(s): R53.81 - Other malaise (6) Peripheral edema: Status: Acute Category: Medical Code(s): R60.0 - Localized edema (7) Afib: Status: Chronic Category: Medical Code(s): I48.91 - Unspecified atrial fibrillation (8) HTN (hypertension): Status: Acute Qualifiers: Hypertension type: unspecified Qualified Code(s): I10 - Essential (primary) hypertension Category: Medical Code(s): I10 - Essential (primary) hypertension (9) Hyperlipidemia: Status: Chronic Qualifiers: Hyperlipidemia type: mixed hyperlipidemia Qualified Code(s): E78.2 - Mixed hyperlipidemia Category: Medical Code(s): E78.5 - Hyperlipidemia, unspecified (10) Shock: Status: Acute Category: Medical Code(s): R57.9 - Shock, unspecified (11) CHF exacerbation: Status: Acute Category: Medical Code(s): I50.9 - Heart failure, unspecified (12) Colitis: Status: Acute Category: Medical Code(s): K52.9 - Noninfective gastroenteritis and colitis, unspecified (13) CHAD (acute kidney injury): Status: Acute Category: Medical Code(s): N17.9 - Acute kidney failure, unspecified Plan WBC and renal function improved slightly. Speech therapy to see again today. Will discuss further care with Dr. Kyle. Dr. Kyle entry - Saw patient, agree with about note. Discussed possible Hospice care with family. Will await speech therapy evaluation today.
[2024-08-17] MEDS: LEVOFLOXACIN/D5W 750 MG/150 ML 750 MG/150 ML PIGGYBACK 100 MG IV (09:07)
[2024-08-17] MEDS: MORPHINE 2MG/ML SYRINGE 2 MG IV ×2 (10:19→20:14)
--- NOTE | 2024-08-17 18:01 | PC.NURSE ---
PATIENT WILL OPEN EYES TO NAME. HAS NOT BEEN ABLE TO ANSWER QUESTIONS BUT WILL MUMBLE WHEN TALKED TO. PATIENT HAS SLEPT MAJORITY OF SHIFT. TOLERATING 1LNC WELL, MOSTLY FOR COMFORT. PATIENT HAS BEEN TURNED Q2H THIS SHIFT AND ORAL CARE PROVIDED WELL. MORPHINE ADMINISTERED X1 D/T AIR HUNGER AND PATIENT SEEMING UNCOMFORTABLE. MEDICATION WORKED VERY WELL FOR PATIENT AND SHE HAS BEEN MORE COMFORTABLE SINCE. FAMILY HAS REMAINED AT BEDSIDE. F/C PRESENT DRAINING SCANT AMOUNTS OF DARK YELLOW URINE. PATIENT WAS MADE COMFORT CARE TODAY, COURTESY CART PROVIDED FOR FAMILY. VSS.
[2024-08-17] MEDS: GLYCOPYRROLATE 0.2 MG/ML 1ML VIAL IV (20:13)
[2024-08-17] MEDS: ACETAMINOPHEN 650MG SUPPOSITORY 650 MG RC (22:23)
[2024-08-18] VITALS: PULSE 130; O2SAT 99
[2024-08-18] MEDS: LORazepam 2MG/ML VIAL 1 MG IV ×2 (00:24→21:47)
--- NOTE | 2024-08-18 01:13 | PC.NURSE ---
08/17/242124: Pt has a fever. Pt. is comfort care and unresponsive. Temp 101.[address] Galicia contacted to get and Tylenol suppistory order for fever.
[2024-08-18] MEDS: MORPHINE 2MG/ML SYRINGE 2 MG IV ×5 (01:39→23:35)
[2024-08-18] MEDS: GLYCOPYRROLATE 0.2 MG/ML 1ML VIAL IV ×2 (01:40→18:51)
[2024-08-18 04:00] VITALS: PULSE 120; BMI 27.6
--- NOTE | 2024-08-18 07:32 | PC.NURSE ---
0700: Pt. comfort care. Pt. medicated with Morphine, Ativan and Robinol overnight. Pt. mostly unresponsive. Family at bedside. Pt. color pale.
--- NOTE | 2024-08-18 08:38 | EXP.ACUTE.PN ---
Subjective *Date: 08/18/24 *Time: 08:38 Interval history: Patient changed to comfort care last night, no new issues today. Medical Exam Vital signs and Labs for Last 24 Hours: Vital Signs Temp Pulse Pulse Resp BP Pulse Ox O2 Del Method 08/18/24 05:00 Nasal Cannula 08/18/24 04:00 120 H 08/18/24 03:00 Nasal Cannula 08/18/24 01:00 Nasal Cannula 08/18/24 00:00 99 Nasal Cannula 08/18/24 00:00 130 H 08/17/24 23:00 Nasal Cannula 08/17/24 21:00 Nasal Cannula 08/17/24 20:00 140 H 08/17/24 20:00 Nasal Cannula 08/17/24 20:00 100.2 F H 152 H 18 127/70 99 Nasal Cannula 08/17/24 18:31 Nasal Cannula 08/17/24 17:00 Nasal Cannula 08/17/24 16:00 140 H 08/17/24 15:00 Nasal Cannula 08/17/24 13:00 Nasal Cannula 08/17/24 12:00 160 H 08/17/24 12:00 100.3 F H 97 H 23 100/54 L 97 Nasal Cannula 08/17/24 11:00 Nasal Cannula 08/17/24 11:00 79 08/17/24 11:00 78 08/17/24 09:00 Nasal Cannula O2 Flow Rate 08/18/24 05:00 1 08/18/24 04:00 08/18/24 03:00 1 08/18/24 01:00 1 08/18/24 00:00 1 08/18/24 00:00 08/17/24 23:00 1 08/17/24 21:00 1 08/17/24 20:00 08/17/24 20:00 1 08/17/24 20:00 1 08/17/24 18:31 1 08/17/24 17:00 1 08/17/24 16:00 08/17/24 15:00 1 08/17/24 13:00 1 08/17/24 12:00 08/17/24 12:00 1 08/17/24 11:00 1 08/17/24 11:00 08/17/24 11:00 08/17/24 09:00 1 Intake and Output 08/17/24 08/18/2424 23:59 07:59 15:59 Intake Total 0 / 0 Output Total 0 / 120 0 / 0 Balance 0 / -20 0 / 0 Intake: Intake, Oral Amount 0 / 0 Output: Output, Urine Amount 0 / 120 0 / 0 Other: Number of Unmeasured Voids 0 0 Weight 182 lb 6.391 oz Patient Weight 08/18/24 23:59 Weight 182 lb 6.391 oz I & O for Labs for Last 24 Hours: Intake & Output 08/15/24 08/16/24 08/17/24 08/18/24 23:59 23:59 23:59 23:59 Intake Total 145 / 145 100 / 100 0 / 0 Output Total 425 / 425 210 / 210 120 / 120 0 / 0 Balance -280 / -280 -210 / -210 -20 / -20 0 / 0 Weight 193 lb 8 oz 193 lb 7.995 oz 182 lb 6.4 oz 182 lb 6.391 oz Comment:: Sedate, sleeping Cardiac: Present Reg Rate and Rhythm and Tachycardia Assessment and Plan *Assessment and plan (1) Respiratory failure: Status: Acute Category: Medical Code(s): J96.90 - Respiratory failure, unspecified, unspecified whether with hypoxia or hypercapnia (2) Pleural effusion: Status: Acute Category: Medical Code(s): J90 - Pleural effusion, not elsewhere classified (3) Aspiration into airway: Status: Acute Category: Medical Code(s): T17.908A - Unspecified foreign body in respiratory tract, part unspecified causing other injury, initial encounter (4) Altered mental status: Status: Acute Qualifiers: Altered mental status type: transient alteration of awareness Qualified Code(s): R40.4 - Transient alteration of awareness Category: Medical Code(s): R41.82 - Altered mental status, unspecified (5) Debility: Status: Acute Category: Medical Code(s): R53.81 - Other malaise (6) Peripheral edema: Status: Acute Category: Medical Code(s): R60.0 - Localized edema (7) Afib: Status: Chronic Category: Medical Code(s): I48.91 - Unspecified atrial fibrillation (8) HTN (hypertension): Status: Acute Qualifiers: Hypertension type: unspecified Qualified Code(s): I10 - Essential (primary) hypertension Category: Medical Code(s): I10 - Essential (primary) hypertension (9) Hyperlipidemia: Status: Chronic Qualifiers: Hyperlipidemia type: mixed hyperlipidemia Qualified Code(s): E78.2 - Mixed hyperlipidemia Category: Medical Code(s): E78.5 - Hyperlipidemia, unspecified (10) Shock: Status: Acute Category: Medical Code(s): R57.9 - Shock, unspecified (11) CHF exacerbation: Status: Acute Category: Medical Code(s): I50.9 - Heart failure, unspecified (12) Colitis: Status: Acute Category: Medical Code(s): K52.9 - Noninfective gastroenteritis and colitis, unspecified (13) CHAD (acute kidney injury): Status: Acute Category: Medical Code(s): N17.9 - Acute kidney failure, unspecified Plan Continue comfort care.
--- NOTE | 2024-08-18 17:37 | PC.NURSE ---
CONTINUING COMFORT MEASURES. 1LNC FOR O2 SUPPORT. PT APPEARS COMFORTABLE. FAMILY AT BEDSIDE.
[2024-08-18] MEDS: ACETAMINOPHEN 650MG SUPPOSITORY 650 MG RC (21:47)
[2024-08-18 22:00] VITALS: TEMP 38.2
[2024-08-18 23:22] VITALS: TEMP 38.4
[2024-08-19 00:55] VITALS: TEMP 37.7
[2024-08-19] MEDS: GLYCOPYRROLATE 0.2 MG/ML 1ML VIAL IV ×2 (00:55→21:39)
[2024-08-19] MEDS: MORPHINE 2MG/ML SYRINGE 2 MG IV ×6 (00:55→22:26)
[2024-08-19] MEDS: LORazepam 2MG/ML VIAL 1 MG IV ×2 (01:54→22:26)
--- NOTE | 2024-08-19 06:38 | PC.NURSE ---
06:38 Pt. on comfort care. Pt. unresponsive. has been kept comfortable with Morphine, Ativan and Robinol. Family at bedside. respirations slower with a few apenic periods.
--- NOTE | 2024-08-19 07:40 | PC.NURSE ---
Pt's family is refusing to have patient turned at this time.
--- NOTE | 2024-08-19 08:13 | EXP.ACUTE.PN ---
Subjective *Date: 08/19/24 *Time: 08:51 Interval history: Patient has been resting comfortably. Has been getting morphine for pain. Medical Exam Vital signs and Labs for Last 24 Hours: Vital Signs Temp O2 Del Method O2 Flow Rate 08/19/24 07:00 Nasal Cannula 1 08/19/24 05:00 Nasal Cannula 1 08/19/24 03:00 Nasal Cannula 1 08/19/24 00:55 99.9 F H Nasal Cannula 1 08/19/24 00:39 Nasal Cannula 1 08/18/24 23:22 101.2 F H 08/18/24 23:00 Nasal Cannula 1 08/18/24 22:00 100.7 F H 08/18/24 21:00 Nasal Cannula 1 08/18/24 20:00 Nasal Cannula 1 08/18/24 17:34 Nasal Cannula 1 08/18/24 17:00 Nasal Cannula 1 08/18/24 15:00 Nasal Cannula 1 08/18/24 13:00 Nasal Cannula 1 08/18/24 11:00 Nasal Cannula 1 08/18/24 09:00 Nasal Cannula 1 Intake and Output 08/18/24 08/19/24 08/19/24 19:59 03:59 11:59 Output Total 0 / 300 0 / 300 300 / 300 Balance 0 / -300 0 / -300 -300 / -300 Output: Output, Urine Amount 0 / 300 0 / 300 300 / 300 Other: Number of Unmeasured Voids 1 0 0 I & O for Labs for Last 24 Hours: Intake & Output 08/16/24 08/17/24 08/18/24 08/19/24 11:59 11:59 11:59 11:59 Intake Total 145 / 145 100 / 100 0 / 0 Output Total 235 / 235 220 / 220 150 / 150 300 / 300 Balance -90 / -90 -120 / -120 -150 / -150 -300 / -300 Weight 193 lb 7.995 oz 182 lb 6.4 oz 182 lb 6.391 oz Microbiology Reports for the Last 24 Hours: Microbiology 08/14/24 11:05 Blood Blood Culture - Preliminary NO GROWTH AFTER 4 DAYS 08/14/24 11:05 Blood Blood Culture - Preliminary NO GROWTH AFTER 4 DAYS Constitutional: Present no acute distress Comment:: Sedate, sleeping Respiratory: Present CTA bilaterally Cardiac: Present Reg Rate and Rhythm and Tachycardia Extremities: Present edema (bilateral LE's and UE's) Skin: Present intact Assessment and Plan *Assessment and plan (1) Respiratory failure: Status: Acute Category: Medical Code(s): J96.90 - Respiratory failure, unspecified, unspecified whether with hypoxia or hypercapnia (2) Pleural effusion: Status: Acute Category: Medical Code(s): J90 - Pleural effusion, not elsewhere classified (3) Aspiration into airway: Status: Acute Category: Medical Code(s): T17.908A - Unspecified foreign body in respiratory tract, part unspecified causing other injury, initial encounter (4) Altered mental status: Status: Acute Qualifiers: Altered mental status type: transient alteration of awareness Qualified Code(s): R40.4 - Transient alteration of awareness Category: Medical Code(s): R41.82 - Altered mental status, unspecified (5) Debility: Status: Acute Category: Medical Code(s): R53.81 - Other malaise (6) Peripheral edema: Status: Acute Category: Medical Code(s): R60.0 - Localized edema (7) Afib: Status: Chronic Category: Medical Code(s): I48.91 - Unspecified atrial fibrillation (8) HTN (hypertension): Status: Acute Qualifiers: Hypertension type: unspecified Qualified Code(s): I10 - Essential (primary) hypertension Category: Medical Code(s): I10 - Essential (primary) hypertension (9) Hyperlipidemia: Status: Chronic Qualifiers: Hyperlipidemia type: mixed hyperlipidemia Qualified Code(s): E78.2 - Mixed hyperlipidemia Category: Medical Code(s): E78.5 - Hyperlipidemia, unspecified (10) Shock: Status: Acute Category: Medical Code(s): R57.9 - Shock, unspecified (11) CHF exacerbation: Status: Acute Category: Medical Code(s): I50.9 - Heart failure, unspecified (12) Colitis: Status: Acute Category: Medical Code(s): K52.9 - Noninfective gastroenteritis and colitis, unspecified (13) CHAD (acute kidney injury): Status: Acute Category: Medical Code(s): N17.9 - Acute kidney failure, unspecified Plan Continue comfort care. Dr. Kyle entry - Saw patient, agree with above note.
--- NOTE | 2024-08-19 09:04 | PC.NURSE ---
Pt family refused for vitals to be performed at this time.
--- NOTE | 2024-08-19 15:58 | PC.NURSE ---
Unresponsive, DNR comfrot care, 02-1L mn sats in the 90's, 20g L AC SL, F/C in place, followed by hospice.
--- NOTE | 2024-08-19 20:03 | PC.NURSE ---
patients family refused for vitals to be performed at this time.
[2024-08-20] MEDS: MORPHINE 2MG/ML SYRINGE 2 MG IV ×7 (00:23→22:49)
[2024-08-20] MEDS: GLYCOPYRROLATE 0.2 MG/ML 1ML VIAL IV ×5 (03:57→20:31)
[2024-08-20 04:00] VITALS: BMI 27.6
[2024-08-20] MEDS: LORazepam 2MG/ML VIAL 1 MG IV ×2 (05:15→20:31)
--- NOTE | 2024-08-20 07:17 | EXP.ACUTE.PN ---
Subjective *Date: 08/20/24 *Time: 07:17 Interval history: More resp. secretions noted overnight. Patient rested well last night. Medical Exam Vital signs and Labs for Last 24 Hours: Vital Signs O2 Del Method O2 Flow Rate 08/20/24 06:45 Nasal Cannula 1 08/20/24 05:00 Nasal Cannula 1 08/20/24 03:00 Nasal Cannula 1 08/20/24 01:00 Nasal Cannula 1 08/19/24 23:00 Nasal Cannula 1 08/19/24 21:00 Nasal Cannula 1 08/19/24 20:00 Nasal Cannula 1 08/19/24 18:12 Nasal Cannula 1 08/19/24 16:00 Nasal Cannula 1 08/19/24 13:52 Nasal Cannula 1 08/19/24 11:59 Nasal Cannula 1 08/19/24 09:43 Nasal Cannula 1 08/19/24 08:31 Nasal Cannula 1 08/19/24 08:00 Nasal Cannula 1 Intake and Output 08/19/24 08/19/24 08/20/24 15:59 23:59 07:59 Output Total 250 / 550 100 / 100 Balance -250 / -550 -100 / -100 Output: Output, Urine Amount 250 / 550 100 / 100 Other: Number of Unmeasured Voids 0 0 Weight 182 lb 6.391 oz Patient Weight 08/20/24 23:59 Weight 182 lb 6.391 oz I & O for Labs for Last 24 Hours: Intake & Output 08/17/24 08/18/24 08/19/24 08/20/24 23:59 23:59 23:59 23:59 Intake Total 100 / 100 0 / 0 Output Total 120 / 120 150 / 150 550 / 550 100 / 100 Balance -20 / -20 -150 / -150 -550 / -550 -100 / -100 Weight 182 lb 6.4 oz 182 lb 6.391 oz 182 lb 6.391 oz Microbiology Reports for the Last 24 Hours: Microbiology 08/14/24 11:05 Blood Blood Culture - Final NO GROWTH AFTER 5 DAYS 08/14/24 11:05 Blood Blood Culture - Final NO GROWTH AFTER 5 DAYS Constitutional: Present no acute distress Comment:: Sedate, sleeping Respiratory: Present CTA bilaterally Cardiac: Present Reg Rate and Rhythm and Tachycardia Extremities: Present edema (bilateral LE's and UE's) Skin: Present intact Assessment and Plan *Assessment and plan (1) Respiratory failure: Status: Acute Category: Medical Code(s): J96.90 - Respiratory failure, unspecified, unspecified whether with hypoxia or hypercapnia (2) Pleural effusion: Status: Acute Category: Medical Code(s): J90 - Pleural effusion, not elsewhere classified (3) Aspiration into airway: Status: Acute Category: Medical Code(s): T17.908A - Unspecified foreign body in respiratory tract, part unspecified causing other injury, initial encounter (4) Altered mental status: Status: Acute Qualifiers: Altered mental status type: transient alteration of awareness Qualified Code(s): R40.4 - Transient alteration of awareness Category: Medical Code(s): R41.82 - Altered mental status, unspecified (5) Debility: Status: Acute Category: Medical Code(s): R53.81 - Other malaise (6) Peripheral edema: Status: Acute Category: Medical Code(s): R60.0 - Localized edema (7) Afib: Status: Chronic Category: Medical Code(s): I48.91 - Unspecified atrial fibrillation (8) HTN (hypertension): Status: Acute Qualifiers: Hypertension type: unspecified Qualified Code(s): I10 - Essential (primary) hypertension Category: Medical Code(s): I10 - Essential (primary) hypertension (9) Hyperlipidemia: Status: Chronic Qualifiers: Hyperlipidemia type: mixed hyperlipidemia Qualified Code(s): E78.2 - Mixed hyperlipidemia Category: Medical Code(s): E78.5 - Hyperlipidemia, unspecified (10) Shock: Status: Acute Category: Medical Code(s): R57.9 - Shock, unspecified (11) CHF exacerbation: Status: Acute Category: Medical Code(s): I50.9 - Heart failure, unspecified (12) Colitis: Status: Acute Category: Medical Code(s): K52.9 - Noninfective gastroenteritis and colitis, unspecified (13) CHAD (acute kidney injury): Status: Acute Category: Medical Code(s): N17.9 - Acute kidney failure, unspecified Plan Continue comfort measures.
--- NOTE | 2024-08-20 17:03 | PC.NURSE ---
pt lying supine in bed, heels floated and heel protectors in place. pt is unresponsive to voice. audible gargling noted throughout the shift. pt medicated for secretions/pain per dec. 1LNC in place. rapp catheter in place with minimal output this shift. hospice visited family this evening. 3+ pitting edema noted on all extremities. comfort cart provided to family and restocked as needed. family voices no needs or complaints. pt appears comfortable and calm. call light within reach.
--- NOTE | 2024-08-21 00:17 | P.DN_ITS ---
Pronouncement Note Date and Time of Date of : 08/21/24 Time of : 00:05 PCOD Preliminary cause of : Heart failure Contributing Factors (1) Respiratory failure: (2) Afib: (3) HTN (hypertension): (4) Hyperlipidemia: (5) CHAD (acute kidney injury): Summary Additional details: Nursing staff contacted me. They believe that a hospice patient had passed.. They ask if I would come and pronounce the patient.. Came to the room where I met family members and ask if they needed anything and explained that I was there to examine their loved one. Per nursing staff informed me that the patient was on hospice. exam : Patient was assessed for more than 3 minutes. There was no signs of life, no respiration , no pulse, and no sounds of heartbeat.. plan, I then conveyed to the family that I no longer heard any heart heartbeat. I could not find a pulse or any respirations. They expressed their understanding. time of was 12:05. . Additional Data Confirmation of : no pulse, no respirations and no heart sounds Family: at bedside Attending/PCP notified?: Yes Attending physician: Parvez Kyle MD Was code activated?: No Autopsy should be considered if:: Unknown or unanticipated medical complications Cause is not known with certainty on clinical grounds Would allay concerns of the public/family regarding Unexplained/unexpected apparently natural and not subject to a forensic medical jurisdiction DOA Within 24 hours of admission Sustained or apparently sustained injury while in the hospital Result of high risk, infectious and contagious disease Obstetric and pediatric arising from environmental or occupational hazard Unexplained/unexpected from dental, medical, or surgical diagnostic procedures and/or therapies Would disclose a known or suspected illness which also may have a bearing on survivors or recipients of transplanted organs Autopsy requested?: No Does not meet criteria polygraph examiner notified?: No Organ bank notified?: No Advance directives: Yes (I was informed that the patient was on hospice. )
--- NOTE | 2024-08-21 00:31 | PC.NURSE ---
-Notified by computer forwarding system markup clerk that pt HR dropped to 0 at 2356. Entered room and assessed pt. Family was notified that no heart or lung sounds were heard and that a MD would need to be notified to pronounce . news production supervisor was notified at 2359 and gave approval to call Sunil Nielson to pronounce . After assessing the patient, Sunil pronounced the time of at 0005 08/21/2024. automotive parts clerk updated hospice at 0010. Dr. Galicia who was [employer] sales consultant for Dr. Kyle was updated at 0013. RUBEN was called at 0015. Spoke to Prudence Youngblood and given . Family currently with patient at bedside.
--- NOTE | 2024-08-21 02:47 | PC.NURSE ---
Patient left unit with [facility] at 02:46.
--- NOTE | 2024-08-22 16:28 | P.DS_ITS ---
General Admission date:: 08/14/24 Discharge date: 08/21/24 HPI HPI HPI: Ms. Anders is a an 84-year-old female with multiple medical issues to include atrial fibrillation, hypertensive heart disease, anemia, past history of breast cancer, frequent urinary tract infections., Acute kidney injuries, debility who has had 2 recent hospitalizations at [facility] for UTI with sepsis. She was transferred back to [place] last week on 08/09/2024 on Levaquin. Apparently she did quite well for couple of days and was even sitting up in a chair and completed transfers from bed to chair. She went to physical therapy in a wheelchair. She then became more lethargic and with altered mental status with decrease in eating the following 3 days. On 08/14/2024 she appeared to have aspirated food. Vital signs deteriorated and she presented again to [facility] emergency room for evaluation. En route to the hospital EMS suction chunks of food from the patient's airway. She was tachycardic in atrial fib. She was also hypotensive with a systolic blood pressure in the 60s and hypoxic on room air. White count was found to be elevated at 13,500 with a hemoglobin of 11.5 and hematocrit of 32.3. Renal function showed a BUN of 10 and creatinine of 1.8. In the Emergency room she was started on IV antibiotics to include cefepime, metronidazole, and vancomycin. ACcording to note she did receive some IVF resuscitation. Chest CTA revealed the following: IMPRESSION: 1. The main pulmonary artery is dilated to 3.2 cm. No pulmonary embolism. 2. Large left and moderate right pleural effusions. Bibasilar atelectasis. 3. There is low density material within the left atrial appendage, nonspecific, but may be related to flow artifact and lack of opacification versus left atrial appendage thrombus. Consider echocardiogram if there is clinical concern. CT of abdominal pelvic regions as follows: IMPRESSION: 1. There is hyperenhancement of mucosal jeffery of sigmoid colon, descending colon, transverse colon, nonspecific, but suspicious for an infectious/inflammatory colitis. No bowel obstruction. No contrast extravasation is identified. There is a 1.5 x 2.0 cm ascending colon lipoma (series 3, image 242, series 5, image 51). 2. Moderate cardiomegaly. 3. Postsurgical changes in the right breast. Correlate with prior mammography. 4. Bilateral cortical renal scarring. There is a nonobstructive, 8 mm stone in the right interpolar segment. No hydroureteronephrosis. No suspicious enhancing renal mass. This a.m. patient is responsive and responds with yes and no. She does focus. Hospital Course Hospital Course Hospital Course: After admission patient was weaned to nasal O2. DuoNebs were scheduled. She was continued with IV Levaquin. Repeat echocardiogram revealed limited study; grossly normal global LV systolic function; left atrium dilated; and noted that study was limited TTE to evaluate for echodensity noted in the LA appendage on the CT of the chest. With further evaluation for HARLEY if clinically feasible indicated REGGIE suggested. Family remained at bedside throughout her stay. She remained n.p.o as rrecommended by speech therapy. She continued with a Sebastian catheter. Blood pressure was low. Patient indicated that she hurt all over. White blood cell count did improve to 13,500 with a hemoglobin of 9.6 and hematocrit of 30.4. She was given a 500 cc fluid bolus. Edema seemed to be worse. She continued to be at able to answer yes and no. The p.m. of 08/17/2024 patient was accepted into hospice. She was changed to comfort measures. She was receiving morphine for pain and she seemed to be comfortable. She did have increasing respiratory secretions but was resting. On 08/21/2024 she was noted not to be breathing and had no audible heart sounds. She was pronounced by Sunil Fowler APRN. See pronouncement note. Body was released to [place] home. Exam Data for Last 24 hours Vital signs and Labs for Last 24 Hours: Temp Pulse Resp BP Pulse Ox O2 Del Method O2 Flow Rate 99.9 F H 120 H 18 127/70 99 Nasal Cannula 1 08/19/24 00:55 08/18/24 04:00 08/17/24 20:00 08/17/24 20:00 08/18/24 00:00 08/20/24 23:00 08/20/24 23:00 I & O for Last 24 hours: Intake & Output 08/20/24 08/21/24 08/22/24 08/23/24 11:59 11:59 11:59 11:59 Output Total 450 / 450 105 / 105 Balance -450 / -450 -105 / -105 Weight 182 lb 6.391 oz Narrative: Constitutional: Present no acute distress Comment:: Sedate, sleeping Respiratory: Present CTA bilaterally Cardiac: Present Reg Rate and Rhythm and Tachycardia Extremities: Present edema (bilateral LE's and UE's) Skin: Present intact Results Data Completed and Pending Completed studies during hospitalization [Text1]: 08/16/24 08:35: WBC 13.5 H, RBC 2.92 L, Hgb 9.6 L, Hct 30.4 L, MCV 103.9 H, MCH 32.9 H, MCHC 31.7 L, RDW 18.2 H, Plt Count 245, MPV 10.3, Neut % (Auto) 86.2 H, Lymph % (Auto) 6.9 L, [place] % (Auto) 6.4, Eos % (Auto) 0.1, Baso % (Auto) 0.3, Neut # (Auto) 11.6 H, Lymph # (Auto) 0.9, [place] # (Auto) 0.9, Eos # (Auto) 0.0, Baso # (Auto) 0.0, Total Counted 100, Neutrophils % (Manual) 81 H, Lymphocytes % (Manual) 17, Monocytes % (Manual) 2, Platelet Estimate Normal, Macrocytosis 1+, Sodium 137, Potassium 3.4 L, Chloride 106, Carbon Dioxide 20 L, Anion Gap 14.4, BUN 14, Creatinine 1.80 H, Estimated Creat Clear 31, Estimated GFR 27 L, Est GFR ( Amer) 32 L, Glucose 126 H, Calcium 7.5 L 08/17/24 06:13: WBC 12.8 H, RBC 3.06 L, Hgb 10.3 L, Hct 33.0 L, MCV 107.9 H, MCH 33.8 H, MCHC 31.3 L, RDW 17.9 H, Plt Count 207, MPV 8.1, Neut % (Auto) 80.9 H, Lymph % (Auto) 11.7, [place] % (Auto) 6.7, Eos % (Auto) 0.1, Baso % (Auto) 0.6, Neut # (Auto) 10.3 H, Lymph # (Auto) 1.5, [place] # (Auto) 0.9, Eos # (Auto) 0.0, Baso # (Auto) 0.1, Sodium 137, Potassium 3.8, Chloride 109 H, Carbon Dioxide 15 L, Anion Gap 16.8 H, BUN 17, Creatinine 1.60 H, Estimated Creat Clear 33, Estimated GFR 31 L, Est GFR ( Amer) 37 L, Glucose 120 H, Calcium 7.5 L, Total Bilirubin 0.8, AST 31 D, ALT 23 D, Alkaline Phosphatase 108, Total Protein 4.6 L, Albumin 2.3 L, Globulin 2.3, Albumin/Globulin Ratio 1.0 L DS: Diagnosis Discharge Diagnosis (1) Respiratory failure: Status: Acute Code(s): J96.90 - Respiratory failure, unspecified, unspecified whether with hypoxia or hypercapnia (2) Afib: Status: Chronic Code(s): I48.91 - Unspecified atrial fibrillation (3) HTN (hypertension): Status: Acute Code(s): I10 - Essential (primary) hypertension Qualifiers: Hypertension type: unspecified Qualified Code(s): I10 - Essential (primary) hypertension (4) Hyperlipidemia: Status: Chronic Code(s): E78.5 - Hyperlipidemia, unspecified Qualifiers: Hyperlipidemia type: mixed hyperlipidemia Qualified Code(s): E78.2 - Mixed hyperlipidemia (5) CHAD (acute kidney injury): Status: Acute Code(s): N17.9 - Acute kidney failure, unspecified Meds Home Medications and Allergies Home Medications ?Medication ?Instructions ?Recorded ?Confirmed ?Type escitalopram oxalate 10 mg tablet 10 mg PO DAILY 10/19/17 08/14/24 History cholecalciferol (vitamin D3) 125 10,000 unit PO .TWICE WEEKLY 06/30/22 08/14/24 History mcg (5,000 unit) capsule omeprazole 40 mg capsule,delayed 40 mg PO HS 02/20/23 08/15/24 History release cyanocobalamin (vitamin B-12) 1,000 mcg PO DAILY 04/04/23 08/14/24 History 1,000 mcg tablet,extended release atorvastatin 20 mg tablet 20 mg PO HS 07/31/24 08/14/24 History metoprolol succinate 25 mg 25 mg PO DAILY 07/31/24 08/14/24 History tablet,extended release 24 hr rivaroxaban 20 mg tablet (Xarelto) 20 mg PO QPMWITHMEAL 07/31/24 08/15/24 History acetaminophen 325 mg tablet 325 mg PO Q4H PRN pain #1 tab 08/04/24 08/15/24 Rx (Tylenol) New Prescriptions to Start Prescriptions: Allergies Allergy/AdvReac Type Severity Reaction Status Date / Time Penicillins [PENICILLINS] Allergy Intermediate I-RASH Verified 05/10/24 14:30 hydrocortisone Allergy Unknown I-RASH Verified 05/10/24 14:30 [From CORTIZONE-10] Discharge Plan Disposition Patient Disposition: Patient Discharge Instructions Print Language: Micronesian Date/Time Date/Time: 08/21/24 00:05 Providers Primary Care Provider: Parvez Kyle Admit Provider: Parvez Kyle Attending Provider: Parvez Kyle
== END 2024-08-21 00:05 | disposition expired | DRG 189 ==
LOC: ER 13:10 → 2ND 13:43
PROVIDERS: Nurse Practitioner Family; Admitting Provider Family Medicine; Emergency Provider Emergency Medicine; PCP Family Medicine; Visit Provider Family Medicine
DX: J96.00 Acute respiratory failure, unspecified whether with hypoxia or hypercapnia (principal); N17.9 Acute kidney failure, unspecified; I48.20 Chronic atrial fibrillation, unspecified; R57.9 Shock, unspecified; I11.0 Hypertensive heart disease with heart failure; Z79.01 Long term (current) use of anticoagulants; Z79.899 Other long term (current) drug therapy; I50.9 Heart failure, unspecified; K52.9 Noninfective gastroenteritis and colitis, unspecified; Z51.5 Encounter for palliative care; Z85.3 Personal history of malignant neoplasm of breast
CPT/HCPCS: 36415; 51702; 70450; 71275; 74174; 80048; 80053; 81001; 82272; 82803; 83605; 83690; 83735; 83880; 84436; 84443; 84484; 85007; 85014; 85018; 85025; 85048; 85049; 85610; 85730; 87040; 87086; 87507; 92507; 92526; 93005; 93308; 94640; 94761; 99291; G0328; J1595; J1650; J1956; J2060; J2270; J7120; J7620; Q9967